=== PATIENT | female | born 1990 | race Caucasian/White ===

== ENCOUNTER 2017-08-17 14:03 | Emergency (ER) | payer OTHER ==
[2017-08-17] MEDS ORDERED: diphenhydrAMINE 50 MG/ML 1 ML VIAL IVP STA (15:40)
[2017-08-17] MEDS ORDERED: METOCLOPRAMIDE 5 MG/ML 2 ML VIAL IVP STA (15:40)
[2017-08-17] MEDS ORDERED: SODIUM CHLORIDE 0.9% 1,000 ML IV STA (15:40)
[2017-08-17] MEDS ORDERED: ACETAMINOPHEN TAB 500 MG TAB PO STA (15:40)
--- NOTE | 2017-08-17 15:44 | ED ---
General Adult HPI - General Chief complaint: Headache Stated complaint: Headache Time Seen by Provider: 08/17/17 15:31 Source: patient, RN notes reviewed Mode of arrival: ambulatory Limitations: no limitations - History of Present Illness Initial comments: 26-year-old female presents with chief complaint of headache. Symptoms have been present for approximately 3 days. She was seen at urgent care on Sunday , given Toradol and Benadryl. She states her headache was resolved on and then returned today. She took a Toradol this morning with minimal relief. At the time my evaluation patient still has her headache. This is typical of her headaches over the past several months. She was planning on following up with neurology. Denies any injury. Denies fever or chills. She does complain of some right-sided neck pain. Headache is described as bandlike sensation from the front to the back of her head. No family history of aneurysms. Patient's mother does have migraines. No fever or chills. Mild photophobia. No vomiting. - Related Data Home Medications Medication Instructions Recorded Confirmed Ibuprofen [Motrin] 200 - 400 mg PO Q6HR PRN 08/17/17 08/17/17 Ketorolac [Toradol] 10 mg PO Q6HR PRN 08/17/17 08/17/17 Ondansetron Odt [Zofran Odt] 4 mg PO Q8HR PRN 08/17/17 08/17/17 Previous Rx's Medication Instructions Recorded Sulfamethox-Tmp 800-160Mg [Bactrim 1 tab PO Q12HR #28 tab 08/17/17 DS 800-160 mg] Allergies Allergy/AdvReac Type Severity Reaction Status Date / Time silver Allergy Rash/Hives Verified 08/17/17 16:05 [From Tegaderm AG Mesh] Review of Systems ROS Statement: Those systems with pertinent positive or pertinent negative responses have been documented in the HPI. ROS Other: All systems not noted in ROS Statement are negative. Past Medical History Past Medical History: No Reported History History of Any Multi-Drug Resistant Organisms: None Reported Additional Past Surgical History / Comment(s): urethral surgery at 7months old. skull fracture at age 9 Past Psychological History: Anxiety, Depression Smoking Status: Never smoker Past Alcohol Use History: Rare Past Drug Use History: None Reported General Exam Limitations: no limitations General appearance: alert, in no apparent distress Head exam: Present: atraumatic, normocephalic Eye exam: Present: normal appearance, PERRL ENT exam: Present: normal exam Neck exam: Present: normal inspection. Absent: tenderness, meningismus Respiratory exam: Present: normal lung sounds bilaterally. Absent: respiratory distress Cardiovascular Exam: Present: regular rate, normal rhythm GI/Abdominal exam: Present: soft. Absent: distended, tenderness Extremities exam: Present: normal inspection, full ROM. Absent: normal capillary refill Neurological exam: Present: alert, oriented X3, CN II-XII intact. Absent: motor sensory deficit Psychiatric exam: Present: normal affect, normal mood Skin exam: Present: warm, dry, intact Course Vital Signs 08/17/17 14:08 Temperature 97.5 F L Pulse Rate 92 Respiratory 18 Rate Blood Pressure 149/84 O2 Sat by Pulse 99 Oximetry Medical Decision Making - Medical Decision Making 26-year-old female presenting with chief complaint of headache which is typical of her chronic headaches. Neurologic examination is nonfocal. Patient is overall well-appearing. Laboratory studies reveal mild elevated white blood cell count 12.9, creatinine 1.44 with no known baseline. Patient does admit to decreased by mouth intake over the last 24 hours. Urinalysis shows 2+ protein, positive nitrate, 10 RBCs , 4 WBCs and many bacteria. Urine culture will be obtained. On reevaluation, patient is feeling much better, headache resolved. Depakote studies are discussed with the patient including the creatinine, kidney function , and urinalysis. Patient will follow-up with her primary care physician for repeat laboratory studies. Return to emergency department with worsening symptoms. Diagnosis: Headache, UTI - Lab Data Result diagrams: 08/17/17 16:10 08/17/17 16:10 Lab Results 08/17/17 08/17/17 08/17/17 Range/Units 16:10 16:10 17:10 WBC 12.9 H (3.8-10.6) k/uL RBC 4.54 (3.80-5.40) m/uL Hgb 12.6 (11.4-16.0) gm/dL Hct 38.9 (34.0-46.0) % MCV 85.6 (80.0-100.0) fL MCH 27.7 (25.0-35.0) pg MCHC 32.4 (31.0-37.0) g/dL RDW 13.0 (11.5-15.5) % Plt Count 413 (150-450) k/uL Neutrophils % 73 % Lymphocytes % 18 % Monocytes % 5 % Eosinophils % 3 % Basophils % 0 % Neutrophils # 9.3 H (1.3-7.7) k/uL Lymphocytes # 2.3 (1.0-4.8) k/uL Monocytes # 0.6 (0-1.0) k/uL Eosinophils # 0.3 (0-0.7) k/uL Basophils # 0.1 (0-0.2) k/uL Sodium 141 (137-145) mmol/L Potassium 4.8 (3.5-5.1) mmol/L Chloride 111 H (98-107) mmol/L Carbon Dioxide 22 (22-30) mmol/L Anion Gap 8 mmol/L BUN 26 H (7-17) mg/dL Creatinine 1.44 H (0.52-1.04) mg/dL Est GFR (MDRD) Af Amer 54 (>60 ml/min/1.73 sqM) Est GFR (MDRD) Non-Af 45 (>60 ml/min/1.73 sqM) Glucose 80 (74-99) mg/dL Calcium 9.4 (8.4-10.2) mg/dL Total Bilirubin 0.5 (0.2-1.3) mg/dL AST 21 (14-36) U/L ALT 32 (9-52) U/L Alkaline Phosphatase 92 (38-126) U/L Total Protein 7.0 (6.3-8.2) g/dL Albumin 3.6 (3.5-5.0) g/dL Urine Color Yellow Urine Appearance Cloudy H (Clear) Urine pH 5.5 (5.0-8.0) Ur Specific Mobile 1.016 (1.001-1.035) Urine Protein 2+ H (Negative) Urine Glucose (UA) Negative (Negative) Urine Ketones Negative (Negative) Urine Blood Moderate H (Negative) Urine Nitrite Positive H (Negative) Urine Bilirubin Negative (Negative) Urine Urobilinogen <2.0 (<2.0) mg/dL Ur Leukocyte Esterase Negative (Negative) Urine RBC 10 H (0-5) /hpf Urine WBC 4 (0-5) /hpf Ur Squamous Epith Cells 6 H (0-4) /hpf Amorphous Sediment Rare H (None) /hpf Urine Bacteria Many H (None) /hpf Hyaline Casts 1 (0-2) /lpf Urine Yeast (Budding) Occasional H (None) /hpf Urine HCG, Qual (Not Detectd) 08/17/17 Range/Units 17:10 WBC (3.8-10.6) k/uL RBC (3.80-5.40) m/uL Hgb (11.4-16.0) gm/dL Hct (34.0-46.0) % MCV (80.0-100.0) fL MCH (25.0-35.0) pg MCHC (31.0-37.0) g/dL RDW (11.5-15.5) % Plt Count (150-450) k/uL Neutrophils % % Lymphocytes % % Monocytes % % Eosinophils % % Basophils % % Neutrophils # (1.3-7.7) k/uL Lymphocytes # (1.0-4.8) k/uL Monocytes # (0-1.0) k/uL Eosinophils # (0-0.7) k/uL Basophils # (0-0.2) k/uL Sodium (137-145) mmol/L Potassium (3.5-5.1) mmol/L Chloride (98-107) mmol/L Carbon Dioxide (22-30) mmol/L Anion Gap mmol/L BUN (7-17) mg/dL Creatinine (0.52-1.04) mg/dL Est GFR (MDRD) Af Amer (>60 ml/min/1.73 sqM) Est GFR (MDRD) Non-Af (>60 ml/min/1.73 sqM) Glucose (74-99) mg/dL Calcium (8.4-10.2) mg/dL Total Bilirubin (0.2-1.3) mg/dL AST (14-36) U/L ALT (9-52) U/L Alkaline Phosphatase (38-126) U/L Total Protein (6.3-8.2) g/dL Albumin (3.5-5.0) g/dL Urine Color Urine Appearance (Clear) Urine pH (5.0-8.0) Ur Specific Mobile (1.001-1.035) Urine Protein (Negative) Urine Glucose (UA) (Negative) Urine Ketones (Negative) Urine Blood (Negative) Urine Nitrite (Negative) Urine Bilirubin (Negative) Urine Urobilinogen (<2.0) mg/dL Ur Leukocyte Esterase (Negative) Urine RBC (0-5) /hpf Urine WBC (0-5) /hpf Ur Squamous Epith Cells (0-4) /hpf Amorphous Sediment (None) /hpf Urine Bacteria (None) /hpf Hyaline Casts (0-2) /lpf Urine Yeast (Budding) (None) /hpf Urine HCG, Qual Not Detected (Not Detectd) Disposition Clinical Impression: Headache, UTI (urinary tract infection) Disposition: HOME SELF-CARE Condition: Good Instructions: Acute Headache (ED), Dysuria (ED) Prescriptions: Sulfamethox-Tmp 800-160Mg [Bactrim DS 800-160 mg] 1 tab PO Q12HR #28 tab Referrals: Ramandeep Lopez MD [Primary Care Provider] - 1-2 days Time of Disposition: 17:50
[2017-08-17 16:27] LABS: Basophils # (A) 0.1 k/uL (0-0.2); Basophils % (A) 0 %; CH 27.7; CHCM 32.6; Eosinophils # (A) 0.3 k/uL (0-0.7); Eosinophils % (A) 3 %; HCT 38.9 % (34.0-46.0); HDW 2.24; HGB 12.6 gm/dL (11.4-16.0); Luc # (Auto) 0.23; Luc % (Auto) 2; Lymphocytes # (A) 2.3 k/uL (1.0-4.8); Lymphocytes % (A) 18 %; MCH 27.7 pg (25.0-35.0); MCHC 32.4 g/dL (31.0-37.0); MCV 85.6 fL (80.0-100.0); Monocytes # (A) 0.6 k/uL (0-1.0); Monocytes % (A) 5 %; Neutrophils # (A) 9.3 k/uL (1.3-7.7); Neutrophils % (A) 73 %; RBC 4.54 m/uL (3.80-5.40); WBC 12.9 k/uL (3.8-10.6); WBC (Perox) 12.54
[2017-08-17 16:34] LABS: Calcium 9.4 mg/dL (8.4-10.2); Potassium 4.8 mmol/L (3.5-5.1); Total Bilirubin 0.5 mg/dL (0.2-1.3)
[2017-08-17] MEDS ORDERED: SODIUM CHLORIDE 0.9% 1,000 ML IV ONE (16:59)
[2017-08-17 17:36] LABS: Amorphous Sediment,Urine Rare /hpf; Appearance,Urine Cloudy (Clear); Bacteria,Urine Many /hpf; Bilirubin,Urine Negative (Negative); Glucose,Urine (UA) Negative (Negative); Ketones,Urine Negative (Negative); Leukocyte Esterase,Urine Negative (Negative); Nitrite,Urine Positive (Negative); PH, Urine 5.5 (5.0-8.0); Particle Count 46120; Protein,Urine 2+ (Negative); RBC,Urine 10 /hpf (0-5); Specific Gravity,Urine 1.016 (1.001-1.035); Squamous Epithelial Cell,Urine 6 /hpf (0-4); UA Billing (MACRO vs. MICRO) MICRO; Urobilinogen,Urine <2.0 mg/dL (<2.0); WBC,Urine 4 /hpf (0-5)
[2017-08-17 18:10] VITALS: BP 163/93; PULSE 84; RESP 16; TEMP 97.4
== END 2017-08-17 18:10 | disposition home or self-care (01) ==
LOC: EC 14:03
DX: N39.0 Urinary tract infection, site not specified (principal); R51 Headache; M54.2 Cervicalgia; H53.149 Visual discomfort, unspecified; Z91.09 Other allergy status, other than to drugs and biological substances
CPT/HCPCS: 36415; 80053; 85025; 81001; 81025; 99284; 96374; 96375; 96361 ×2; J1200; J2765

== ENCOUNTER → 2017-10-04 | Outpatient (CLI) | payer OTHER ==
--- NOTE | 2017-10-04 15:22 | US ---
EXAMINATION TYPE: US kidneys/renal and bladder DATE OF EXAM: 10/04/2017 COMPARISON: NONE CLINICAL HISTORY: R03.0ELEVATED BLOOD PRESSURE/R82.90/R94.4. Abnormal labs EXAM MEASUREMENTS: Right Kidney: 9.5 x 4.9 x 4.2 cm Left Kidney: 9.1 x 4.0 x 4.5 cm Right Kidney: Medial anechoic lesion seen at hilum - 2.1 x 1.2 cm Left Kidney: Medial anechoic lesion seen at hilum - 1.8 x 1.2 cm Bladder: distended, wnl as visualized Bilateral Jets seen Technologist gibbs prominent renal pelvis on the right without significant calyceal dilatation seen. Bladder is satisfactorily distended without intraluminal mass or wall thickening. Similar prominent p paul on left is seen without significant calyceal dilatation. IMPRESSION: Suspect bilateral extrarenal pelvises. Renal sizes are symmetric and felt within normal limits.
== END | disposition home or self-care (01) ==
LOC: RADUSWWP 14:14
PROVIDERS: ATTEND Family Medicine
DX: R94.4 Abnormal results of kidney function studies (principal); R03.0 Elevated blood-pressure reading, without diagnosis of hypertension; R82.90 Unspecified abnormal findings in urine
CPT/HCPCS: 76770

== ENCOUNTER → 2017-10-12 | Outpatient (CLI) | payer OTHER ==
--- NOTE | 2017-10-12 20:02 | XR ---
EXAMINATION TYPE: XR cervical spine comp DATE OF EXAM: 10/12/2017 COMPARISON: NONE HISTORY: Neck pain TECHNIQUE: 5 views FINDINGS: The vertebra have normal alignment. Posterior elements are intact. Disc spaces are normal. Atlantoaxial facet joint is normal. There are no cervical ribs. IMPRESSION: Negative cervical spine exam.
--- NOTE | 2017-10-12 20:35 | MR ---
EXAMINATION TYPE: MR brain wo con DATE OF EXAM: 10/12/2017 COMPARISON: NONE HISTORY: Headache T1-weighted sagittal, T2, FLAIR, and diffusion axial, and T2 coronal coronal views of the brain are s ubmitted. There is no evidence of acute ischemia. The ventricles, basal cisterns, and sulci overlying the conv exities are consistent with the patient's age. There is no mass effect. Craniocervical junction maintained. Sella turcica has a normal appearance. Cerebellar tonsils are low-lying in position at the level the foramen magnum. Changes of chronic sinu sitis noted. White matter: No abnormal signal the visualized white matter. IMPRESSION: 1. No acute intracranial process. 2. Chronic sinusitis. 3. Low-lying cerebellar tonsils. Tonsils are seen at or approximately 1 to 2 mm below the foramen mag num.
== END | disposition home or self-care (01) ==
LOC: RADMRIMAIN 19:39
PROVIDERS: ATTEND Family Medicine
DX: R51 Headache (principal); S16.1XXA Strain of muscle, fascia and tendon at neck level, initial encounter; J32.9 Chronic sinusitis, unspecified
CPT/HCPCS: 70551; 72050

== ENCOUNTER → 2017-10-15 | Outpatient (CLI) | payer OTHER ==
--- NOTE | 2017-10-15 16:35 | CT ---
EXAMINATION TYPE: CT urogram wo/w con DATE OF EXAM: 10/15/2017 COMPARISON: NONE HISTORY: 26-year-old female abnormal kidney function results and lesions found on both kidneys, per p atient. TECHNIQUE: Contiguous axial scanning of the abdomen and pelvis performed without and with IV Contrast , patient injected with 100 mL of Omnipaque 300. Delayed images through the kidneys and bladder were obtained. Coronal/sagittal reconstructions performed. 3-D reconstructions generated on a dedicated in dependent workstation. CT DLP: 3249 mGycm Automated exposure control for dose reduction was used. FINDINGS: Heart normal size without pericardial effusion. Lung bases clear without pleural effusion. No focal liver lesion or biliary ductal dilatation. Portal vein is patent. Gallbladder, adrenal glands, spleen, and pancreas appear within normal limits. Evaluation of the kidneys shows a punctate 1 mm nonobstructive right mid pole renal calculus. No hydr onephrosis on either side. Symmetric uptake and excretion of contrast from both kidneys. No focal bambi al lesion. No suspicious filling defect within the collecting systems. There is nonopacification of short segments of the distal third right ureter. Otherwise, the ureters appear unremarkable. No dilated small bowel, free fluid, or free air. No mesenteric or retroperitoneal lymphadenopathy. Normal appendix. Mild scattered stool without pericolonic inflammatory change. Bladder is urine distended. Uterus and both ovaries are visualized with follicular change. No abnorma l fluid collection in the pelvis. A few prominent external iliac chain lymph nodes on either side maddie sure up to 8 mm and are probably reactive/post inflammatory. Bones: No osseous destructive process. Mild endplate spondylosis lower thoracic spine. IMPRESSION: 1. PUNCTATE 1 MM NONOBSTRUCTIVE RIGHT RENAL CALCULUS. 2. SHORT SEGMENTS OF THE DISTAL THIRD RIGHT URETER REMAIN NONOPACIFIED AND NOT WELL ASSESSED. 3. OTHERWISE, UNREMARKABLE CT UROGRAM.
== END | disposition home or self-care (01) ==
LOC: RADCTMAIN 14:57
PROVIDERS: ATTEND Family Medicine
DX: N20.0 Calculus of kidney (principal); N13.30 Unspecified hydronephrosis; N39.0 Urinary tract infection, site not specified; R94.4 Abnormal results of kidney function studies
CPT/HCPCS: 74178; 74400; Q9967

== ENCOUNTER 2024-01-30 07:40 | Day surgery (SDC) | payer MEDICARE, OTHER ==
[~2024-01-30 07:40] MED LIST: HYDROmorphone 0.5 MG/0.5 ML SYRINGE IVP PRN; LACTATED RINGERS 1,000 ML IV SCH
[2024-01-30] MEDS: SODIUM CHLORIDE 0.9% 1,000 ML IV ONE ×3 (07:49→11:13)
[2024-01-30] MEDS: DEXAMETHASONE SOD PHOSPHATE 4 MG/ML 1 ML VIAL IV ONE (08:29)
[2024-01-30] MEDS: ACETAMINOPHEN TAB 500 MG TAB PO PRN (08:29)
[2024-01-30] MEDS: ONDANSETRON 4 MG/2 ML VIAL IVP ONE (08:29)
[2024-01-30 08:41] LABS: Anisocytosis Slight; Basophils % (A) 0 %; Eosinophils # (A) 0.4 k/uL (0-0.7); Eosinophils % (A) 3 %; HCT 31.8 % (34.0-46.0); HGB 10.1 gm/dL (11.4-16.0); Lymphocytes # (A) 0.9 k/uL (1.0-4.8); Lymphocytes % (A) 7 %; MCH 28.8 pg (25.0-35.0); MCHC 31.8 g/dL (31.0-37.0); MCV 90.6 fL (80.0-100.0); Mean Platelet Volume 7.1; Monocytes # (A) 0.6 k/uL (0-1.0); Monocytes % (A) 4 %; Neutrophils # (A) 11.4 k/uL (1.3-7.7); Neutrophils % (A) 85 %; Platelet Count 238 k/uL (150-450); RBC 3.51 m/uL (3.80-5.40); RDW 16.1 % (11.5-15.5); WBC 13.4 k/uL (3.8-10.6)
[2024-01-30] MEDS: HEPARIN SODIUM,PORCINE 5,000 UNIT/ML 1 ML VIAL SQ PRN (08:51)
[2024-01-30 09:04] LABS: ALT 9 U/L (4-34); AST 21 U/L (14-36); Albumin 4.1 g/dL (3.5-5.0); Alkaline Phosphatase 137 U/L (38-126); Anion Gap 15 mmol/L; Blood Urea Nitrogen 70 mg/dL (7-17); Calcium 8.2 mg/dL (8.4-10.2); Carbon Dioxide 19 mmol/L (22-30); Chloride 101 mmol/L (98-107); Glucose 103 mg/dL (74-99); Potassium 5.7 mmol/L (3.5-5.1); Sodium 135 mmol/L (137-145); Total Bilirubin 0.8 mg/dL (0.2-1.3); Total Protein 7.1 g/dL (6.3-8.2)
[2024-01-30 09:10] LABS: African American GFR (CKD) 4 (>60 ml/min/1.73 sqM); Non-African American GFR(CKD) 3 (>60 ml/min/1.73 sqM)
[2024-01-30] MEDS ORDERED: ROCURONIUM 10 MG/ML (5 ML VIAL) IV ONE (09:45)
[2024-01-30] MEDS ORDERED: NEOSTIGMINE 1 MG/ML 10 ML VIAL ONE (09:45)
[2024-01-30] MEDS ORDERED: PROPOFOL 10 MG/ML 20 ML VIAL IV ONE (09:45)
[2024-01-30] MEDS ORDERED: GLYCOPYRROLATE 0.2 MG/ML 2 ML VIAL ONE (09:45)
[2024-01-30] MEDS ORDERED: fentaNYL (PF) 50 MCG/ML 2 ML AMP ONE (09:45)
[2024-01-30] MEDS ORDERED: MIDAZOLAM 2 MG/2 ML VIAL ONE (09:45)
[2024-01-30] MEDS ORDERED: LIDOCAINE 1% INJ 10MG/ML (20 ML MDV) ONE (09:45)
[2024-01-30] MEDS: LIDOCAINE 1%-EPI 1:100,000 20 ML VIAL SQ ONE ×2 (10:20)
[2024-01-30] MEDS: MINERAL OIL 1 APPLIC/ML OIL MISCELLANE ONE (10:21)
--- NOTE | 2024-01-30 11:04 | P.OP ---
Date of Procedure: 01/30/24 Preoperative Diagnosis: renal failure Postoperative Diagnosis: renal failure Procedure(s) Performed: laparoscopic placement of CAPD catheter Anesthesia: CHRISTINA Surgeon: Ascencion Garland Estimated Blood Loss (ml): 5 Pathology: none sent Condition: stable Disposition: PACU Description of Procedure: the patient's placed on tthe operating table in the supine position. She received general endotracheal tube anesthesia. Her abdomen was prepped and draped in usual sterile fashion. Using a 5 mm optical trocar in the left upper quadrant the peritoneal cavity is entered. And then the abdomen was insufflated. After adequate insufflation a 10 mm trochars placed in the infraumbilical position. There were no adhesions seen in the pelvis. A 5 mm incision was made in the left lateral periumbilical area. the CAPD catheter was placed into the peritoneum. It was directed towards the left lower quadrant. The 10 mm trochars withdrawn. The CAPD catheter Velcro cuff was placed at the fascial level. And then using a hemostat at the left lateral incision. A tract was made and then the CAPD catheter exited through the skin at the left lateral skin incision. There was a Velcro cuff at the fascial level and another Velcro cuff in the subcutaneous fat. The CAPD catheter was flushed under direct vision. 10 mL of saline was used to flush catheter. The 5 mm trochars withdrawn. The skin incision sites are closed with 3-0 Monocryl suture. The CAPD catheter was secured with 3-0 nylon suture. Patient was sent to recovery room in stable condition.
[2024-01-30 11:24] VITALS: TEMP 97.3
[2024-01-30 12:09] VITALS: BP 177/93; PULSE 90
[2024-01-30 12:10] VITALS: RESP 18
== END 2024-01-30 11:15 | disposition home or self-care (01) ==
LOC: OR 07:40
PROVIDERS: ATTEND Surgery
DX: N19 Unspecified kidney failure (principal); I10 Essential (primary) hypertension; F41.9 Anxiety disorder, unspecified; F32.A Depression, unspecified; M79.7 Fibromyalgia; G40.909 Epilepsy, unspecified, not intractable, without status epilepticus; Z79.899 Other long term (current) drug therapy
CPT/HCPCS: 81025; 80053; 85025; 49324; C1752; J2250; J1644; J1100; J2710; J0690; J2405; J2001; J3010; J2704

== ENCOUNTER 2024-04-17 20:42 | Inpatient (IN) | payer MEDICARE, OTHER ==
--- NOTE | 2024-04-17 22:04 | ED ---
Abdominal Pain HPI - General Chief Complaint: Abdominal Pain Stated Complaint: abd pain Time Seen by Provider: 04/17/24 21:28 Source: patient, RN notes reviewed, old records reviewed Mode of arrival: wheelchair Limitations: no limitations - History of Present Illness Initial Comments: This is a 33-year-old female to the ER for evaluation today. Patient [place] for evaluation of abdominal pain severe right lower quadrant abdominal pain, patient is on peritoneal dialysis but her catheter is in her left lower quadrant. Patient also with nausea vomiting severely elevated blood pressure and all otherwise not feeling well. Patient is on dialysis secondary to IgA nephropathy and is recently switched to peritoneal dialysis MD Complaint: abdominal pain, flank pain -: days(s) Location: RLQ Radiation: RLQ Migration to: RLQ Severity: severe Severity scale (1-10): 9 Quality: stabbing, sharp Consistency: constant Improves With: nothing Worsens With: nothing Associated Symptoms: nausea, vomiting Treatments Prior to Arrival: other (0) - Related Data Home Medications Medication Instructions Recorded Confirmed Ondansetron Odt [Zofran Odt] 4 mg PO Q8HR PRN 08/17/17 01/30/24 Ixekizumab [Taltz Syringe] 1 injection INJ BID 01/29/24 01/30/24 NIFEdipine [Adalat CC] 30 mg PO BID 01/29/24 01/30/24 PARoxetine [Paxil] 10 mg PO DAILY 01/29/24 01/30/24 Sevelamer Carbonate 4 tab PO TID-W/MEALS 01/29/24 01/30/24 carvediloL 25 mg PO BID 01/29/24 01/30/24 rOPINIRole HCL 2 tab PO DAILY 01/29/24 01/30/24 traZODone HCL [Desyrel] 50 mg PO HS 01/29/24 01/30/24 Previous Rx's Medication Instructions Recorded Acetaminophen Tab [Tylenol] 650 mg PO Q6H #30 tab 01/30/24 Docusate [Colace] 100 mg PO BID #20 capsule 01/30/24 oxyCODONE HCL [OxyIR] 5 mg PO Q6H PRN 3 Days #10 tab 01/30/24 Allergies Allergy/AdvReac Type Severity Reaction Status Date / Time amlodipine Allergy Rash/Hives Verified 04/17/24 20:58 silver Allergy Rash/Hives Verified 04/17/24 20:58 [From [employer] Mesh] Review of Systems ROS Statement: Those systems with pertinent positive or pertinent negative responses have been documented in the HPI. ROS Other: All systems not noted in ROS Statement are negative. Past Medical History Past Medical History: Hypertension, Renal Disease, Seizure Disorder Additional Past Medical History / Comment(s): dailysis TU<TH<SA, seizure 2 yrs ago,possibly has had dvt in past, History of Any Multi-Drug Resistant Organisms: None Reported Additional Past Surgical History / Comment(s): urethral surgery at 9months old. skull fracture at age 9, back injections Past Anesthesia/Blood Transfusion Reactions: No Reported Reaction Past Psychological History: Anxiety, Depression Past Alcohol Use History: Rare Past Drug Use History: Marijuana - Past Family History Mother Family Medical History: Cancer Additional Family Medical History / Comment(s): ovarian, cervical General Exam Limitations: no limitations General appearance: alert, in no apparent distress, anxious Head exam: Present: atraumatic, normocephalic, normal inspection Eye exam: Present: normal appearance, PERRL, EOMI. Absent: scleral icterus, conjunctival injection, periorbital swelling ENT exam: Present: normal exam, mucous membranes moist Neck exam: Present: normal inspection. Absent: tenderness, meningismus, lymphadenopathy Respiratory exam: Present: normal lung sounds bilaterally. Absent: respiratory distress, wheezes, rales, rhonchi, stridor Cardiovascular Exam: Present: normal rhythm, tachycardia, normal heart sounds. Absent: systolic murmur, diastolic murmur, rubs, gallop, clicks GI/Abdominal exam: Present: soft, normal bowel sounds. Absent: distended, tenderness, guarding, rebound, rigid Extremities exam: Present: normal inspection, full ROM, normal capillary refill. Absent: tenderness, pedal edema, joint swelling, calf tenderness Back exam: Present: normal inspection Neurological exam: Present: alert, oriented X3, CN II-XII intact Psychiatric exam: Present: normal affect, normal mood Skin exam: Present: warm, dry, intact, normal color. Absent: rash Course Vital Signs 04/17/24 04/17/24 04/17/24 20:53 21:44 23:11 Temperature 97.3 F L Pulse Rate 117 H 108 H 98 Respiratory 22 18 18 Rate Blood Pressure 164/93 187/124 211/125 O2 Sat by Pulse 100 100 100 Oximetry 07/25/24 07/26/24 07/26/24 23:52 00:23 02:01 Temperature Pulse Rate 99 103 H 103 H Respiratory 16 18 16 Rate Blood Pressure 200/121 193/126 202/129 O2 Sat by Pulse 99 99 99 Oximetry 04/18/24 02:58 Temperature Pulse Rate 99 Respiratory Rate Blood Pressure 181/112 O2 Sat by Pulse Oximetry - Reevaluation(s) Reevaluation #1: 04/17/24 22:09 Medical records reviewed Reevaluation #2: 04/17/24 22:09 Patient states her diastole has not been cloudy Reevaluation #3: 04/18/24 03:27 Informed of results questions answered Reevaluation #4: Was pt. sent in by a medical professional or institution ([facility], [facility], urgent care, hospital, or senior living...) When possible be specific @ -no Did you speak to anyone other than the patient for history (EMS, parent, family, police, friend...)? What history was obtained from this source @ -no Did you review nursing and triage notes (agree or disagree)? Why? @ -agree Are old charts reviewed (outside hosp., previous admission, EMS record, old EKG, old radiological studies, urgent care reports/EKG's, senior living records)? Report findings @ -yes Differential Diagnosis (chest pain, altered mental status, abdominal pain women, abdominal pain men, vaginal bleeding, weakness, fever, dyspnea, syncope, headache, dizziness, GI bleed, back pain, seizure, CVA, palpatations, mental health, musculoskeletal)? @ -prior EKG interpreted by me (3pts min.). @ -yes X-rays interpreted by me (1pt min.). @ -no CT interpreted by me (1pt min.). @ -yes negative for acute disease U/S interpreted by me (1pt. min.). @ -no What testing was considered but not performed or refused? (CT, X-rays, U/S, labs)? Why? @ -none What meds were considered but not given or refused? Why? @ -none Did you discuss the management of the patient with other professionals (professionals i.e. [facility], [facility], lab, RT, psych nurse, social organization professor, supervisor paint, teacher, human resources officer, rn case manager)? Give summary @ -no Was smoking cessation discussed for >3mins.? @ -no Was critical care preformed (if so, how long)? @ -no Were there social determinants of health that impacted care today? How? (Homelessness, low income, unemployed, alcoholism, drug addiction, transportation, low edu. Level, literacy, decrease access to med. care, alf, rehab)? @ -none Was there de-escalation of care discussed even if they declined (Discuss DNR or withdrawal of care, Hospice)? DNR status @ -no What co-morbidities impacted this encounter? (DM, HTN, Smoking, COPD, CAD, Cancer, CVA, ARF, Chemo, Hep., AIDS, mental health diagnosis, sleep apnea, morbid obesity)? @ -none Was patient admitted / discharged? Hospital course, mention meds given and route, prescriptions, significant lab abnormalities, going to OR and other pertinent info. @ - 33 female to the ER for evaluation of severe abdominal pain found to have significant hyperkalemia on dialysis, patient will admit for nephrology evaluation and severe pain control with hypertensive emergency Undiagnosed new problem with uncertain prognosis? @ -no Drug Therapy requiring intensive monitoring for toxicity (Heparin, Nitro, Insulin, Cardizem)? @ -no Were any procedures done? @ -no Diagnosis/symptom? @ -hyperkalemia renal failure hypertensive emergency Acute, or Chronic, or Acute on Chronic? @ -Acute Uncomplicated (without systemic symptoms) or Complicated (systemic symptoms)? @ -Complicated Side effects of treatment? @ -no Exacerbation, Progression, or Severe Exacerbation? @ -exacerbation Poses a threat to life or bodily function? How? (Chest pain, [place], [place], pneumonia, PE, COPD, DKA, ARF, appy, cholecystitis, CVA, Diverticulitis, Homicidal, Suicidal, threat to staff... and all critical care pts) @ -yes hyperkalemia Reevaluation #5: Differential Abdominal Pain Women: Appendicitis, Cholecystitis, diverticulosis, ischemic bowel, pancreatitis, hepatitis, UTI, gastroenteritis, AAA, incarcerated hernia, bowel obstruction, constipation, inflammatory bowel, hepatitis, peptic ulcer disease, splenic infarction, perforated viscus, vulvitis, ovarian torsion, PID, kidney stone, placenta abruption, this is not meant to be an all-inclusive list - Consultations Consultation #1: Spoke with sound who agrees to admit this patient Medical Decision Making - Medical Decision Making 33 female to the ER for evaluation of severe abdominal pain found to have significant hyperkalemia on dialysis, patient will admit for nephrology evaluation and severe pain control with hypertensive emergency - Lab Data Result diagrams: 04/17/24 22:16 04/17/24 22:16 Lab Results 04/17/24 04/17/24 04/17/24 Range/Units 22:16 22:16 22:16 WBC 10.7 H (3.8-10.6) k/uL RBC 3.68 L (3.80-5.40) m/uL Hgb 10.0 L (11.4-16.0) gm/dL Hct 31.1 L (34.0-46.0) % MCV 84.4 (80.0-100.0) fL MCH 27.1 (25.0-35.0) pg MCHC 32.1 (31.0-37.0) g/dL RDW 15.1 (11.5-15.5) % Plt Count 275 (150-450) k/uL MPV 6.9 Neutrophils % 71 % Lymphocytes % 14 % Monocytes % 8 % Eosinophils % 4 % Basophils % 1 % Neutrophils # 7.6 (1.3-7.7) k/uL Lymphocytes # 1.5 (1.0-4.8) k/uL Monocytes # 0.9 (0-1.0) k/uL Eosinophils # 0.4 (0-0.7) k/uL Basophils # 0.1 (0-0.2) k/uL PT 10.1 (10.0-12.5) sec INR 0.9 (<1.2) APTT 26.1 (22.0-30.0) sec Sodium 134 L (137-145) mmol/L Potassium 6.3 H* (3.5-5.1) mmol/L Chloride 91 L (98-107) mmol/L Carbon Dioxide 26 (22-30) mmol/L Anion Gap 17 mmol/L BUN 82 H (7-17) mg/dL Creatinine 14.74 H* (0.52-1.04) mg/dL Est GFR (CKD-EPI)AfAm 3 (>60 ml/min/1.73 sqM) Est GFR (CKD-EPI)NonAf 3 (>60 ml/min/1.73 sqM) Glucose 93 (74-99) mg/dL Plasma Lactic Acid Fred (0.7-2.0) mmol/L Calcium 9.2 (8.4-10.2) mg/dL Phosphorus 8.4 H (2.5-4.5) mg/dL Magnesium 2.8 H (1.6-2.3) mg/dL Total Bilirubin 0.6 (0.2-1.3) mg/dL AST 20 (14-36) U/L ALT 11 (4-34) U/L Alkaline Phosphatase 91 (38-126) U/L Troponin I (0.000-0.034) ng/mL C-Reactive Protein 2.8 H (<1.0) mg/dL NT-Pro-B Natriuret Pep 19457 pg/mL Total Protein 6.5 (6.3-8.2) g/dL Albumin 3.6 (3.5-5.0) g/dL Lipase 193 (23-300) U/L HCG, Qual Not Detected 04/17/24 04/17/24 Range/Units 22:16 22:16 WBC (3.8-10.6) k/uL RBC (3.80-5.40) m/uL Hgb (11.4-16.0) gm/dL Hct (34.0-46.0) % MCV (80.0-100.0) fL MCH (25.0-35.0) pg MCHC (31.0-37.0) g/dL RDW (11.5-15.5) % Plt Count (150-450) k/uL MPV Neutrophils % % Lymphocytes % % Monocytes % % Eosinophils % % Basophils % % Neutrophils # (1.3-7.7) k/uL Lymphocytes # (1.0-4.8) k/uL Monocytes # (0-1.0) k/uL Eosinophils # (0-0.7) k/uL Basophils # (0-0.2) k/uL PT (10.0-12.5) sec INR (<1.2) APTT (22.0-30.0) sec Sodium (137-145) mmol/L Potassium (3.5-5.1) mmol/L Chloride (98-107) mmol/L Carbon Dioxide (22-30) mmol/L Anion Gap mmol/L BUN (7-17) mg/dL Creatinine (0.52-1.04) mg/dL Est GFR (CKD-EPI)AfAm (>60 ml/min/1.73 sqM) Est GFR (CKD-EPI)NonAf (>60 ml/min/1.73 sqM) Glucose (74-99) mg/dL Plasma Lactic Acid Fred 1.0 (0.7-2.0) mmol/L Calcium (8.4-10.2) mg/dL Phosphorus (2.5-4.5) mg/dL Magnesium (1.6-2.3) mg/dL Total Bilirubin (0.2-1.3) mg/dL AST (14-36) U/L ALT (4-34) U/L Alkaline Phosphatase (38-126) U/L Troponin I 0.064 H* (0.000-0.034) ng/mL C-Reactive Protein (<1.0) mg/dL NT-Pro-B Natriuret Pep pg/mL Total Protein (6.3-8.2) g/dL Albumin (3.5-5.0) g/dL Lipase (23-300) U/L HCG, Qual - EKG Data -: EKG Interpreted by Me (EKG is sinus 98 PA 132 QRS 90 QTc 399) - Radiology Data Radiology results: report reviewed (CT abdomen pelvis is negative for acute disease), image reviewed Disposition Clinical Impression: Abdominal pain, Hyperkalemia, CKD (chronic kidney disease) requiring chronic dialysis, Hypertensive emergency Disposition: ADMITTED IP TO THIS HOSP Condition: Serious Is patient prescribed a controlled substance at d/c from ED?: No Time of Disposition: 01:00
[2024-04-17] MEDS: MORPHINE SULFATE 4 MG/ML SYRINGE IV STA (22:18)
[2024-04-17] MEDS: ONDANSETRON 4 MG/2 ML VIAL IVP STA (22:19)
[2024-04-17] MEDS: SODIUM CHLORIDE 0.9% 500 ML 500 ML IV STA (22:20)
[2024-04-17] MEDS: carvediloL 12.5 MG TAB PO STA (22:20)
[2024-04-17 22:28] LABS: Basophils # (A) 0.1 k/uL (0-0.2); Basophils % (A) 1 %; Eosinophils # (A) 0.4 k/uL (0-0.7); Eosinophils % (A) 4 %; HCT 31.1 % (34.0-46.0); Lymphocytes # (A) 1.5 k/uL (1.0-4.8); Lymphocytes % (A) 14 %; MCH 27.1 pg (25.0-35.0); MCHC 32.1 g/dL (31.0-37.0); MCV 84.4 fL (80.0-100.0); Mean Platelet Volume 6.9; Monocytes # (A) 0.9 k/uL (0-1.0); Monocytes % (A) 8 %; Neutrophils # (A) 7.6 k/uL (1.3-7.7); Neutrophils % (A) 71 %; Platelet Count 275 k/uL (150-450); RBC 3.68 m/uL (3.80-5.40); RDW 15.1 % (11.5-15.5); WBC 10.7 k/uL (3.8-10.6)
[2024-04-17] MEDS: NIFEdipine XL 30 MG TAB.ER.24 PO SCH (22:35)
[2024-04-17 22:41] LABS: ALT 11 U/L (4-34); AST 20 U/L (14-36); Albumin 3.6 g/dL (3.5-5.0); Alkaline Phosphatase 91 U/L (38-126); Anion Gap 17 mmol/L; Blood Urea Nitrogen 82 mg/dL (7-17); Calcium 9.2 mg/dL (8.4-10.2); Carbon Dioxide 26 mmol/L (22-30); Chloride 91 mmol/L (98-107); Glucose 93 mg/dL (74-99); Lipase 193 U/L (23-300); Magnesium 2.8 mg/dL (1.6-2.3); Phosphorus 8.4 mg/dL (2.5-4.5); Sodium 134 mmol/L (137-145); Total Bilirubin 0.6 mg/dL (0.2-1.3); Total Protein 6.5 g/dL (6.3-8.2)
[2024-04-17 22:46] LABS: African American GFR (CKD) 3 (>60 ml/min/1.73 sqM); Non-African American GFR(CKD) 3 (>60 ml/min/1.73 sqM)
[2024-04-17 22:58] LABS: INR 0.9 (<1.2); Partial Thromboplastin Time 26.1 sec (22.0-30.0); Prothrombin Time 10.1 sec (10.0-12.5)
[2024-04-17 23:06] LABS: NT-Pro-B-Type Natriuretic Pept 65600 pg/mL; Potassium 6.3 mmol/L (3.5-5.1)
[2024-04-17 23:19] LABS: HCG,Qualitative Serum Not Detected
[2024-04-17] MEDS: LABETALOL 5 MG/ML VIAL MDV IVP STA (23:19)
--- NOTE | 2024-04-17 23:20 | CT ---
EXAMINATION TYPE: CT abdomen pelvis wo con CT DLP: 396.8 mGycm, Automated exposure control for dose reduction was used. DATE OF EXAM: 04/17/2024 9:57 PM COMPARISON: CT urogram 10/15/2017 CLINICAL INDICATION:Female, 33 years old with history of pain; c/o abd/back pain +nausea. History of urethral surgery. TECHNIQUE: Axial CT abdomen pelvis wo con;Sagittal and coronal reformats were created on a separate workstation. Contrast used: mL of , (none if empty) Oral contrast used: without Oral Contrast (none if empty) FINDINGS: LOWER CHEST: Unremarkable ABDOMEN LIVER: Unremarkable GALLBLADDER AND BILE DUCTS: The gallbladder is nondistended with no gross abnormality. No biliary charan di dilatation. PANCREAS: Unremarkable. SPLEEN: Unremarkable. ADRENAL GLANDS: Poorly visualized. KIDNEYS AND URETERS: Severely atrophic kidneys bilaterally and poorly visualized. No gross other asso ciated abnormality appreciated. PELVIS BLADDER: Incompletely distended but grossly unremarkable. REPRODUCTIVE: Suggested uterine fibroids with some calcifications however there is poor visualization of the pelvic structures given the lack of contrast and pelvis pelvic fat. ABDOMEN & PELVIS STOMACH AND BOWEL: Stomach is grossly unremarkable. The small bowel is of normal caliber. No evidence of bowel obstruction. PERITONEUM/RETROPERITONEUM: No evidence of pneumoperitoneum. Trace ascites is seen within the abdomen and pelvis. Peritoneal drain is seen terminating within the mid pelvis. VASCULATURE: No evidence of aortic aneurysm. MUSCULOSKELETAL: No acute osseous abnormalities. Sclerotic changes of the visualized osseous structur es likely related to renal osteodystrophy. LYMPH NODES: Multiple mildly prominent lymph nodes are seen scattered throughout the abdomen. There i s limited evaluation for lymphadenopathy given the lack of contrast and positive intra-abdominal fat. . SOFT TISSUE/ABDOMINAL WALL: Mild soft tissue edema. IMPRESSION: 1. No gross evidence for acute intra-abdominal/pelvic process on this limited evaluation. 2. Peritoneal drain is seen terminating within the mid pelvis. 3. Severe atrophic bilateral kidneys. 4. Fibroid uterus is suggested. Correlate with any known history
[2024-04-17] MEDS: HYDROmorphone 1 MG/ML 1 ML SYRINGE IVP STA (23:23)
[2024-04-17 23:40] LABS: C Reactive Protein 2.8 mg/dL (<1.0)
[2024-04-17] MEDS ORDERED: NALOXONE 0.4 MG/ML 1 ML VIAL IV PRN (23:52)
[2024-04-18] MEDS: DEXTROSE 50% SYRINGE 50 ML IVP STA (01:57)
[2024-04-18] MEDS: SODIUM BICARB 8.4% 50 ML SYR (1 MEQ/ML) IV STA (01:58)
[2024-04-18] MEDS: SODIUM ZIRCONIUM CYCLOSILICATE 10 GM PACKET PO ONE (02:05)
[2024-04-18] MEDS: HYDROmorphone 1 MG/ML 1 ML SYRINGE IVP STA (02:13)
[2024-04-18] MEDS: ENALAPRILAT 1.25 MG/ML 1 ML VIAL IVP STA (02:16)
[2024-04-18] MEDS: LABETALOL 5 MG/ML VIAL MDV IVP STA (03:12)
[2024-04-18] MEDS: SODIUM CHLORIDE 0.9% 1,000 ML IV SCH (03:15)
[2024-04-18] MEDS: HYDROmorphone 1 MG/ML 1 ML SYRINGE IVP PRN (05:06)
[2024-04-18] MEDS: DIALYSIS (PERIT 2.5%) 2,500 ML 62.5 G/2,500 ML BAG INTRAPERIT SCH (05:19)
--- NOTE | 2024-04-18 05:21 | P.HPIM ---
History of Present Illness H&P Date: 04/18/24 Chief Complaint: Abdominal pain Patient is a 33-year-old patient with ESRD secondary to IgA nephropathy on peritoneal dialysis (nightly) presents to the ER with sudden onset mid lower abdominal pain. Patient was at home taking nap when she felt sharp, 8 out of 10, nonradiating lower abdominal pain which woke her up. It was associated with nausea and multiple nonbloody episodes of vomiting. Patient reports no alleviating or exacerbating factors. She was also feeling tingling sensation in her hands and feet. Patient stated that she has been experiencing intermittent mild left lower quadrant pain since 3 weeks associated with diarrhea, fever, chills, lethargy and generalized weakness. Patient denies bloody or black stools. Patient denies urgency, frequency, hematuria or burning pain upon urination. Patient stated that she switched to peritoneal dialysis with catheter in the left lower quadrant about 2 months ago and runs it every night. Previously, she was on hemodialysis for 3 years scheduled for 3 times a week. 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 Carvalho on a regular basis. She denies any pain in left lower quadrant of the abdomen. Denies any leakage, blood or pus. Patient also stated that she has history of seizure in December 2022 was related to electrolyte abnormality secondary to ESRD. She is not on any antiseizure medication and follows up with neurologist. Otherwise, patient denies shortness of breath, chest pain, swelling of the leg, numbness or weakness in upper or lower extremities. denies any cloudy fluid or bleeding from the peritoneal catheter EKG done in the ER shows normal sinus rhythm with a heart rate of 82 bpm. MA interval 132 ms, not prolonged. QTc 3 9 9 ms, not prolonged. No ST or T wave changes noted. CT abdomen/pelvis shows no gross evidence of acute intra-abdominal/pelvic process. Peritoneal drainage is in mid pelvis. Vitals: Blood pressure: 193/126 --> 202/129 --> 181/112--> 187/112 --> 177/101 Respiration rate 97, heart rate 97, O2 saturation 99% on room air Review of systems: Pertinent positives and negatives as discussed in HPI, a complete review of systems was performed and all other systems are negative. Social history: Tobacco: Marijuana Alcohol: None Recreational drugs: None Travel: None Occupation: Employed Family History: Nonsignificant Physical examination: Vital signs reviewed General: non toxic, no distress, appears at older than stated age, Obese Derm: no unusual rashes/lesions, warm, AV graft with thrill on right lateral wrist Head: atraumatic, normocephalic, symmetric Eyes: EOMI, no lid lag, anicteric sclera, pupils equal round reactive to light Mouth: no lip lesion, mucus membranes moist Cardiovascular: S1S2 reg, no murmur, positive dorsalis pedis pulse bilateral, no edema Lungs: CTA bilateral, no rhonchi, no rales, no accessory muscle use Abdominal: soft, mild lower abdominal tenderness upon palpation, PD catheter is in place in left lower quadrant with no surrounding erythema and no bleed, no guarding, Ext: muscle strength 5 out of 5 in all 4 extremities grossly, no gross muscle atrophy, no contractures, Neuro: CN II-XI grossly intact, no gross focal neuro deficits Psych: Alert, oriented, appropriate affect Assessment/Plan: 33-year-old patient with a history of ESRD secondary to IgA nephropathy on peritoneal dialysis (nightly) presents to the ER with sudden onset mid lower abdominal pain. #Abdominal pain WBC 10.7 with neutrophil count of 7.6 CT abdomen/pelvis shows no gross evidence of acute intra-abdominal/pelvic process Pain control with Dilaudid 1 mg IVP every 3 hours as needed Continue with Zofran 4 mg IVP every 8 hour as needed for nausea and vomiting SIRS: 1 points tachycardia Blood cultures ordered #Hypertension malignant Blood pressure: 193/126 --> 202/129 --> 181/112--> 187/112 --> 177/101 Goal of 10-20% reduction of MAP in first hour, and then 5-15% further in next 23 hours Continue with nifedipine 30 mg p.o. tid and carvedilol 25 mg p.o. twice daily Continue monitor blood pressure #ESRD secondary to IgA nephropathy BUN 82, creatinine 14.[address] Carvalho for dialysis orders #Hyperkalemia secondary to ESRD Sodium 134, potassium 6.3, chloride 91, bicarb 26 EKG done in the ER shows normal sinus rhythm with a heart rate of 82 bpm. MA interval 132 ms, not prolonged. QTc 399 ms, not prolonged. No ST or T wave changes noted Continue monitor potassium levels, if K> 6.5 with EKG changes or rapidly increasing K, then give regular insulin 10 units IV x 1 with 1 amp of D50 glucose Continue monitor sodium levels nephrology to start Peritoneal dialysis now #Hypermagnesemia secondary to ESRD Magnesium 2.8, phosphorus 8.4 Continue monitor mag and Phos levels #Elevated troponin level 0.064--> 0.072, at this point is flat . patient known ESRD which can cause chronic elevation of trops, we dont have baseline at this time , patient is chest pain free Continue monitor troponin levels Patient denies chest pain EKG unremarkable , no acute ST changes #Normocytic anemia secondary to ESRD RBC 3.62, hemoglobin 10.0, hematocrit 31.1 Continue monitor hemoglobin levels, if less than 7 consider transfusion No active bleeding Resume home medications: Lasix 80 mg p.o. twice daily, sevelamer carbonate 800 mg 4 tab p.o. 3 times daily, Paxil 10 mg p.o. daily, Cinacalcet 60 mg p.o. as directed, calcium acetate 667 mg p.o. AC3 times daily DVT prophylaxis:scds The patient is admitted with an anticipated greater than 2 midnight stay for evaluation of ESRD CODE STATUS: Full code Discussed with: Patient Anticipated discharge place: Home Past Medical History Past Medical History: Hypertension, Renal Disease, Seizure Disorder Additional Past Medical History / Comment(s): dailysis TU<TH<SA, seizure 2 yrs ago,possibly has had dvt in past, History of Any Multi-Drug Resistant Organisms: None Reported Additional Past Surgical History / Comment(s): urethral surgery at 9months old. skull fracture at age 9, back injections Past Anesthesia/Blood Transfusion Reactions: No Reported Reaction Past Psychological History: Anxiety, Depression Past Alcohol Use History: Rare Past Drug Use History: Marijuana - Past Family History Mother Family Medical History: Cancer Additional Family Medical History / Comment(s): ovarian, cervical Medications and Allergies Home Medications Medication Instructions Recorded Confirmed Type Ondansetron Odt [Zofran Odt] 4 mg PO Q8HR PRN 08/17/17 04/18/24 History Ixekizumab [Taltz Syringe] 1 injection INJ BID 01/29/24 04/18/24 History NIFEdipine [Adalat CC] 30 mg PO TID 01/29/24 04/18/24 History PARoxetine [Paxil] 10 mg PO DAILY 01/29/24 04/18/24 History Sevelamer Carbonate 4 tab PO TID-W/MEALS 01/29/24 04/18/24 History carvediloL 25 mg PO BID 01/29/24 04/18/24 History rOPINIRole HCL 2 tab PO BID 01/29/24 04/18/24 History traZODone HCL [Desyrel] 50 mg PO HS 01/29/24 04/18/24 History Acetaminophen Tab [Tylenol] 650 mg PO Q6H #30 tab 01/30/24 04/18/24 Rx Docusate [Colace] 100 mg PO BID #20 capsule 01/30/24 04/18/24 Rx Calcium Acetate 667 mg PO AC-TID 04/18/24 04/18/24 History Cinacalcet HCl [Sensipar] 60 mg PO DIRECTED 04/18/24 04/18/24 History Furosemide [Lasix] 80 mg PO BID 04/18/24 04/18/24 History Allergies Allergy/AdvReac Type Severity Reaction Status Date / Time amlodipine Allergy Rash/Hives Verified 04/17/24 20:58 silver Allergy Rash/Hives Verified 04/17/24 20:58 [From [employer]esh] Physical Exam Vitals: Vital Signs Temp Pulse Resp BP Pulse Ox 04/18/24 03:43 97 187/112 04/18/24 02:58 99 181/112 04/18/24 02:01 103 H 16 202/129 99 04/18/24 00:23 103 H 18 193/126 99 04/17/24 23:52 99 16 200/121 99 04/17/24 23:11 98 18 211/125 100 04/17/24 21:44 108 H 18 187/124 100 04/17/24 20:53 97.3 F L 117 H 22 164/93 100 Intake and Output 04/17/24 04/17/24 04/18/24 14:59 22:59 06:59 Other: Weight 68.039 kg Results CBC & Chem 7: 04/17/24 22:16 04/17/24 22:16 Labs: Abnormal Lab Results - Last 24 Hours (Table) 04/17/24 04/17/24 04/17/24 Range/Units 22:16 22:16 22:16 WBC 10.7 H (3.8-10.6) k/uL RBC 3.68 L (3.80-5.40) m/uL Hgb 10.0 L (11.4-16.0) gm/dL Hct 31.1 L (34.0-46.0) % Sodium 134 L (137-145) mmol/L Potassium 6.3 H* (3.5-5.1) mmol/L Chloride 91 L (98-107) mmol/L BUN 82 H (7-17) mg/dL Creatinine 14.74 H* (0.52-1.04) mg/dL Phosphorus 8.4 H (2.5-4.5) mg/dL Magnesium 2.8 H (1.6-2.3) mg/dL Troponin I 0.064 H* (0.000-0.034) ng/mL C-Reactive Protein 2.8 H (<1.0) mg/dL Assessment and Plan Assessment: I have seen and evaluated the patient today. I Discussed the case with the resident and agree with the resident's findings I edited the assessment and plan as necessary as documented in the resident's note.
[2024-04-18 06:21] LABS: Basophils # (A) 0.1 k/uL (0-0.2); Basophils % (A) 1 %; Eosinophils # (A) 0.5 k/uL (0-0.7); Eosinophils % (A) 4 %; HCT 34.3 % (34.0-46.0); HGB 10.7 gm/dL (11.4-16.0); Lymphocytes # (A) 1.3 k/uL (1.0-4.8); Lymphocytes % (A) 11 %; MCH 26.7 pg (25.0-35.0); MCHC 31.3 g/dL (31.0-37.0); MCV 85.5 fL (80.0-100.0); Mean Platelet Volume 6.6; Monocytes # (A) 0.6 k/uL (0-1.0); Monocytes % (A) 6 %; Neutrophils # (A) 8.7 k/uL (1.3-7.7); Neutrophils % (A) 77 %; Platelet Count 294 k/uL (150-450); RBC 4.01 m/uL (3.80-5.40); RDW 15.1 % (11.5-15.5); WBC 11.2 k/uL (3.8-10.6)
[2024-04-18 06:31] LABS: ALT 12 U/L (4-34); AST 19 U/L (14-36); Albumin 3.7 g/dL (3.5-5.0); Alkaline Phosphatase 84 U/L (38-126); Anion Gap 19 mmol/L; Blood Urea Nitrogen 77 mg/dL (7-17); Calcium 9.7 mg/dL (8.4-10.2); Carbon Dioxide 24 mmol/L (22-30); Chloride 92 mmol/L (98-107); Glucose 137 mg/dL (74-99); Magnesium 2.6 mg/dL (1.6-2.3); Phosphorus 8.9 mg/dL (2.5-4.5); Sodium 135 mmol/L (137-145); Total Bilirubin 0.6 mg/dL (0.2-1.3); Total Protein 6.5 g/dL (6.3-8.2)
[2024-04-18 06:37] LABS: African American GFR (CKD) 3 (>60 ml/min/1.73 sqM); Non-African American GFR(CKD) 3 (>60 ml/min/1.73 sqM)
[2024-04-18] MEDS: ACETAMINOPHEN TAB 325 MG TAB PO SCH (06:40)
[2024-04-18] MEDS: carvediloL 12.5 MG TAB PO SCH (06:40)
[2024-04-18] MEDS: NIFEdipine XL 30 MG TAB.ER.24 PO SCH ×2 (06:40→20:07)
[2024-04-18] MEDS: SEVELAMER 800 MG TAB PO SCH (09:03)
[2024-04-18] MEDS: CALCIUM ACETATE 667 MG TAB PO SCH (09:04)
[2024-04-18] MEDS: PARoxetine 10 MG TAB PO SCH (09:05)
[2024-04-18] MEDS: FUROSEMIDE 80 MG TAB PO SCH (09:05)
[2024-04-18] MEDS: LOSARTAN 50 MG TAB PO SCH (11:17)
--- NOTE | 2024-04-18 14:34 | P.NPCON ---
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 She presented to the ED overnight with sudden onset lower right abdominal pain. She endorses diarrhea. She states her PD fluid is clear. CT nonrevealing. On admission her sodium was 134, potassium was 6.3, creatinine 14.74, troponin 0.064. Today her potassium has improved to 5. She underwent dialysis this morning. Past Medical History Past Medical History: Hypertension, Renal Disease, Seizure Disorder Additional Past Medical History / Comment(s): dailysis TU<TH<SA, seizure 2 yrs ago,possibly has had dvt in past, History of Any Multi-Drug Resistant Organisms: None Reported Additional Past Surgical History / Comment(s): urethral surgery at 7months old. skull fracture at age 9, back injections Past Anesthesia/Blood Transfusion Reactions: No Reported Reaction Past Psychological History: Anxiety, Depression Past Alcohol Use History: Rare Past Drug Use History: Marijuana - Past Family History Mother Family Medical History: Cancer Additional Family Medical History / Comment(s): ovarian, cervical Medications and Allergies Home Medications Medication Instructions Recorded Confirmed Type Ondansetron Odt [Zofran Odt] 4 mg PO Q8HR PRN 08/17/17 04/18/24 History Ixekizumab [Taltz Syringe] 80 mg SQ Q28D 01/29/24 04/18/24 History NIFEdipine [Adalat CC] 60 mg PO DAILY 01/29/24 04/18/24 History PARoxetine [Paxil] 10 mg PO DAILY 01/29/24 04/18/24 History Sevelamer Carbonate 3,200 mg PO TID-W/MEALS 01/29/24 04/18/24 History carvediloL 25 mg PO BID 01/29/24 04/18/24 History rOPINIRole HCL 0.5 mg PO BID 01/29/24 04/18/24 History traZODone HCL [Desyrel] 50 mg PO HS 01/29/24 04/18/24 History Acetaminophen Tab [Tylenol] 650 mg PO Q6H #30 tab 01/30/24 04/18/24 Rx Calcium Acetate 667 mg PO TID-W/MEALS 04/18/24 04/18/24 History Cinacalcet HCl [Sensipar] 60 mg PO Q2D 04/18/24 04/18/24 History Furosemide [Lasix] 80 mg PO BID 04/18/24 04/18/24 History NIFEdipine [Adalat CC] 30 mg PO HS 04/18/24 04/18/24 History calcitrioL 0.25 mcg PO TID 04/18/24 04/18/24 History Allergies Allergy/AdvReac Type Severity Reaction Status Date / Time amlodipine Allergy Rash/Hives Verified 04/18/24 08:59 silver Allergy Rash/Hives Verified 04/18/24 08:59 [From Chlorogen AG Mesh] Physical Exam Vitals: Vital Signs Temp Pulse Pulse Resp BP BP Pulse Ox 04/18/24 05:40 98.4 F 104 H 16 179/100 100 04/18/24 05:02 97.9 F 102 H 17 177/101 99 04/18/24 04:30 105 H 16 04/18/24 04:24 97 16 99 04/18/24 03:43 97 187/112 04/18/24 02:58 99 181/112 04/18/24 02:01 103 H 16 202/129 99 04/18/24 00:23 103 H 18 193/126 99 04/17/24 23:52 99 16 200/121 99 04/17/24 23:11 98 18 211/125 100 04/17/24 21:44 108 H 18 187/124 100 04/17/24 20:53 97.3 F L 117 H 22 164/93 100 Intake and Output 04/17/24 04/18/24 04/18/24 22:59 06:59 14:59 Other: # Voids 0 Weight 68.039 kg 66.3 kg Vital signs are stable. General: No acute distress. HEENT: Head exam is unremarkable. Lungs: Bilateral breath sounds present; no rhonchi, wheezes, or rales. Heart: Rate and rhythm are regular. Abdomen: Soft, mildly tender. Extremities: Trace edema present. Results - Lab Results Most recent lab results Calcium 9.7 mg/dL (8.4-10.2) 04/18/24 05:53 Phosphorus 8.9 mg/dL (2.5-4.5) H 04/18/24 05:53 Magnesium 2.6 mg/dL (1.6-2.3) H 04/18/24 05:53 04/18/24 05:53 04/19/24 05:40 Assessment and Plan Assessment: 1. End-stage renal disease secondary to IgA nephropathy. Maintained on peritoneal dialysis. Patient has right forearm AV fistula and has recently switched from hemodialysis to PD. Concern for noncompliance with PD vs. membrane failure in view of significantly elevated creatinine. 2. Hyperkalemia. Peaked T waves on EKG 04/17/2024. Improved. Received Lokelma, D50, bicarb. No insulin? 3. Hypervolemic hyponatremia. 4. Hypertension. Uncontrolled. Partly volume sensitive. On coreg and Procardia. 5. CKD mineral bone disorder. Maintained on Phoslo, Renvela, Sensipar. Elevated phosphorous at 8.9. Noncompliance with binders? Plan: Dialysis today. Check PD fluid for cell count, gram stain, and culture. Start losartan 50mg daily. Continue to monitor renal function. If there is no improvement in labs patient will need to switch to hemodialysis. Repeat labs in the morning. Continue phosphate binders. Thank you for the consultation. We will continue to monitor her during her hospital stay. Agree with resident's findings, assessment and plan.
[2024-04-18] MEDS: CINACALCET 30 MG TAB PO SCH (17:28)
[2024-04-18] MEDS: DIALYSIS (PERIT 4.25%) 2500 ML 106.25 G/2,500 ML BAG INTRAPERIT SCH (17:29)
--- NOTE | 2024-04-18 17:32 | CA ---
Transthoracic Echo Report Name: Parisa Aguilar Age: 33 Gender: F : 1990 Exam Date: 04/18/2024 10:35 Exam Location: [facility] Ht (in): 55 Wt (lb): 146 Ordering Physician: Wil Seaman MD Attending/Referring Phys: Alarm Service Technician Jenn Avila RDCS Procedure CPT: Indications: trop Cardiac Hx: Technical Quality: Fair Contrast 1: Total Dose (mL): Contrast 2: Total Dose (mL): MEASUREMENTS (Male / Female) Normal Values 2D ECHO LV Diastolic Diameter PLAX 4.4 cm 4.2 - 5.9 / 3.9 - 5.3 cm LV Systolic Diameter PLAX 3.2 cm IVS Diastolic Thickness 1.4 cm 0.6 - 1.0 / 0.6 - 0.9 cm LVPW Diastolic Thickness 1.4 cm 0.6 - 1.0 / 0.6 - 0.9 cm LV Relative Wall Thickness 0.6 RV Internal Dim ED PLAX 4.5 cm LA Volume 80.0 cm??? 18 - 58 / 22 - 52 cm??? LA Volume Index 48.8 cm???/m??? 16 - 28 cm???/m??? M-MODE Aortic Root Diameter MM 2.6 cm LA Systolic Diameter MM 4.3 cm LA Ao Ratio MM 1.6 AV Cusp Separation MM 1.5 cm DOPPLER AV Peak Velocity 169.5 cm/s AV Peak Gradient 11.5 mmHg AV Mean Velocity 119.7 cm/s AV Mean Gradient 6.2 mmHg AV Velocity Time Integral 30.5 cm AI Peak Velocity 220.9 cm/s AI Peak Gradient 19.5 mmHg AI Pressure Half Time 517.6 ms LVOT Peak Velocity 114.9 cm/s LVOT Peak Gradient 5.3 mmHg LVOT Velocity Time Integral 21.1 cm MV Area PHT 3.0 cm??? Mitral E Point Velocity 111.9 cm/s Mitral A Point Velocity 97.6 cm/s Mitral E to A Ratio 1.1 MV Deceleration Time 254.7 ms MV E' Velocity 4.6 cm/s Mitral E to MV E' Ratio 24.4 TR Peak Velocity 275.8 cm/s TR Peak Gradient 30.4 mmHg Right Ventricular Systolic Press 35.4 mmHg FINDINGS Left Ventricle Moderately increased left ventricular wall thickness. Left ventricular cavity size normal. No obvious regional wall motion abnormalities. Left ventricular ejection fraction is estimated at 50-55 %. Grade 2 diastolic dysfunction. (Ground glass appearance of the myocardium, low systolic strain was noted) Right Ventricle Normal right ventricular size and function. Mild pulmonary hypertension. Right Atrium Normal right atrial size. Left Atrium Severely increased left atrial volume. Mildly increased left atrial area. Mitral Valve Structurally normal mitral valve. Mitral valve thickened. [id number] mitral regurgitation. Aortic Valve Trileaflet aortic valve. No aortic valve stenosis or regurgitation. Tricuspid Valve Structurally normal tricuspid valve. Mild tricuspid regurgitation. Pulmonic Valve Structurally normal pulmonic valve. Trace pulmonic regurgitation. Pericardium Minimal pericardial effusion (normal variant). Aorta Normal size aortic root and proximal ascending aorta. CONCLUSIONS Left ventricular hypertrophy with normal LV function Ground glass appearance of the myocardium Mild to moderate mitral regurgitation Consider cardiac MRI for further evaluation if necessary Diastolic dysfunction Previewed by: Dr. Colby Stanley MD (Electronically Signed) Final Date: 18 April 2024 17:31
[2024-04-18] MEDS: ONDANSETRON 4 MG/2 ML VIAL IVP PRN (17:45)
[2024-04-18] MEDS: METOCLOPRAMIDE 5 MG/ML 2 ML VIAL IVP STA (20:07)
[2024-04-18] MEDS: diphenhydrAMINE 50 MG/ML 1 ML VIAL IVP STA (20:07)
[2024-04-18] MEDS ORDERED: NIFEdipine XL 30 MG TAB.ER.24 PO SCH (21:00)
[2024-04-19] MEDS: DIALYSIS (PERIT 2.5%) 2,500 ML 62.5 G/2,500 ML BAG INTRAPERIT SCH ×2 (00:05→11:48)
[2024-04-19 06:28] LABS: African American GFR (CKD) 4 (>60 ml/min/1.73 sqM); Anion Gap 13 mmol/L; Blood Urea Nitrogen 70 mg/dL (7-17); Calcium 8.5 mg/dL (8.4-10.2); Carbon Dioxide 29 mmol/L (22-30); Chloride 90 mmol/L (98-107); Glucose 84 mg/dL (74-99); Non-African American GFR(CKD) 3 (>60 ml/min/1.73 sqM); Potassium 5.1 mmol/L (3.5-5.1); Sodium 132 mmol/L (137-145)
[2024-04-19 08:22] LABS: Magnesium 2.4 mg/dL (1.6-2.3)
[2024-04-19 08:24] LABS: Phosphorus 9.2 mg/dL (2.5-4.5)
[2024-04-19] MEDS: CALCIUM ACETATE 667 MG TAB PO SCH (11:07)
--- NOTE | 2024-04-19 11:23 | P.PN ---
Subjective Progress Note Date: 04/19/24 Subjective: Patient seen and examined at bedside. No acute events overnight. Says abdominal pain is resolving. Pain medication has been working. Pertinent positives and negatives as discussed above, a complete review of systems was performed and all other systems are negative. Vitals: Signs Reviewed Physical Exam: General: nontoxic, no distress, appears at stated age Derm: warm, dry, intact Head: atraumatic, normocephalic, symmetric Eyes: EOMI, no lid lag, anicteric sclera Mouth: no lip lesion, mucus membranes moist Cardiovascular: S1 S2 reg, no murmur, rubs, or gallops Lungs: CTA bilateral, no rhonchi, no rales, no accessory muscle use Abdominal: soft, non-tender to palpataion, no appreciable organomegaly Extremities: no gross muscle atrophy, no edema, no contractures Neuro: Alert, Oriented, CNII-XII grossly intact, gait normal Psych: well appearing, appropriate affect Data Received Today: Pertinent Labs: Blood cultures: No growth after 24 hours. Sodium 132, potassium 5.1, CO2 29, BUN 70, creatinine 12.69, phosphorus 9.2, magnesium 2.4, troponin 0.054 (trending down) Imaging: No new imaging. Assessment and Plan: 33-year-old patient with a history of ESRD secondary to IgA nephropathy on peritoneal dialysis (nightly) presents to the ER with sudden onset mid lower abd ominal pain. Abdominal pain, likely related to uterine fibroids WBC 10.7 with neutrophil count of 7.6 CT abdomen/pelvis showed uterine fibroids Discontinued IV Diluadid, placed on percocet 5-325 PO q4hr as needed Continue with Zofran 4 mg IVP every 8 hour as needed for nausea and vomiting Blood cultures showed no growth after 24 hours Hypertension, improving Continue with nifedipine 30 mg p.o. tid and carvedilol 25 mg p.o. twice daily Continue monitor blood pressure placed on losartan 50 mg. BP back to normal baseline ESRD secondary to IgA nephropathy BUN 82, creatinine 14.74 Nephrology note read. Continue to monitor renal function. If no improvement in labs patient will switch to hemodialysis. Continue phosphate binders. Continue losartan. Hyperkalemia secondary to ESRD Continue monitor potassium levels, if K> 6.5 with EKG changes or rapidly increasing K, then give regular insulin 10 units IV x 1 with 1 amp of D50 glucose Continue monitor sodium levels Nephrology to continue peritoneal dialysis Hypermagnesemia secondary to ESRD Hyperphosphatemia Mg 2.4, Phos 9.2 Patient forgot to consume phosphate binder last night Continue calcium acetate 667 mg p.o. 3 times daily. Continue sevelamer 3200 mg p.o. 3 times daily. Elevated troponin level, resolving Troponin trending down Patient denies chest pain EKG unremarkable , no acute ST changes Normocytic anemia secondary to ESRD RBC 3.62, hemoglobin 10.0, hematocrit 31.1 Continue monitor hemoglobin levels, if less than 7 consider transfusion No active bleeding Code status: Full Anticipated discharge place: Likely home Anticipated discharge time: Likely 20-24 hours I have seen and evaluated the patient today. Discussed with the resident and agree with the residents subjective and objective as documented in the resident's note. The assessment and plan was discussed and outlined as below. Patient reports continued abdominal pain improved with Dilaudid. CT AP shows uterine fibroids. She also reports a history of ovarian cysts. This is likely the source of her abdominal pain. Blood pressure improved to 142/83 this morning. Abdominal pain: Likely related to uterine fibroids. DC Dilaudid and start P ercocet PRN for pain control. Will need to see INCIDENT COORDINATOR in the outpatient setting. Hypertensive urgency: Improved. Losartan 50 mg PO QD. Lasix 80 mg PO BID. Nifedipine 30 mg PO QHS + 60 mg PO QD. ESRD secondary to IgA nephropathy: Nephrology on board for PD recommendations. Troponin elevation: Chronic elevation from ESRD. No chest pain. Repeat troponin with hopeful downtrend. Echo shows preserved EF with G2DD and ground glass appearance. Outpatient cardiology evaluation for possible cardiac MRI. Hyponatremia: Appears euvolemic. Continue Lasix 80 mg PO BID. Hypermagnesemia: Downtrending. Hopeful improvement with continued PD and Lasix. Hyperphosphatemia: Continue Ca acetate 667 mg PO TID. Sevelamer 3200 mg PO TID. Normocytic anemia likely AOCD and at baseline Resolved: Hyperkalemia Objective - Vital Signs Vital signs: Vital Signs Temp 98.0 F 04/19/24 08:39 Pulse 101 H 04/19/24 08:39 Resp 20 04/19/24 08:39 BP 142/83 04/19/24 08:39 Pulse Ox 98 04/19/24 08:39 FiO2 Intake & Output 07/26/24 07/27/24 07/27/24 18:59 06:59 18:59 Intake Total 1198 Balance 1198 Weight 67 kg Intake: Oral 1198 Other: Voiding Method Toilet # Voids 0 - Labs CBC & Chem 7: 04/18/24 05:53 04/19/24 05:40 Labs: Abnormal Lab Results - Last 24 Hours (Table) 04/19/24 04/19/24 Range/Units 05:40 05:40 Sodium 132 L (137-145) mmol/L Chloride 90 L (98-107) mmol/L BUN 70 H (7-17) mg/dL Creatinine 12.69 H* (0.52-1.04) mg/dL Phosphorus 9.2 H* (2.5-4.5) mg/dL Magnesium 2.4 H (1.6-2.3) mg/dL
[2024-04-19 12:08] VITALS: RESP 16
[2024-04-19] MEDS: oxyCODONE-APAP 5-325MG 1 EACH TAB PO PRN (12:27)
--- NOTE | 2024-04-19 12:35 | P.PN ---
Subjective patient is seen for follow-up for end-stage renal disease. She has been receiving CAPD every 6 hours. Labs have improved slightly with serum creatinine at 12.69. Volume status also improved. No significant complaints of pain today. Tolerating oral intake. Objective - Vital Signs Vital signs: Vital Signs Temp 98.0 F 04/19/24 08:39 Pulse 94 04/19/24 12:22 Resp 16 04/19/24 11:03 BP 153/96 04/19/24 11:03 Pulse Ox 99 04/19/24 11:03 FiO2 Intake & Output 04/18/24 04/19/24 04/19/24 18:59 06:59 18:59 Intake Total 1198 Balance 1198 Weight 67 kg Intake: Oral 1198 Other: Voiding Method Toilet # Voids 0 - Exam patient is awake, comfortable, alert oriented 3. Examination of the heart S1 and S2 Examination of the lungs bilateral breath sounds are heard Abdomen is soft nontender Examination of the lower extremities shows no significant edema ANESTHESIOLOGIST ATTENDING exam grossly intact - Labs CBC & Chem 7: 04/18/24 05:53 04/19/24 05:40 Labs: Abnormal Lab Results - Last 24 Hours (Table) 04/19/24 04/19/24 Range/Units 05:40 05:40 Sodium 132 L (137-145) mmol/L Chloride 90 L (98-107) mmol/L BUN 70 H (7-17) mg/dL Creatinine 12.69 H* (0.52-1.04) mg/dL Phosphorus 9.2 H* (2.5-4.5) mg/dL Magnesium 2.4 H (1.6-2.3) mg/dL Assessment and Plan Assessment: 1. End-stage renal disease secondary to IgA nephropathy. Maintained on perit [place] dialysis. Patient has right forearm AV fistula and has recently switched from hemodialysis to PD. Concern for noncompliance with PD vs. membrane failure in view of significantly elevated creatinine. labs have improved slightly. I will increase the exchanges to every 4 hours. 2. Hyperkalemia. Peaked T waves on EKG 04/17/2024. Improved. 3. Hypervolemic hyponatremia. 4. Hypertension. Uncontrolled. Partly volume sensitive. On coreg and Procardia. 5. CKD mineral bone disorder. Maintained on Phoslo, Renvela, Sensipar. Elevated phosphorous at 8.9. Noncompliance with binders? Plan: increase CAPD exchanges to every 4 hours with 2.5% solution Check PD fluid for cell count, gram stain, and culture. continue losartan 50mg daily. Continue to monitor renal function. If there is no improvement in labs patient will need to switch to hemodialysis. Repeat labs in the morning. Continue phosphate binders.
[2024-04-20] MEDS: SEVELAMER 800 MG TAB PO PRN (00:33)
[2024-04-20] MEDS: CALCIUM ACETATE 667 MG TAB PO PRN (00:33)
[2024-04-20 06:01] LABS: Appearance,BF Clear (Clear)
[2024-04-20 07:33] VITALS: TEMP 98.4
[2024-04-20 07:45] LABS: Basophils % (A) 0 %; Eosinophils # (A) 0.4 k/uL (0-0.7); Eosinophils % (A) 5 %; HCT 32.5 % (34.0-46.0); HGB 10.7 gm/dL (11.4-16.0); Lymphocytes # (A) 0.9 k/uL (1.0-4.8); Lymphocytes % (A) 10 %; MCH 28.1 pg (25.0-35.0); MCHC 32.8 g/dL (31.0-37.0); MCV 85.6 fL (80.0-100.0); Mean Platelet Volume 7.1; Monocytes # (A) 0.9 k/uL (0-1.0); Monocytes % (A) 11 %; Neutrophils # (A) 6.1 k/uL (1.3-7.7); Neutrophils % (A) 72 %; Platelet Count 308 k/uL (150-450); RBC 3.79 m/uL (3.80-5.40); RDW 15.1 % (11.5-15.5); WBC 8.4 k/uL (3.8-10.6)
[2024-04-20 08:09] LABS: ALT 11 U/L (4-34); AST 18 U/L (14-36); African American GFR (CKD) 4 (>60 ml/min/1.73 sqM); Albumin 3.2 g/dL (3.5-5.0); Alkaline Phosphatase 81 U/L (38-126); Anion Gap 13 mmol/L; Blood Urea Nitrogen 55 mg/dL (7-17); Calcium 9.4 mg/dL (8.4-10.2); Carbon Dioxide 30 mmol/L (22-30); Chloride 90 mmol/L (98-107); Glucose 102 mg/dL (74-99); Magnesium 2.3 mg/dL (1.6-2.3); Non-African American GFR(CKD) 4 (>60 ml/min/1.73 sqM); Potassium 4.8 mmol/L (3.5-5.1); Sodium 133 mmol/L (137-145); Total Bilirubin 0.4 mg/dL (0.2-1.3)
[2024-04-20] MEDS: CALCIUM ACETATE 667 MG TAB PO SCH (11:39)
[2024-04-20 12:10] VITALS: BP 141/95; PULSE 94
--- NOTE | 2024-04-20 12:10 | P.DS ---
Providers Date of admission: 04/17/24 23:53 Expected date of discharge: 04/20/24 Attending physician: Naz Camarena MD Consults: 04/17/24 23:52 Consult Physician Routine Consulting Provider: Alycia Carvalho Consult Reason/Comments: hyperK Do you want consulting provider notified?: Yes Primary care physician: Angela Torres MD Hospital Course: 33 year old F with PMH of ESRD on PD due to IgA nephropathy presented to the ED for abdominal pain, N/V associated with diarrhea, fever and chills for the past 3 weeks. Recently switched from HD to PD 2 months ago. In the ED she underwent extensive evaluation. BP 164/93, HR 117, Tmax 97.3F, RR 22, 100% on RA. CBC, Coag panel, CMP significant for WBC 10.7, RBC 3.68, Hg 10, Hct 31.1, Na 134, K 6.3, Cl 91, BUN 82, Cr 14.74. Phos 8.4. Mag 2.8. Troponin 0.064, 0.087, 0.054. CRP 2.8. BNP 18143. HCG negative. Amylase and Lipase negative. EKG showing NSR. CT AP showing peritoneal drainage in the mid pelvis and uterine fibroids. Ad mitted for further workup and management. With regard to abdominal pain, started on Dilaudid for pain control. BCx negative. Thought to be related to uterine fibroids, switched to Percocet and advised outpatient [facility] follow up. Nephrology consulted. Noncompliance with PD versus membrane failure in light of significantly elevated Cr, CAPD exchanges increased to Q4H with 2.5% solution. PD fluid was checked for cell count and culture. PD fluid is clear with 3 WBC and < 2000 RBCs, cultures are currently pending. Also noted to have malignant hypertension with SBP as high as 211 on 04/17. Continued on Coreg 25 mg PO QD, Lasix 80 mg PO BID, Nifedipine 60 mg PO QD + 30 mg PO QHS. Losartan 50 mg PO QD added. Echo showed preserved EF with G2DD and ground glass appearance. Concerns for amyloidosis, she will need to follow up with Cardiology outpatient for possible cardiac MRI. BP now improved. 04/20 Patient was seen and examined. Continued abdominal pain, 6/10 severity. CBC, CMP significant for RBC 3.79, Hg 10.7, Hct 32.5, Na 133, Cl 90, BUN 55, Cr 11.82, glu 103, alb 3.2. Phos 9. Per RN, Nephrology cleared for discharge. PD cell count not indicative of infection. Patient advised to follow up with PCP within 1-2 days, [facility], Cardiology and Nephrology within 1 week of discharge. Prescription for Losartan and increased dose of PhosLo sent to the pharmacy along with 3 day supply of Percocet PRN for pain. General: non toxic, no distress, appears at stated age Derm: warm, dry Head: atraumatic, normocephalic, symmetric Eyes: EOMI, no lid lag, anicteric sclera Mouth: no lip lesion, mucus membranes moist Cardiovascular: S1S2 irreg, no murmur Lungs: CTA bilateral, no rhonchi, no rales , no accessory muscle use Ext: no gross muscle atrophy, no edema, no contractures Neuro: no focal neuro deficits Psych: Alert, oriented, appropriate affect Discharge Diagnosis: Abdominal pain likely related to uterine fibroids. Hypertensive urgency ESRD secondary to IgA nephropathy Troponin elevation Hyponatremia Hypermagnesemia Hyperphosphatemia Normocytic anemia likely AOCD and at baseline Resolved: Hyperkalemia This complex discharge took 35 minutes to complete. Patient Condition at Discharge: Stable Plan - Discharge Summary Discharge Rx Participant: Yes New Discharge Prescriptions: New Calcium Acetate [PhosLo] 1,334 mg PO AC-TID #180 tab Losartan [Cozaar] 50 mg PO DAILY #30 tab oxyCODONE-APAP 5-325MG [Percocet 5-325 mg] 2 each PO Q4HR PRN #36 tab PRN Reason: Pain Continue Ondansetron Odt [Zofran ODT] 4 mg PO Q8HR PRN PRN Reason: Nausea carvediloL 25 mg PO BID Sevelamer Carbonate 3,200 mg PO TID-W/MEALS NIFEdipine [Adalat CC] 60 mg PO DAILY Ixekizumab [Taltz Syringe] 80 mg SQ Q28D Acetaminophen Tab [Tylenol] 650 mg PO Q6H #30 tab PARoxetine [Paxil] 10 mg PO DAILY traZODone HCL [Desyrel] 50 mg PO HS rOPINIRole HCL 0.5 mg PO BID Furosemide [Lasix] 80 mg PO BID Cinacalcet HCl [Sensipar] 60 mg PO Q2D NIFEdipine [Adalat CC] 30 mg PO HS calcitrioL 0.25 mcg PO TID Discontinued Calcium Acetate 667 mg PO TID-W/MEALS Discharge Medication List Ondansetron Odt [Zofran ODT] 4 mg PO Q8HR PRN 08/17/17 [History] Ixekizumab [Taltz Syringe] 80 mg SQ Q28D 01/29/24 [History] NIFEdipine [Adalat CC] 60 mg PO DAILY 01/29/24 [History] PARoxetine [Paxil] 10 mg PO DAILY 01/29/24 [History] Sevelamer Carbonate 3,200 mg PO TID-W/MEALS 01/29/24 [History] carvediloL 25 mg PO BID 01/29/24 [History] rOPINIRole HCL 0.5 mg PO BID 01/29/24 [History] traZODone HCL [Desyrel] 50 mg PO HS 01/29/24 [History] Acetaminophen Tab [Tylenol] 650 mg PO Q6H #30 tab 01/30/24 [Rx] Cinacalcet HCl [Sensipar] 60 mg PO Q2D 04/18/24 [History] Furosemide [Lasix] 80 mg PO BID 04/18/24 [History] NIFEdipine [Adalat CC] 30 mg PO HS 04/18/24 [History] calcitrioL 0.25 mcg PO TID 04/18/24 [History] Calcium Acetate [PhosLo] 1,334 mg PO AC-TID #180 tab 04/20/24 [Rx] Losartan [Cozaar] 50 mg PO DAILY #30 tab 04/20/24 [Rx] oxyCODONE-APAP 5-325MG [Percocet 5-325 mg] 2 each PO Q4HR PRN #36 tab 04/20/24 [Rx] Follow up Appointment(s)/Referral(s): Alycia Carvalho MD [STAFF PHYSICIAN] - 1 Week Kaelyn Up DO [Doctor of Osteopathic Medicine] - 1 Week Angela Torres MD [Primary Care Provider] - 1-2 days Activity/Diet/Wound Care/Special Instructions: Diet: Renal Discharge Disposition: HOME SELF-CARE
--- NOTE | 2024-04-20 12:29 | P.PN ---
Subjective patient is seen for follow-up for end-stage renal disease. She has been receiving CAPD every 4 hours. Labs have improved slightly with serum creatinine at 11.8 Volume status also improved. No significant complaints of pain today. Tolerating oral intake. Objective - Vital Signs Vital signs: Vital Signs Temp 98.4 F 04/20/24 07:24 Pulse 94 04/20/24 11:35 Resp 16 04/20/24 11:35 BP 141/95 04/20/24 11:35 Pulse Ox 99 04/20/24 11:35 FiO2 Intake & Output 04/19/24 04/20/24 04/20/24 18:59 06:59 18:59 Intake Total 236 780 Balance 236 780 Weight 67 kg 61.2 kg Intake: Oral 236 780 Other: Voiding Method Toilet Toilet Toilet # Voids 0 - Exam patient is awake, comfortable, alert oriented 3. Examination of the heart S1 and S2 Examination of the lungs bilateral breath sounds are heard Abdomen is soft nontender Examination of the lower extremities shows no significant edema LICENSED SALES PRODUCER exam grossly intact - Labs CBC & Chem 7: 04/20/24 07:14 04/20/24 07:14 Labs: Abnormal Lab Results - Last 24 Hours (Table) 04/19/24 04/20/24 04/20/24 Range/Units 11:19 07:14 07:14 RBC 3.79 L (3.80-5.40) m/uL Hgb 10.7 L (11.4-16.0) gm/dL Hct 32.5 L (34.0-46.0) % Lymphocytes # 0.9 L (1.0-4.8) k/uL Sodium 133 L (137-145) mmol/L Chloride 90 L (98-107) mmol/L BUN 55 H (7-17) mg/dL Creatinine 11.82 H* (0.52-1.04) mg/dL Glucose 102 H (74-99) mg/dL Phosphorus 9.0 H* (2.5-4.5) mg/dL Troponin I 0.054 H* (0.000-0.034) ng/mL Total Protein 6.0 L (6.3-8.2) g/dL Albumin 3.2 L (3.5-5.0) g/dL Microbiology - Last 24 Hours (Table) 04/19/24 11:30 Gram Stain - Preliminary Peritoneal Fluid 04/18/24 06:32 Blood Culture - Preliminary Blood Assessment and Plan Assessment: 1. End-stage renal disease secondary to IgA nephropathy. Maintained on peritoneal dialysis. Patient has right forearm AV fistula and has recently switched from hemodialysis to PD. Concern for noncompliance with PD vs. membrane failure in view of significantly elevated creatinine. labs have improved slightly. I will increase the exchanges to every 4 hours. 2. Hyperkalemia. Peaked T waves on EKG 04/17/2024. Improved. 3. Hypervolemic hyponatremia. 4. Hypertension. Uncontrolled. Partly volume sensitive. On coreg and Procardia. 5. CKD mineral bone disorder. Maintained on Phoslo, Renvela, Sensipar. Elevated phosphorous at 8.9. Noncompliance with binders? Plan: stable for discharge from nephrology standpoint. Follow-up as outpatient in PD clinic. Continue current dose of phosphate binders. PhosLo has been increased. patient will continue with her cycler for dialysis. Further changes will be made as outpatient.
[2024-04-20] MEDS: oxyCODONE-APAP 5-325MG 1 EACH TAB PO PRN (12:31)
[2024-04-20] MEDS ORDERED: HEPARIN SODIUM,PORCINE 5,000 UNIT/ML 1 ML VIAL SQ SCH (21:00)
== END 2024-04-20 13:30 | disposition home or self-care (01) | DRG 760 ==
LOC: EC 20:42 → 3SCARD 23:53
PROVIDERS: ADMIT Internal Medicine; ATTEND Internal Medicine
DX: D25.9 Leiomyoma of uterus, unspecified (principal); N18.6 End stage renal disease; E87.1 Hypo-osmolality and hyponatremia; I16.1 Hypertensive emergency; I12.0 Hypertensive chronic kidney disease with stage 5 chronic kidney disease or end stage renal disease; Z99.2 Dependence on renal dialysis; D63.1 Anemia in chronic kidney disease; R79.89 Other specified abnormal findings of blood chemistry; R19.7 Diarrhea, unspecified; R11.2 Nausea with vomiting, unspecified; N83.209 Unspecified ovarian cyst, unspecified side; E83.39 Other disorders of phosphorus metabolism; E83.41 Hypermagnesemia; E87.5 Hyperkalemia; E87.70 Fluid overload, unspecified; F32.A Depression, unspecified; F41.9 Anxiety disorder, unspecified; G40.909 Epilepsy, unspecified, not intractable, without status epilepticus; E83.9 Disorder of mineral metabolism, unspecified; Z79.899 Other long term (current) drug therapy; Z91.148 Patient's other noncompliance with medication regimen for other reason
CPT/HCPCS: 36415; 74176; 80048; 80053; 83605; 83690; 83735; 83880; 84100; 84484; 84703; 85025; 85610; 85730; 86140; 87040; 87070; 87205; 89050; 93005; 93306; 96361; 96374; 96375; 96376; 99285

== ENCOUNTER 2024-05-19 15:04 | Emergency (ER) | payer MEDICARE, OTHER ==
[2024-05-19 16:14] LABS: Anisocytosis Slight; Basophils # (A) 0.1 k/uL (0-0.2); Basophils % (A) 1 %; Eosinophils # (A) 0.6 k/uL (0-0.7); Eosinophils % (A) 4 %; HCT 28.3 % (34.0-46.0); HGB 9.3 gm/dL (11.4-16.0); Lymphocytes % (A) 8 %; MCH 28.5 pg (25.0-35.0); MCHC 32.8 g/dL (31.0-37.0); MCV 86.9 fL (80.0-100.0); Mean Platelet Volume 7.1; Monocytes % (A) 8 %; Neutrophils # (A) 9.6 k/uL (1.3-7.7); Neutrophils % (A) 77 %; Platelet Count 426 k/uL (150-450); RBC 3.25 m/uL (3.80-5.40); RDW 16.1 % (11.5-15.5); WBC 12.4 k/uL (3.8-10.6)
[2024-05-19] MEDS: HYDROmorphone 1 MG/ML 1 ML SYRINGE IVP STA ×2 (16:15→17:28)
--- NOTE | 2024-05-19 16:35 | ED ---
General Adult HPI - General Chief complaint: Back Pain/Injury Stated complaint: urogenital pain Time Seen by Provider: 05/19/24 15:33 Source: patient, RN notes reviewed Mode of arrival: ambulatory Limitations: no limitations - History of Present Illness Initial comments: This is a 33-year-old female who presents to the emergency department for right side pain. States that over the last few days she has had pain to her right side/hip area. 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 she had some mild nausea earlier that has since resolved. She makes very little urine on her own anymore. She has also measured some fevers. She was evaluated here last month for the same pain. She was admitted at that time for uremic toxicity. She has a problem with recurrent right-sided ovarian cysts. She moved here from [place] in June of last year and states that when she was in [place] she was in the emergency department multiple times due to the ovarian cyst and concern for ovarian torsion. They had planned on doing a hysterectomy, however due to the move this had to be cancelled. She was referred to [facility] following her last hospitalization here, but required an official referral for her primary care provider which was just sent through and she is waiting to hear back regarding an appointment. - Related Data Home Medications Medication Instructions Recorded Confirmed Ondansetron Odt [Zofran ODT] 4 mg PO Q8HR PRN 08/17/17 05/19/24 Ixekizumab [Taltz Syringe] 80 mg SQ Q28D 01/29/24 05/19/24 NIFEdipine [Adalat CC] 60 mg PO DAILY 01/29/24 05/19/24 PARoxetine [Paxil] 10 mg PO DAILY 01/29/24 05/19/24 Sevelamer Carbonate 3,200 mg PO TID-W/MEALS 01/29/24 05/19/24 carvediloL 25 mg PO BID 01/29/24 05/19/24 rOPINIRole HCL 0.5 mg PO BID 01/29/24 05/19/24 traZODone HCL [Desyrel] 50 mg PO HS 01/29/24 05/19/24 Cinacalcet HCl [Sensipar] 60 mg PO Q2D 04/18/24 05/19/24 Furosemide [Lasix] 80 mg PO BID 04/18/24 05/19/24 NIFEdipine [Adalat CC] 30 mg PO HS 04/18/24 05/19/24 calcitrioL 0.25 mcg PO TID 04/18/24 05/19/24 Acetaminophen Tab [Tylenol] 650 mg PO Q6H PRN 05/19/24 05/19/24 Previous Rx's Medication Instructions Recorded Calcium Acetate [PhosLo] 1,334 mg PO AC-TID #180 tab 04/20/24 Ondansetron Odt [Zofran Odt] 4 mg PO Q8HR PRN #15 tab 05/19/24 oxyCODONE-APAP 7.5-325MG [Percocet 1 tab PO Q4HR PRN 3 Days #18 tab 05/19/24 7.5-325 mg] Allergies Allergy/AdvReac Type Severity Reaction Status Date / Time amlodipine Allergy Rash/Hives Verified 05/19/24 18:11 silver Allergy Rash/Hives Verified 05/19/24 18:11 [From [employer]esh] Review of Systems ROS Statement: Those systems with pertinent positive or pertinent negative responses have been documented in the HPI. ROS Other: All systems not noted in ROS Statement are negative. Past Medical History Past Medical History: Hypertension, Renal Disease, Seizure Disorder, Skin Disorder Additional Past Medical History / Comment(s): dailysis TU<TH<SA, seizure 2 yrs ago,possibly has had dvt in past,ovarian cyst uterine fibroids History of Any Multi-Drug Resistant Organisms: None Reported Additional Past Surgical History / Comment(s): urethral surgery at 7months old. skull fracture at age 9, back injections Past Anesthesia/Blood Transfusion Reactions: No Reported Reaction Past Psychological History: Anxiety, Depression Past Alcohol Use History: Rare Past Drug Use History: Marijuana - Past Family History Mother Family Medical History: Cancer Additional Family Medical History / Comment(s): ovarian, cervical General Exam Limitations: no limitations General appearance: alert, in no apparent distress Head exam: Present: atraumatic, normocephalic, normal inspection Respiratory exam: Present: normal lung sounds bilaterally. Absent: respiratory distress, wheezes, rales, rhonchi, stridor Cardiovascular Exam: Present: regular rate, normal rhythm, normal heart sounds. Absent: systolic murmur, diastolic murmur, rubs, gallop, clicks GI/Abdominal exam: Present: soft, normal bowel sounds. Absent: distended, tenderness, guarding, rebound, rigid Back exam: Absent: CVA tenderness (R), CVA tenderness (L) Neurological exam: Present: alert, oriented X3, CN II-XII intact Psychiatric exam: Present: normal affect, normal mood Skin exam: Present: warm, dry, intact, normal color. Absent: rash Course Vital Signs 05/19/24 05/19/24 15:27 18:41 Temperature 98.4 F 97.8 F Pulse Rate 97 89 Respiratory 20 18 Rate Blood Pressure 118/73 142/84 O2 Sat by Pulse 98 96 Oximetry Medical Decision Making - Medical Decision Making This is a 33 year old female who presents to the emergency department for right side pain. Was pt. sent in by a medical professional or institution? @ -No Did you speak to anyone other than the patient for history? @ -No Did you review nursing and triage notes? @ -Yes, and I agree, it is accurate with regards to the patient's symptoms. Were old charts reviewed? @ -No Differential Diagnosis? @ -Differential Side Pain: Avascular necrosis, cellulitis, abscess, bowel obstruction, ovarian cyst, this is not meant to be an all-inclusive list. EKG interpreted by me (3pts min.)? @ -Not obtained X-rays interpreted by me (1pt min.)? @ -Not obtained CT interpreted by me (1pt min.)? @ -CT scan of the abdomen and pelvis obtained. My interpretation identifies no dilation of the large or small bowel loops. U/S interpreted by me (1pt. min.)? @ -Transvaginal ultrasound obtained. My interpretation identifies no evidence of ovarian torsion. What testing was considered but not performed? (CT, X-rays, U/S, labs)? Why? @ -None What meds were considered but not given? Why? @ -None Did you discuss the management of the patient with other professionals? @ -No Did you reconcile home meds? @ -No Was smoking cessation discussed for >3mins.? @ -No Was critical care preformed (if so, how long)? @ -No Were there social determinants of health that impacted care today? How? (Homelessness, low income, unemployed, alcoholism, drug addiction, transportation, low edu. Level, literacy, decrease access to med. care, residential, rehab)? @ -No Was there de-escalation of care discussed even if they declined? (Discuss DNR or withdrawal of care, Hospice)? @ -No What co-morbidities impacted this encounter? (DM, HTN, Smoking, COPD, CAD, Cancer, CVA, Hep., AIDS, mental health diagnosis, sleep apnea, morbid obesity)? @ -IgA nephropathy Was patient admitted / discharged? @ -Discharged. Lab work demonstrates mild leukocytosis with a white blood cell count of 12.4. She has hyperkalemia of 5.5 as well as a creatinine of 15.58, which is expected with her known history of renal disease. CT scan of the abdomen and pelvis obtained initially demonstrating an enlarged right pelvic soft tissue structure potentially representing the ovary. Transvaginal ultrasound subsequently obtained. This demonstrates a large right adnexal structure with proper flow suggesting an enlarged ovary secondary to a torsion detorsion phenomenon versus neoplastic lesion. Lactic acid negative. Findings reviewed with the patient. She advised that these are the same problems that she has been dealing with for years. There is always concern for torsion given the size of the cyst and it tends to fluctuate in terms of size. She is currently waiting for an appointment with [facility]. I did offer admission, however she refused and states that she would rather be discharged home with pain control. She was given a prescription for Percocet, which she states is often somewhat helpful. Zofran refilled as well. She was given very strict return parameters and advised to continue trying to follow-up with [facility]. Case discussed with ED attending, Dr. Wall. Return precautions reviewed in depth, the patient is instructed to return to the emergency department with any new, worsening, or concerning symptoms. Patient verbalized understanding. Undiagnosed new problem with uncertain prognosis? @ -None Drug Therapy requiring intensive monitoring for toxicity (Heparin, Nitro, Insulin, Cardizem)? @ -None Were any procedures done? @ -None Diagnosis/symptom? @ -Right ovarian cyst Acute, or Chronic, or Acute on Chronic? @ -Acute Uncomplicated (without systemic symptoms) or Complicated (systemic symptoms)? @ -Uncomplicated Side effects of treatment? @ -None Exacerbation, Progression, or Severe Exacerbation] @ -Not applicable Poses a threat to life or bodily function? @ -Unclear - Lab Data Result diagrams: 05/19/24 16:01 05/19/24 16:01 Lab Results 05/19/24 05/19/24 05/19/24 Range/Units 16:01 16:01 16:01 WBC 12.4 H (3.8-10.6) k/uL RBC 3.25 L (3.80-5.40) m/uL Hgb 9.3 L (11.4-16.0) gm/dL Hct 28.3 L (34.0-46.0) % MCV 86.9 (80.0-100.0) fL MCH 28.5 (25.0-35.0) pg MCHC 32.8 (31.0-37.0) g/dL RDW 16.1 H (11.5-15.5) % Plt Count 426 (150-450) k/uL MPV 7.1 Neutrophils % 77 % Lymphocytes % 8 % Monocytes % 8 % Eosinophils % 4 % Basophils % 1 % Neutrophils # 9.6 H (1.3-7.7) k/uL Lymphocytes # 1.0 (1.0-4.8) k/uL Monocytes # 1.0 (0-1.0) k/uL Eosinophils # 0.6 (0-0.7) k/uL Basophils # 0.1 (0-0.2) k/uL Anisocytosis Slight Sodium 132 L (137-145) mmol/L Potassium 5.5 H (3.5-5.1) mmol/L Chloride 92 L (98-107) mmol/L Carbon Dioxide 31 H (22-30) mmol/L Anion Gap 9 mmol/L BUN 77 H (7-17) mg/dL Creatinine 15.58 H* (0.52-1.04) mg/dL Est GFR (CKD-EPI)AfAm 3 (>60 ml/min/1.73 sqM) Est GFR (CKD-EPI)NonAf 3 (>60 ml/min/1.73 sqM) Glucose 115 H (74-99) mg/dL Plasma Lactic Acid Fred 1.0 (0.7-2.0) mmol/L Calcium 9.0 (8.4-10.2) mg/dL Phosphorus 5.8 H (2.5-4.5) mg/dL Magnesium 2.5 H (1.6-2.3) mg/dL Total Bilirubin 0.6 (0.2-1.3) mg/dL AST 17 (14-36) U/L ALT 11 (4-34) U/L Alkaline Phosphatase 119 (38-126) U/L Total Protein 6.2 L (6.3-8.2) g/dL Albumin 3.0 L (3.5-5.0) g/dL HCG, Qual Not Detected - Radiology Data Radiology results: report reviewed, image reviewed Disposition Clinical Impression: Right ovarian cyst Disposition: HOME SELF-CARE Instructions (If sedation given, give patient instructions): Ovarian Cyst (ED) Additional Instructions: Return to the emergency department with any new, worsening, or concerning symptoms. Take the Percocet sparingly when your pain is the most severe. Take the Zofran up to every 8 hours as needed for nausea and vomiting. Continue to contact the [facility] office for further evaluation. Prescriptions: oxyCODONE-APAP 7.5-325MG [Percocet 7.5-325 mg] 1 tab PO Q4HR PRN 3 Days #18 tab PRN Reason: Pain Ondansetron Odt [Zofran Odt] 4 mg PO Q8HR PRN #15 tab PRN Reason: Nausea And Vomiting Is patient prescribed a controlled substance at d/c from ED?: Yes When asked, does pt state using other controlled substances?: No If prescribed controlled substance>3 days was MAPS reviewed?: Prescribed <3 Days Referrals: Angela Torres MD [Primary Care Provider] - 1-2 days Time of Disposition: 19:10
[2024-05-19 16:44] LABS: HCG,Qualitative Serum Not Detected
--- NOTE | 2024-05-19 17:38 | CT ---
EXAMINATION TYPE: CT abdomen pelvis wo con CT DLP: 452.1 mGycm, Automated exposure control for dose reduction was used. DATE OF EXAM: 05/19/2024 5:16 PM COMPARISON: 04/17/2024 CLINICAL INDICATION: Female, 33 years old with history of Right sided pelvic pain; rt sided pelvic pa in TECHNIQUE: Axial CT abdomen pelvis wo con;Sagittal and coronal reformats were created on a separate workstation. Contrast used: mL of , (none if empty) Oral contrast used: without Oral Contrast (none if empty) FINDINGS: LOWER CHEST: Unremarkable ABDOMEN LIVER: Unremarkable GALLBLADDER AND BILE DUCTS: Unremarkable. PANCREAS: Unremarkable. SPLEEN: Unremarkable. ADRENAL GLANDS: Unremarkable. KIDNEYS AND URETERS: Atrophic kidneys bilaterally. No evidence for hydronephrosis. PELVIS BLADDER: Unremarkable REPRODUCTIVE: Right ovarian soft tissue mass measuring 50 x 53 mm. ABDOMEN & PELVIS STOMACH AND BOWEL: No evidence of bowel obstruction. PERITONEUM/RETROPERITONEUM: No evidence of pneumoperitoneum. Small amount of free fluid throughout th e abdomen. Peritoneal dialysis catheter terminates in the pelvis. VASCULATURE: No evidence of aortic aneurysm. MUSCULOSKELETAL: No acute osseous abnormalities LYMPH NODES: No gross evidence for lymphadenopathy. SOFT TISSUE/ABDOMINAL WALL: Unremarkable IMPRESSION: 1. There is an enlarged right pelvic soft tissue structure possibly representing the ovary if this i s the ovary is asymmetrically enlarged compared to the contralateral ovary. Further evaluation with p elvic ultrasound and Doppler images is recommended to exclude torsion. 2. Atrophic kidneys with peritoneal fluid with peritoneal catheter terminating in the low pelvis. 3. Small moderate fluid throughout the abdomen.
[2024-05-19 17:47] LABS: ALT 11 U/L (4-34); AST 17 U/L (14-36); Carbon Dioxide 31 mmol/L (22-30); Glucose 115 mg/dL (74-99); Sodium 132 mmol/L (137-145); Total Bilirubin 0.6 mg/dL (0.2-1.3); Total Protein 6.2 g/dL (6.3-8.2)
[2024-05-19 18:02] LABS: Alkaline Phosphatase 119 U/L (38-126); Anion Gap 9 mmol/L; Blood Urea Nitrogen 77 mg/dL (7-17); Chloride 92 mmol/L (98-107); Magnesium 2.5 mg/dL (1.6-2.3); Phosphorus 5.8 mg/dL (2.5-4.5); Potassium 5.5 mmol/L (3.5-5.1)
[2024-05-19 18:38] LABS: African American GFR (CKD) 3 (>60 ml/min/1.73 sqM); Non-African American GFR(CKD) 3 (>60 ml/min/1.73 sqM)
[2024-05-19 18:42] VITALS: TEMP 97.8
--- NOTE | 2024-05-19 18:54 | US ---
EXAMINATION TYPE: US transvaginal DATE OF EXAM: 05/19/2024 COMPARISON: CT today CLINICAL INDICATION: Female, 33 years old with history of Right sided pelvic pain, abnormal CT; soft tissue lesion seen on CT. Patient states right sided pelvic pain. Not on control. [id number]. Any lysis patient. Irregular periods TECHNIQUE: Transvaginal (TV). . Transvaginal sonographic images were medically necessary to better assess the following anatomy: Ovaries Date of LMP: patient states end december EXAM MEASUREMENTS: Uterus: 6.0 x 2.8 x 3.2 cm Endometrial Stripe: 0.2 cm Right Ovary: 6.4 x 4.9 x 5.0 cm Left Ovary: Unable to visualize due to free fluid seen within pelvis 1. Uterus: Anteverted wnl as best seen 2. Endometrium: 0.2 cm 3. Right Ovary: There is a heterogeneous area seen within the right adnexa measuring 6.4 x 4.9 x 5.0 cm. Right ovarian lesion vs adnexal 4. Left Ovary: Unable to visualize due to pelvic free fluid 5. Bilateral Adnexa: Free fluid seen within both adnexas 6. Posterior cul-de-sac: Free fluid seen IMPRESSION: 1. Large right adnexal structure with color doppler flow demonstrating arterial and venous spectral w aveforms. This structure may represent an enlarged ovary secondary to torsion detorsion phenomenon vs neoplastic lesion. Given patient's reported LMP, findings may also represent ectopic with rupture. Correlate with clinical history and B-hcg values, emergent gynecologic consultation recommen ded. 2. Moderate free fluid seen throughout the visualized pelvis. 3. Left ovary not visualized. "Critical findings" called to and read back by Cele VALDEZ by Dr. Keegan Olivas over the phone o n 05/19/2024 6:47 PM.
[2024-05-19 19:33] VITALS: RESP 17
[2024-05-19] MEDS: MORPHINE SULFATE 4 MG/ML SYRINGE IVP STA (19:34)
[2024-05-19 19:51] VITALS: BP 145/88; PULSE 87
== END 2024-05-19 19:50 | disposition home or self-care (01) ==
LOC: EC 15:04
DX: N83.201 Unspecified ovarian cyst, right side (principal); N02.B1 Recurrent and persistent immunoglobulin A nephropathy with glomerular lesion; Z88.8 Allergy status to other drugs, medicaments and biological substances; Z99.2 Dependence on renal dialysis; Z91.048 Other nonmedicinal substance allergy status
CPT/HCPCS: 36415; 80053; 83605; 83735; 84100; 85025; 84703; 93976; 76830; 74176; 96374; 96375; 96376; 99284; J2270; J1170; 25605

== ENCOUNTER 2024-05-23 14:46 | Emergency (ER) | payer MEDICARE, OTHER ==
[2024-05-23] MEDS: SODIUM CHLORIDE 0.9% 1,000 ML IV STA (16:02)
[2024-05-23] MEDS: metroNIDAZOLE-NS PMX 500 MG in SALINE 1 100ML.BAG IVPB STA (16:02)
[2024-05-23] MEDS: HYDROmorphone 1 MG/ML 1 ML SYRINGE IVP STA ×2 (16:03→19:08)
[2024-05-23 16:23] LABS: Anisocytosis Slight; Basophils # (A) 0.1 k/uL (0-0.2); Basophils % (A) 1 %; Eosinophils # (A) 0.6 k/uL (0-0.7); Eosinophils % (A) 4 %; HCT 27.9 % (34.0-46.0); HGB 9.1 gm/dL (11.4-16.0); Hypochromasia Slight; Lymphocytes # (A) 1.2 k/uL (1.0-4.8); Lymphocytes % (A) 8 %; MCH 28.7 pg (25.0-35.0); MCHC 32.7 g/dL (31.0-37.0); MCV 87.6 fL (80.0-100.0); Mean Platelet Volume 6.7; Monocytes # (A) 0.9 k/uL (0-1.0); Monocytes % (A) 6 %; Neutrophils # (A) 12.3 k/uL (1.3-7.7); Neutrophils % (A) 81 %; Platelet Count 423 k/uL (150-450); RBC 3.19 m/uL (3.80-5.40); RDW 16.2 % (11.5-15.5); WBC 15.2 k/uL (3.8-10.6)
[2024-05-23 16:34] LABS: ALT 8 U/L (4-34); AST 16 U/L (14-36); Albumin 2.9 g/dL (3.5-5.0); Alkaline Phosphatase 122 U/L (38-126); Amylase 39 U/L (30-110); Anion Gap 10 mmol/L; Blood Urea Nitrogen 60 mg/dL (7-17); Carbon Dioxide 27 mmol/L (22-30); Chloride 97 mmol/L (98-107); Glucose 92 mg/dL (74-99); Lipase 37 U/L (23-300); Non-African American GFR(CKD) 3 (>60 ml/min/1.73 sqM); Potassium 5.8 mmol/L (3.5-5.1); Sodium 134 mmol/L (137-145); Total Bilirubin 0.6 mg/dL (0.2-1.3); Total Protein 6.1 g/dL (6.3-8.2)
[2024-05-23 16:38] LABS: INR 0.9 (<1.2); Partial Thromboplastin Time 25.9 sec (22.0-30.0); Prothrombin Time 10.1 sec (10.0-12.5)
[2024-05-23 16:47] LABS: African American GFR (CKD) 3 (>60 ml/min/1.73 sqM)
[2024-05-23 16:49] LABS: HCG,Quantitative Serum <2.4 mIU/mL
--- NOTE | 2024-05-23 17:01 | ED ---
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 Patient previously presented for right lower quadrant pain approximately 4 days prior to arrival. During the ER visit she had a CT abdomen pelvis, ultrasound of her abdomen and labs ordered. Ultrasound at that time showed a complex mass near the right ovary. She had my leukocytosis white blood cell count approximately 12. Ultimately discharged home with Percocet. Seen by her PCP yesterday who redrew labs and noted increased white blood cell count to 15, called patient and sent her to the emergency department for further evaluation. Patient endorses fevers, Tmax 101. States fevers been on for the last week and a half typically happen in the morning. Pain remains in the same location. Percocet is not helping her pain. Endorses mild nausea but no vomiting. No vaginal discharge or history of STIs. Patient has very irregular periods with first day of her last menstrual period being last December. Denies chance of is not currently sexually active. - Related Data Home Medications Medication Instructions Recorded Confirmed Ixekizumab [Taltz Syringe] 80 mg SQ Q28D 01/29/24 05/23/24 NIFEdipine [Adalat CC] 60 mg PO DAILY 01/29/24 05/23/24 PARoxetine [Paxil] 10 mg PO DAILY 01/29/24 05/23/24 Sevelamer Carbonate 3,200 mg PO TID-W/MEALS 01/29/24 05/23/24 carvediloL 25 mg PO BID 01/29/24 05/23/24 rOPINIRole HCL 0.5 mg PO BID 01/29/24 05/23/24 traZODone HCL [Desyrel] 50 mg PO HS 01/29/24 05/23/24 Cinacalcet HCl [Sensipar] 60 mg PO Q2D 04/18/24 05/23/24 Furosemide [Lasix] 80 mg PO BID 04/18/24 05/23/24 NIFEdipine [Adalat CC] 30 mg PO HS 04/18/24 05/23/24 calcitrioL 0.25 mcg PO TID 04/18/24 05/23/24 Acetaminophen Tab [Tylenol] 650 mg PO Q6H PRN 05/19/24 05/23/24 Famotidine [Pepcid] 20 mg PO DAILY 05/23/24 05/23/24 Previous Rx's Medication Instructions Recorded Calcium Acetate [PhosLo] 1,334 mg PO AC-TID #180 tab 04/20/24 Ondansetron Odt [Zofran Odt] 4 mg PO Q8HR PRN #15 tab 05/19/24 oxyCODONE-APAP 7.5-325MG [Percocet 1 tab PO Q4HR PRN 3 Days #18 tab 05/19/24 7.5-325 mg] Allergies Allergy/AdvReac Type Severity Reaction Status Date / Time amlodipine Allergy Rash/Hives Verified 05/23/24 16:29 silver Allergy Rash/Hives Verified 05/23/24 16:29 [From [employer]] Review of Systems ROS Statement: Those systems with pertinent positive or pertinent negative responses have been documented in the HPI. Constitutional: Reports: fever, chills Respiratory: Denies: dyspnea Cardiovascular: Denies: chest pain Gastrointestinal: Reports: abdominal pain, nausea. Denies: vomiting, diarrhea, constipation, melena, hematochezia Genitourinary: Reports: abnormal menses. Denies: hematuria, discharge Past Medical History Past Medical History: Dialysis, Hypertension, Renal Disease, Seizure Disorder, Skin Disorder Additional Past Medical History / Comment(s): P.D. dailysis [facility]<TH<[place], seizure 2 yrs ago,possibly has had dvt in past,ovarian cyst uterine fibroids History of Any Multi-Drug Resistant Organisms: None Reported Past Surgical History: Back Surgery Additional Past Surgical History / Comment(s): urethral surgery at 7months old. skull fracture at age 9, back injections Past Anesthesia/Blood Transfusion Reactions: No Reported Reaction Past Psychological History: Anxiety, Depression Smoking Status: Never smoker Past Alcohol Use History: Rare Past Drug Use History: Marijuana - Past Family History Mother Family Medical History: Cancer Additional Family Medical History / Comment(s): ovarian, cervical General Exam - General Exam Comments Initial Comments: PE: CONSTITUTIONAL: No apparent distress, well appearing SKIN: Warm, dry, no jaundice, hives or petechiae EYES: Pupils are equally round, extraocular movements intact without nystagmus, clear conjunctiva, non-icteric sclera HENT: Normocephalic, atraumatic, moist mucus membranes, oropharynx clear without exudates NECK: , Full range of motion, normal appearance PULMONARY: Clear to auscultation without wheezes, rhonchi, or rales, normal excursion, no accessory muscle use and no stridor CARDIOVASCULAR: Regular rate, rhythm, normal S1 and S2. No appreciated murmurs, rubs or gallops. Strong radial pulses with intact distal perfusion. No lower ext remity edema GASTROINTESTINAL: Soft, right lower quadrant tenderness to palpation, palpable mass in the right lower quadrant, non-distended, no rebound or guarding. No hepatosplenomegaly MUSCULOSKELETAL: Extremities have no gross deformity, no edema, redness, or swelling. No calf swelling ot TTP. NEUROLOGIC:_a/o x 3, GCS 15, normal mentation and speech. Moves all extremities x 4 without motor or sensory deficit PSYCHIATRIC:_normal mood and affect, thought process is clear and linear Limitations: no limitations Course Vital Signs 05/23/24 05/23/24 14:48 19:07 Temperature 98.7 F 98.8 F Pulse Rate 97 98 Respiratory 18 16 Rate Blood Pressure 115/66 126/73 O2 Sat by Pulse 99 98 Oximetry - Reevaluation(s) Reevaluation #1: Came back to bedside to discuss with patient again transfer for further workup of neoplasm. Patient requests that I speak with her . Spoke with patient's on speaker phone we discussed my concerns for cancer versus infection, uncertain which, however patient is having morning fevers, fam hx of ovarian CA. Pt to discuss further with transfer vs discharge vs AMA. Patient requests dilaudid and now ok with EKG. 05/23/24 18:09 Medical Decision Making - Medical Decision Making Was pt. sent in by a medical professional or institution (, PA, SENIOR BENEFITS SPECIALIST, urgent care, hospital, or fpc...) When possible be specific @ -Patient sent in by her PCP Did you speak to anyone other than the patient for history (EMS, parent, family, police, friend...)? What history was obtained from this source @ -No Did you review nursing and triage notes (agree or disagree)? Why? @ -I reviewed and agree with nursing and triage notes Were old charts reviewed (outside hosp., previous admission, EMS record, old EKG, old radiological studies, urgent care reports/EKG's, fpc records)? Report findings @ -Reviewed patient's visit on 05/19/2024, sodium 132, potassium 5.5, chloride 92, BUN/creatinine 77/15, GFR 3, white blood cell count 12.4, hemoglobin 9.3, lactic of 1 negative beta-hCG Ultrasound of the pelvis performed during that visit showed "transvaginal signif icant for a large right adnexal structure with color Doppler flow demonstrating arterial and venous spectral waveforms, structure may represent an enlarged ovary secondary to torsion detorsion phenomenon versus a neoplastic lesion given patient's reported LMP findings may also represent ectopic with rupture correlate with clinical history and beta-hCG value emergent Guynn consultation recommended, moderate free fluid throughout the visualized pelvis, left ovary was not visualized"; CT performed during that visit showed an "enlarged right pelvic soft tissue structure possibly representing ovary if ovary is asymmetric enlarged compared to the contralateral ovary, further evaluation with pelvic ultrasound recommended to exclude torsion, atrophic kidneys with peritoneal fluid with peritoneal to catheter terminating low pelvis, small moderate fluid throughout the abdomen" Differential Diagnosis (chest pain, altered mental status, abdominal pain women, abdominal pain men, vaginal bleeding, weakness, fever, dyspnea, syncope, headache, dizziness, GI bleed, back pain, seizure, CVA, palpatations, mental health, musculoskeletal)? @ -Differential diagnosis remains broad however top considerations include Ovarian cyst, TOA, ovarian torsion, ectopic , ovarian neoplastic mass, this is not meant to be an all-inclusive list. Did also consider peritonitis however patient notes that she does not feel abdominal pain is consistent with this and the effluent from her dialysis catheter has been persistently clear. Additionally, no diffuse abdominal TTP or peritoneal signs. EKG interpreted by me (3pts min.). @ -Sinus tachycardia, rate 103 bpm, MD interval 131 ms, QRS duration 85 ms, QT/QTc 4 3-40 4/43 ms, normal axis, no arrhythmia, no EKG changes consistent with hyperkalemia X-rays interpreted by me (1pt min.). @ -None done CT interpreted by me (1pt min.). @ -None done What testing was considered but not performed or refused? (CT, X-rays, U/S, labs)? Why? @ -Considered repeat CT however patient's symptoms unchanged from visit 05/19, will limit radiation exposure and forgo repeat CT at this point, patient agreeable with this and would prefer to wait in obtaining CT unless necessary What meds were considered but not given or refused? Why? @ -None Did you discuss the management of the patient with other professionals (professionals i.e. , JOSÉ MIGUEL, SENIOR BENEFITS SPECIALIST, lab, RT, psych nurse, geriatric social work professor, steel tier, teacher, property portfolio officer, vocational case manager)? Give summary @ -Discussed with Dr. Gregorio, Ob-Fountain Worker please see conversation noted below Was smoking cessation discussed for >3mins.? @ -No Was critical care preformed (if so, how long)? @ -No Were there social determinants of health that impacted care today? How? (Homelessness, low income, unemployed, alcoholism, drug addiction, transportation, low edu. Level, literacy, decrease access to med. care, [facility], rehab)? @ -No Was there de-escalation of care discussed even if they declined (Discuss DNR or withdrawal of care, Hospice)? @ -No What co-morbidities impacted this encounter? (DM, HTN, Smoking, COPD, CAD, Cancer, CVA, ARF, Chemo, Hep., AIDS, mental health diagnosis, sleep apnea, morbid obesity)? @ -ESRD on peritoneal dialysis Was patient admitted / discharged? Hospital course, mention meds given and route, prescriptions, significant lab abnormalities, going to OR and other pertinent info. @ -Hospital course left AMA Patient is a 33-year-old female past medical history of seizures, CKD on peritoneal dialysis, presenting today for right lower quadrant pain at the direction of her primary care provider due to rising WBC count on outpatient labs. On assessment patient well appearing in NAD. Resting comfortably. Abdominal exam shows minimal RLQ TTP, palpable mass, soft and nondistended abdomen, active bowel sounds. Differential dx remains broad however top considerations noted above. Repeat labs, US pelvis, pain control ordered, abx to cover for TOA. Patient agreeable with POC. Discussed case with Dr. Gregorio, obstetrics and gynecology, who kindly recommends transfer to tertiary center with dye penetrant testing technician onc specialist available. Discussed with Dr. Verma, Fountain Worker Onc [facility], who accepts transfer. Discussed plan for transfer with patient and need for further evaluation of potential ovarian neoplasm, however patient is unsure if she would like to be transferred. I did discuss with her my concern for the ovarian mass and potential neoplasm. Pt to call and make decision on transfer vs discharge AMA. Of note, potassium 5.8, ordered EKG to ensure no EKG changes consistent with hyperkalemia however patient refused EKG. I did discuss with her my concern for arrhythmia due to high potassium however patient states that she is aware of this and aware of her high potassium and has medications at home to take care of this. Adamantly declines EKG. Ultrasound of the pelvis read as no evidence for acute process with appropriate arterial and venous waveforms to the ovary however does note enlarged and heterogenous right ovary. On reassessment patient agreeable with EKG. Decided to leave AMA. I did discuss with her again my concern for possible neoplasm and need for emergent or urgent workup and evaluation for neoplasm versus infectious process, if infectious process she could become septic. Patient states she does not have cancer and will have her drive her to [facility] should her symptoms worsen. She is AOx 4 able to repeat back to me in her own words her understanding of risks of leaving without further treatment. Requested dilaudid motor equipment captain. Will administer. Reviewed EKG, no hyperacute T waves, intervals within normal limits, patient will perform peritoneal dialysis tonight. Patient left AMA. Undiagnosed new problem with uncertain prognosis? @ -Yes Drug Therapy requiring intensive monitoring for toxicity (Heparin, Nitro, Insulin, Cardizem)? @ -No Were any procedures done? @ -No Diagnosis/symptom? @ -Right ovarian mass, right lower quadrant abdominal pain Acute, or Chronic, or Acute on Chronic? @ -Acute Uncomplicated (without systemic symptoms) or Complicated (systemic symptoms)? @ -Complicated Side effects of treatment? @ -No Exacerbation, Progression, or Severe Exacerbation? @ -No Poses a threat to life or bodily function? How? (Chest pain, [place], [place], pneumonia, PE, COPD, DKA, ARF, appy, cholecystitis, CVA, Diverticulitis, Homicidal, Suicidal, threat to staff... and all critical care pts) @ -Potentially, if infectious or neoplastic, could result in sepsis or uncontrolled progression of neoplasm and ultimately - Lab Data Result diagrams: 05/23/24 16:00 05/23/24 16:00 Lab Results 05/23/24 05/23/24 05/23/24 Range/Units 16:00 16:00 16:00 WBC 15.2 H (3.8-10.6) k/uL RBC 3.19 L (3.80-5.40) m/uL Hgb 9.1 L (11.4-16.0) gm/dL Hct 27.9 L (34.0-46.0) % MCV 87.6 (80.0-100.0) fL MCH 28.7 (25.0-35.0) pg MCHC 32.7 (31.0-37.0) g/dL RDW 16.2 H (11.5-15.5) % Plt Count 423 (150-450) k/uL MPV 6.7 Neutrophils % 81 % Lymphocytes % 8 % Monocytes % 6 % Eosinophils % 4 % Basophils % 1 % Neutrophils # 12.3 H (1.3-7.7) k/uL Lymphocytes # 1.2 (1.0-4.8) k/uL Monocytes # 0.9 (0-1.0) k/uL Eosinophils # 0.6 (0-0.7) k/uL Basophils # 0.1 (0-0.2) k/uL Hypochromasia Slight Anisocytosis Slight PT 10.1 (10.0-12.5) sec INR 0.9 (<1.2) APTT 25.9 (22.0-30.0) sec Sodium 134 L (137-145) mmol/L Potassium 5.8 H (3.5-5.1) mmol/L Chloride 97 L (98-107) mmol/L Carbon Dioxide 27 (22-30) mmol/L Anion Gap 10 mmol/L BUN 60 H (7-17) mg/dL Creatinine 14.81 H* (0.52-1.04) mg/dL Est GFR (CKD-EPI)AfAm 3 (>60 ml/min/1.73 sqM) Est GFR (CKD-EPI)NonAf 3 (>60 ml/min/1.73 sqM) Glucose 92 (74-99) mg/dL Plasma Lactic Acid Fred (0.7-2.0) mmol/L Calcium 9.0 (8.4-10.2) mg/dL Total Bilirubin 0.6 (0.2-1.3) mg/dL AST 16 (14-36) U/L ALT 8 (4-34) U/L Alkaline Phosphatase 122 (38-126) U/L Total Protein 6.1 L (6.3-8.2) g/dL Albumin 2.9 L (3.5-5.0) g/dL Amylase 39 (30-110) U/L Lipase 37 (23-300) U/L HCG, Quant <2.4 mIU/mL 05/23/24 Range/Units 16:00 WBC (3.8-10.6) k/uL RBC (3.80-5.40) m/uL Hgb (11.4-16.0) gm/dL Hct (34.0-46.0) % MCV (80.0-100.0) fL MCH (25.0-35.0) pg MCHC (31.0-37.0) g/dL RDW (11.5-15.5) % Plt Count (150-450) k/uL MPV Neutrophils % % Lymphocytes % % Monocytes % % Eosinophils % % Basophils % % Neutrophils # (1.3-7.7) k/uL Lymphocytes # (1.0-4.8) k/uL Monocytes # (0-1.0) k/uL Eosinophils # (0-0.7) k/uL Basophils # (0-0.2) k/uL Hypochromasia Anisocytosis PT (10.0-12.5) sec INR (<1.2) APTT (22.0-30.0) sec Sodium (137-145) mmol/L Potassium (3.5-5.1) mmol/L Chloride (98-107) mmol/L Carbon Dioxide (22-30) mmol/L Anion Gap mmol/L BUN (7-17) mg/dL Creatinine (0.52-1.04) mg/dL Est GFR (CKD-EPI)AfAm (>60 ml/min/1.73 sqM) Est GFR (CKD-EPI)NonAf (>60 ml/min/1.73 sqM) Glucose (74-99) mg/dL Plasma Lactic Acid Fred 0.8 (0.7-2.0) mmol/L Calcium (8.4-10.2) mg/dL Total Bilirubin (0.2-1.3) mg/dL AST (14-36) U/L ALT (4-34) U/L Alkaline Phosphatase (38-126) U/L Total Protein (6.3-8.2) g/dL Albumin (3.5-5.0) g/dL Amylase (30-110) U/L Lipase (23-300) U/L HCG, Quant mIU/mL Disposition Clinical Impression: Right ovarian enlargement Disposition: LEFT AGAINST MEDICAL ADVICE Condition: Good Is patient prescribed a controlled substance at d/c from ED?: No Referrals: Angela Torres MD [Primary Care Provider] - 1-2 days
--- NOTE | 2024-05-23 17:04 | US ---
EXAMINATION TYPE: US pelvic complete DATE OF EXAM: 05/23/2024 COMPARISON: 05/19/2024 CLINICAL INDICATION: Female, 33 years old with history of fever, ovarian mass right; Dialysis patient - white blood cells increased, pain medications not working TECHNIQUE: Transabdominal sonographic images of the pelvis were acquired. Transvaginal sonographic i mages were medically necessary to better assess the following anatomy: uterus Date of LMP: Unknown EXAM MEASUREMENTS: Uterus: 5.7 x 2.6 x 3.4 cm Endometrial Stripe: 0.2 cm Right Ovary: 5.9 x 4.4 x 4.9 cm Left Ovary: 3.3 x 1.7 x 1.6 cm 1. Uterus: Anteverted wnl 2. Endometrium: wnl 3. Right Ovary: Enlarged and heterogenous 4. Left Ovary: wnl Spectral, color and waveform doppler imaging shows good arterial and venous flow within the ovaries ; there is no evidence for ovarian torsion. 5. Bilateral Adnexa: wnl 6. Posterior cul-de-sac: wnl IMPRESSION: 1. No evidence for acute process. 2. Appropriate arterial and spectral venous waveforms to the ovaries. 3. Endometrium within normal limits.
[2024-05-23 19:08] VITALS: BP 126/73; PULSE 98; RESP 16; TEMP 98.8
[2024-05-23] MEDS: CEFEPIME 2 GM in SODIUM CHLORIDE 0.9% 100 ML IVPB STA (19:10)
== END 2024-05-23 20:08 | disposition left against medical advice (07) ==
LOC: EC 14:46
DX: R10.9 Unspecified abdominal pain
CPT/HCPCS: 36415; 76830; 76856; 80053; 82150; 83605; 83690; 84702; 85025; 85610; 85730; 93005; 93975; 96361; 96365; 96366; 96375; 96376; 99284

== ENCOUNTER 2024-06-07 00:17 | Inpatient (IN) | payer MEDICARE, OTHER ==
[~2024-06-07 00:17] MED LIST changes: +CALCIUM GLUCONATE IN NACL 100 ML IVPB ONE; +DEXTROSE 50% SYRINGE 50 ML IVP ONE; +FUROSEMIDE 10 MG/ML 4 ML VIAL ONE; -HYDROmorphone 0.5 MG/0.5 ML SYRINGE IVP PRN; +INSULIN REGULAR 100 UNIT/ML VIAL (IV) ONE; -LACTATED RINGERS 1,000 ML IV SCH; +SODIUM ZIRCONIUM CYCLOSILICATE 10 GM PACKET ONE; +hydrALAZINE HCL 20 MG/ML 1 ML VIAL ONE
--- NOTE | 2024-06-07 04:32 | ED ---
Abdominal Pain HPI <Melvin Alvarez - Last Filed: 06/07/24 12:12> - General Source: patient Mode of arrival: ambulatory Limitations: no limitations <Marifer Menjivar - Last Filed: 06/18/24 22:43> - General Chief Complaint: Abdominal Pain Stated Complaint: ABD Pain Time Seen by Provider: 06/07/24 00:20 - History of Present Illness Initial Comments: 33-year-old female with past medical history of IgA nephropathy on peritoneal dialysis who presents emergency department reporting right lower quadrant abdominal pain. Patient has had this pain for several weeks. She has been seen in the emergency department twice for the same complaint. CT and ultrasound had been performed which demonstrated a mass on the patient's right ovary. Patient was referred to WORD PROCESSING OPERATOR for the mass. She is scheduled to see an WORD PROCESSING OPERATOR specialist at [facility] next month for her symptoms. That she has had intermit tent abdominal pain mostly located in the right lower quadrant. This current pain got worse 4 days ago. She denies any changes in her bowel habits. Patient does not make much urine due to the dialysis. She denies any abnormal vaginal bleeding or discharge. No concern for sexually transmitted infections as she is not sexually active. Patient denies a history of peritonitis. She did see her taping supervisor she states that she was not concerned for peritonitis. Patient is not currently on any antibiotics even though her primary care physician had checked blood work and found her white blood cell count to be high. She denies any additional infectious symptoms to include ear pain, sore throat, cough, shortness of breath. No other alleviating, precipitating or modifying factors (Marifer Menjivar) - Related Data Home Medications Medication Instructions Recorded Confirmed NIFEdipine [Adalat CC] 60 mg PO DAILY 01/29/24 06/07/24 PARoxetine [Paxil] 10 mg PO DAILY 01/29/24 06/07/24 Sevelamer Carbonate 3,200 mg PO TID-W/MEALS 01/29/24 06/07/24 carvediloL 25 mg PO BID 01/29/24 06/07/24 rOPINIRole HCL 0.5 mg PO BID 01/29/24 06/07/24 traZODone HCL [Desyrel] 50 mg PO HS 01/29/24 06/07/24 Cinacalcet HCl [Sensipar] 60 mg PO Q2D 04/18/24 06/07/24 Furosemide [Lasix] 80 mg PO BID 04/18/24 06/07/24 NIFEdipine [Adalat CC] 30 mg PO HS 04/18/24 06/07/24 calcitrioL 0.25 mcg PO TID 04/18/24 06/07/24 Acetaminophen Tab [Tylenol] 650 mg PO Q6H PRN 05/19/24 06/07/24 Famotidine [Pepcid] 20 mg PO DAILY 05/23/24 06/07/24 Previous Rx's Medication Instructions Recorded Calcium Acetate [PhosLo] 1,334 mg PO AC-TID #180 tab 04/20/24 Amoxic-Pot Clav 875-125Mg 1 tab PO Q12HR 10 Days #20 tab 06/18/24 [Augmentin 875-125] Darbepoetin Elmo [Aranesp] 60 mcg SQ Q7D 30 Days #4 each 06/18/24 Fluconazole [Diflucan] 100 mg PO DAILY 10 Days #10 tab 06/18/24 Folic Acid 1 mg PO DAILY@1200 #30 tab 06/18/24 Multivitamins, Thera [Multivitamin 1 each PO DAILY@1200 #30 tab 06/18/24 (formulary)] Simethicone Chew [Mylicon Chew] 80 mg PO QID PRN #30 tab 06/18/24 Thiamine [Vitamin B-1] 100 mg PO BID-W/MEALS #30 tab 06/18/24 oxyCODONE HCL [OxyIR] 5 mg PO Q6HR PRN #12 tab 06/18/24 Allergies Allergy/AdvReac Type Severity Reaction Status Date / Time amlodipine Allergy Rash/Hives Verified 06/07/24 09:47 silver Allergy Rash/Hives Verified 06/07/24 09:47 [From Tegaderm AG Mesh] Review of Systems ROS Other: All systems not noted in ROS Statement are negative. <Melvin Alvarez - Last Filed: 06/07/24 12:12> ROS Other: All systems not noted in ROS Statement are negative. <Marifer Menjivar - Last Filed: 06/18/24 22:43> ROS Statement: Those systems with pertinent positive or pertinent negative responses have been documented in the HPI. Past Medical History Past Medical History: Dialysis, Hypertension, Renal Disease, Seizure Disorder, Skin Disorder Additional Past Medical History / Comment(s): P.D. dailysis TU<TH<SA, seizure 2 yrs ago,possibly has had dvt in past,ovarian cyst uterine fibroids History of Any Multi-Drug Resistant Organisms: None Reported Past Surgical History: Back Surgery Additional Past Surgical History / Comment(s): urethral surgery at 9months old. skull fracture at age 9, back injections Past Anesthesia/Blood Transfusion Reactions: No Reported Reaction Past Psychological History: Anxiety, Depression Smoking Status: Never smoker Past Alcohol Use History: Rare Past Drug Use History: Marijuana - Past Family History Mother Family Medical History: Cancer Additional Family Medical History / Comment(s): ovarian, cervical <Marifer Menjivar - Last Filed: 06/18/24 22:43> General Exam Limitations: no limitations General appearance: alert, in no apparent distress Head exam: Present: atraumatic, normocephalic, normal inspection Eye exam: Present: normal appearance, PERRL, EOMI. Absent: scleral icterus, conjunctival injection, periorbital swelling ENT exam: Present: normal exam, mucous membranes moist Neck exam: Present: normal inspection. Absent: tenderness, meningismus, lymphadenopathy Respiratory exam: Present: normal lung sounds bilaterally. Absent: respiratory distress, wheezes, rales, rhonchi, stridor Cardiovascular Exam: Present: regular rate, normal rhythm, normal heart sounds. Absent: systolic murmur, diastolic murmur, rubs, gallop, clicks GI/Abdominal exam: Present: soft, tenderness (rlq), normal bowel sounds. Absent: distended, guarding, rebound, rigid Extremities exam: Present: normal inspection, full ROM, normal capillary refill. Absent: tenderness, pedal edema, joint swelling, calf tenderness Back exam: Present: normal inspection Neurological exam: Present: alert, oriented X3, CN II-XII intact Psychiatric exam: Present: normal affect, normal mood Skin exam: Present: warm, dry, intact, normal color. Absent: rash <Marifer Menjivar - Last Filed: 06/18/24 22:43> Course Vital Signs 06/07/24 06/07/24 06/07/24 00:19 05:07 06:24 Temperature 98.1 F Pulse Rate 111 H Respiratory 20 18 Rate Blood Pressure 160/93 137/77 141/82 O2 Sat by Pulse 100 98 Oximetry 06/07/24 06/07/24 06/07/24 07:17 09:00 11:06 Temperature Pulse Rate 100 67 Respiratory 20 16 Rate Blood Pressure 149/91 139/90 130/87 O2 Sat by Pulse 99 98 Oximetry 06/07/24 16:04 Temperature Pulse Rate Respiratory 16 Rate Blood Pressure 172/108 O2 Sat by Pulse 98 Oximetry Medical Decision Making - Lab Data Result diagrams: 06/07/24 04:21 06/07/24 04:21 <Melvin Alvarez - Last Filed: 06/07/24 12:12> - Lab Data Result diagrams: 06/18/24 06:14 06/18/24 06:14 <Marifer Menjivar - Last Filed: 06/18/24 22:43> - Medical Decision Making Patient signed out to me pending potential transfer and discussion with patient's specialist at [facility] [place]. Briefly, patient presents with persistent right sided abdominal pain. Patient has an increasing leukocytosis of 21.1. This is the third visit for similar complaints in the last 3 or 4 weeks. Patient is a peritoneal dialysis patient. CT imaging revealed a enlarged right ovary a few weeks ago. Ultrasound redemonstrated that last night. Plan was for potential transfer if gynecology oncology recommended it. Patient's specialist who she has not yet seen is a Dr. Sandra Mancuso out of [facility]. We were awaiting phone call from them. I spoke extensively with Dr. Sandra Mancuso and reviewed the patient's chart with her from the last few visits in addition to the CT imaging, ultrasound imaging and labs. She does not believe that patient is a surgical candidate at this time. States patient does not need to be transferred to their facility and thinks that we can workup the patient further here and manage the patient here with her as follow-up. I discussed at length with the patient who was in agreement this plan for remaining here. She would prefer it. I spoke with Dr. Darden from [facility] who accepted the admission. Nephrology, infectious disease, OB /DIE CASTING SUPERVISOR will be consulted. Will continue with antibiotics for now. (Melvin Alvarez) Was pt. sent in by a medical professional or institution (, PA, RUBBER COMPOUNDER, urgent care, hospital, or intermediate...) When possible be specific @ -No Did you speak to anyone other than the patient for history (EMS, parent, family, police, friend...)? What history was obtained from this source @ -No Did you review nursing and triage notes (agree or disagree)? Why? @ -yes, I agree Were old charts reviewed (outside hosp., previous admission, EMS record, old EKG, old radiological studies, urgent care reports/EKG's, intermediate records)? Report findings @ -I reviewed previous ED visits which included an abdominal ultrasound and abdominal CT Differential Diagnosis (chest pain, altered mental status, abdominal pain women, abdominal pain men, vaginal bleeding, weakness, fever, dyspnea, syncope, headache, dizziness, GI bleed, back pain, seizure, CVA, palpatations, mental health, musculoskeletal)? @ -Differential Abdominal Pain Women: Appendicitis, Cholecystitis, diverticulosis, ischemic bowel, pancreatitis, hepatitis, UTI, gastroenteritis, AAA, incarcerated hernia, bowel obstruction, constipation, inflammatory bowel, hepatitis, peptic ulcer disease, splenic infarction, perforated viscus, vulvitis, ovarian torsion, PID, kidney stone, placenta abruption, this is not meant to be an all-inclusive list EKG interpreted by me (3pts min.). @ -Not done X-rays interpreted by me (1pt min.). @ -None done CT interpreted by me (1pt min.). @ -None done U/S interpreted by me (1pt. min.). @ -Yes and demonstrates complex right ovarian mass What testing was considered but not performed or refused? (CT, X-rays, U/S, labs)? Why? @ -Abdominal CT was considered however patient had 1 on May 20 What meds were considered but not given or refused? Why? @ -None Did you discuss the management of the patient with other professionals (professionals i.e. , PA, RUBBER COMPOUNDER, lab, RT, psych nurse, manager social services, real estate administrative assistant, teacher, geospatial program management officer, case assembler)? Give summary @ -Spoke with physician at [facility] Was smoking cessation discussed for >3mins.? @ -No Was critical care preformed (if so, how long)? @ -No Were there social determinants of health that impacted care today? How? (Homelessness, low income, unemployed, alcoholism, drug addiction, transportation, low edu. Level, literacy, decrease access to med. care, halfway, rehab)? @ -No Was there de-escalation of care discussed even if they declined (Discuss DNR or withdrawal of care, Hospice)? DNR status @ -No What co-morbidities impacted this encounter? (DM, HTN, Smoking, COPD, CAD, Cancer, CVA, ARF, Chemo, Hep., AIDS, mental health diagnosis, sleep apnea, morbid obesity)? @ -End-stage renal disease on peritoneal dialysis Was patient admitted / discharged? Hospital course, mention meds given and route, prescriptions, significant lab abnormalities, going to OR and other pertinent info. @ -Transferred. On arrival patient seen and evaluated in room 24. Thorough history and physical exam was performed. IV access was established. Laboratory studies are conducted. Ultrasound was performed. Laboratory studies demonstrate elevated white blood cell count. Hemoglobin 7.7. Ultrasound demonstrates a complex right ovarian mass. Patient was previously referred out to OB for the complexity of her care. At this time I do feel that the patient requires antibiotics due to elevating white blood cell count however patient needs further evaluation for this complex mass. She does have an appointment scheduled for [facility] at this time. Patient would benefit from transfer to facility at this time due to worsening abdominal pain with elevated white blood cell count. Patient is empirically initiated on antibiotics. She was agreeable to transfer at this time. Called and spoke with [facility]. Awaiting callback for direct admission. Case signed out to Dr. Alvarze. Undiagnosed new problem with uncertain prognosis? @ -No Drug Therapy requiring intensive monitoring for toxicity (Heparin, Nitro, Insulin, Cardizem)? @ -No Were any procedures done? @ -No Diagnosis/symptom? @ -Right lower quadrant abdominal pain, right ovarian mass, leukocytosis, end- stage renal disease on peritoneal dialysis Acute, or Chronic, or Acute on Chronic? @ -Acute Uncomplicated (without systemic symptoms) or Complicated (systemic symptoms)? @ -complicated Side effects of treatment? @ -No Exacerbation, Progression, or Severe Exacerbation? @ -No Poses a threat to life or bodily function? How? (Chest pain, USA, NC, pneumonia, PE, COPD, DKA, ARF, appy, cholecystitis, CVA, Diverticulitis, Homicidal, Suicidal, threat to staff... and all critical care pts) @ -No (Marifer Menjivar) - Lab Data Lab Results 06/07/24 06/07/2406/07/24 Range/Units 04:21 04:21 04:21 WBC 21.1 H (3.8-10.6) k/uL RBC 2.70 L (3.80-5.40) m/uL Hgb 7.7 L (11.4-16.0) gm/dL Hct 23.6 L (34.0-46.0) % MCV 87.4 (80.0-100.0) fL MCH 28.6 (25.0-35.0) pg MCHC 32.7 (31.0-37.0) g/dL RDW 15.8 H (11.5-15.5) % Plt Count 459 H (150-450) k/uL MPV 7.3 Neutrophils % 81 % Lymphocytes % 8 % Monocytes % 7 % Eosinophils % 4 % Basophils % 0 % Neutrophils # 17.2 H (1.3-7.7) k/uL Lymphocytes # 1.6 (1.0-4.8) k/uL Monocytes # 1.4 H (0-1.0) k/uL Eosinophils # 0.8 H (0-0.7) k/uL Basophils # 0.0 (0-0.2) k/uL Sodium 129 L (137-145) mmol/L Potassium 5.4 H (3.5-5.1) mmol/L Chloride 89 L (98-107) mmol/L Carbon Dioxide 26 (22-30) mmol/L Anion Gap 14 mmol/L BUN 71 H (7-17) mg/dL Creatinine 13.33 H* (0.52-1.04) mg/dL Est GFR (CKD-EPI)AfAm 4 (>60 ml/min/1.73 sqM) Est GFR (CKD-EPI)NonAf 3 (>60 ml/min/1.73 sqM) Glucose 90 (74-99) mg/dL Plasma Lactic Acid Fred 0.8 (0.7-2.0) mmol/L Calcium 9.3 (8.4-10.2) mg/dL Total Bilirubin 0.7 (0.2-1.3) mg/dL AST 19 (14-36) U/L ALT 8 (4-34) U/L Alkaline Phosphatase 125 (38-126) U/L Total Protein 6.3 (6.3-8.2) g/dL Albumin 2.9 L (3.5-5.0) g/dL Lipase 149 (23-300) U/L HCG, Qual Blood Type Confirm 06/07/24 06/07/24 Range/Units 04:21 04:21 WBC (3.8-10.6) k/uL RBC (3.80-5.40) m/uL Hgb (11.4-16.0) gm/dL Hct (34.0-46.0) % MCV (80.0-100.0) fL MCH (25.0-35.0) pg MCHC (31.0-37.0) g/dL RDW (11.5-15.5) % Plt Count (150-450) k/uL MPV Neutrophils % % Lymphocytes % % Monocytes % % Eosinophils % % Basophils % % Neutrophils # (1.3-7.7) k/uL Lymphocytes # (1.0-4.8) k/uL Monocytes # (0-1.0) k/uL Eosinophils # (0-0.7) k/uL Basophils # (0-0.2) k/uL Sodium (137-145) mmol/L Potassium (3.5-5.1) mmol/L Chloride (98-107) mmol/L Carbon Dioxide (22-30) mmol/L Anion Gap mmol/L BUN (7-17) mg/dL Creatinine (0.52-1.04) mg/dL Est GFR (CKD-EPI)AfAm (>60 ml/min/1.73 sqM) Est GFR (CKD-EPI)NonAf (>60 ml/min/1.73 sqM) Glucose (74-99) mg/dL Plasma Lactic Acid Fred (0.7-2.0) mmol/L Calcium (8.4-10.2) mg/dL Total Bilirubin (0.2-1.3) mg/dL AST (14-36) U/L ALT (4-34) U/L Alkaline Phosphatase (38-126) U/L Total Protein (6.3-8.2) g/dL Albumin (3.5-5.0) g/dL Lipase (23-300) U/L HCG, Qual Not Detected Blood Type Confirm A Negative Critical Care Time Critical Care Time: Yes Total Critical Care Time: 32 <Antonio,Melvin - Last Filed: 06/07/24 12:12> Disposition Time of Disposition: 11:00 <Melvin Alvarez - Last Filed: 06/07/24 12:12> <Marifer Menjivar - Last Filed: 06/18/24 22:43> Clinical Impression: Leukocytosis, Ovarian enlargement, right, Requires peritoneal dialysis, Intractable abdominal pain Disposition: ADMITTED IP TO THIS HOSP Condition: Stable
[2024-06-07] MEDS: HYDROmorphone 1 MG/ML 1 ML SYRINGE IVP STA ×3 (05:10→10:15)
[2024-06-07] MEDS: ONDANSETRON 4 MG/2 ML VIAL IVP STA (05:21)
[2024-06-07 05:41] LABS: Basophils % (A) 0 %; Eosinophils # (A) 0.8 k/uL (0-0.7); Eosinophils % (A) 4 %; HCT 23.6 % (34.0-46.0); HGB 7.7 gm/dL (11.4-16.0); Lymphocytes # (A) 1.6 k/uL (1.0-4.8); Lymphocytes % (A) 8 %; MCH 28.6 pg (25.0-35.0); MCHC 32.7 g/dL (31.0-37.0); MCV 87.4 fL (80.0-100.0); Mean Platelet Volume 7.3; Monocytes # (A) 1.4 k/uL (0-1.0); Monocytes % (A) 7 %; Neutrophils # (A) 17.2 k/uL (1.3-7.7); Neutrophils % (A) 81 %; Platelet Count 459 k/uL (150-450); RDW 15.8 % (11.5-15.5); WBC 21.1 k/uL (3.8-10.6)
[2024-06-07 06:09] LABS: ALT 8 U/L (4-34); African American GFR (CKD) 4 (>60 ml/min/1.73 sqM); Albumin 2.9 g/dL (3.5-5.0); Anion Gap 14 mmol/L; Blood Urea Nitrogen 71 mg/dL (7-17); Calcium 9.3 mg/dL (8.4-10.2); Carbon Dioxide 26 mmol/L (22-30); Chloride 89 mmol/L (98-107); Glucose 90 mg/dL (74-99); Lipase 149 U/L (23-300); Non-African American GFR(CKD) 3 (>60 ml/min/1.73 sqM); Sodium 129 mmol/L (137-145); Total Bilirubin 0.7 mg/dL (0.2-1.3); Total Protein 6.3 g/dL (6.3-8.2)
--- NOTE | 2024-06-07 07:01 | US ---
EXAMINATION TYPE: US transvaginal DATE OF EXAM: 06/07/2024 COMPARISON: 05/19/2024 CLINICAL INDICATION: Female, 33 years old with history of right ovarian mass, pain, r/o torsion; hx r ight ovarian lesion x years per patient. Right side pain. Irregular menses. Renal disease with trever lysis. TECHNIQUE: Transvaginal (TV) Date of LMP: 01/17/2024, [id number] EXAM MEASUREMENTS: Uterus: 5.3 x 3.1 x 2.6 cm Endometrial Stripe: 0.2 cm Right Ovary: 6.0 x 5.4 x 5.0 cm Left Ovary: 2.7 x 2.0 x 1.5 cm 1. Uterus: Anteverted wnl 2. Endometrium: wnl 3. Right Ovary: enlarged, lobulated, unable to identify follicles or normal appearing ovarian tissue 4. Left Ovary: follicles seen Spectral, color and waveform doppler imaging shows good arterial and venous flow within the ovaries ; there is no evidence for ovarian torsion. 5. Bilateral Adnexa: free fluid with right > left 6. Posterior cul-de-sac: moderate amount of free fluid IMPRESSION: Enlarged right ovary as seen on prior CT 05/19/2024 arterial and spectral venous waveforms within the mass that represent the right ovary. This finding does not exclude torsion detorsion phenomenon. [facility] 06/07/2024 5:44 AM
[2024-06-07 07:19] LABS: AST 19 U/L (14-36); Alkaline Phosphatase 125 U/L (38-126); Potassium 5.4 mmol/L (3.5-5.1)
[2024-06-07] MEDS: cefTRIAXone IN SWFI 1,000 MG/10 ML SYRINGE IVP STA (08:58)
[2024-06-07] MEDS: metroNIDAZOLE-NS PMX 500 MG in SALINE 1 100ML.BAG IVPB STA (08:59)
[2024-06-07] MEDS ORDERED: NALOXONE 0.4 MG/ML 1 ML VIAL IV PRN (11:00)
[2024-06-07] MEDS: HYDROmorphone 1 MG/ML 1 ML SYRINGE IVP PRN (11:26)
[2024-06-07] MEDS: DIALYSIS (PERIT 1.5%) 2,000 ML 30 G/2,000 ML BAG INTRAPERIT SCH ×2 (15:22→22:47)
[2024-06-07] MEDS: PIPERACILLIN-TAZOBACTAM 3.375 GM in SODIUM CHLORIDE 0.9% 100 ML IVPB SCH ×2 (15:53→21:39)
[2024-06-07] MEDS: FUROSEMIDE 80 MG TAB PO SCH (15:55)
--- NOTE | 2024-06-07 16:57 | P.HPIM ---
History of Present Illness H&P Date: 06/07/24 History of present illness: 33-year-old female with past medical history significant for IgA nephropathy, currently on peritoneal dialysis, history of ovarian cyst, recently moved from [place] where patient was going to have total hysterectomy now presented with right lower quadrant abdominal pain. Patient's stated that she has this pain for more than 2 months, has been seen in the ED ED recently for the same complaint multiple times, CT and ultrasound had been performed which showed a mass on the right ovary. During previous ER visit patient was advised to transfer to [facility] but patient declined and left AMA, patient stated that she has been referred to DRYWALL FINISHING FOREMAN for the mass and is scheduled to see DRYWALL FINISHING FOREMAN on of this month. Patient stated that she has intermittent right lower quadrant abdominal pain, got worse over the last few days, denied any bladder or bowel issues, patient denied any abdominal vaginal bleeding or discharge. Patient stated that she had her last menstrual cycle was in December, patient reported that she does have irregular menses. Patient was seen by her PCP and was advised to come to the ED for elevated WBC count in the past. Patient reported that she has low-grade fevers at home. In the ED patient's vitals were stable, afebrile. WBC 21.1, hemoglobin 7.7, platelets 459. Sodium 129, potassium 5.4, creatinine 13.33. LFTs unremarkable. REVIEW OF SYSTEMS: CONSTITUTIONAL: Negative, chills. HEENT: No recent visual problems or hearing problems. Denied any sore throat. CARDIOVASCULAR: No chest pain, orthopnea, PND, no palpitations, no syncope. PULMONARY: No shortness of breath, no cough, no hemoptysis. GASTROINTESTINAL: Right lower quadrant abdominal pain. NEUROLOGICAL: No headaches, no weakness, no numbness. HEMATOLOGICAL: Denies any bleeding or petechiae. GENITOURINARY: Denies any burning micturition, frequency, or urgency. MUSCULOSKELETAL/RHEUMATOLOGICAL: Denies any joint pain, swelling, or any muscle pain. ENDOCRINE: Denies any polyuria or polydipsia. The rest of the 14-point review of systems is negative. PHYSICAL EXAMINATION: GENERAL: The patient is A&O x3, NAD HEENT: EOMI, Sclerae anicteric, Moist Mucous membranes Neck: Supple, Non tender, No JVD PULMONARY: Equal breath souds B/L, No wheezing, No crackles. CARDIOVASCULAR: S1, S2 present. No murmurs, rubs, or gallops. ABDOMEN: Soft, RLQ tender, nondistended, normoactive bowel sounds. No guarding or rebound tenderness. MUSCULOSKELETAL: No edema, No cyanosis. No clubbing. Normal ROM. Intact peripheral pulses. EXTREMITIES: No cyanosis, clubbing, or pedal edema. NEUROLOGICAL: CN 2-12 grossly intact. No FND Assessment and plan: Right lower quadrant abdominal pain: Right ovarian mass: Leukocytosis: Reported fever and chills: Patient reported having ovarian cyst for a long time, has right lower quadrant abdominal pain for the last few months, now worse Reported fever and chills at home. Was referred to [facility] during last ER visit, left AMA Transvaginal ultrasound showed enlarged right ovary as seen on the prior CT 05/19/2024 CT abdomen pelvis 05/19/2024 showed enlarged right pelvic soft tissue structure possibly representing the ovary, asymmetrically enlarged compared to contralateral ovary, further evaluation with pelvic ultrasound and Doppler images recommended to exclude torsion, atrophic kidneys with peritoneal fluid with peritoneal catheter terminating in the lower pelvis, small moderate fluid throughout the abdomen. Patient not willing to transfer to tertiary center at this point Continue Zosyn DRYWALL FINISHING FOREMAN consult ID consult Peritoneal fluid cell count and culture. Blood cultures ESRD on peritoneal dialysis IgA nephropathy: Nephrology consulted Monitor potassium Monitor electrolyte Hypertension: Resume home meds Anemia of chronic disease: Monitor hemoglobin Monitor for signs and symptoms of bleeding Transfuse for hemoglobin less than 7.0 DVT prophylaxis SCD Monitor vital signs and labs Continue telemetry monitoring Labs and medication were reviewed. Continue same treatment. Resume home medication. Further recommendations as per clinical course of the patient Dictation was produced using [employer] dictation software. please excuse any grammatical, word or spelling errors. Past Medical History Past Medical History: Dialysis, Hypertension, Renal Disease, Seizure Disorder, Skin Disorder Additional Past Medical History / Comment(s): P.D. dailysis <TH<SA, seizure 2 yrs ago,possibly has had dvt in past,ovarian cyst uterine fibroids History of Any Multi-Drug Resistant Organisms: None Reported Past Surgical History: Back Surgery Additional Past Surgical History / Comment(s): urethral surgery at 9months old. skull fracture at age 9, back injections Past Anesthesia/Blood Transfusion Reactions: No Reported Reaction Past Psychological History: Anxiety, Depression Smoking Status: Never smoker Past Alcohol Use History: Rare Past Drug Use History: Marijuana - Past Family History Mother Family Medical History: Cancer Additional Family Medical History / Comment(s): ovarian, cervical Medications and Allergies Home Medications Medication Instructions Recorded Confirmed Type NIFEdipine [Adalat CC] 60 mg PO DAILY 01/29/24 06/07/24 History PARoxetine [Paxil] 10 mg PO DAILY 01/29/24 06/07/24 History Sevelamer Carbonate 3,200 mg PO TID-W/MEALS 01/29/24 06/07/24 History carvediloL 25 mg PO BID 01/29/24 06/07/24 History rOPINIRole HCL 0.5 mg PO BID 01/29/24 06/07/24 History traZODone HCL [Desyrel] 50 mg PO HS 01/29/24 06/07/24 History Cinacalcet HCl [Sensipar] 60 mg PO Q2D 04/18/24 06/07/24 History Furosemide [Lasix] 80 mg PO BID 04/18/24 06/07/24 History NIFEdipine [Adalat CC] 30 mg PO HS 04/18/24 06/07/24 History calcitrioL 0.25 mcg PO TID 04/18/24 06/07/24 History Calcium Acetate [PhosLo] 1,334 mg PO AC-TID #180 tab 04/20/24 06/07/24 Rx Acetaminophen Tab [Tylenol] 650 mg PO Q6H PRN 05/19/24 06/07/24 History Famotidine [Pepcid] 20 mg PO DAILY 05/23/24 06/07/24 History Allergies Allergy/AdvReac Type Severity Reaction Status Date / Time amlodipine Allergy Rash/Hives Verified 06/07/24 09:47 silver Allergy Rash/Hives Verified 06/07/24 09:47 [From TegFedTax AG Mesh] Physical Exam Vitals: Vital Signs Temp Pulse Resp BP Pulse Ox 06/07/24 16:04 16 172/108 98 06/07/24 11:06 130/87 06/07/24 09:00 67 16 139/90 98 06/07/24 07:17 100 20 149/91 99 06/07/24 06:24 18 141/82 06/07/24 05:07 137/77 98 06/07/24 00:19 98.1 F 111 H 20 160/93 100 Intake and Output 06/07/24 06/07/24 06/07/24 06:59 14:59 22:59 Other: Weight 56.699 kg Results CBC & Chem 7: 06/07/24 04:21 06/07/24 04:21 Labs: Abnormal Lab Results - Last 24 Hours (Table) 06/07/24 06/07/24 Range/Units 04:21 04:21 WBC 21.1 H (3.8-10.6) k/uL RBC 2.70 L (3.80-5.40) m/uL Hgb 7.7 L (11.4-16.0) gm/dL Hct 23.6 L (34.0-46.0) % RDW 15.8 H (11.5-15.5) % Plt Count 459 H (150-450) k/uL Neutrophils # 17.2 H (1.3-7.7) k/uL Monocytes # 1.4 H (0-1.0) k/uL Eosinophils # 0.8 H (0-0.7) k/uL Sodium 129 L (137-145) mmol/L Potassium 5.4 H (3.5-5.1) mmol/L Chloride 89 L (98-107) mmol/L BUN 71 H (7-17) mg/dL Creatinine 13.33 H* (0.52-1.04) mg/dL Albumin 2.9 L (3.5-5.0) g/dL
[2024-06-07] MEDS: metroNIDAZOLE-NS PMX 500 MG in SALINE 1 100ML.BAG IVPB SCH (17:32)
[2024-06-07] MEDS: CALCIUM ACETATE 667 MG TAB PO SCH (17:38)
[2024-06-07] MEDS: carvediloL 12.5 MG TAB PO SCH (17:39)
[2024-06-07] MEDS: SEVELAMER 800 MG TAB PO SCH (17:40)
[2024-06-07] MEDS: MORPHINE SULFATE 4 MG/ML SYRINGE IVP PRN (19:58)
[2024-06-07] MEDS: traZODone HCL 50 MG TAB PO SCH (21:52)
[2024-06-07] MEDS: NIFEdipine XL 30 MG TAB.ER.24 PO SCH (21:52)
--- NOTE | 2024-06-07 22:58 | P.CONS ---
History of Present Illness - Reason for Consult Consult date: 06/07/24 Leukocytosis of unknown etiology Requesting physician: Melvin Alvarez - Chief Complaint Abdominal pain x 4 days - History of Present Illness Patient is a 33-year-old female with a past medical history significant for hypertension seizure disorder, ovarian cyst, in this patient who did have end-stage renal disease previously on hemodialysis however has been on peritoneal dialysis for the last few months patient presenting to the hospital for evaluation of right lower quadrant abdominal pain that has been going on for the last several weeks, patient has been previously evaluated in the ER and did have a CT concerning for a mass on the patient right ovary and apparently was supposed to see an OB at [place] next month presenting back to the hospital wit h right lower quadrant pain significantly worse for last 4 days patient describes the pain to be dull aching at times today being moderate intensity without radiation did have some nausea no vomiting denies having any diarrhea patient hardly makes any urine and mention her peritoneal fluid has been clear hCG the cycle at night patient on presentation to the hospital was afebrile and no fever have been recorded subsequently patient was not tachycardic hypotensive or hypoxic patient did have white count 21.1 with a left shift creatinine 13.33 liver enzymes are normal potassium is 5.4 patient did have a transvaginal ultrasound enlarged right ovary does not exclude torsion patient has been admit camacho to the hospital started on Rocephin infectious disease was consulted for further management of antibiotic therapy Review of Systems Positive point and negatives has been mentioned in the HPI, complete review of systems was performed and all other systems are negative Past Medical History Past Medical History: Dialysis, Hypertension, Renal Disease, Seizure Disorder, Skin Disorder Additional Past Medical History / Comment(s): P.D. dailysis <TH<SA, seizure 2 yrs ago,possibly has had dvt in past,ovarian cyst uterine fibroids History of Any Multi-Drug Resistant Organisms: None Reported Past Surgical History: Back Surgery Additional Past Surgical History / Comment(s): urethral surgery at 7months old. skull fracture at age 9, back injections Past Anesthesia/Blood Transfusion Reactions: No Reported Reaction Past Psychological History: Anxiety, Depression Smoking Status: Never smoker Past Alcohol Use History: Rare Past Drug Use History: Marijuana - Past Family History Mother Family Medical History: Cancer Additional Family Medical History / Comment(s): ovarian, cervical Medications and Allergies Home Medications Medication Instructions Recorded Confirmed Type NIFEdipine [Adalat CC] 60 mg PO DAILY 01/29/24 06/07/24 History PARoxetine [Paxil] 10 mg PO DAILY 01/29/24 06/07/24 History Sevelamer Carbonate 3,200 mg PO TID-W/MEALS 01/29/24 06/07/24 History carvediloL 25 mg PO BID 01/29/24 06/07/24 History rOPINIRole HCL 0.5 mg PO BID 01/29/24 06/07/24 History traZODone HCL [Desyrel] 50 mg PO HS 01/29/24 06/07/24 History Cinacalcet HCl [Sensipar] 60 mg PO Q2D 04/18/24 06/07/24 History Furosemide [Lasix] 80 mg PO BID 04/18/24 06/07/24 History NIFEdipine [Adalat CC] 30 mg PO HS 04/18/24 06/07/24 History calcitrioL 0.25 mcg PO TID 04/18/24 06/07/24 History Calcium Acetate [PhosLo] 1,334 mg PO AC-TID #180 tab 04/20/24 06/07/24 Rx Acetaminophen Tab [Tylenol] 650 mg PO Q6H PRN 05/19/24 06/07/24 History Famotidine [Pepcid] 20 mg PO DAILY 05/23/24 06/07/24 History Allergies Allergy/AdvReac Type Severity Reaction Status Date / Time amlodipine Allergy Rash/Hives Verified 06/07/24 09:47 silver Allergy Rash/Hives Verified 06/07/24 09:47 [From Tegaderm AG Mesh] Physical Exam Vitals: Vital Signs Temp Pulse Resp BP Pulse Ox 06/07/24 11:06 130/87 06/07/24 09:00 67 16 139/90 98 06/07/24 07:17 100 20 149/91 99 06/07/24 06:24 18 141/82 06/07/24 05:07 137/77 98 06/07/24 00:19 98.1 F 111 H 20 160/93 100 Intake and Output 06/06/24 06/07/24 06/07/24 22:59 06:59 14:59 Other: Weight 56.699 kg GENERAL DESCRIPTION: Middle-aged female lying in bed, no distress. No tachypnea or accessory muscle of respiration use. HEENT: Shows Pallor , no scleral icterus. Oral mucous membrane is dry. No pharyngeal erythema or thrush NECK: Trachea central, no thyromegaly. LUNGS: Unlabored breathing. Clear to auscultation anteriorly. No wheeze or crackle. HEART: S1, S2, regular rate and rhythm. No loud murmur ABDOMEN: Soft, no tenderness , guarding or rigidity, no organomegaly EXTREMITIES: No edema of feet. SKIN: No rash, no masses palpable. NEUROLOGICAL: The patient is awake, alert, oriented x3, mood and affect normal. Results CBC & Chem 7: 06/08/24 03:40 06/08/24 03:40 Labs: Abnormal Lab Results - Last 24 Hours (Table) 06/07/24 06/07/24 Range/Units 04:21 04:21 WBC 21.1 H (3.8-10.6) k/uL RBC 2.70 L (3.80-5.40) m/uL Hgb 7.7 L (11.4-16.0) gm/dL Hct 23.6 L (34.0-46.0) % RDW 15.8 H (11.5-15.5) % Plt Count 459 H (150-450) k/uL Neutrophils # 17.2 H (1.3-7.7) k/uL Monocytes # 1.4 H (0-1.0) k/uL Eosinophils # 0.8 H (0-0.7) k/uL Sodium 129 L (137-145) mmol/L Potassium 5.4 H (3.5-5.1) mmol/L Chloride 89 L (98-107) mmol/L BUN 71 H (7-17) mg/dL Creatinine 13.33 H* (0.52-1.04) mg/dL Albumin 2.9 L (3.5-5.0) g/dL Assessment and Plan (1) Leukocytosis Current Visit: Yes Status: Acute Code(s): D72.829 - ELEVATED WHITE BLOOD CELL COUNT, UNSPECIFIED SNOMED Code(s): 713219384 Plan: 1patient with a leukocytosis in this patient presented to hospital with abdominal pain did have history of right ovarian cyst with recent CAT scan and all the ultrasound has been suggestive of large right ovarian cyst torsion not excluded source likely abdominal as currently no other obvious focus for this elevated white count. 2we will wait for the peritoneal fluid cell count and differential as well as culture already ordered. 3obtain blood culture. 4discontinue Rocephin and start the patient on Zosyn while waiting for the workup to be completed. We will follow on clinical condition and cultures to further adjust medication if needed Thank you for this consultation we will follow the patient along with you Dictation was produced using [employer] dictation software. please excuse any grammatical, word or spelling errors. Time with Patient: Greater than 30
[2024-06-08 08:27] LABS: Appearance,BF Slightly Hazy (Clear)
[2024-06-08] MEDS: FAMOTIDINE 20 MG TAB PO SCH (08:45)
[2024-06-08] MEDS: PARoxetine 10 MG TAB PO SCH (08:45)
[2024-06-08 09:35] LABS: HCT 19.8 % (37.2-46.3); HGB 6.3 g/dL (12.0-15.0); MCH 29.2 pg (27.0-32.0); MCHC 31.8 g/dL (32.0-37.0); MCV 91.7 FL (80.0-97.0); NRBC Per 100 WBC 0 X 10*3/uL (0.00-0.01); Platelet Count 372 X 10*3/uL (140-440); RBC 2.16 X 10*6/uL (4.10-5.20); RDW 15.1 % (11.5-14.5); WBC 22.98 X 10*3/uL (4.50-10.00)
[2024-06-08 09:37] LABS: ALT 6 U/L (8-44); AST 13 U/L (13-35); Albumin 2.4 g/dL (3.8-4.9); Alkaline Phosphatase 114 U/L (41-126); BUN/Creat Ratio 4.62 Ratio (12.00-20.00); Blood Urea Nitrogen 65.1 mg/dL (9.0-27.0); Calcium 8.7 mg/dL (8.7-10.3); Carbon Dioxide 23.1 mmol/L (21.6-31.8); Chloride 88 mmol/L (96-109); Glucose 90 mg/dL (70-110); Potassium 5.9 mmol/L (3.5-5.5); Sodium 130 mmol/L (135-145); Total Bilirubin 0.2 mg/dL (0.3-1.2); Total Protein 5.4 g/dL (6.2-8.2)
[2024-06-08 10:56] LABS: Basophils # (A) 0.09 X 10*3/uL (0.00-0.10); Basophils % (A) 0.4 %; Eosinophils # (A) 0.13 X 10*3/uL (0.04-0.35); Eosinophils % (A) 0.6 %; Lymphocytes # (A) 1.77 X 10*3/uL (0.90-5.00); Lymphocytes % (A) 7.7 %; Monocytes # (A) 1.99 X 10*3/uL (0.20-1.00); Monocytes % (A) 8.7 %; Neutrophils # (A) 18.85 X 10*3/uL (1.80-7.70); Neutrophils % (A) 81.9 %
--- NOTE | 2024-06-08 11:02 | P.NPCON ---
History of Present Illness - Reason for Consult end stage renal disease - History of Present Illness Reason for consultation: End-stage renal disease History of present illness: Patient is a 33-year-old female seen in renal consultation for end-stage renal disease. She is maintained on peritoneal dialysis. Etiology of her kidney disease is IgA nephropathy. Patient came to the hospital due to lower abdominal pain as well as hip pain. Patient states she has an ovarian cyst versus a mass in the right ovary and is supposed to be seeing ANALYSIS CONSULTANT at [place] in the near future. Patient underwent transvaginal ultrasound which showed enlarged and lobulated right ovary. Torsion not excluded. Patient denies cloudy dialysate. Denies any difficulty with PD exchanges. Patient's WBC count was 369 with 73% lymphocytes. Culture is pending. Hemoglobin is 6.3 this morning. White count also elevated at 22.98. ID is following and she is receiving IV Zosyn. Denies vomiting or diarrhea. Denies chest pain or shortness of breath. She does make urine. No active bleeding. Vital signs are stable. General: No acute distress. HEENT: Head exam is unremarkable. LUNGS: No audible rhonchi or wheezes. HEART: Rate and Rhythm are regular. ABDOMEN: Generalized tenderness noted in the lower quadrants. EXTREMITITES: No edema. Past Medical History Past Medical History: Dialysis, Hypertension, Renal Disease, Seizure Disorder, Skin Disorder Additional Past Medical History / Comment(s): P.D. dailysis <TH<, seizure 2 yrs ago,possibly has had dvt in past,ovarian cyst uterine fibroids History of Any Multi-Drug Resistant Organisms: None Reported Past Surgical History: Back Surgery Additional Past Surgical History / Comment(s): urethral surgery at 9months old. skull fracture at age 9, back injections Past Anesthesia/Blood Transfusion Reactions: No Reported Reaction Past Psychological History: Anxiety, Depression Smoking Status: Never smoker Past Alcohol Use History: Rare Past Drug Use History: Marijuana - Past Family History Mother Family Medical History: Cancer Additional Family Medical History / Comment(s): ovarian, cervical Medications and Allergies Home Medications Medication Instructions Recorded Confirmed Type NIFEdipine [Adalat CC] 60 mg PO DAILY 01/29/24 06/07/24 History PARoxetine [Paxil] 10 mg PO DAILY 01/29/24 06/07/24 History Sevelamer Carbonate 3,200 mg PO TID-W/MEALS 01/29/24 06/07/24 History carvediloL 25 mg PO BID 01/29/24 06/07/24 History rOPINIRole HCL 0.5 mg PO BID 01/29/24 06/07/24 History traZODone HCL [Desyrel] 50 mg PO HS 01/29/24 06/07/24 History Cinacalcet HCl [Sensipar] 60 mg PO Q2D 04/18/24 06/07/24 History Furosemide [Lasix] 80 mg PO BID 04/18/24 06/07/24 History NIFEdipine [Adalat CC] 30 mg PO HS 04/18/24 06/07/24 History calcitrioL 0.25 mcg PO TID 04/18/24 06/07/24 History Calcium Acetate [PhosLo] 1,334 mg PO AC-TID #180 tab 04/20/24 06/07/24 Rx Acetaminophen Tab [Tylenol] 650 mg PO Q6H PRN 05/19/24 06/07/24 History Famotidine [Pepcid] 20 mg PO DAILY 05/23/24 06/07/24 History Allergies Allergy/AdvReac Type Severity Reaction Status Date / Time amlodipine Allergy Rash/Hives Verified 06/07/24 09:47 silver Allergy Rash/Hives Verified 06/07/24 09:47 [From TegadeCV Ingenuity AG Mesh] Physical Exam Vitals: Vital Signs Temp Pulse Pulse Resp BP BP Pulse Ox 06/08/24 06:13 98.7 F 99 17 164/90 99 06/08/24 06:00 98.7 F 99 16 164/90 99 06/08/24 01:26 98.8 F 95 17 150/90 99 06/07/24 22:53 98.9 F 98 16 143/79 98 06/07/24 20:10 93 16 06/07/24 19:01 98.9 F 93 16 170/97 98 06/07/24 17:55 98.6 F 100 20 171/114 98 06/07/24 16:04 16 172/108 98 06/07/24 11:06 130/87 Intake and Output 06/07/24 06/08/24 06/08/24 22:59 06:59 14:59 Intake Total 238 440 Output Total 0 Balance 238 440 Intake: Intake, IV Titration 200 Amount Piperacillin-Tazobactam 3 100 .375 gm In Sodium Chloride 0.9% 100 ml @ 25 mls/hr IVPB Q12H [facility] Rx# :[id number] metroNIDAZOLE-NS PMX 500 100 mg In Saline 1 100ml.bag @ 100 mls/hr IVPB Q8HR [facility] Rx#:[id number] Oral 238 240 Output: Urine 0 Other: Voiding Method Toilet CAPD # Voids 1 Weight 56.699 kg Results - Lab Results Most recent lab results Calcium 8.7 mg/dL (8.7-10.3) 06/08/24 03:40 06/08/24 03:40 06/08/24 03:40 Assessment and Plan Plan: Assessment: 1. End-stage renal disease maintained on peritoneal dialysis. 2. Acute blood loss anemia with hemoglobin 6.3 today. 3. Right ovarian cyst. Questionable torsion. 4. Hyperkalemia secondary to chronic kidney disease and questionable GI bleed. 5. Hyponatremia secondary to chronic kidney disease. Appears euvolemic. 6. Chronic kidney disease mineral bone disease maintained on PhosLo, calcitriol and Sensipar. 7. Elevated dialysate white cell count at 369 with 73% lymphocytes suggestive of peritonitis. 8. Hypertension with chronic kidney disease. Plan: Maintain current PD exchanges with 2 L every 6 hours with 1.5% dextrose solution. Lokelma added by primary team. Will also give 10 units IV regular insulin with an amp of D50. Repeat potassium level this evening. Scheduled receive a unit of blood today. IV DDAVP x 1 dose today. Add Aranesp. 1 g intraperitoneal vancomycin today and also start 1 g intraperitoneal ceftazidime daily. Repeat dialysate fluid cell count and culture tomorrow. Maintain Lasix. Thank you for the consultation. I will continue to follow the patient with you during her hospital stay.
[2024-06-08] MEDS: methocarbamoL 500 MG TAB PO PRN (11:20)
[2024-06-08] MEDS: SODIUM ZIRCONIUM CYCLOSILICATE 10 GM PACKET PO SCH (11:20)
[2024-06-08] MEDS: DESMOPRESSIN ACETATE 18 MCG in SODIUM CHLORIDE 0.9% 50 ML IVPB ONE (11:45)
[2024-06-08] MEDS: DEXTROSE 50% SYRINGE 50 ML IVP STA (11:45)
[2024-06-08] MEDS: INSULIN REGULAR 100 UNIT/ML VIAL (IV) IV ONE (11:45)
[2024-06-08] MEDS: DIALYSIS DEX INTRAPERIT ONE (12:34)
[2024-06-08] MEDS: VANCOMYCIN INTRAPERIT ONE (12:34)
[2024-06-08] MEDS: CEFTAZIDIME INTRAPERIT ONE (12:34)
[2024-06-08] MEDS: DARBEPOETIN ALFA 40 MCG/0.4 ML SYRINGE SQ SCH (12:35)
--- NOTE | 2024-06-08 15:04 | P.PN ---
Subjective Progress Note Date: 06/08/24 Interval History: 33-year-old female with past medical history significant for IgA nephropathy, currently on peritoneal dialysis, history of ovarian cyst, recently moved from [place] where patient was going to have total hysterectomy now presented with right lower quadrant abdominal pain. Patient's stated that she has this pain for more than 2 months, has been seen in the ED ED recently for the same co mplaint multiple times, CT and ultrasound had been performed which showed a mass on the right ovary. During previous ER visit patient was advised to transfer to [facility] but patient declined and left AMA, patient stated that she has been referred to AUDIO VISUAL TECH for the mass and is scheduled to see AUDIO VISUAL TECH on of this month. Patient stated that she has intermittent right lower quadr ant abdominal pain, got worse over the last few days, denied any bladder or bowel issues, patient denied any abdominal vaginal bleeding or discharge. Patient stated that she had her last menstrual cycle was in December, patient reported that she does have irregular menses. Patient was seen by her PCP and was advised to come to the ED for elevated WBC count in the past. Patient reported that she has low-grade fevers at home. In the ED patient's vitals were stable, afebrile. WBC 21.1, hemoglobin 7.7, platelets 459. Sodium 129, potassium 5.4, creatinine 13.33. LFTs unremarkable. 06/08/2024/patient was seen and examined today. Patient feeling same. Patient afebrile, heart rate 90, blood respiratory rate 18, blood pressure 134/70, saturating 97% on room air. Patient's hemoglobin dropped to 6.3 today, 1 unit of packed RBCs ordered, will continue monitor H&H. No sign or symptom of active bleed. WBC count still elevated 22.98. Sodium 130, potassium 5.9, creatinine 14.1. Currently on Rocephin and Flagyl. Infectious disease following. Started on Lokelma for elevated potassium. Nephrology following, recommended maintaining peritoneal dialysis, D50 insulin for hyperkalemia, IV DDAVP one-time dose today. Intraperitoneal vancomycin and ceftazidime started, p.o. Lasix, nephrology recommended repeat fluid cultures and count tomorrow. Assessment and plan: Right lower quadrant abdominal pain: PD associated peritonitis: Right ovarian mass: Leukocytosis: Reported fever and chills: Patient reported having ovarian cyst for a long time, has right lower quadrant abdominal pain for the last few months, now worse Reported fever and chills at home. Was referred to [facility] during last ER visit, left AMA Transvaginal ultrasound showed enlarged right ovary as seen on the prior CT 05/19/2024 CT abdomen pelvis 05/19/2024 showed enlarged right pelvic soft tissue structure possibly representing the ovary, asymmetrically enlarged compared to con tralateral ovary, further evaluation with pelvic ultrasound and Doppler images recommended to exclude torsion, atrophic kidneys with peritoneal fluid with peritoneal catheter terminating in the lower pelvis, small moderate fluid throughout the abdomen. Patient not willing to transfer to tertiary center at this point. ED physician spoke to AEROBICS TEACHER oncology at tertiary care center, recommended to treat possible infection, urgent transfer not indicated. Continue Zosyn AUDIO VISUAL TECH consult ID consult Peritoneal fluid cell count and culture. Fluid cell count showed 369 WBCs, cultures pending. Blood cultures ESRD on peritoneal dialysis IgA nephropathy: Nephrology consulted--- recommended to maintain current PD exchanges with 2 L every 6 hour, IV DDAVP one-time dose, and Aranesp. Intraperitoneal vancomycin 06/08 and ceftazidime daily, repeat fluid cell count and culture tomorrow. P.o. Lasix. Monitor potassium Monitor electrolyte Lokelma D50/insulin as needed for hyperkalemia Hypertension: Resume home meds Anemia of chronic disease: Monitor hemoglobin Monitor for signs and symptoms of bleeding Transfuse for hemoglobin less than 7.0 1 unit of packed RBCs given 06/08 for hemoglobin 6.3. DVT prophylaxis SCD PHYSICAL EXAMINATION: GENERAL: The patient is A&O x3, NAD HEENT: EOMI, Sclerae anicteric, Moist Mucous membranes Neck: Supple, Non tender, No JVD PULMONARY: Equal breath souds B/L, No wheezing, No crackles. CARDIOVASCULAR: S1, S2 present. No murmurs, rubs, or gallops. ABDOMEN: Soft, RLQ tender, nondistended, normoactive bowel sounds. No guarding or rebound tenderness. MUSCULOSKELETAL: No edema, No cyanosis. No clubbing. Normal ROM. Intact peripheral pulses. EXTREMITIES: No cyanosis, clubbing, or pedal edema. NEUROLOGICAL: CN 2-12 grossly intact. No FND Skin: No Rash REVIEW OF SYSTEMS: CONSTITUTIONAL: No fever or chills. CARDIOVASCULAR: No chest pain, palpitations or syncope. PULMONARY: No shortness of breath, no cough, sore throat. GASTROINTESTINAL: Complains of right lower quadrant abdominal pain : No Dysuria, urgency, frequency. Extremities: No edema. NEUROLOGICAL: No headaches, no weakness, or numbness Dictation was produced using [employer] dictation software. please excuse any grammatical, word or spelling errors. Objective - Vital Signs Vital signs: Vital Signs Temp 98.2 F 06/08/24 14:24 Pulse 90 06/08/24 14:24 Resp 18 06/08/24 14:24 BP 134/70 06/08/24 14:24 Pulse Ox 97 06/08/24 14:24 FiO2 Intake & Output 06/07/24 06/08/24 06/08/24 18:59 06:59 18:59 Intake Total 120 558 0 Output Total 0 Balance 120 558 0 Weight 56.699 kg Intake: Intake, IV Titration 200 Amount Piperacillin-Tazobactam 3 100 .375 gm In Sodium Chloride 0.9% 100 ml @ 25 mls/hr IVPB Q12H [facility] Rx# :[id number] metroNIDAZOLE-NS PMX 500 100 mg In Saline 1 100ml.bag @ 100 mls/hr IVPB Q8HR [facility] Rx#:[id number] Oral 120 358 Blood Product 0 Rc As-1 Unit 0 [id number] Output: Urine 0 Other: Voiding Method Toilet Toilet CAPD CAPD # Voids 1 - Labs CBC & Chem 7: 06/08/24 03:40 06/08/24 03:40 Labs: Abnormal Lab Results - Last 24 Hours (Table) 06/07/24 06/08/24 06/08/24 Range/Units 16:44 03:40 03:40 WBC 22.98 H (4.50-10.00) X 10*3/uL RBC 2.16 L (4.10-5.20) X 10*6/uL Hgb 6.3 A* (12.0-15.0) g/dL Hct 19.8 A* (37.2-46.3) % MCHC 31.8 L (32.0-37.0) g/dL RDW 15.1 H (11.5-14.5) % MPV 9.0 L (9.5-12.2) FL Immature Gran # 0.15 H (0.00-0.04) X 10*3/uL Neutrophils # 18.85 H (1.80-7.70) X 10*3/uL Monocytes # 1.99 H (0.20-1.00) X 10*3/uL Sodium 130 L (135-145) mmol/L Potassium 5.9 H (3.5-5.5) mmol/L Chloride 88 L (96-109) mmol/L Anion Gap 18.90 H (4.00-12.00) mmol/L BUN 65.1 H (9.0-27.0) mg/dL Creatinine 14.1 A* (0.6-1.5) mg/dL Est GFR (CKD-EPI) 3 L (>=60) BUN/Creatinine Ratio 4.62 L (12.00-20.00) Ratio Total Bilirubin 0.2 L (0.3-1.2) mg/dL ALT 6 L (8-44) U/L Total Protein 5.4 L (6.2-8.2) g/dL Albumin 2.4 L (3.8-4.9) g/dL Albumin/Globulin Ratio 0.80 L (1.60-3.17) Ratio Fluid Appearance Slightly Hazy A (Clear) Crossmatch 06/08/24 Range/Units 10:59 WBC (4.50-10.00) X 10*3/uL RBC (4.10-5.20) X 10*6/uL Hgb (12.0-15.0) g/dL Hct (37.2-46.3) % MCHC (32.0-37.0) g/dL RDW (11.5-14.5) % MPV (9.5-12.2) FL Immature Gran # (0.00-0.04) X 10*3/uL Neutrophils # (1.80-7.70) X 10*3/uL Monocytes # (0.20-1.00) X 10*3/uL Sodium (135-145) mmol/L Potassium (3.5-5.5) mmol/L Chloride (96-109) mmol/L Anion Gap (4.00-12.00) mmol/L BUN (9.0-27.0) mg/dL Creatinine (0.6-1.5) mg/dL Est GFR (CKD-EPI) (>=60) BUN/Creatinine Ratio (12.00-20.00) Ratio Total Bilirubin (0.3-1.2) mg/dL ALT (8-44) U/L Total Protein (6.2-8.2) g/dL Albumin (3.8-4.9) g/dL Albumin/Globulin Ratio (1.60-3.17) Ratio Fluid Appearance (Clear) Crossmatch See Detail
--- NOTE | 2024-06-08 15:38 | P.PN ---
Subjective Progress Note Date: 06/08/24 Principal diagnosis: Reason for follow-up is leukocytosis/peritonitis Patient is a 33-year-old female with a past medical history significant for hypertension seizure disorder, ovarian cyst, in this patient who did have end-stage renal disease previously on hemodialysis however has been on peritoneal dialysis for the last few months presented to hospital with abdominal pain in this patient who did have CT and ultrasound suspicious for right ovarian cyst. Patient did have elevated white count prompting this consultation. On today's evaluation that is 06/08/2024, Patient is afebrile patient is currently on room air and denies having any shortness of breath, the patient denies any chest pain or cough, the patient denies any nausea vomiting complaining of some right lower abdominal pain no diarrhea. Patient white count is up to 22.98 creatinine 4.1 peritoneal fluid is hazy with a white count of 369 Objective - Vital Signs Vital signs: Vital Signs Temp 98.2 F 06/08/24 14:24 Pulse 90 06/08/24 14:24 Resp 18 06/08/24 14:24 BP 134/70 06/08/24 14:24 Pulse Ox 97 06/08/24 14:24 FiO2 Intake & Output 06/07/24 06/08/24 06/08/24 18:59 06:59 18:59 Intake Total 120 558 0 Output Total 0 Balance 120 558 0 Weight 56.699 kg Intake: Intake, IV Titration 200 Amount Piperacillin-Tazobactam 3 100 .375 gm In Sodium Chloride 0.9% 100 ml @ 25 mls/hr IVPB Q12H [facility] Rx# :[id number] metroNIDAZOLE-NS PMX 500 100 mg In Saline 1 100ml.bag @ 100 mls/hr IVPB Q8HR [facility] Rx#:[id number] Oral 120 358 Blood Product 0 Rc As-1 Unit 0 [id number] Output: Urine 0 Other: Voiding Method Toilet Toilet CAPD CAPD # Voids 1 - Exam GENERAL DESCRIPTION: Middle-age female lying in bed in no distress RESPIRATORY SYSTEM: Unlabored breathing , decreased breath sounds at bases HEART: S1 S2 regular rate and rhythm , ABDOMEN: Soft , no tenderness EXTREMITIES: No edema feet - Labs CBC & Chem 7: 06/08/24 03:40 06/08/24 03:40 Labs: Abnormal Lab Results - Last 24 Hours (Table) 06/07/24 06/08/24 06/08/24 Range/Units 16:44 03:40 03:40 WBC 22.98 H (4.50-10.00) X 10*3/uL RBC 2.16 L (4.10-5.20) X 10*6/uL Hgb 6.3 A* (12.0-15.0) g/dL Hct 19.8 A* (37.2-46.3) % MCHC 31.8 L (32.0-37.0) g/dL RDW 15.1 H (11.5-14.5) % MPV 9.0 L (9.5-12.2) FL Immature Gran # 0.15 H (0.00-0.04) X 10*3/uL Neutrophils # 18.85 H (1.80-7.70) X 10*3/uL Monocytes # 1.99 H (0.20-1.00) X 10*3/uL Sodium 130 L (135-145) mmol/L Potassium 5.9 H (3.5-5.5) mmol/L Chloride 88 L (96-109) mmol/L Anion Gap 18.90 H (4.00-12.00) mmol/L BUN 65.1 H (9.0-27.0) mg/dL Creatinine 14.1 A* (0.6-1.5) mg/dL Est GFR (CKD-EPI) 3 L (>=60) BUN/Creatinine Ratio 4.62 L (12.00-20.00) Ratio Total Bilirubin 0.2 L (0.3-1.2) mg/dL ALT 6 L (8-44) U/L Total Protein 5.4 L (6.2-8.2) g/dL Albumin 2.4 L (3.8-4.9) g/dL Albumin/Globulin Ratio 0.80 L (1.60-3.17) Ratio Fluid Appearance Slightly Hazy A (Clear) Crossmatch 06/08/24 Range/Units 10:59 WBC (4.50-10.00) X 10*3/uL RBC (4.10-5.20) X 10*6/uL Hgb (12.0-15.0) g/dL Hct (37.2-46.3) % MCHC (32.0-37.0) g/dL RDW (11.5-14.5) % MPV (9.5-12.2) FL Immature Gran # (0.00-0.04) X 10*3/uL Neutrophils # (1.80-7.70) X 10*3/uL Monocytes # (0.20-1.00) X 10*3/uL Sodium (135-145) mmol/L Potassium (3.5-5.5) mmol/L Chloride (96-109) mmol/L Anion Gap (4.00-12.00) mmol/L BUN (9.0-27.0) mg/dL Creatinine (0.6-1.5) mg/dL Est GFR (CKD-EPI) (>=60) BUN/Creatinine Ratio (12.00-20.00) Ratio Total Bilirubin (0.3-1.2) mg/dL ALT (8-44) U/L Total Protein (6.2-8.2) g/dL Albumin (3.8-4.9) g/dL Albumin/Globulin Ratio (1.60-3.17) Ratio Fluid Appearance (Clear) Crossmatch See Detail Assessment and Plan (1) Leukocytosis Current Visit: Yes Status: Acute Code(s): D72.829 - ELEVATED WHITE BLOOD CELL COUNT, UNSPECIFIED SNOMED Code(s): 296491288 (2) Peritonitis associated with peritoneal dialysis Current Visit: Yes Status: Acute Code(s): T85.71XA - INFECT/INFLM REACTION DUE TO PERITON DIALYSIS CATHETER, INIT SNOMED Code(s): 781174483 Plan: 1patient with a leukocytosis in this patient presented to hospital with abdominal pain did have history of right ovarian cyst with recent CAT scan and all the ultrasound has been suggestive of large right ovarian cyst torsion not excluded source likely abdominal as currently no other obvious focus for this elevated white count. 2patient did have elevated peritoneal fluid white count and was hazy suggestive of peritonitis intraperitoneal vancomycin has been started no need for intraperitoneal Fortaz especially the patient is on IV Zosyn while waiting for the culture to finalize Dictation was produced using [employer] software. please excuse any grammatical, word or spelling errors.
[2024-06-08 18:04] LABS: Basophils # (A) 0.1 k/uL (0-0.2); Basophils % (A) 0 %; Eosinophils # (A) 0.6 k/uL (0-0.7); Eosinophils % (A) 3 %; HCT 23.8 % (34.0-46.0); HGB 8.1 gm/dL (11.4-16.0); Lymphocytes % (A) 5 %; MCH 29.8 pg (25.0-35.0); MCHC 33.8 g/dL (31.0-37.0); MCV 88.2 fL (80.0-100.0); Mean Platelet Volume 7.5; Monocytes # (A) 1.3 k/uL (0-1.0); Monocytes % (A) 6 %; Neutrophils # (A) 18.1 k/uL (1.3-7.7); Neutrophils % (A) 85 %; Platelet Count 378 k/uL (150-450); RDW 15.1 % (11.5-15.5); WBC 21.3 k/uL (3.8-10.6)
[2024-06-08 18:11] LABS: African American GFR (CKD) 4 (>60 ml/min/1.73 sqM); Anion Gap 14 mmol/L; Blood Urea Nitrogen 63 mg/dL (7-17); Calcium 9.1 mg/dL (8.4-10.2); Carbon Dioxide 23 mmol/L (22-30); Chloride 87 mmol/L (98-107); Glucose 98 mg/dL (74-99); Non-African American GFR(CKD) 3 (>60 ml/min/1.73 sqM); Potassium 4.7 mmol/L (3.5-5.1); Sodium 124 mmol/L (137-145)
[2024-06-08] MEDS: CINACALCET 30 MG TAB PO SCH (18:15)
[2024-06-08] MEDS: DIALYSIS (PERIT 1.5%) 2,000 ML 30 G/2,000 ML BAG INTRAPERIT SCH (18:16)
[2024-06-08] MEDS: ONDANSETRON 4 MG/2 ML VIAL IVP PRN (23:01)
[2024-06-09] MEDS: ACETAMINOPHEN TAB 325 MG TAB PO PRN (00:56)
[2024-06-09 11:11] LABS: African American GFR (CKD) 4 (>60 ml/min/1.73 sqM); Anion Gap 11 mmol/L; Blood Urea Nitrogen 59 mg/dL (7-17); Calcium 8.5 mg/dL (8.4-10.2); Carbon Dioxide 28 mmol/L (22-30); Chloride 88 mmol/L (98-107); Glucose 103 mg/dL (74-99); Non-African American GFR(CKD) 4 (>60 ml/min/1.73 sqM); Potassium 3.8 mmol/L (3.5-5.1); Sodium 127 mmol/L (137-145)
[2024-06-09 12:32] LABS: Appearance,BF Clear (Clear)
[2024-06-09] MEDS: cefTAZidime 1.25 GM in DIALYSIS (PERITONL) DEX 1.5% 2,000 ML INTRAPERIT SCH (12:41)
[2024-06-09 16:49] LABS: Basophils # (A) 0.07 X 10*3/uL (0.00-0.10); Basophils % (A) 0.4 %; Eosinophils # (A) 0.09 X 10*3/uL (0.04-0.35); Eosinophils % (A) 0.5 %; HCT 22.1 % (37.2-46.3); HGB 7.3 g/dL (12.0-15.0); Lymphocytes # (A) 1.27 X 10*3/uL (0.90-5.00); Lymphocytes % (A) 6.5 %; MCH 29.3 pg (27.0-32.0); MCV 88.8 FL (80.0-97.0); Mean Platelet Volume 8.9 FL (9.5-12.2); Monocytes # (A) 2.29 X 10*3/uL (0.20-1.00); Monocytes % (A) 11.7 %; NRBC Per 100 WBC 0 X 10*3/uL (0.00-0.01); Neutrophils # (A) 15.82 X 10*3/uL (1.80-7.70); Neutrophils % (A) 80.5 %; Platelet Count 332 X 10*3/uL (140-440); RBC 2.49 X 10*6/uL (4.10-5.20); RDW 14.6 % (11.5-14.5); WBC 19.62 X 10*3/uL (4.50-10.00)
--- NOTE | 2024-06-09 19:17 | P.PN ---
Subjective Patient is seen for follow-up for end-stage renal disease. No complaints of abdominal pain during PD exchanges. Awaiting CAN CONVEYOR FEEDER consult Objective - Vital Signs Vital signs: Vital Signs Temp 98.8 F 06/09/24 18:00 Pulse 114 H 06/09/24 18:00 Resp 17 06/09/24 18:00 BP 143/76 06/09/24 18:00 Pulse Ox 98 06/09/24 18:00 FiO2 Intake & Output 06/09/24 06/09/24 06/10/24 06:59 18:59 06:59 Intake Total 240 240 Balance 240 240 Intake: Oral 240 240 Other: Voiding Method Toilet Toilet CAPD CAPD # Voids 3 - Exam Patient is awake, comfortable, no acute distress. Alert oriented x 3 Examination of the heart S1 and S2 Examination of the lungs bilateral breath sounds are heard No edema noted in the lower extremities RECREATION ATTENDANT exam grossly intact - Labs CBC & Chem 7: 06/09/24 10:33 06/09/24 10:33 Labs: Abnormal Lab Results - Last 24 Hours (Table) 06/09/24 06/09/24 Range/Units 10:33 10:33 WBC 19.62 H (4.50-10.00) X 10*3/uL RBC 2.49 L (4.10-5.20) X 10*6/uL Hgb 7.3 L (12.0-15.0) g/dL Hct 22.1 L (37.2-46.3) % RDW 14.6 H (11.5-14.5) % MPV 8.9 L (9.5-12.2) FL Immature Gran # 0.08 H (0.00-0.04) X 10*3/uL Neutrophils # 15.82 H (1.80-7.70) X 10*3/uL Monocytes # 2.29 H (0.20-1.00) X 10*3/uL Sodium 127 L (137-145) mmol/L Chloride 88 L (98-107) mmol/L BUN 59 H (7-17) mg/dL Creatinine 11.90 H* (0.52-1.04) mg/dL Glucose 103 H (74-99) mg/dL Microbiology - Last 24 Hours (Table) 06/07/24 16:44 Gram Stain - Preliminary Peritoneal Fluid Body Fluid Culture - Preliminary 06/07/24 14:23 Blood Culture - Preliminary Blood Assessment and Plan Assessment: 1. End-stage renal disease maintained on peritoneal dialysis. 2. Acute blood loss anemia with hemoglobin 6.3, status post packed RBCs transfusion. 3. Right ovarian cyst. Questionable torsion. CAN CONVEYOR FEEDER on consult 4. Hyperkalemia secondary to chronic kidney disease and questionable GI bleed. 5. Hyponatremia secondary to chronic kidney disease. Appears euvolemic. 6. Chronic kidney disease mineral bone disease maintained on PhosLo, calcitriol and Sensipar. 7. Elevated dialysate white cell count at 369 with 73% lymphocytes suggestive of peritonitis. Started on antibiotics 8. Hypertension with chronic kidney disease. Plan: Continue current PD exchanges Continue antibiotics intraperitoneal Follow-up on fluid cultures. Await CAN CONVEYOR FEEDER consult
--- NOTE | 2024-06-10 02:31 | PN ---
PROGRESS NOTE DATE OF SERVICE: 06/09/2024 SUBJECTIVE: This is a 33-year-old woman who was admitted with abdominal pain, leukocytosis, is also on peritoneal dialysis for end-stage renal disease. No fever. No cough. Possibility of PD associated peritonitis is being considered. The patient is also requesting EMPLOYMENT OFFICE CLERK evaluation. OBJECTIVE: VITAL SIGNS: Pulse is 107, blood pressure 147/82, respirations 16. CHEST: A few scattered rhonchi. ABDOMEN: Soft, peritoneal fluid. LEGS: No edema. NERVOUS SYSTEM: Nonfocal. LABORATORY DATA: WBC 21.3, sodium 127. ASSESSMENT: 1. Abdominal pain with possibly peritoneal dialysis associated acute peritonitis. 2. Elevated leukocytosis. 3. Right ovarian mass. 4. Hyponatremia. RECOMMENDATIONS AND DISCUSSION: This is a 33-year-old woman, who presented with multiple complex medical issues, we will monitor the patient closely. The patient is on ceftazidime and Vanco interpret only at this time. Otherwise, the patient is on IV Zosyn as well. We will repeat labs. EMPLOYMENT OFFICE CLERK evaluation. Infectious Disease evaluation. Nephrology evaluation is in progress. Repeat labs were ordered. Prognosis guarded. Further recommendations to follow. MMODL / IJN: [id number] /
[2024-06-10 08:42] LABS: Basophils % (A) 0.6 %; Eosinophils # (A) 0.07 X 10*3/uL (0.04-0.35); Eosinophils % (A) 0.4 %; HCT 20.8 % (37.2-46.3); HGB 6.9 g/dL (12.0-15.0); Lymphocytes # (A) 1.57 X 10*3/uL (0.90-5.00); Lymphocytes % (A) 8.7 %; MCH 29.4 pg (27.0-32.0); MCHC 33.2 g/dL (32.0-37.0); MCV 88.5 FL (80.0-97.0); Mean Platelet Volume 9.1 FL (9.5-12.2); Monocytes % (A) 13.3 %; NRBC Per 100 WBC 0 X 10*3/uL (0.00-0.01); Neutrophils # (A) 13.85 X 10*3/uL (1.80-7.70); Neutrophils % (A) 76.4 %; Platelet Count 339 X 10*3/uL (140-440); RBC 2.35 X 10*6/uL (4.10-5.20); RDW 14.6 % (11.5-14.5); WBC 18.09 X 10*3/uL (4.50-10.00)
--- NOTE | 2024-06-10 08:52 | P.PN ---
Subjective Progress Note Date: 06/09/24 Principal diagnosis: Reason for follow-up is leukocytosis/peritonitis Patient is a 33-year-old female with a past medical history significant for hypertension seizure disorder, ovarian cyst, in this patient who did have end-stage renal disease previously on hemodialysis however has been on peritoneal dialysis for the last few months presented to hospital with abdominal pain in this patient who did have CT and ultrasound suspicious for right ovarian cyst. Patient did have elevated white count prompting this consultation. On today's evaluation that is 06/09/2024, patient has been afebrile, patient is breathing comfortably and is currently on room air, patient denies having any significant cough no chest pain shortness of breath, patient denies nausea vomiting or diarrhea still complaining of the right lower quadrant abdominal pain. Patient white count is down to 19.62 creatinine is 11.90 blood and peritoneal fluid cultures pending Objective - Vital Signs Vital signs: Vital Signs Temp 98.3 F 06/09/24 07:45 Pulse 107 H 06/09/24 07:45 Resp 16 06/09/24 07:45 BP 147/81 06/09/24 07:45 Pulse Ox 96 06/09/24 07:45 FiO2 Intake & Output 06/08/24 06/09/24 06/09/24 18:59 06:59 18:59 Intake Total 850 240 Balance 850 240 Intake: Oral 540 240 Blood Product 310 Rc As-1 Unit 310 [id number] Other: Voiding Method Toilet Toilet Toilet CAPD CAPD CAPD # Voids 3 - Exam GENERAL DESCRIPTION: Middle-age female lying in bed in no distress RESPIRATORY SYSTEM: Unlabored breathing , decreased breath sounds at bases HEART: S1 S2 regular rate and rhythm , ABDOMEN: Soft , no tenderness EXTREMITIES: No edema feet - Labs CBC & Chem 7: 06/10/24 03:04 06/09/24 10:33 Labs: Abnormal Lab Results - Last 24 Hours (Table) 06/08/24 06/08/24 06/08/24 Range/Units 10:59 17:34 17:34 WBC 21.3 H (3.8-10.6) k/uL RBC 2.70 L (3.80-5.40) m/uL Hgb 8.1 L (11.4-16.0) gm/dL Hct 23.8 L (34.0-46.0) % Neutrophils # 18.1 H (1.3-7.7) k/uL Monocytes # 1.3 H (0-1.0) k/uL Sodium 124 L (137-145) mmol/L Chloride 87 L (98-107) mmol/L BUN 63 H (7-17) mg/dL Creatinine 12.94 H* (0.52-1.04) mg/dL Glucose (74-99) mg/dL Crossmatch See Detail 06/09/24 Range/Units 10:33 WBC (3.8-10.6) k/uL RBC (3.80-5.40) m/uL Hgb (11.4-16.0) gm/dL Hct (34.0-46.0) % Neutrophils # (1.3-7.7) k/uL Monocytes # (0-1.0) k/uL Sodium 127 L (137-145) mmol/L Chloride 88 L (98-107) mmol/L BUN 59 H (7-17) mg/dL Creatinine 11.90 H* (0.52-1.04) mg/dL Glucose 103 H (74-99) mg/dL Crossmatch Microbiology - Last 24 Hours (Table) 06/07/24 16:44 Gram Stain - Preliminary Peritoneal Fluid Body Fluid Culture - Preliminary 06/07/24 14:23 Blood Culture - Preliminary Blood Assessment and Plan (1) Leukocytosis Current Visit: Yes Status: Acute Code(s): D72.829 - ELEVATED WHITE BLOOD CELL COUNT, UNSPECIFIED SNOMED Code(s): 159261775 (2) Peritonitis associated with peritoneal dialysis Current Visit: Yes Status: Acute Code(s): T85.71XA - INFECT/INFLM REACTION DUE TO PERITON DIALYSIS CATHETER, INIT SNOMED Code(s): 411794776 Plan: 1patient with a leukocytosis in this patient presented to hospital with abdominal pain did have history of right ovarian cyst with recent CAT scan and all the ultrasound has been suggestive of large right ovarian cyst torsion not excluded source likely abdominal as currently no other obvious focus for this elevated white count. 2patient did have elevated peritoneal fluid white count and was hazy suggestive of peritonitis intraperitoneal vancomycin has been started continue with Zosyn while waiting for the culture to finalize white count slowly trending down Dictation was produced using [employer] software. please excuse any gr ammatical, word or spelling errors. Time with Patient: Less than 30
[2024-06-10 10:37] LABS: ALT 6 U/L (8-44); AST 9 U/L (13-35); Albumin 2.3 g/dL (3.8-4.9); Albumin/Globulin Ratio 0.77 Ratio (1.60-3.17); Alkaline Phosphatase 102 U/L (41-126); BUN/Creat Ratio 4.34 Ratio (12.00-20.00); Blood Urea Nitrogen 49.9 mg/dL (9.0-27.0); Calcium 8.6 mg/dL (8.7-10.3); Chloride 88 mmol/L (96-109); Glucose 100 mg/dL (70-110); Potassium 3.4 mmol/L (3.5-5.5); Sodium 130 mmol/L (135-145); Total Bilirubin 0.2 mg/dL (0.3-1.2); Total Protein 5.3 g/dL (6.2-8.2)
--- NOTE | 2024-06-10 13:27 | P.PN ---
Subjective Progress Note Date: 06/10/24 Principal diagnosis: Reason for follow-up is leukocytosis/peritonitis Patient is a 33-year-old female with a past medical history significant for hypertension seizure disorder, ovarian cyst, in this patient who did have end-stage renal disease previously on hemodialysis however has been on peritoneal dialysis for the last few months presented to hospital with abdominal pain in this patient who did have CT and ultrasound suspicious for right ovarian cyst. Patient did have elevated white count prompting this consultation. On today's evaluation that is 06/10/2024, Patient is afebrile this morning patient denies having any chest pain shortness of breath or cough, the patient is breathing comfortably on room air, patient still complaining of right-sided abdominal pain but no diarrhea no nausea no vomiting. Patient white count is 18.09, cultures are currently pending Objective - Vital Signs Vital signs: Vital Signs Temp 98.2 F 06/10/24 13:06 Pulse 105 H 06/10/24 13:06 Resp 16 06/10/24 13:06 BP 160/91 06/10/24 13:06 Pulse Ox 98 06/10/24 13:06 FiO2 Intake & Output 06/09/24 06/10/24 06/10/24 18:59 06:59 18:59 Intake Total 240 240 295 Balance 240 240 295 Intake: Oral 240 240 Blood Product 295 Rc Pheresis As-3 Unit 295 [id number] Other: Voiding Method Toilet Toilet Toilet CAPD CAPD CAPD # Voids 3 - Exam GENERAL DESCRIPTION: Middle-age female lying in bed in no distress RESPIRATORY SYSTEM: Unlabored breathing , decreased breath sounds at bases HEART: S1 S2 regular rate and rhythm , ABDOMEN: Soft , no tenderness EXTREMITIES: No edema feet - Labs CBC & Chem 7: 06/10/24 03:04 06/10/24 03:04 Labs: Abnormal Lab Results - Last 24 Hours (Table) 06/08/24 06/09/24 06/10/24 Range/Units 10:59 10:33 03:04 WBC 19.62 H 18.09 H (4.50-10.00) X 10*3/uL RBC 2.49 L 2.35 L (4.10-5.20) X 10*6/uL Hgb 7.3 L 6.9 A* (12.0-15.0) g/dL Hct 22.1 L 20.8 L (37.2-46.3) % RDW 14.6 H 14.6 H (11.5-14.5) % MPV 8.9 L 9.1 L (9.5-12.2) FL Immature Gran # 0.08 H 0.10 H (0.00-0.04) X 10*3/uL Neutrophils # 15.82 H 13.85 H (1.80-7.70) X 10*3/uL Monocytes # 2.29 H 2.40 H (0.20-1.00) X 10*3/uL Sodium (135-145) mmol/L Potassium (3.5-5.5) mmol/L Chloride (96-109) mmol/L Anion Gap (4.00-12.00) mmol/L BUN (9.0-27.0) mg/dL Creatinine (0.6-1.5) mg/dL Est GFR (CKD-EPI) (>=60) BUN/Creatinine Ratio (12.00-20.00) Ratio Calcium (8.7-10.3) mg/dL Total Bilirubin (0.3-1.2) mg/dL AST (13-35) U/L ALT (8-44) U/L Total Protein (6.2-8.2) g/dL Albumin (3.8-4.9) g/dL Albumin/Globulin Ratio (1.60-3.17) Ratio Crossmatch See Detail 06/10/24 Range/Units 03:04 WBC (4.50-10.00) X 10*3/uL RBC (4.10-5.20) X 10*6/uL Hgb (12.0-15.0) g/dL Hct (37.2-46.3) % RDW (11.5-14.5) % MPV (9.5-12.2) FL Immature Gran # (0.00-0.04) X 10*3/uL Neutrophils # (1.80-7.70) X 10*3/uL Monocytes # (0.20-1.00) X 10*3/uL Sodium 130 L (135-145) mmol/L Potassium 3.4 L (3.5-5.5) mmol/L Chloride 88 L (96-109) mmol/L Anion Gap 16.00 H (4.00-12.00) mmol/L BUN 49.9 H (9.0-27.0) mg/dL Creatinine 11.5 A* (0.6-1.5) mg/dL Est GFR (CKD-EPI) 4 L (>=60) BUN/Creatinine Ratio 4.34 L (12.00-20.00) Ratio Calcium 8.6 L (8.7-10.3) mg/dL Total Bilirubin 0.2 L (0.3-1.2) mg/dL AST 9 L (13-35) U/L ALT 6 L (8-44) U/L Total Protein 5.3 L (6.2-8.2) g/dL Albumin 2.3 L (3.8-4.9) g/dL Albumin/Globulin Ratio 0.77 L (1.60-3.17) Ratio Crossmatch Microbiology - Last 24 Hours (Table) 06/09/24 06:30 Gram Stain - Preliminary Dialysate Body Fluid Culture - Preliminary 06/07/24 14:23 Blood Culture - Preliminary Blood 06/07/24 16:44 Gram Stain - Preliminary Peritoneal Fluid Body Fluid Culture - Preliminary Assessment and Plan (1) Leukocytosis Current Visit: Yes Status: Acute Code(s): D72.829 - ELEVATED WHITE BLOOD CELL COUNT, UNSPECIFIED SNOMED Code(s): 317451019 (2) Peritonitis associated with peritoneal dialysis Current Visit: Yes Status: Acute Code(s): T85.71XA - INFECT/INFLM REACTION DUE TO PERITON DIALYSIS CATHETER, INIT SNOMED Code(s): 988904007 Plan: 1patient with a leukocytosis in this patient presented to hospital with abdominal pain did have history of right ovarian cyst with recent CAT scan and all the ultrasound has been suggestive of large right ovarian cyst torsion not excluded source likely abdominal as currently no other obvious focus for this elevated white count. 2patient did have elevated peritoneal fluid white count and was hazy suggestive of peritonitis intraperitoneal vancomycin has been started, we will suggest to continue with Zosyn while waiting for the culture to finalize, the patient white count is trending down question concern answered Dictation was produced using [employer] software. please excuse any grammatical, word or spelling errors. Time with Patient: Less than 30
[2024-06-10 13:47] LABS: Partial Thromboplastin Time 23.1 sec (22.0-30.0); Prothrombin Time 11.2 sec (10.0-12.5)
[2024-06-10] MEDS: HEPARIN SODIUM,PORCINE 5,000 UNIT/ML 1 ML VIAL SQ SCH (14:08)
--- NOTE | 2024-06-10 14:37 | PN ---
PROGRESS NOTE DATE OF SERVICE: 06/10/2024 SUBJECTIVE: This is a 33-year-old woman, who was admitted with severe abdominal pain with features of peritonitis. The patient on empiric antibiotics. The patient also had right ovarian mass, which is evaluated by HEADER SETUP OPERATOR and is being planned for possible surgery. The right ovary was found to be enlarged and lobulated. Hemoglobin 6.9, two units of transfusion has been ordered. PAST MEDICAL HISTORY: Reviewed. REVIEW OF SYSTEMS: A 14-point review is negative except as mentioned earlier. CURRENT MEDICATIONS: Reviewed include ceftazidime. PHYSICAL EXAMINATION: VITAL SIGNS: Pulse is 105, blood pressure 153/84, respirations 16. HEENT: Conjunctivae normal. NECK: No JVD. CARDIOVASCULAR: S1, S2. RESPIRATIONS: Breath sounds diminished at the bases. ABDOMEN: Soft. Abdominal fluid present. LEGS: No edema. No swelling. NERVOUS SYSTEM: Diffusely weak. ASSESSMENT: 1. Abdominal pain with possible peritoneal dialysis and associated acute peritonitis with severe abdominal pain. 2. Symptomatic anemia for transfusion. 3. Right ovarian mass post surgery. 4. Elevated leukocytosis. 5. Hyponatremia. 6. Multiple complex medical issues. RECOMMENDATIONS: Recommend to continue current management and continue symptomatic treatment. I would recommend transfusion as mentioned earlier. Recommend repeat labs. Pain management. The patient is on high-dose pain medications at this time. We will continue to monitor. DVT prophylaxis. Guarded prognosis because of multiple complex medical issues and further recommendations to follow. See orders for further details. MMODL / IJN: [id number] /
--- NOTE | 2024-06-10 15:06 | XR ---
EXAMINATION TYPE: XR chest 1V portable DATE OF EXAM: 06/10/2024 2:23 PM CLINICAL INDICATION: Female, 33 years old with history of low hemoglobin; PH[facility] COMPARISON: None TECHNIQUE: XR chest 1V portable Frontal view of the chest. FINDINGS: Lungs/Pleura: There is no evidence of pleural effusion, focal consolidation, or pneumothorax. Pulmonary vascularity: Unremarkable. Heart/mediastinum: Cardiomediastinal silhouette is unremarkable. Musculoskeletal: No acute osseous pathology. IMPRESSION: No acute cardiopulmonary disease/process. [facility], , 06/10/2024 3:03 PM
[2024-06-10] MEDS: PANTOPRAZOLE 40 MG TABLET PO SCH (15:44)
[2024-06-10] MEDS: hydrALAZINE HCL 20 MG/ML 1 ML VIAL IVP PRN (15:55)
--- NOTE | 2024-06-10 16:40 | P.OBCN ---
History of Present Illness Consult date: 06/10/24 Reason for consult: pelvic pain, ovarian cyst Chief complaint: right lower quadrant pain History of present illness: Ms. Sommers is a 33 year old [id number] who presents to the ER this week for acute right lower quadrant pain. She has had a known right ovarian mass with possible right hydrosalpinx over the past few years that has been expectantly managed. 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 She recently moved from [place] where she was going to have a hysterectomy with bilateral salpingoophorectomy. Upon presentation to the ER, she was noted to have a WBC of 21, was anemic with hemoglobin of 7.7. She has been on a regimen of IV dilaudid and PO Tylenol with very little improvement in pain. The patient rates the pain 7/10 at this time. OBGYN histry: LMP December 2023, irregular menses. 11 SABs, work-up negative per patient. Past Medical History: IgA Nephropathy of peritoneal dialysis, psoriasis, migraines, hypertension Surgical history: ureteral surgery at 7 months Past Medical History Past Medical History: Dialysis, Hypertension, Renal Disease, Seizure Disorder, Skin Disorder Additional Past Medical History / Comment(s): P.D. dailysis TU<TH<[place], seizure 2 yrs ago,possibly has had dvt in past,ovarian cyst uterine fibroids History of Any Multi-Drug Resistant Organisms: None Reported Past Surgical History: Back Surgery Additional Past Surgical History / Comment(s): urethral surgery at 9months old. skull fracture at age 9, back injections Past Anesthesia/Blood Transfusion Reactions: No Reported Reaction Past Psychological History: Anxiety, Depression Smoking Status: Never smoker Past Alcohol Use History: Rare Past Drug Use History: Marijuana - Past Family History Mother Family Medical History: Cancer Additional Family Medical History / Comment(s): ovarian, cervical Medications and Allergies Home Medications Medication Instructions Recorded Confirmed Type NIFEdipine [Adalat CC] 60 mg PO DAILY 01/29/24 06/07/24 History PARoxetine [Paxil] 10 mg PO DAILY 01/29/24 06/07/24 History Sevelamer Carbonate 3,200 mg PO TID-W/MEALS 01/29/24 06/07/24 History carvediloL 25 mg PO BID 01/29/24 06/07/24 History rOPINIRole HCL 0.5 mg PO BID 01/29/24 06/07/24 History traZODone HCL [Desyrel] 50 mg PO HS 01/29/24 06/07/24 History Cinacalcet HCl [Sensipar] 60 mg PO Q2D 04/18/24 06/07/24 History Furosemide [Lasix] 80 mg PO BID 04/18/24 06/07/24 History NIFEdipine [Adalat CC] 30 mg PO HS 04/18/24 06/07/24 History calcitrioL 0.25 mcg PO TID 04/18/24 06/07/24 History Calcium Acetate [PhosLo] 1,334 mg PO AC-TID #180 tab 04/20/24 06/07/24 Rx Acetaminophen Tab [Tylenol] 650 mg PO Q6H PRN 05/19/24 06/07/24 History Famotidine [Pepcid] 20 mg PO DAILY 05/23/24 06/07/24 History Allergies Allergy/AdvReac Type Severity Reaction Status Date / Time amlodipine Allergy Rash/Hives Verified 06/07/24 09:47 silver Allergy Rash/Hives Verified 06/07/24 09:47 [From Tegaderm AG Mesh] Exam Vital Signs Temp Pulse Pulse Resp BP BP Pulse Ox 06/10/24 13:06 98.2 F 105 H 16 160/91 98 06/10/24 12:47 98.2 F 105 H 16 160/91 98 06/10/24 11:57 98.2 F 105 H 16 153/84 99 06/10/24 10:57 98.7 F 109 H 14 150/91 98 06/10/24 10:37 98.7 F 109 H 16 159/83 06/10/24 10:33 98.3 F 107 H 16 152/85 98 06/10/24 07:09 98.6 F 113 H 18 150/84 98 06/10/24 06:12 98.4 F 110 H 16 154/92 94 L 06/10/24 02:00 97.9 F 111 H 16 131/78 97 06/10/24 00:00 98.3 F 105 H 18 127/72 06/09/24 19:43 98.6 F 110 H 16 134/75 96 06/09/24 18:00 98.8 F 114 H 17 143/76 98 Intake and Output 06/10/24 06/10/24 06/10/24 06:59 14:59 22:59 Intake Total 240 295 240 Balance 240 295 240 Intake: Oral 240 240 Blood Product 295 Rc Pheresis As-3 Unit 295 [id number] Other: Voiding Method Toilet CAPD # Voids 3 Focused physical exam is performed. The patient appears comfortable and in no apparent distress. Breathing is non-labored, she is conversing normally. Abdomen is soft, tender to palpation of RLQ, non-distended. Pelvic exam is deferred. Extremities are non-tender and non-distended. Results Result Diagrams: 06/10/24 03:04 06/10/24 03:04 Abnormal Lab Results - Last 24 Hours (Table) 06/08/24 06/09/24 06/10/24 Range/Units 10:59 10:33 03:04 WBC 19.62 H 18.09 H (4.50-10.00) X 10*3/uL RBC 2.49 L 2.35 L (4.10-5.20) X 10*6/uL Hgb 7.3 L 6.9 A* (12.0-15.0) g/dL Hct 22.1 L 20.8 L (37.2-46.3) % RDW 14.6 H 14.6 H (11.5-14.5) % MPV 8.9 L 9.1 L (9.5-12.2) FL Immature Gran # 0.08 H 0.10 H (0.00-0.04) X 10*3/uL Neutrophils # 15.82 H 13.85 H (1.80-7.70) X 10*3/uL Monocytes # 2.29 H 2.40 H (0.20-1.00) X 10*3/uL Sodium (135-145) mmol/L Potassium (3.5-5.5) mmol/L Chloride (96-109) mmol/L Anion Gap (4.00-12.00) mmol/L BUN (9.0-27.0) mg/dL Creatinine (0.6-1.5) mg/dL Est GFR (CKD-EPI) (>=60) BUN/Creatinine Ratio (12.00-20.00) Ratio Calcium (8.7-10.3) mg/dL Total Bilirubin (0.3-1.2) mg/dL AST (13-35) U/L ALT (8-44) U/L Total Protein (6.2-8.2) g/dL Albumin (3.8-4.9) g/dL Albumin/Globulin Ratio (1.60-3.17) Ratio Crossmatch See Detail 06/10/24 Range/Units 03:04 WBC (4.50-10.00) X 10*3/uL RBC (4.10-5.20) X 10*6/uL Hgb (12.0-15.0) g/dL Hct (37.2-46.3) % RDW (11.5-14.5) % MPV (9.5-12.2) FL Immature Gran # (0.00-0.04) X 10*3/uL Neutrophils # (1.80-7.70) X 10*3/uL Monocytes # (0.20-1.00) X 10*3/uL Sodium 130 L (135-145) mmol/L Potassium 3.4 L (3.5-5.5) mmol/L Chloride 88 L (96-109) mmol/L Anion Gap 16.00 H (4.00-12.00) mmol/L BUN 49.9 H (9.0-27.0) mg/dL Creatinine 11.5 A* (0.6-1.5) mg/dL Est GFR (CKD-EPI) 4 L (>=60) BUN/Creatinine Ratio 4.34 L (12.00-20.00) Ratio Calcium 8.6 L (8.7-10.3) mg/dL Total Bilirubin 0.2 L (0.3-1.2) mg/dL AST 9 L (13-35) U/L ALT 6 L (8-44) U/L Total Protein 5.3 L (6.2-8.2) g/dL Albumin 2.3 L (3.8-4.9) g/dL Albumin/Globulin Ratio 0.77 L (1.60-3.17) Ratio Crossmatch Microbiology - Last 24 Hours (Table) 06/09/24 06:30 Gram Stain - Preliminary Dialysate Body Fluid Culture - Preliminary 06/07/24 14:23 Blood Culture - Preliminary Blood 06/07/24 16:44 Gram Stain - Preliminary Peritoneal Fluid Body Fluid Culture - Preliminary Assessment and Plan Assessment: 33 year old with right ovarian mass and acute pelvic pain Plan: With surgical clearance from medical team, will plan for diagnostic laparoscopic, possible right salpingoophorectomy, possible laparotomy . Patient needs to be NPO at midnight on 06/12. Counseled on risks of bleeding, infection, damage to surrounding structures, post-operative VTE. Discussed post-operative restrictions, pain, and expectations. All questions answered. Consent completed.
--- NOTE | 2024-06-10 17:16 | P.PN ---
Subjective Patient is seen for follow-up for end-stage renal disease. No complaints of abdominal pain during PD exchanges. Patient was seen by MAJOR LEAGUE BASEBALL PLAYER and there are plans for laparoscopy and possible salpingo-oophorectomy. Patient will need to switch to temporary hemodialysis if she undergoes surgery. This is discussed with the patient. Objective - Vital Signs Vital signs: Vital Signs Temp 98.2 F 06/10/24 13:06 Pulse 105 H 06/10/24 13:06 Resp 16 06/10/24 13:06 BP 160/91 06/10/24 13:06 Pulse Ox 98 06/10/24 13:06 FiO2 Intake & Output 06/09/24 06/10/24 06/10/24 18:59 06:59 18:59 Intake Total 240 240 535 Balance 240 240 535 Intake: Oral 240 240 240 Blood Product 295 Rc Pheresis As-3 Unit 295 [id number] Other: Voiding Method Toilet Toilet Toilet CAPD CAPD CAPD # Voids 3 - Exam Patient is awake, comfortable, no acute distress. Alert oriented x 3 Examination of the heart S1 and S2 Examination of the lungs bilateral breath sounds are heard No edema noted in the lower extremities REMOTE CONTROL MIRROR INSTALLER exam grossly intact - Labs CBC & Chem 7: 06/10/24 03:04 06/10/24 03:04 Labs: Abnormal Lab Results - Last 24 Hours (Table) 06/08/24 06/10/24 06/10/24 Range/Units 10:59 03:04 03:04 WBC 18.09 H (4.50-10.00) X 10*3/uL RBC 2.35 L (4.10-5.20) X 10*6/uL Hgb 6.9 A* (12.0-15.0) g/dL Hct 20.8 L (37.2-46.3) % RDW 14.6 H (11.5-14.5) % MPV 9.1 L (9.5-12.2) FL Immature Gran # 0.10 H (0.00-0.04) X 10*3/uL Neutrophils # 13.85 H (1.80-7.70) X 10*3/uL Monocytes # 2.40 H (0.20-1.00) X 10*3/uL Sodium 130 L (135-145) mmol/L Potassium 3.4 L (3.5-5.5) mmol/L Chloride 88 L (96-109) mmol/L Anion Gap 16.00 H (4.00-12.00) mmol/L BUN 49.9 H (9.0-27.0) mg/dL Creatinine 11.5 A* (0.6-1.5) mg/dL Est GFR (CKD-EPI) 4 L (>=60) BUN/Creatinine Ratio 4.34 L (12.00-20.00) Ratio Calcium 8.6 L (8.7-10.3) mg/dL Total Bilirubin 0.2 L (0.3-1.2) mg/dL AST 9 L (13-35) U/L ALT 6 L (8-44) U/L Total Protein 5.3 L (6.2-8.2) g/dL Albumin 2.3 L (3.8-4.9) g/dL Albumin/Globulin Ratio 0.77 L (1.60-3.17) Ratio Crossmatch See Detail Microbiology - Last 24 Hours (Table) 06/09/24 06:30 Gram Stain - Preliminary Dialysate Body Fluid Culture - Preliminary 06/07/24 14:23 Blood Culture - Preliminary Blood 06/07/24 16:44 Gram Stain - Preliminary Peritoneal Fluid Body Fluid Culture - Preliminary Assessment and Plan Assessment: 1. End-stage renal disease maintained on peritoneal dialysis. Patient will need to switch to temporary hemodialysis if she undergoes abdominal surgery. 2. Acute blood loss anemia with hemoglobin 6.3, status post packed RBCs transfusion. 3. Right ovarian cyst. Questionable torsion. MAJOR LEAGUE BASEBALL PLAYER on consult. Plans for possible laparoscopy and salpingo-oophorectomy. 4. Hyperkalemia secondary to chronic kidney disease and questionable GI bleed. 5. Hyponatremia secondary to chronic kidney disease. Appears euvolemic. 6. Chronic kidney disease mineral bone disease maintained on PhosLo, calcitriol and Sensipar. 7. Elevated dialysate white cell count at 369 with 73% lymphocytes suggestive of peritonitis. Started on antibiotics 8. Hypertension with chronic kidney disease. Plan: Continue current PD exchanges. Will need to switch to temporary hemodialysis patient undergoes abdominal surgery. Continue antibiotics intraperitoneal Follow-up on fluid cultures.
[2024-06-10] MEDS: DARBEPOETIN ALFA 60 MCG/0.3 ML SYRINGE SQ SCH (18:13)
[2024-06-11] MEDS: DIALYSIS (PERIT 1.5%) 2,000 ML 30 G/2,000 ML BAG INTRAPERIT SCH (00:17)
[2024-06-11] MEDS ORDERED: METOCLOPRAMIDE 5 MG/ML 2 ML VIAL IVP PRN (04:10)
[2024-06-11] MEDS: METOCLOPRAMIDE 5 MG/ML 2 ML VIAL IVP STA (04:22)
[2024-06-11 05:05] LABS: ALT 7 U/L (4-34); African American GFR (CKD) 5 (>60 ml/min/1.73 sqM); Albumin 2.6 g/dL (3.5-5.0); Albumin/Globulin Ratio 0.8; Anion Gap 15 mmol/L; Blood Urea Nitrogen 57 mg/dL (7-17); Calcium 9.1 mg/dL (8.4-10.2); Carbon Dioxide 24 mmol/L (22-30); Chloride 90 mmol/L (98-107); Globulin 3.3 g/dL; Glucose 92 mg/dL (74-99); Non-African American GFR(CKD) 4 (>60 ml/min/1.73 sqM); Sodium 129 mmol/L (137-145); Total Bilirubin 0.8 mg/dL (0.2-1.3); Total Protein 5.9 g/dL (6.3-8.2)
[2024-06-11 05:15] LABS: AST 20 U/L (14-36); Alkaline Phosphatase 99 U/L (38-126); Potassium 3.8 mmol/L (3.5-5.1)
[2024-06-11] MEDS: PANTOPRAZOLE 40 MG/10 ML VIAL IVP SCH (08:16)
[2024-06-11] MEDS: ONDANSETRON 4 MG/2 ML VIAL IVP PRN (08:30)
[2024-06-11 09:02] LABS: Basophils # (A) 0.07 X 10*3/uL (0.00-0.10); Basophils % (A) 0.4 %; Eosinophils # (A) 0.33 X 10*3/uL (0.04-0.35); Eosinophils % (A) 1.9 %; HCT 27.5 % (37.2-46.3); HGB 9.5 g/dL (12.0-15.0); Lymphocytes # (A) 0.91 X 10*3/uL (0.90-5.00); Lymphocytes % (A) 5.2 %; MCH 29.9 pg (27.0-32.0); MCHC 34.5 g/dL (32.0-37.0); MCV 86.5 FL (80.0-97.0); Monocytes # (A) 1.82 X 10*3/uL (0.20-1.00); Monocytes % (A) 10.3 %; NRBC Per 100 WBC 0 X 10*3/uL (0.00-0.01); Neutrophils # (A) 14.41 X 10*3/uL (1.80-7.70); Neutrophils % (A) 81.6 %; Platelet Count 408 X 10*3/uL (140-440); RBC 3.18 X 10*6/uL (4.10-5.20); RDW 14.5 % (11.5-14.5); WBC 17.64 X 10*3/uL (4.50-10.00)
--- NOTE | 2024-06-11 11:03 | P.PN ---
Subjective Patient is seen for follow-up for end-stage renal disease. No complaints of abdominal pain during PD exchanges. Patient was seen by MATERIAL REQUIREMENTS WORKER and there are plans for laparoscopy and possible salpingo-oophorectomy. Patient will need to switch to temporary hemodialysis if she undergoes surgery. This is discussed with the patient. Complaining of increased leg swelling. No shortness of breath. Objective - Vital Signs Vital signs: Vital Signs Temp 98.6 F 06/11/24 07:16 Pulse 106 H 06/11/24 08:30 Resp 16 06/11/24 07:16 BP 150/81 06/11/24 07:16 Pulse Ox 98 06/11/24 07:16 FiO2 Intake & Output 06/10/24 06/11/24 06/11/24 18:59 06:59 18:59 Intake Total 535 240 Balance 535 240 Intake: Oral 240 240 Blood Product 295 Rc Pheresis As-3 Unit 295 [id number] Other: Voiding Method Toilet Toilet Toilet CAPD CAPD CAPD # Voids 2 3 - Exam Patient is awake, comfortable, no acute distress. Alert oriented x 3 Examination of the heart S1 and S2 Examination of the lungs bilateral breath sounds are heard 1+ bilateral edema noted in the lower extremities KISS MACHINE OPERATOR exam grossly intact - Labs CBC & Chem 7: 06/11/24 06:00 06/11/24 04:10 Labs: Abnormal Lab Results - Last 24 Hours (Table) 06/08/24 06/11/24 06/11/24 Range/Units 10:59 04:10 06:00 WBC 17.64 H (4.50-10.00) X 10*3/uL RBC 3.18 L (4.10-5.20) X 10*6/uL Hgb 9.5 L (12.0-15.0) g/dL Hct 27.5 L (37.2-46.3) % MPV 9.0 L (9.5-12.2) FL Immature Gran # 0.10 H (0.00-0.04) X 10*3/uL Neutrophils # 14.41 H (1.80-7.70) X 10*3/uL Monocytes # 1.82 H (0.20-1.00) X 10*3/uL Sodium 129 L (137-145) mmol/L Chloride 90 L (98-107) mmol/L BUN 57 H (7-17) mg/dL Creatinine 10.76 H* (0.52-1.04) mg/dL Total Protein 5.9 L (6.3-8.2) g/dL Albumin 2.6 L (3.5-5.0) g/dL Crossmatch See Detail Microbiology - Last 24 Hours (Table) 06/09/24 06:30 Gram Stain - Preliminary Dialysate Body Fluid Culture - Preliminary 06/07/24 14:23 Blood Culture - Preliminary Blood 06/07/24 16:44 Gram Stain - Preliminary Peritoneal Fluid Body Fluid Culture - Preliminary Assessment and Plan Assessment: 1. End-stage renal disease maintained on peritoneal dialysis. Patient will need to switch to temporary hemodialysis if she undergoes abdominal surgery. 2. Acute blood loss anemia with hemoglobin 6.3 on admission, status post packed RBCs transfusion. 3. Right ovarian cyst. Questionable torsion. MATERIAL REQUIREMENTS WORKER on consult. Plans for possible laparoscopy and salpingo-oophorectomy. 4. Hyperkalemia secondary to chronic kidney disease and questionable GI bleed. 5. Hyponatremia secondary to chronic kidney disease. Appears euvolemic. 6. Chronic kidney disease mineral bone disease maintained on PhosLo, calcitriol and Sensipar. 7. Elevated dialysate white cell count at 369 with 73% lymphocytes suggestive of peritonitis. Started on antibiotics 8. Hypertension with chronic kidney disease. 9. Volume overload Plan: Switch to 4.25% solution alternating with 2.5% solution due to volume overload Patient will need to switch to hemodialysis. Continue antibiotics for peritonitis Follow-up on fluid cultures.
--- NOTE | 2024-06-11 13:04 | PN ---
PROGRESS NOTE DATE OF SERVICE: 06/11/2024 SUBJECTIVE: This is a 33-year-old woman, who was admitted with abdominal pain, possible peritonitis, also had ovarian cyst, also AUTOMATION ENGINEER is evaluating the patient for possible surgery. No chest pain. No palpitation. Medically, the patient is stable. OBJECTIVE: VITAL SIGNS: Pulse is 106, blood pressure 150/81, respirations 16. CHEST: Clear to auscultation. CARDIOVASCULAR: S1, S2. ABDOMEN: Soft. Minimal tenderness in the right upper quadrant. No guarding. No rigidity. LABORATORY DATA: Sodium 129, otherwise WBC 17.0 for the same, hemoglobin 9.5. ASSESSMENT: 1. Abdominal pain with possible acute peritonitis, on peritoneal dialysis. 2. Right ovarian mass for surgery. 3. Symptomatic anemia, status post transfusion. 4. Elevated leukocytosis. 5. Hyponatremia. 6. Multiple complex medical issues. RECOMMENDATIONS: Recommend to continue current medications, continue symptomatic treatment. Otherwise, continue with pain medication. Continue with antibiotics and Surgical and Infectious Disease, Nephrology evaluations. Continue the peritoneal dialysis. Repeat labs in the morning. Guarded prognosis. Further recommendations to follow. Chest x-ray is normal. MMODL / IJN: [id number] /
[2024-06-11 16:27] LABS: Appearance,BF Clear (Clear)
[2024-06-11] MEDS: HYDROcodone/APAP 5-325MG 1 EACH TAB PO PRN (18:52)
[2024-06-12 08:30] LABS: Basophils # (A) 0.09 X 10*3/uL (0.00-0.10); Basophils % (A) 0.4 %; Eosinophils % (A) 0.5 %; HGB 9.9 g/dL (12.0-15.0); Lymphocytes # (A) 1.36 X 10*3/uL (0.90-5.00); Lymphocytes % (A) 6.8 %; MCH 29.6 pg (27.0-32.0); MCV 89.6 FL (80.0-97.0); Mean Platelet Volume 9.2 FL (9.5-12.2); Monocytes # (A) 2.54 X 10*3/uL (0.20-1.00); Monocytes % (A) 12.6 %; NRBC Per 100 WBC 0 X 10*3/uL (0.00-0.01); Neutrophils # (A) 15.87 X 10*3/uL (1.80-7.70); Platelet Count 454 X 10*3/uL (140-440); RBC 3.35 X 10*6/uL (4.10-5.20); RDW 14.4 % (11.5-14.5); WBC 20.11 X 10*3/uL (4.50-10.00)
[2024-06-12 09:59] LABS: BUN/Creat Ratio 4.07 Ratio (12.00-20.00); Blood Urea Nitrogen 44.4 mg/dL (9.0-27.0); Calcium 8.4 mg/dL (8.7-10.3); Carbon Dioxide 25.8 mmol/L (21.6-31.8); Chloride 87 mmol/L (96-109); Glucose 86 mg/dL (70-110); Potassium 3.2 mmol/L (3.5-5.5); Sodium 130 mmol/L (135-145)
[2024-06-12] MEDS: IV FLUID CONTINUATION 1,000 ML IV ONE (11:21)
[2024-06-12] MEDS: SODIUM CHLORIDE 0.9% 1,000 ML IV ONE (11:34)
[2024-06-12] MEDS: DEXAMETHASONE SOD PHOSPHATE 4 MG/ML 1 ML VIAL IVP STA (11:55)
[2024-06-12] MEDS ORDERED: DIALYSIS (PERIT 4.25%) 2000 ML 85 G/2,000 ML BAG INTRAPERIT SCH (12:00)
--- NOTE | 2024-06-12 12:21 | P.PN ---
Subjective Patient is seen for follow-up for end-stage renal disease. scheduled for surgery today. Patient has right forearm arm AV fistula which can be used for hemodialysis tomorrowpatient is Objective - Vital Signs Vital signs: Vital Signs Temp 00 F L 06/12/24 11:23 Pulse 107 H 06/12/24 11:23 Resp 16 06/12/24 11:23 BP 158/89 06/12/24 11:23 Pulse Ox 98 06/12/24 11:23 FiO2 Intake & Output 06/11/24 06/12/24 06/12/24 18:59 06:59 18:59 Intake Total 340 100 Balance 340 100 Intake: IV 100 Intake, IV Titration 100 Amount Piperacillin-Tazobactam 3 100 .375 gm In Sodium Chloride 0.9% 100 ml @ 25 mls/hr IVPB Q12H [facility] Rx# :[id number] Oral 240 Other: Voiding Method Toilet Toilet Toilet CAPD CAPD CAPD # Voids 1 # Bowel Movements 0 - Exam Patient is awake, comfortable, no acute distress. Alert oriented x 3 1+ bilateral edema noted in the lower extremities FAN RUNNER exam grossly intact - Labs CBC & Chem 7: 06/12/24 02:33 06/12/24 02:33 Labs: Abnormal Lab Results - Last 24 Hours (Table) 06/12/24 06/12/24 Range/Units 02:33 02:33 WBC 20.11 H (4.50-10.00) X 10*3/uL RBC 3.35 L (4.10-5.20) X 10*6/uL Hgb 9.9 L (12.0-15.0) g/dL Hct 30.0 L (37.2-46.3) % Plt Count 454 H (140-440) X 10*3/uL MPV 9.2 L (9.5-12.2) FL Immature Gran # 0.15 H (0.00-0.04) X 10*3/uL Neutrophils # 15.87 H (1.80-7.70) X 10*3/uL Monocytes # 2.54 H (0.20-1.00) X 10*3/uL Sodium 130 L (135-145) mmol/L Potassium 3.2 L (3.5-5.5) mmol/L Chloride 87 L (96-109) mmol/L Anion Gap 17.20 H (4.00-12.00) mmol/L BUN 44.4 H (9.0-27.0) mg/dL Creatinine 10.9 A* (0.6-1.5) mg/dL Est GFR (CKD-EPI) 4 L (>=60) BUN/Creatinine Ratio 4.07 L (12.00-20.00) Ratio Calcium 8.4 L (8.7-10.3) mg/dL Microbiology - Last 24 Hours (Table) 06/09/24 06:30 Gram Stain - Preliminary Dialysate Body Fluid Culture - Preliminary 06/07/24 16:44 Gram Stain - Final Peritoneal Fluid Body Fluid Culture - Final Assessment and Plan Assessment: 1. End-stage renal disease maintained on peritoneal dialysis. Patient will need to switch to temporary hemodialysis if she undergoes abdominal surgery. 2. Acute blood loss anemia with hemoglobin 6.3 on admission, status post packed RBCs transfusion. 3. Right ovarian cyst. Questionable torsion. TRAY LINE WORKER on consult. Plans for laparoscopy and possible salpingo-oophorectomy. 4. Hyperkalemia secondary to chronic kidney disease and questionable GI bleed. 5. Hyponatremia secondary to chronic kidney disease. Appears euvolemic. 6. Chronic kidney disease mineral bone disease maintained on PhosLo, calcitriol and Sensipar. 7. Elevated dialysate white cell count at 369 with 73% lymphocytes suggestive of peritonitis. Started on antibiotics 8. Hypertension with chronic kidney disease. 9. Volume overload Plan: Switch to 4.25% solution alternating with 2.5% solution due to volume overload Patient will need to switch to hemodialysis postoperative. She has a right arm AV fistula which can be used. Continue antibiotics for peritonitis Follow-up on fluid cultures.
[2024-06-12] MEDS ORDERED: LABETALOL 5 MG/ML VIAL MDV ONE (12:23)
[2024-06-12] MEDS ORDERED: LIDOCAINE 1% INJ 10MG/ML (20 ML MDV) ONE (12:23)
[2024-06-12] MEDS ORDERED: MIDAZOLAM 2 MG/2 ML VIAL ONE (12:23)
[2024-06-12] MEDS ORDERED: HYDROmorphone (PF) 1 MG/ML ONE (12:23)
[2024-06-12] MEDS ORDERED: SUCCINYLCHOLINE CHLORIDE 200 MG/10 ML VIAL IV ONE (12:23)
[2024-06-12] MEDS ORDERED: fentaNYL (PF) 50 MCG/ML 2 ML AMP ONE (12:23)
[2024-06-12] MEDS ORDERED: NEOSTIGMINE 1 MG/ML 10 ML VIAL ONE (12:23)
[2024-06-12] MEDS ORDERED: GLYCOPYRROLATE 0.2 MG/ML 2 ML VIAL ONE (12:23)
[2024-06-12] MEDS ORDERED: ROCURONIUM 10 MG/ML (5 ML VIAL) IV ONE (12:23)
[2024-06-12] MEDS ORDERED: PROPOFOL 10 MG/ML 20 ML VIAL IV ONE (12:23)
[2024-06-12] MEDS: BUPIVACAINE (PF) 0.25% 30 ML VIAL SQ ONE ×2 (12:55→14:35)
[2024-06-12] MEDS: HYDROmorphone 0.5 MG/0.5 ML SYRINGE IVP PRN (15:05)
[2024-06-12] MEDS: fentaNYL (PF) 50 MCG/ML 2 ML AMP IVP PRN (15:16)
--- NOTE | 2024-06-12 15:31 | P.OP ---
Date of Procedure: 06/12/24 Preoperative Diagnosis: 1. Right tubo-ovarian mass 2. Acute pelvic pain Postoperative Diagnosis: 1. Right tubo-ovarian abcess 2. Acute pelvic pain Procedure(s) Performed: Diagnostic Laparoscopy, Exploratory Laparotomy, Right Salpingo-Ophorectomy Implants: None Anesthesia: CHRISTINA Surgeon: Val Yusuf Estimated Blood Loss (ml): 200 IV fluids (ml): 200 Urine output (ml): 15 Pathology: other (right tube and ovary with abcess) Condition: stable Disposition: floor Indications for Procedure: This is a 33 year old [id number] who presented with acute on chronic right lower quadrant pain who was found to have a tubo-ovarian mass. Discussed risks, benefit,s and alternatives to diagnostic laparoscopy, right salpingo- oophorectomy were discussed with the patient including risk of bleeding, infecti on, damage to surrounding structures, and laparotomy. The patient understands these risks and desires to proceed with surgery as discussed. All questions were answered. Operative Findings: Normal appearing uterus, normal left fallopian tube and ovary. Intraperitoneal dialysis catheter noted. A 6+ centimeter tubo-ovarian abscess appreciated on the right tube and ovary. There are adhesions to bowel and the posterior uterus. Normal appearing liver. Description of Procedure: Patient was taken to the OR with IV fluid running and pneumatic compression stockings on both legs. General anesthesia was obtained without difficulty. The patient was placed in the dorsal lithotomy position with Unruly-type stirrups with knees bent at 30 degree angles. Examination under anesthesia revealed a normal-sized, anteverted uterus. The patient as prepared and draped. The bladder was emptied. A speculum was placed into the vagina. A sponge stick was used for uterine manipulation. After confirming placement of an OG tube, a horizontal skin incision was made at [place]. The Veress needle was introduced into the peritoneal cavity at a straight angle without difficulty. A saline drop test was performed to validate intraperitoneal placement. The pneumoperitoneum was established with CO2 gas to a pressure of 15mmHg. A 5mm trocar was inserted into the abdomen under direct laparoscopic visualization. Intraabdominal survey revealed lack of any visceral or vascular injury. The pelvic and abdominal anatomy was noted as above. Two additional laparoscopic assit ports were placed in the right and left lower quadrants. At this point, the degree of adhesions to the right tubo-ovarian abscess were appreciated and it was felt that conversion to laparotomy was the safest option. Preparations were made for laparotomy. A Pfannenstiel skin incision was made with the scalpel. The incision was carried down to the fascia with a bovie. The fascia was incised and extended laterally with Pagan scissors. The superior aspect of the fascia was grasped with the Gely clamps. The underlying rectus muscle was dissected off sharply with Pagan scissors. In a similar fashion, the inferior aspect of the fascia was elevated with Gely clamps and the rectus muscle and pyramidalis were dissected off. Excellent hemostasis was achieved with the bovie. The rectus muscle was in the midline down to the level of the pubic symphysis. Pre- peritoneal fatty tissue was bluntly dissected to expose the peritoneum. The peritoneum was found to be free of adherent bowel and entered sharply with Pagan scissors. The peritoneal incision was extended superiorly and inferiorly to the bladder reflection with good visualization of the bladder. At this time, the LigaSure device was used to ligate and cut the right IP ligament and adhesions were taken down from the abscess to omentum with sharp and blunt dissection. The specimen was handed off for pathology. The bed of the abscess on the side wall and posterior uterus was noted to have slow venous bleeding. Pressure was held on the area, electrocautery was used, and SurgiCel powder was used to facilitate hemostasis. Good hemostasis was noted. The fascial layer was closed with a 0- Vicryl suture. The skin was closed with 4-0 Monocryl in a subcuticular fashion. The laparoscopic trocar sites were also closed with 4-0 Monocryl. The patient tolerated the procedure well. All the counts were correct times two. The patient was taken to the recovery room in a stable condition.
--- NOTE | 2024-06-12 16:08 | P.PN ---
Subjective Progress Note Date: 06/11/24 Principal diagnosis: Reason for follow-up is leukocytosis/peritonitis Patient is a 33-year-old female with a past medical history significant for hypertension seizure disorder, ovarian cyst, in this patient who did have end-stage renal disease previously on hemodialysis however has been on peritoneal dialysis for the last few months presented to hospital with abdominal pain in this patient who did have CT and ultrasound suspicious for right ovarian cyst. Patient did have elevated white count prompting this consultation. On today's evaluation that is 06/11/2024,the patient denies any fever or any chills, patient is breathing comfortably on room air, the patient denies chest pain shortness of breath and no significant cough, patient still complaining of right-sided abdominal pain, no nausea vomiting or diarrhea. Patient white count slightly down to 17.6 4 repeat peritoneal fluid clear white count is down to 19 Objective - Vital Signs Vital signs: Vital Signs Temp 98.5 F 06/11/24 12:08 Pulse 101 H 06/11/24 12:08 Resp 16 06/11/24 12:08 BP 136/77 06/11/24 12:08 Pulse Ox 97 06/11/24 12:08 FiO2 Intake & Output 06/10/24 06/11/24 06/11/24 18:59 06:59 18:59 Intake Total 535 240 240 Balance 535 240 240 Intake: Oral 240 240 240 Blood Product 295 Rc Pheresis As-3 Unit 295 [id number] Other: Voiding Method Toilet Toilet Toilet CAPD CAPD CAPD # Voids 2 3 - Exam GENERAL DESCRIPTION: Middle-age female lying in bed in no distress RESPIRATORY SYSTEM: Unlabored breathing , decreased breath sounds at bases HEART: S1 S2 regular rate and rhythm , ABDOMEN: Soft , no tenderness EXTREMITIES: No edema feet - Labs CBC & Chem 7: 06/12/24 02:33 06/12/24 02:33 Labs: Abnormal Lab Results - Last 24 Hours (Table) 06/08/24 06/11/24 06/11/24 Range/Units 10:59 04:10 06:00 WBC 17.64 H (4.50-10.00) X 10*3/uL RBC 3.18 L (4.10-5.20) X 10*6/uL Hgb 9.5 L (12.0-15.0) g/dL Hct 27.5 L (37.2-46.3) % MPV 9.0 L (9.5-12.2) FL Immature Gran # 0.10 H (0.00-0.04) X 10*3/uL Neutrophils # 14.41 H (1.80-7.70) X 10*3/uL Monocytes # 1.82 H (0.20-1.00) X 10*3/uL Sodium 129 L (137-145) mmol/L Chloride 90 L (98-107) mmol/L BUN 57 H (7-17) mg/dL Creatinine 10.76 H* (0.52-1.04) mg/dL Total Protein 5.9 L (6.3-8.2) g/dL Albumin 2.6 L (3.5-5.0) g/dL Crossmatch See Detail Microbiology - Last 24 Hours (Table) 06/09/24 06:30 Gram Stain - Preliminary Dialysate Body Fluid Culture - Preliminary 06/07/24 14:23 Blood Culture - Preliminary Blood 06/07/24 16:44 Gram Stain - Preliminary Peritoneal Fluid Body Fluid Culture - Preliminary Assessment and Plan (1) Leukocytosis Current Visit: Yes Status: Acute Code(s): D72.829 - ELEVATED WHITE BLOOD CELL COUNT, UNSPECIFIED SNOMED Code(s): 958053646 (2) Peritonitis associated with peritoneal dialysis Current Visit: Yes Status: Acute Code(s): T85.71XA - INFECT/INFLM REACTION DUE TO PERITON DIALYSIS CATHETER, INIT SNOMED Code(s): 058369049 Plan: 1patient with a leukocytosis in this patient presented to hospital with abdominal pain did have history of right ovarian cyst with recent CAT scan and all the ultrasound has been suggestive of large right ovarian cyst torsion not excluded source likely abdominal, with concern for possible tubo-ovarian abscess patient scheduled for surgery tomorrow by AUTO JOB ESTIMATOR 2patient did have elevated peritoneal fluid white count and was hazy suggestive of peritonitis intraperitoneal vancomycin has been started continue with Zosyn Dictation was produced using [employer] software. please excuse any grammatical, word or spelling errors. Time with Patient: Less than 30
[2024-06-12] MEDS: DIALYSIS DEX IVPB SCH (16:19)
[2024-06-12] MEDS: CEFTAZIDIME IVPB SCH (16:19)
--- NOTE | 2024-06-12 22:13 | PN ---
PROGRESS NOTE DATE OF SERVICE: 06/12/2024 SUBJECTIVE: This is a 33-year-old woman, who was admitted with abdominal pain and acute peritonitis, also had right ovarian mass. Surgery is planning laparoscopic procedure today. No chest pain. No palpitation. OBJECTIVE: VITAL SIGNS: Pulse is 107, blood pressure 158/89, respirations 16. CHEST: A few scattered rhonchi. ABDOMEN: Soft, ascitic fluid present. LABORATORY DATA: WBC 20.1, sodium 130, potassium 3.2. ASSESSMENT: 1. Abdominal pain with possible acute peritonitis, on peritoneal dialysis. 2. Elevated WBC. 3. Right ovarian mass post surgery. 4. Symptomatic anemia, status post transfusion. 5. End-stage renal disease, on peritoneal dialysis. 6. Hyponatremia. 7. Multiple complex medical issues. RECOMMENDATIONS: Recommend to continue current medications, continue symptomatic treatment. Repeat labs. Otherwise, we will closely follow with YARN HAULER and Nephrology. Prognosis guarded. Further recommendations to follow. MMODL / IJN: [id number] /
[2024-06-13] MEDS ORDERED: DIALYSIS (PERIT 4.25%) 2500 ML 106.25 G/2,500 ML BAG INTRAPERIT SCH
[2024-06-13 08:20] VITALS: BMI 21.4
[2024-06-13 08:52] LABS: Basophils # (A) 0.06 X 10*3/uL (0.00-0.10); Basophils % (A) 0.3 %; Eosinophils # (A) 0 X 10*3/uL (0.04-0.35); Eosinophils % (A) 0 %; HCT 24.5 % (37.2-46.3); HGB 8.2 g/dL (12.0-15.0); Lymphocytes # (A) 1.12 X 10*3/uL (0.90-5.00); MCH 29.6 pg (27.0-32.0); MCHC 33.5 g/dL (32.0-37.0); MCV 88.4 FL (80.0-97.0); Mean Platelet Volume 9.2 FL (9.5-12.2); Monocytes # (A) 1.85 X 10*3/uL (0.20-1.00); Monocytes % (A) 9.9 %; NRBC Per 100 WBC 0 X 10*3/uL (0.00-0.01); Neutrophils # (A) 15.45 X 10*3/uL (1.80-7.70); Platelet Count 419 X 10*3/uL (140-440); RBC 2.77 X 10*6/uL (4.10-5.20); RDW 14.5 % (11.5-14.5); WBC 18.63 X 10*3/uL (4.50-10.00)
[2024-06-13] MEDS: HYDROcodone/APAP 10-325MG 1 EACH TAB PO ONE (08:58)
[2024-06-13] MEDS ORDERED: HYDROcodone/APAP 7.5-325MG 1 EACH TAB PO PRN (09:27)
[2024-06-13 09:34] LABS: Calcium 7.9 mg/dL (8.7-10.3); Chloride 90 mmol/L (96-109); Glucose 102 mg/dL (70-110); Potassium 3.9 mmol/L (3.5-5.5); Sodium 131 mmol/L (135-145)
[2024-06-13] MEDS ORDERED: ACETAMINOPHEN TAB 500 MG TAB PO PRN (11:09)
[2024-06-13] MEDS: GABAPENTIN 300 MG CAP PO SCH (11:35)
--- NOTE | 2024-06-13 13:30 | P.PN ---
Subjective Progress Note Date: 06/12/24 Principal diagnosis: Reason for follow-up is leukocytosis/peritonitis Patient is a 33-year-old female with a past medical history significant for hypertension seizure disorder, ovarian cyst, in this patient who did have end-stage renal disease previously on hemodialysis however has been on peritoneal dialysis for the last few months presented to hospital with abdominal pain in this patient who did have CT and ultrasound suspicious for right ovarian cyst. Patient did have elevated white count prompting this consultation. Patient is status post diagnostic laparoscopy exploratory laparotomy right salpingo-oophorectomy with evidence of right tubo-ovarian abscess completed on 06/12/2024 On today's evaluation that is 06/12/2024,the patient remains to be afebrile, p atient is on room air not requiring supplemental oxygen and denies any shortness of breath no chest pain or cough.Patient denies having any nausea or vomiting still Abdominal pain but no worsening. Patient white count is 20.11, creatinine is 10.9 peritoneal fluid cultures pending Objective - Vital Signs Vital signs: Vital Signs Temp 98.1 F 06/12/24 14:49 Pulse 90 06/12/24 15:55 Resp 16 06/12/24 15:55 BP 161/92 06/12/24 15:55 Pulse Ox 98 06/12/24 15:55 FiO2 Intake & Output 06/11/24 06/12/24 06/12/24 18:59 06:59 18:59 Intake Total 340 700 Output Total 210 Balance 340 490 Intake: IV 700 Intake, IV Titration 100 Amount Piperacillin-Tazobactam 3 100 .375 gm In Sodium Chloride 0.9% 100 ml @ 25 mls/hr IVPB Q12H [facility] Rx# :[id number] Oral 240 Output: Urine 10 Estimated Blood Loss 200 Other: Voiding Method Toilet Toilet Toilet CAPD CAPD CAPD # Voids 1 # Bowel Movements 0 - Exam GENERAL DESCRIPTION: Middle-age female lying in bed in no distress RESPIRATORY SYSTEM: Unlabored breathing , decreased breath sounds at bases HEART: S1 S2 regular rate and rhythm , ABDOMEN: Soft , no tenderness EXTREMITIES: No edema feet - Labs CBC & Chem 7: 06/12/24 02:33 06/12/24 02:33 Labs: Abnormal Lab Results - Last 24 Hours (Table) 06/12/24 06/12/24 Range/Units 02:33 02:33 WBC 20.11 H (4.50-10.00) X 10*3/uL RBC 3.35 L (4.10-5.20) X 10*6/uL Hgb 9.9 L (12.0-15.0) g/dL Hct 30.0 L (37.2-46.3) % Plt Count 454 H (140-440) X 10*3/uL MPV 9.2 L (9.5-12.2) FL Immature Gran # 0.15 H (0.00-0.04) X 10*3/uL Neutrophils # 15.87 H (1.80-7.70) X 10*3/uL Monocytes # 2.54 H (0.20-1.00) X 10*3/uL Sodium 130 L (135-145) mmol/L Potassium 3.2 L (3.5-5.5) mmol/L Chloride 87 L (96-109) mmol/L Anion Gap 17.20 H (4.00-12.00) mmol/L BUN 44.4 H (9.0-27.0) mg/dL Creatinine 10.9 A* (0.6-1.5) mg/dL Est GFR (CKD-EPI) 4 L (>=60) BUN/Creatinine Ratio 4.07 L (12.00-20.00) Ratio Calcium 8.4 L (8.7-10.3) mg/dL Microbiology - Last 24 Hours (Table) 06/09/24 06:30 Gram Stain - Preliminary Dialysate Body Fluid Culture - Preliminary 06/07/24 16:44 Gram Stain - Final Peritoneal Fluid Body Fluid Culture - Final Assessment and Plan (1) Leukocytosis Current Visit: Yes Status: Acute Code(s): D72.829 - ELEVATED WHITE BLOOD CELL COUNT, UNSPECIFIED SNOMED Code(s): 579042644 (2) Peritonitis associated with peritoneal dialysis Current Visit: Yes Status: Acute Code(s): T85.71XA - INFECT/INFLM REACTION DUE TO PERITON DIALYSIS CATHETER, INIT SNOMED Code(s): 249264196 Plan: 1patient with a leukocytosis in this patient presented to hospital with abdominal pain did have history of right ovarian cyst with recent CAT scan and all the ultrasound has been suggestive of large right ovarian cyst patient is status post laparoscopy with evidence of tubo-ovarian abscess status post right salpingo-oophorectomy hopefully culture done which will be followed continue with the Zosyn adjust antibiotic further on the basis of culture and monitor clinical course closely Dictation was produced using [employer] dictation software. please excuse any grammatical, word or spelling errors. Time with Patient: Less than 30
--- NOTE | 2024-06-13 13:35 | P.PN ---
Subjective Progress Note Date: 06/13/24 Principal diagnosis: POD#1 s/p diagnostic laparoscopy, exploratory laparotomy, RSO The patient has poorly controlled pain today on her current regimen. She states she cannot get out of bed. She is passing flatus. She does not make much urine so has not gotten up for this reason. She denies fevers, chills, chest pain, shortness of breath, pain/swelling in the legs. Objective - Vital Signs Vital signs: Vital Signs Temp 98.0 F 06/13/24 08:00 Pulse 100 06/13/24 08:00 Resp 16 06/13/24 08:00 BP 155/97 06/13/24 08:00 Pulse Ox 97 06/13/24 08:00 FiO2 Intake & Output 06/12/24 06/13/24 06/13/24 18:59 06:59 18:59 Intake Total 1040 590 Output Total 210 Balance 830 590 Weight 56.699 kg Intake: IV 700 Intake, IV Titration 100 Amount Piperacillin-Tazobactam 3 100 .375 gm In Sodium Chloride 0.9% 100 ml @ 25 mls/hr IVPB Q12H [facility] Rx# :[id number] Oral 240 590 Output: Urine 10 Estimated Blood Loss 200 Other: Voiding Method Toilet Toilet Toilet CAPD CAPD CAPD - Exam Focused physical exam is performed. Abdomen soft, non-tender, and non-distended. Bandage left in place today per patient request. Extremities non-tender and non- edematous. - Labs CBC & Chem 7: 06/13/24 03:07 06/13/24 03:03 Labs: Abnormal Lab Results - Last 24 Hours (Table) 06/13/24 06/13/24 Range/Units 03:03 03:07 WBC 18.63 H (4.50-10.00) X 10*3/uL RBC 2.77 L (4.10-5.20) X 10*6/uL Hgb 8.2 L (12.0-15.0) g/dL Hct 24.5 L (37.2-46.3) % MPV 9.2 L (9.5-12.2) FL Immature Gran # 0.15 H (0.00-0.04) X 10*3/uL Neutrophils # 15.45 H (1.80-7.70) X 10*3/uL Monocytes # 1.85 H (0.20-1.00) X 10*3/uL Eosinophils # 0 L (0.04-0.35) X 10*3/uL Sodium 131 L (135-145) mmol/L Chloride 90 L (96-109) mmol/L Anion Gap 16.00 H (4.00-12.00) mmol/L BUN 48.0 H (9.0-27.0) mg/dL Creatinine 12.0 A* (0.6-1.5) mg/dL Est GFR (CKD-EPI) 4 L (>=60) BUN/Creatinine Ratio 4.00 L (12.00-20.00) Ratio Calcium 7.9 L (8.7-10.3) mg/dL Microbiology - Last 24 Hours (Table) 06/09/24 06:30 Gram Stain - Final Dialysate Body Fluid Culture - Final 06/07/24 14:23 Blood Culture - Final Blood Assessment and Plan Assessment: 33 year old with right ovarian mass and acute pelvic pain, POD#1 s/p Diagnostic Laparoscopy, Exploratory Laparotomy with RSO Plan: Postoperative. Continue to encourage ambulation, incentive spirometer use, SCDs and heparin for VTE ppx. Per patient Dr. Francois is adding additional analgesics. Consider Simethicone for gas pain. Continue inpatient management. Time with Patient: Less than 30
[2024-06-13] MEDS ORDERED: LORazepam 2 MG/ML INJ IV PRN (13:52)
[2024-06-13] MEDS: ACETAMINOPHEN TAB 500 MG TAB PO SCH (14:14)
[2024-06-13] MEDS: SIMETHICONE 80 MG CHEWABLE PO SCH (14:19)
--- NOTE | 2024-06-13 15:04 | P.PN ---
Subjective Progress Note Date: 06/13/24 Principal diagnosis: Reason for follow-up is leukocytosis/peritonitis Patient is a 33-year-old female with a past medical history significant for hypertension seizure disorder, ovarian cyst, in this patient who did have end-stage renal disease previously on hemodialysis however has been on peritoneal dialysis for the last few months presented to hospital with abdominal pain in this patient who did have CT and ultrasound suspicious for right ovarian cyst. Patient did have elevated white count prompting this consultation. Patient is status post diagnostic laparoscopy exploratory laparotomy right salpingo-oophorectomy with evidence of right tubo-ovarian abscess completed on 06/12/2024 On today's evaluation that is 06/13/2024, the patient continues to be afebrile, the patient is on room air and breathing comfortably, the Pt denies having any chest pain or cough, the patient complaining of significant abdominal pain for surgery has some nausea but no vomiting asking for more pain medication. Patient white count is slightly down to 18.63, creatinine is 12 peritoneal fluid culture has been negative unfortunately no OR cultures were done Objective - Vital Signs Vital signs: Vital Signs Temp 98.0 F 06/13/24 08:00 Pulse 100 06/13/24 08:00 Resp 16 06/13/24 08:00 BP 155/97 06/13/24 08:00 Pulse Ox 97 06/13/24 08:00 FiO2 Intake & Output 06/12/24 06/13/24 06/13/24 18:59 06:59 18:59 Intake Total 1040 590 Output Total 210 Balance 830 590 Weight 56.699 kg Intake: IV 700 Intake, IV Titration 100 Amount Piperacillin-Tazobactam 3 100 .375 gm In Sodium Chloride 0.9% 100 ml @ 25 mls/hr IVPB Q12H [facility] Rx# :[id number] Oral 240 590 Output: Urine 10 Estimated Blood Loss 200 Other: Voiding Method Toilet Toilet Toilet CAPD CAPD CAPD - Exam GENERAL DESCRIPTION: Middle-age female lying in bed in no distress RESPIRATORY SYSTEM: Unlabored breathing , decreased breath sounds at bases HEART: S1 S2 regular rate and rhythm , ABDOMEN: Soft , no tenderness EXTREMITIES: No edema feet - Labs CBC & Chem 7: 06/13/24 03:07 06/13/24 03:03 Labs: Abnormal Lab Results - Last 24 Hours (Table) 06/13/24 06/13/24 Range/Units 03:03 03:07 WBC 18.63 H (4.50-10.00) X 10*3/uL RBC 2.77 L (4.10-5.20) X 10*6/uL Hgb 8.2 L (12.0-15.0) g/dL Hct 24.5 L (37.2-46.3) % MPV 9.2 L (9.5-12.2) FL Immature Gran # 0.15 H (0.00-0.04) X 10*3/uL Neutrophils # 15.45 H (1.80-7.70) X 10*3/uL Monocytes # 1.85 H (0.20-1.00) X 10*3/uL Eosinophils # 0 L (0.04-0.35) X 10*3/uL Sodium 131 L (135-145) mmol/L Chloride 90 L (96-109) mmol/L Anion Gap 16.00 H (4.00-12.00) mmol/L BUN 48.0 H (9.0-27.0) mg/dL Creatinine 12.0 A* (0.6-1.5) mg/dL Est GFR (CKD-EPI) 4 L (>=60) BUN/Creatinine Ratio 4.00 L (12.00-20.00) Ratio Calcium 7.9 L (8.7-10.3) mg/dL Microbiology - Last 24 Hours (Table) 06/09/24 06:30 Gram Stain - Final Dialysate Body Fluid Culture - Final 06/07/24 14:23 Blood Culture - Final Blood Assessment and Plan (1) Leukocytosis Current Visit: Yes Status: Acute Code(s): D72.829 - ELEVATED WHITE BLOOD CELL COUNT, UNSPECIFIED SNOMED Code(s): 876721348 (2) Peritonitis associated with peritoneal dialysis Current Visit: Yes Status: Acute Code(s): T85.71XA - INFECT/INFLM REACTION DUE TO PERITON DIALYSIS CATHETER, INIT SNOMED Code(s): 646700312 Plan: 1patient with a leukocytosis in this patient presented to hospital with abdominal pain did have history of right ovarian cyst with recent CAT scan and all the ultrasound has been suggestive of large right ovarian cyst patient is status post laparoscopy with evidence of tubo-ovarian abscess status post right salpingo-oophorectomy unfortunately no culture has been done we will continue the patient on Zosyn watch her white count closely pain management for admitting team Dictation was produced using [employer] dictation software. please excuse any grammatical, word or spelling errors. Time with Patient: Less than 30
--- NOTE | 2024-06-13 15:40 | PN ---
PROGRESS NOTE DATE OF SERVICE: 06/13/2024 SUBJECTIVE: This is a 33-year-old woman admitted with abdominal pain, had diagnostic laparoscopy, exploratory laparotomy and right salpingo-oophorectomy for right tubo-ovarian abscess. The patient is complaining of severe pain. PAST MEDICAL HISTORY: Reviewed. REVIEW OF SYSTEMS: Fourteen-point review is negative except as mentioned earlier. CURRENT MEDICATIONS: Reviewed include Pepcid, doses and the rest of medications reviewed. PHYSICAL EXAMINATION: VITAL SIGNS: Pulse is 100, blood pressure 150/97, respirations 16. HEENT: Conjunctivae normal. NECK: No JVD. CARDIOVASCULAR: S1, S2. RESPIRATIONS: Breath sounds diminished at the bases. A few scattered rhonchi. ABDOMEN: Soft, status post surgery. LEGS: No edema. NERVOUS SYSTEM: Nonfocal. LABORATORY DATA: WBC 18.6, hemoglobin 8.2. Rest of the labs are noted. ASSESSMENT: 1. Abdominal pain with possible acute peritonitis, on peritoneal dialysis. 2. Right tubo-ovarian abscess, status post exploratory laparotomy and right salpingo- oophorectomy. 3. Elevated WBC. 4. Severe pain, acute on chronic. 5. Symptomatic anemia, status post transfusion. 6. End-stage renal disease, on peritoneal dialysis, on hemodialysis temporarily. 7. Hyperlipidemia. 8. Multiple complex medical issues. RECOMMENDATIONS AND DISCUSSION: I recommend to continue current management and continue symptomatic treatment. Recommend pain medications. Increase the pain medication, IV pain medications. See orders for further details. Otherwise, I would also recommend follow the cultures and continue antibiotic treatment. We will closely follow with Infectious Disease. Hemodialysis has been substituted for now in the interim. Overall prognosis is extremely guarded because of multiple complex medical issues. Further recommendations to follow. MMODL / IJN: [id number] /
--- NOTE | 2024-06-13 20:14 | P.PN ---
Subjective Patient is seen for follow-up for end-stage renal disease. Status post laparoscopy and right salpingo-oophorectomy on 06/12/2024 Complaining of abdominal pain. Patient has right forearm arm AV fistula which will be used for hemodialysis today. Objective - Vital Signs Vital signs: Vital Signs Temp 98 F 06/13/24 19:49 Pulse 94 06/13/24 19:49 Resp 18 06/13/24 19:49 BP 120/66 06/13/24 19:49 Pulse Ox 95 06/13/24 14:39 FiO2 Intake & Output 06/13/24 06/13/24 06/14/24 06:59 18:59 06:59 Intake Total 590 390 500 Output Total 4500 Balance 590 390 -4000 Weight 56.699 kg Intake: Oral 590 390 Hemodialysis 500 Output: Hemodialysis 2500 Hemodialysis Net Amount 2000 Other: Voiding Method Toilet Toilet CAPD CAPD - Exam Patient is awake, comfortable, no acute distress. 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 - Labs CBC & Chem 7: 06/13/24 03:07 06/13/24 03:03 Labs: Abnormal Lab Results - Last 24 Hours (Table) 06/13/24 06/13/24 Range/Units 03:03 03:07 WBC 18.63 H (4.50-10.00) X 10*3/uL RBC 2.77 L (4.10-5.20) X 10*6/uL Hgb 8.2 L (12.0-15.0) g/dL Hct 24.5 L (37.2-46.3) % MPV 9.2 L (9.5-12.2) FL Immature Gran # 0.15 H (0.00-0.04) X 10*3/uL Neutrophils # 15.45 H (1.80-7.70) X 10*3/uL Monocytes # 1.85 H (0.20-1.00) X 10*3/uL Eosinophils # 0 L (0.04-0.35) X 10*3/uL Sodium 131 L (135-145) mmol/L Chloride 90 L (96-109) mmol/L Anion Gap 16.00 H (4.00-12.00) mmol/L BUN 48.0 H (9.0-27.0) mg/dL Creatinine 12.0 A* (0.6-1.5) mg/dL Est GFR (CKD-EPI) 4 L (>=60) BUN/Creatinine Ratio 4.00 L (12.00-20.00) Ratio Calcium 7.9 L (8.7-10.3) mg/dL Microbiology - Last 24 Hours (Table) 06/09/24 06:30 Gram Stain - Final Dialysate Body Fluid Culture - Final 06/07/24 14:23 Blood Culture - Final Blood Assessment and Plan Assessment: 1. End-stage renal disease maintained on peritoneal dialysis. Patient will need to switch to temporary hemodialysis if she undergoes abdominal surgery. 2. Acute blood loss anemia with hemoglobin 6.3 on admission, status post packed RBCs transfusion. Hemoglobin 8.2 today 3. Right ovarian cyst. Questionable torsion. FIRE SUPPRESSION CAPTAIN on consult. Status post laparoscopy and right salpingo-oophorectomy on 06/12/2024 4. Hyperkalemia secondary to chronic kidney disease and questionable GI bleed. 5. Hyponatremia secondary to chronic kidney disease. Appears euvolemic. 6. Chronic kidney disease mineral bone disease maintained on PhosLo, calcitriol and Sensipar. 7. Elevated dialysate white cell count at 369 with 73% lymphocytes suggestive of peritonitis. All cultures are negative. Started on antibiotics 8. Hypertension with chronic kidney disease. 9. Volume overload Plan: Hemodialysis today and in a.m. via right arm AV fistula. Pain control
[2024-06-14 09:19] LABS: Basophils # (A) 0.06 X 10*3/uL (0.00-0.10); Basophils % (A) 0.5 %; Eosinophils # (A) 0.03 X 10*3/uL (0.04-0.35); Eosinophils % (A) 0.2 %; Lymphocytes # (A) 1.53 X 10*3/uL (0.90-5.00); Lymphocytes % (A) 11.9 %; MCH 29.9 pg (27.0-32.0); MCHC 33.3 g/dL (32.0-37.0); MCV 89.7 FL (80.0-97.0); Monocytes # (A) 1.66 X 10*3/uL (0.20-1.00); Monocytes % (A) 12.9 %; NRBC Per 100 WBC 0 X 10*3/uL (0.00-0.01); Neutrophils # (A) 9.43 X 10*3/uL (1.80-7.70); Neutrophils % (A) 73.2 %; Platelet Count 372 X 10*3/uL (140-440); RBC 2.34 X 10*6/uL (4.10-5.20); RDW 14.7 % (11.5-14.5); WBC 12.88 X 10*3/uL (4.50-10.00)
[2024-06-14 12:35] LABS: Blood Urea Nitrogen 23.8 mg/dL (9.0-27.0); Glucose 84 mg/dL (70-110)
[2024-06-14 12:36] LABS: ALT 7 U/L (8-44); AST 13 U/L (13-35); Albumin 1.9 g/dL (3.8-4.9); Albumin/Globulin Ratio 0.79 Ratio (1.60-3.17); Alkaline Phosphatase 81 U/L (41-126); Calcium 7.9 mg/dL (8.7-10.3); Carbon Dioxide 27.6 mmol/L (21.6-31.8); Chloride 93 mmol/L (96-109); Globulin 2.4 g/dL (1.6-3.3); Potassium 3.5 mmol/L (3.5-5.5); Sodium 130 mmol/L (135-145); Total Bilirubin <0.2 mg/dL (0.3-1.2); Total Protein 4.3 g/dL (6.2-8.2)
--- NOTE | 2024-06-14 12:55 | P.PN ---
Subjective Progress Note Date: 06/14/24 Principal diagnosis: Status post laparotomy with salpingo-oophorectomy for TOA Patient reports feeling better today but still having fairly significant pain as she describes it, primarily at the lateral portions of the incision. She reports that she has been up at bedside though perhaps not ambulating in hallways. Objective - Vital Signs Vital signs: Vital Signs Temp 98.1 F 06/14/24 07:20 Pulse 93 06/14/24 07:20 Resp 16 06/14/24 07:20 BP 128/71 06/14/24 07:20 Pulse Ox 95 06/14/24 07:20 FiO2 Intake & Output 06/13/24 06/14/24 06/14/24 18:59 06:59 18:59 Intake Total 390 740 Output Total 4500 Balance 390 -3760 Weight 56.699 kg Intake: Oral 390 240 Hemodialysis 500 Output: Hemodialysis 2500 Hemodialysis Net Amount 2000 Other: Voiding Method Toilet Toilet Toilet CAPD # Voids 1 - Exam Focal examination demonstrates her abdomen to be nondistended, soft, appropriately tender with no apparent masses. The peritoneal dialysis catheter is apparent. The dressing was removed from the wound and the wound appears to be clean dry and intact though there is evidence of some bleeding through the incision in the past as the dressing has dried brownish liquid. I have left the wound open to air. Her extremities are without any cyanosis or clubbing though she does have mild bilateral lower extremity edema to around the ankles. They are nontender to palpation bilaterally. - Labs CBC & Chem 7: 06/14/24 03:12 06/14/24 03:12 Labs: Abnormal Lab Results - Last 24 Hours (Table) 06/14/24 06/14/24 Range/Units 03:12 03:12 WBC 12.88 H (4.50-10.00) X 10*3/uL RBC 2.34 L (4.10-5.20) X 10*6/uL Hgb 7.0 L (12.0-15.0) g/dL Hct 21.0 L (37.2-46.3) % RDW 14.7 H (11.5-14.5) % MPV 9.0 L (9.5-12.2) FL Immature Gran # 0.17 H (0.00-0.04) X 10*3/uL Neutrophils # 9.43 H (1.80-7.70) X 10*3/uL Monocytes # 1.66 H (0.20-1.00) X 10*3/uL Eosinophils # 0.03 L (0.04-0.35) X 10*3/uL Sodium 130 L (135-145) mmol/L Chloride 93 L (96-109) mmol/L Creatinine 6.8 H (0.6-1.5) mg/dL Est GFR (CKD-EPI) 8 L (>=60) BUN/Creatinine Ratio 3.50 L (12.00-20.00) Ratio Calcium 7.9 L (8.7-10.3) mg/dL Total Bilirubin <0.2 L (0.3-1.2) mg/dL ALT 7 L (8-44) U/L Total Protein 4.3 L (6.2-8.2) g/dL Albumin 1.9 L (3.8-4.9) g/dL Albumin/Globulin Ratio 0.79 L (1.60-3.17) Ratio Assessment and Plan (1) Right tubo-ovarian abscess Current Visit: Yes Status: Acute Code(s): N70.93 - SALPINGITIS AND OOPHO RITIS, UNSPECIFIED SNOMED Code(s): 02619843 (2) S/P laparotomy with lysis of adhesions Current Visit: Yes Status: Acute Code(s): Z98.890 - OTHER SPECIFIED POSTPROCEDURAL STATES SNOMED Code(s): 358247751 Plan: Medical management and timing of discharge will be left in the hands the medical team. From a surgical perspective, the patient appears to be quite stable and improving steadily though she does apparently request/require significant amount of narcotic pain control which could be problematic during further treatment. She additionally did drop her hemoglobin to some extent today but this may be related to ongoing medical conditions as opposed to surgical concerns as her abdomen is otherwise benign. I will continue to follow at a distance and be available for any specific questions regarding postsurgical issues or gynecologic concerns.
--- NOTE | 2024-06-14 13:49 | PN ---
PROGRESS NOTE DATE OF SERVICE: 06/14/2024 SUBJECTIVE: This is a 33-year-old woman, who was admitted with severe abdominal pain, had initial features of peritonitis. The patient had exploratory laparotomy and right salpingo- oophorectomy for right tubo-ovarian abscess. The patient is complaining of severe pain currently even with slightest movement. White count is still elevated to 12.88. Cultures are pending. PAST MEDICAL HISTORY: Reviewed. REVIEW OF SYSTEMS: A 14-point review is negative except as mentioned earlier. HOME MEDICATIONS: Reviewed include IV Zosyn. PHYSICAL EXAMINATION: VITAL SIGNS: Pulse is 88, blood pressure 110/60, respirations 16. CHEST: Clear to auscultation. CARDIOVASCULAR: S1, S2 are normal. ABDOMEN: Soft, diffuse tenderness. No guarding, rigidity. LABORATORY DATA: Hemoglobin 7, rest of the labs are noted. Sodium 130. ASSESSMENT: 1. Abdominal pain with possible acute peritonitis, on peritoneal dialysis present on admission. 2. Right tubo-ovarian abscess, status post exploratory laparotomy and right salpingo- oophorectomy. 3. Severe intractable abdominal pain. 4. Elevated WBC. 5. Anemia, multifactorial, symptomatic, status post transfusion. 6. End-stage renal disease, on peritoneal dialysis, currently on hemodialysis. 7. Hyperlipidemia. 8. Multiple complex medical issues. RECOMMENDATIONS: Recommend to continue current management and continue symptomatic treatment. Otherwise, recommend empiric antibiotics. Await cultures. Continue the hemodialysis for now as per Nephrology. We will monitor hemoglobin closely. Otherwise, pain management. FAITH DOCTOR, Infectious Disease, Nephrology input appreciated. Guarded prognosis. Further recommendations to follow. MMODL / IJN: [id number] /
--- NOTE | 2024-06-14 14:34 | P.PN ---
Subjective Progress Note Date: 06/14/24 Patient is seen for follow-up for end-stage renal disease. Status post laparoscopy and right salpingo-oophorectomy on 06/12/2024. Seen while on HD today, feeling well and no new complaints. Patient is awake, comfortable, no acute distress. 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 Objective - Vital Signs Vital signs: Vital Signs Temp 98.1 F 06/14/24 07:20 Pulse 93 06/14/24 07:20 Resp 16 06/14/24 07:20 BP 128/71 06/14/24 07:20 Pulse Ox 95 06/14/24 07:20 FiO2 Intake & Output 06/13/24 06/14/24 06/14/24 18:59 06:59 18:59 Intake Total 390 740 Output Total 4500 Balance 390 -3760 Weight 56.699 kg Intake: Oral 390 240 Hemodialysis 500 Output: Hemodialysis 2500 Hemodialysis Net Amount 2000 Other: Voiding Method Toilet Toilet Toilet CAPD # Voids 1 - Labs CBC & Chem 7: 06/14/24 03:12 06/14/24 03:12 Labs: Abnormal Lab Results - Last 24 Hours (Table) 06/14/24 Range/Units 03:12 WBC 12.88 H (4.50-10.00) X 10*3/uL RBC 2.34 L (4.10-5.20) X 10*6/uL Hgb 7.0 L (12.0-15.0) g/dL Hct 21.0 L (37.2-46.3) % RDW 14.7 H (11.5-14.5) % MPV 9.0 L (9.5-12.2) FL Immature Gran # 0.17 H (0.00-0.04) X 10*3/uL Neutrophils # 9.43 H (1.80-7.70) X 10*3/uL Monocytes # 1.66 H (0.20-1.00) X 10*3/uL Eosinophils # 0.03 L (0.04-0.35) X 10*3/uL Microbiology - Last 24 Hours (Table) 06/09/24 06:30 Gram Stain - Final Dialysate Body Fluid Culture - Final Assessment and Plan Assessment: 1. End-stage renal disease maintained on peritoneal dialysis. Patient will need to switch to temporary hemodialysis if she undergoes abdominal surgery. 2. Acute blood loss anemia with hemoglobin 6.3 on admission, status post packed RBCs transfusion. Hemoglobin 8.2 today 3. Right ovarian cyst. Questionable torsion. PENCIL INSPECTOR on consult. Status post laparoscopy and right salpingo-oophorectomy on 06/12/2024 4. Hyperkalemia secondary to chronic kidney disease and questionable GI bleed. 5. Hyponatremia secondary to chronic kidney disease. Appears euvolemic. 6. Chronic kidney disease mineral bone disease maintained on PhosLo, calcitriol and Sensipar. 7. Elevated dialysate white cell count at 369 with 73% lymphocytes suggestive of peritonitis. All cultures are negative. Started on antibiotics 8. Hypertension with chronic kidney disease. 9. Volume overload Plan: Hemodialysis yesterday and again today via right arm AV fistula. Will continue on TTS schedule Pain control Will need outpatient HD chair time
--- NOTE | 2024-06-14 16:02 | P.PN ---
Subjective Progress Note Date: 06/14/24 Principal diagnosis: Reason for follow-up is leukocytosis/peritonitis Patient is a 33-year-old female with a past medical history significant for hypertension seizure disorder, ovarian cyst, in this patient who did have end-stage renal disease previously on hemodialysis however has been on peritoneal dialysis for the last few months presented to hospital with abdominal pain in this patient who did have CT and ultrasound suspicious for right ovarian cyst. Patient did have elevated white count prompting this consultation. Patient is status post diagnostic laparoscopy exploratory laparotomy right salpingo-oophorectomy with evidence of right tubo-ovarian abscess completed on 06/12/2024 On today's evaluation that is 06/14/2024, Patient is afebrile patient is curre ntly on room air and denies having any shortness of breath, the patient denies any chest pain or cough, the patient denies any nausea vomiting abdominal pain has slightly decreased in intensity. Patient white count is down to 12.88, creatinine 6.8 diet/fluid culture has been negative Objective - Vital Signs Vital signs: Vital Signs Temp 98.1 F 06/14/24 07:20 Pulse 93 06/14/24 07:20 Resp 16 06/14/24 07:20 BP 128/71 06/14/24 07:20 Pulse Ox 95 06/14/24 07:20 FiO2 Intake & Output 06/13/24 06/14/24 06/14/24 18:59 06:59 18:59 Intake Total 390 740 Output Total 4500 Balance 390 -3760 Weight 56.699 kg Intake: Oral 390 240 Hemodialysis 500 Output: Hemodialysis 2500 Hemodialysis Net Amount 2000 Other: Voiding Method Toilet Toilet Toilet CAPD # Voids 1 - Exam GENERAL DESCRIPTION: Middle-age female lying in bed in no distress RESPIRATORY SYSTEM: Unlabored breathing , decreased breath sounds at bases HEART: S1 S2 regular rate and rhythm , ABDOMEN: Soft , no tenderness EXTREMITIES: No edema feet - Labs CBC & Chem 7: 06/14/24 03:12 06/14/24 03:12 Labs: Abnormal Lab Results - Last 24 Hours (Table) 06/14/24 06/14/24 Range/Units 03:12 03:12 WBC 12.88 H (4.50-10.00) X 10*3/uL RBC 2.34 L (4.10-5.20) X 10*6/uL Hgb 7.0 L (12.0-15.0) g/dL Hct 21.0 L (37.2-46.3) % RDW 14.7 H (11.5-14.5) % MPV 9.0 L (9.5-12.2) FL Immature Gran # 0.17 H (0.00-0.04) X 10*3/uL Neutrophils # 9.43 H (1.80-7.70) X 10*3/uL Monocytes # 1.66 H (0.20-1.00) X 10*3/uL Eosinophils # 0.03 L (0.04-0.35) X 10*3/uL Sodium 130 L (135-145) mmol/L Chloride 93 L (96-109) mmol/L Creatinine 6.8 H (0.6-1.5) mg/dL Est GFR (CKD-EPI) 8 L (>=60) BUN/Creatinine Ratio 3.50 L (12.00-20.00) Ratio Calcium 7.9 L (8.7-10.3) mg/dL Total Bilirubin <0.2 L (0.3-1.2) mg/dL ALT 7 L (8-44) U/L Total Protein 4.3 L (6.2-8.2) g/dL Albumin 1.9 L (3.8-4.9) g/dL Albumin/Globulin Ratio 0.79 L (1.60-3.17) Ratio Assessment and Plan (1) Leukocytosis Current Visit: Yes Status: Acute Code(s): D72.829 - ELEVATED WHITE BLOOD CELL COUNT, UNSPECIFIED SNOMED Code(s): 582625276 (2) Peritonitis associated with peritoneal dialysis Current Visit: Yes Status: Acute Code(s): T85.71XA - INFECT/INFLM REACTION DUE TO PERITON DIALYSIS CATHETER, INIT SNOMED Code(s): 740994063 Plan: 1patient with a leukocytosis in this patient presented to hospital with abdomin al pain did have history of right ovarian cyst with recent CAT scan and all the ultrasound has been suggestive of large right ovarian cyst patient is status post laparoscopy with evidence of tubo-ovarian abscess status post right salpingo-oophorectomy unfortunately no culture has been done 2the patient is afebrile patient white count is trending down, we will continue the patient on Zosyn and monitor clinical course closely Dictation was produced using [employer] dictation software. please excuse any grammatical, word or spelling errors. Time with Patient: Less than 30
[2024-06-14] MEDS: THIAMINE 100 MG TAB PO SCH (18:00)
[2024-06-14 19:54] LABS: % Iron Saturation 34.51 (12.00-45.00)
--- NOTE | 2024-06-15 12:08 | P.PN ---
Subjective Principal diagnosis: Status post laparotomy with salpingo-oophorectomy for TOA Patient reports having normal bowel function today and that pain is improving day by day though she is still sore. She otherwise is tolerating a normal diet. She is also ambulating in the hallways. Objective - Vital Signs Vital signs: Vital Signs Temp 98.6 F 06/15/24 07:30 Pulse 108 H 06/15/24 07:30 Resp 16 06/15/24 07:30 BP 143/79 06/15/24 07:30 Pulse Ox 96 06/15/24 07:30 FiO2 Intake & Output 06/14/24 06/15/24 06/15/24 18:59 06:59 18:59 Intake Total 960 640 Output Total 3400 Balance 960 -2760 Intake: Oral 960 240 Hemodialysis 400 Output: Hemodialysis 1900 Hemodialysis Net Amount 1500 Other: Voiding Method Toilet Toilet - Exam Focal examination demonstrates her abdomen to be nondistended, soft, appropriately tender with no apparent masses. The peritoneal dialysis catheter is apparent. The wound appears to be clean dry and intact. I have left the wound open to air. Her extremities are without any cyanosis or clubbing though she does have mild bilateral lower extremity edema to around the ankles. They are nontender to palpation bilaterally. - Labs CBC & Chem 7: 06/14/24 03:12 06/14/24 03:12 Labs: Abnormal Lab Results - Last 24 Hours (Table) 06/14/24 06/14/24 Range/Units 03:12 03:12 Sodium 130 L (135-145) mmol/L Chloride 93 L (96-109) mmol/L Creatinine 6.8 H (0.6-1.5) mg/dL Est GFR (CKD-EPI) 8 L (>=60) BUN/Creatinine Ratio 3.50 L (12.00-20.00) Ratio Calcium 7.9 L (8.7-10.3) mg/dL Iron 39 L (50-170) UG/DL TIBC 113 L (228-460) UG/DL Transferrin 80.8 L (204.0-354.0) mg/dL Ferritin 2508.0 H (10.0-291.0) ng/mL Total Bilirubin <0.2 L (0.3-1.2) mg/dL ALT 7 L (8-44) U/L Total Protein 4.3 L (6.2-8.2) g/dL Albumin 1.9 L (3.8-4.9) g/dL Albumin/Globulin Ratio 0.79 L (1.60-3.17) Ratio Microbiology - Last 24 Hours (Table) 06/13/24 12:30 Blood Culture - Preliminary Blood Assessment and Plan (1) Right tubo-ovarian abscess Current Visit: Yes Status: Acute Code(s): N70.93 - SALPINGITIS AND OOPHORITIS, UNSPECIFIED SNOMED Code(s): 80632020 (2) S/P laparotomy with lysis of adhesions Current Visit: Yes Status: Acute Code(s): Z98.890 - OTHER SPECIFIED POSTPROCEDURAL STATES SNOMED Code(s): 025735244 Plan: Continue routine postoperative care and medical management per the medical team. Length of stay is left to their determination. I will order an abdominal binder for patient comfort when up and moving about. Stable for discharge from a postoperative perspective.
--- NOTE | 2024-06-15 12:30 | P.PN ---
Subjective Progress Note Date: 06/15/24 Patient is seen for follow-up for end-stage renal disease. Status post laparoscopy and right salpingo-oophorectomy on 06/12/2024. Feeling well and no new complaints. Patient is awake, comfortable, no acute distress. 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 Objective - Vital Signs Vital signs: Vital Signs Temp 98.6 F 06/15/24 07:30 Pulse 108 H 06/15/24 07:30 Resp 16 06/15/24 07:30 BP 143/79 06/15/24 07:30 Pulse Ox 96 06/15/24 07:30 FiO2 Intake & Output 06/14/24 06/15/24 06/15/24 18:59 06:59 18:59 Intake Total 960 640 Output Total 3400 Balance 960 -2760 Intake: Oral 960 240 Hemodialysis 400 Output: Hemodialysis 1900 Hemodialysis Net Amount 1500 Other: Voiding Method Toilet Toilet - Labs CBC & Chem 7: 06/14/24 03:12 06/14/24 03:12 Labs: Abnormal Lab Results - Last 24 Hours (Table) 06/14/24 06/14/24 Range/Units 03:12 03:12 Sodium 130 L (135-145) mmol/L Chloride 93 L (96-109) mmol/L Creatinine 6.8 H (0.6-1.5) mg/dL Est GFR (CKD-EPI) 8 L (>=60) BUN/Creatinine Ratio 3.50 L (12.00-20.00) Ratio Calcium 7.9 L (8.7-10.3) mg/dL Iron 39 L (50-170) UG/DL TIBC 113 L (228-460) UG/DL Transferrin 80.8 L (204.0-354.0) mg/dL Ferritin 2508.0 H (10.0-291.0) ng/mL Total Bilirubin <0.2 L (0.3-1.2) mg/dL ALT 7 L (8-44) U/L Total Protein 4.3 L (6.2-8.2) g/dL Albumin 1.9 L (3.8-4.9) g/dL Albumin/Globulin Ratio 0.79 L (1.60-3.17) Ratio Microbiology - Last 24 Hours (Table) 06/13/24 12:30 Blood Culture - Preliminary Blood Assessment and Plan Assessment: 1. End-stage renal disease maintained on peritoneal dialysis. Patient will n eed to switch to temporary hemodialysis if she undergoes abdominal surgery. 2. Acute blood loss anemia with hemoglobin 6.3 on admission, status post packed RBCs transfusion. Hemoglobin 8.2 today 3. Right ovarian cyst. Questionable torsion. 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 Status post laparoscopy and right salpingo-oophorectomy on 06/12/2024 4. Hyperkalemia secondary to chronic kidney disease and questionable GI bleed. 5. Hyponatremia secondary to chronic kidney disease. Appears euvolemic. 6. Chronic kidney disease mineral bone disease maintained on PhosLo, calcitriol and Sensipar. 7. Elevated dialysate white cell count at 369 with 73% lymphocytes suggestive of peritonitis. All cultures are negative. Started on antibiotics 8. Hypertension with chronic kidney disease. 9. Volume overload Plan: Will continue HD on TTS schedule Pain control Will need outpatient HD chair time
[2024-06-15] MEDS: FOLIC ACID 1 MG TAB PO SCH (12:42)
[2024-06-15] MEDS: MULTIVITAMINS, THERA 1 EACH TAB PO SCH (12:42)
[2024-06-15 14:54] LABS: Basophils % (A) 0 %; Eosinophils # (A) 0.3 k/uL (0-0.7); Eosinophils % (A) 2 %; HCT 23.9 % (34.0-46.0); HGB 7.6 gm/dL (11.4-16.0); Hypochromasia Slight; Lymphocytes # (A) 0.8 k/uL (1.0-4.8); Lymphocytes % (A) 7 %; MCH 29.5 pg (25.0-35.0); MCHC 31.8 g/dL (31.0-37.0); MCV 92.6 fL (80.0-100.0); Mean Platelet Volume 6.7; Monocytes # (A) 0.8 k/uL (0-1.0); Monocytes % (A) 7 %; Neutrophils # (A) 9.7 k/uL (1.3-7.7); Neutrophils % (A) 83 %; Platelet Count 446 k/uL (150-450); RBC 2.58 m/uL (3.80-5.40); RDW 15.6 % (11.5-15.5); WBC 11.8 k/uL (3.8-10.6)
--- NOTE | 2024-06-15 21:58 | PN ---
PROGRESS NOTE DATE OF SERVICE: 06/15/2024 SUBJECTIVE: This 33-year-old woman was admitted with abdominal pain with possible acute peritonitis, also had a tubo-ovarian abscess, which was surgically removed. No chest pain. No palpitation. Complaining of severe pain. OBJECTIVE: VITAL SIGNS: Pulse 100, blood pressure 128/80, respirations 17. CHEST: Conjunctivae normal. CARDIOVASCULAR: S1, S2. ABDOMEN: Soft. Minimal diffuse tenderness. LABORATORY DATA: Reviewed. WBC 12.8, hemoglobin is 7. ASSESSMENT: 1. Abdominal pain with possible acute peritonitis with peritoneal dialysis present on admission, on hemodialysis currently. 2. Right tubo-ovarian abscess, status post exploratory laparotomy and right salpingo- oophorectomy. 3. Severe intractable abdominal pain. 4. Symptomatic anemia, multifactorial. 5. Elevated WBC. 6. End-stage renal disease, on peritoneal dialysis at home. 7. Hyperlipidemia. 8. Multiple complex medical issues. RECOMMENDATIONS: Recommend to continue current management and continue symptomatic treatment. I would also recommend 1 unit transfusion. The patient already had 2 units transfusion. We will continue to monitor. Guarded prognosis because of multiple complex medical issues. Further recommendations to follow. MMODL / IJN: [id number] /
[2024-06-16 08:42] LABS: Basophils # (A) 0.07 X 10*3/uL (0.00-0.10); Basophils % (A) 0.5 %; Eosinophils # (A) 0.53 X 10*3/uL (0.04-0.35); Eosinophils % (A) 3.5 %; HCT 22.2 % (37.2-46.3); HGB 7.1 g/dL (12.0-15.0); MCH 29.6 pg (27.0-32.0); MCV 92.5 FL (80.0-97.0); Mean Platelet Volume 8.7 FL (9.5-12.2); Monocytes # (A) 1.65 X 10*3/uL (0.20-1.00); NRBC Per 100 WBC 0 X 10*3/uL (0.00-0.01); Neutrophils # (A) 11.01 X 10*3/uL (1.80-7.70); Neutrophils % (A) 73.7 %; Platelet Count 401 X 10*3/uL (140-440); RDW 15.2 % (11.5-14.5); WBC 14.96 X 10*3/uL (4.50-10.00)
--- NOTE | 2024-06-16 08:47 | P.PN ---
Subjective Progress Note Date: 06/16/24 Principal diagnosis: POD#4 s/p diagnostic laparoscopy, exploratory laparotomy, RSO The patient is doing well today, pain control much better. Ambulating to and from bathroom. She is passing flatus. Tolerating PO, no nausea or vomiting. She denies fevers, chills, chest pain, shortness of breath, pain/swelling in the legs. Objective - Vital Signs Vital signs: Vital Signs Temp 98.1 F 06/16/24 02:00 Pulse 92 06/16/24 02:00 Resp 12 06/16/24 02:00 BP 131/80 06/16/24 02:00 Pulse Ox 98 06/16/24 02:00 FiO2 Intake & Output 06/15/24 06/16/24 06/16/24 18:59 06:59 18:59 Intake Total 821 240 Output Total 1 Balance 820 240 Intake: Oral 821 240 Output: Stool 1 Other: Voiding Method Toilet Toilet # Voids 0 # Bowel Movements 1 - Exam Focused physical exam is performed. Abdomen soft, non-tender, and non-distended. Incision clean, dry, intact. Extremities non-tender and non-edematous. - Labs CBC & Chem 7: 06/16/24 04:35 06/14/24 03:12 Labs: Abnormal Lab Results - Last 24 Hours (Table) 06/15/24 06/15/24 06/16/24 Range/Units 14:13 14:13 04:35 WBC 11.8 H 14.96 H (3.8-10.6) k/uL RBC 2.58 L 2.40 L (3.80-5.40) m/uL Hgb 7.6 L 7.1 L (11.4-16.0) gm/dL Hct 23.9 L 22.2 L (34.0-46.0) % RDW 15.6 H 15.2 H (11.5-15.5) % MPV 8.7 L (9.5-12.2) FL Immature Gran # 0.20 H (0.00-0.04) X 10*3/uL Neutrophils # 9.7 H 11.01 H (1.3-7.7) k/uL Lymphocytes # 0.8 L (1.0-4.8) k/uL Monocytes # 1.65 H (0.20-1.00) X 10*3/uL Eosinophils # 0.53 H (0.04-0.35) X 10*3/uL Crossmatch See Detail Microbiology - Last 24 Hours (Table) 06/13/24 12:30 Blood Culture - Preliminary Blood Assessment and Plan Assessment: 33 year old with right ovarian mass and acute pelvic pain, POD#4 s/p Diagnostic Laparoscopy, Exploratory Laparotomy with RSO Plan: Patient stable for discharge from a gynecologic standpoint. Follow up in 2 weeks.
--- NOTE | 2024-06-16 09:01 | P.PN ---
Subjective Patient is seen in follow-up for end-stage renal disease. Now maintained on hemodialysis on Sunday schedule. Hemodynamically stable. Having loose bowel movements. Otherwise no complaints. Vital signs are stable. General: No acute distress. HEENT: Head exam is unremarkable. LUNGS: No audible rhonchi or wheezes. HEART: Rate and Rhythm are regular. ABDOMEN: Generalized tenderness present. EXTREMITITES: No edema. Objective - Vital Signs Vital signs: Vital Signs Temp 98.1 F 06/16/24 02:00 Pulse 92 06/16/24 02:00 Resp 12 06/16/24 02:00 BP 131/80 06/16/24 02:00 Pulse Ox 98 06/16/24 02:00 FiO2 Intake & Output 06/15/24 06/16/24 06/16/24 18:59 06:59 18:59 Intake Total 821 240 Output Total 1 Balance 820 240 Intake: Oral 821 240 Output: Stool 1 Other: Voiding Method Toilet Toilet # Voids 0 # Bowel Movements 1 - Labs CBC & Chem 7: 06/16/24 04:35 06/14/24 03:12 Labs: Abnormal Lab Results - Last 24 Hours (Table) 06/15/24 06/15/24 06/16/24 Range/Units 14:13 14:13 04:35 WBC 11.8 H 14.96 H (3.8-10.6) k/uL RBC 2.58 L 2.40 L (3.80-5.40) m/uL Hgb 7.6 L 7.1 L (11.4-16.0) gm/dL Hct 23.9 L 22.2 L (34.0-46.0) % RDW 15.6 H 15.2 H (11.5-15.5) % MPV 8.7 L (9.5-12.2) FL Immature Gran # 0.20 H (0.00-0.04) X 10*3/uL Neutrophils # 9.7 H 11.01 H (1.3-7.7) k/uL Lymphocytes # 0.8 L (1.0-4.8) k/uL Monocytes # 1.65 H (0.20-1.00) X 10*3/uL Eosinophils # 0.53 H (0.04-0.35) X 10*3/uL Crossmatch See Detail Microbiology - Last 24 Hours (Table) 06/13/24 12:30 Blood Culture - Preliminary Blood Assessment and Plan Plan: Assessment: 1. End-stage renal disease maintained on peritoneal dialysis. Now on temporary hemodialysis maintained on Sunday schedule due to recent abdominal surgery. 2. Acute blood loss anemia status post blood transfusion, DDAVP this admission. On Aranes. 3. Right ovarian cyst. Questionable torsion. Status post laparoscopy and right salpingo-oophorectomy on June 12, 2024. 4. Hyperkalemia secondary to chronic kidney disease and questionable GI bleed. Resolved. 5. Hyponatremia secondary to chronic kidney disease. Appears euvolemic. Stable. 6. Chronic kidney disease mineral bone disease maintained on phosphate binders, calcitriol and Sensipar. 7. Elevated dialysate white cell count at 369 with 73% lymphocytes suggestive of peritonitis. 8. Hypertension with chronic kidney disease. Controlled. Plan: Hemodialysis tomorrow. Check phosphorus level. Maintain Lasix. software project manager to set up outpatient hemodialysis.
[2024-06-16 09:05] LABS: BUN/Creat Ratio 3.41 Ratio (12.00-20.00); Blood Urea Nitrogen 20.8 mg/dL (9.0-27.0); Carbon Dioxide 24.3 mmol/L (21.6-31.8); Chloride 97 mmol/L (96-109); Glucose 76 mg/dL (70-110); Potassium 3.6 mmol/L (3.5-5.5); Sodium 136 mmol/L (135-145)
[2024-06-16 10:37] LABS: Albumin 2.2 g/dL (3.5-5.0); Albumin/Globulin Ratio 0.8; Bilirubin,Unconjugated 0.2 mg/dL (0.0-1.1); Globulin 2.7 g/dL; Total Bilirubin 0.5 mg/dL (0.2-1.3); Total Protein 4.9 g/dL (6.3-8.2)
[2024-06-16 13:20] LABS: HIV-1 RNA Not detected (Not detected)
--- NOTE | 2024-06-16 20:21 | PN ---
PROGRESS NOTE DATE OF SERVICE: 06/16/2024 SUBJECTIVE: This is a 33-year-old woman who was admitted with peritonitis and tubo-ovarian abscess, is complaining of severe abdominal pain. No chest pain. No palpitations. No fever. The patient is on IV antibiotics. OBJECTIVE: VITAL SIGNS: Pulse is 85, blood pressure 130/70, respirations 16. CHEST: Clear to auscultation. CARDIOVASCULAR: S1, S2. ABDOMEN: Soft. Mild tenderness. LABORATORY DATA: WBC 14.9, hemoglobin 7.1. ASSESSMENT: 1. Abdominal pain with possible acute peritonitis with peritoneal dialysis present on admission, on hemodialysis currently. 2. Right tubo-ovarian abscess, status post exploratory laparotomy and right salpingo- oophorectomy. 3. Severe intractable abdominal pain. 4. Symptomatic anemia, multifactorial. 5. Elevated WBC. 6. Multiple complex medical issues. RECOMMENDATIONS AND DISCUSSION: This is a 33-year-old woman, who presented with multiple medical issues, we will monitor the patient. Continue with antibiotics. Nephrology has recommended hemodialysis. We will obtain antibiotic recommendations to try to titrate off pain medications. Repeat labs tomorrow. Further recommendations to follow. MMODL / IJN: [id number] /
[2024-06-17 09:04] LABS: Phosphorus 5.1 mg/dL (2.4-5.1)
[2024-06-17 09:05] LABS: Basophils # (A) 0.08 X 10*3/uL (0.00-0.10); Basophils % (A) 0.5 %; Eosinophils # (A) 0.55 X 10*3/uL (0.04-0.35); Eosinophils % (A) 3.5 %; HCT 21.5 % (37.2-46.3); HGB 7.1 g/dL (12.0-15.0); Lymphocytes # (A) 1.19 X 10*3/uL (0.90-5.00); Lymphocytes % (A) 7.6 %; MCH 30.5 pg (27.0-32.0); MCV 92.3 FL (80.0-97.0); Mean Platelet Volume 8.9 FL (9.5-12.2); Monocytes # (A) 1.62 X 10*3/uL (0.20-1.00); Monocytes % (A) 10.3 %; NRBC Per 100 WBC 0 X 10*3/uL (0.00-0.01); Neutrophils # (A) 12.03 X 10*3/uL (1.80-7.70); Neutrophils % (A) 76.7 %; Platelet Count 396 X 10*3/uL (140-440); RBC 2.33 X 10*6/uL (4.10-5.20); RDW 15.4 % (11.5-14.5); WBC 15.69 X 10*3/uL (4.50-10.00)
[2024-06-17 10:09] LABS: BUN/Creat Ratio 3.94 Ratio (12.00-20.00); Blood Urea Nitrogen 30.7 mg/dL (9.0-27.0); Calcium 8.1 mg/dL (8.7-10.3); Carbon Dioxide 23.2 mmol/L (21.6-31.8); Chloride 96 mmol/L (96-109); Glucose 76 mg/dL (70-110); Potassium 3.7 mmol/L (3.5-5.5); Sodium 135 mmol/L (135-145)
--- NOTE | 2024-06-17 11:26 | P.PN ---
Subjective Patient is seen in follow-up for end-stage renal disease. Now maintained on hemodialysis on Sunday schedule. Hemodynamically stable. Tolerating dialysis well. No active complaints. Vital signs are stable. General: No acute distress. HEENT: Head exam is unremarkable. LUNGS: No audible rhonchi or wheezes. HEART: Rate and Rhythm are regular. ABDOMEN: Generalized tenderness present. EXTREMITITES: No edema. Objective - Vital Signs Vital signs: Vital Signs Temp 97.9 F 06/17/24 10:20 Pulse 91 06/17/24 10:20 Resp 16 06/17/24 10:20 BP 141/81 06/17/24 10:20 Pulse Ox 99 06/17/24 10:20 FiO2 Intake & Output 06/16/24 06/17/24 06/17/24 18:59 06:59 18:59 Intake Total 780 340 0 Balance 780 340 0 Intake: Oral 780 340 Blood Product 0 Rc As-1 Unit 0 [id number] Other: Voiding Method Toilet Toilet Toilet - Labs CBC & Chem 7: 06/17/24 05:39 06/17/24 05:39 Labs: Abnormal Lab Results - Last 24 Hours (Table) 06/15/24 06/17/24 06/17/24 Range/Units 14:13 05:39 05:39 WBC 15.69 H (4.50-10.00) X 10*3/uL RBC 2.33 L (4.10-5.20) X 10*6/uL Hgb 7.1 L (12.0-15.0) g/dL Hct 21.5 L (37.2-46.3) % RDW 15.4 H (11.5-14.5) % MPV 8.9 L (9.5-12.2) FL Immature Gran # 0.22 H (0.00-0.04) X 10*3/uL Neutrophils # 12.03 H (1.80-7.70) X 10*3/uL Monocytes # 1.62 H (0.20-1.00) X 10*3/uL Eosinophils # 0.55 H (0.04-0.35) X 10*3/uL Anion Gap 15.80 H (4.00-12.00) mmol/L BUN 30.7 H (9.0-27.0) mg/dL Creatinine 7.8 A* (0.6-1.5) mg/dL Est GFR (CKD-EPI) 7 L (>=60) BUN/Creatinine Ratio 3.94 L (12.00-20.00) Ratio Calcium 8.1 L (8.7-10.3) mg/dL Crossmatch See Detail Microbiology - Last 24 Hours (Table) 06/13/24 12:30 Blood Culture - Preliminary Blood Assessment and Plan Plan: Assessment: 1. End-stage renal disease maintained on peritoneal dialysis. Now on temporary hemodialysis maintained on Sunday schedule due to recent abdominal surgery. 2. Acute blood loss anemia status post blood transfusion, DDAVP this admission. On . 3. Right ovarian cyst. Questionable torsion. Status post laparoscopy and right salpingo-oophorectomy on June 12, 2024. 4. Hyperkalemia secondary to chronic kidney disease and questionable GI bleed. Resolved. 5. Hyponatremia secondary to chronic kidney disease. Appears euvolemic. Stable. 6. Chronic kidney disease mineral bone disease maintained on phosphate binders, calcitriol and Sensipar. Phosphorus level 5.1. 7. Hypertension with chronic kidney disease. Controlled. Plan: Currently seen while undergoing hemodialysis. Next treatment . Maintain Lasix. manager creative services to set up outpatient hemodialysis.
[2024-06-17] MEDS: HYDROmorphone 1 MG/ML 1 ML SYRINGE IVP PRN (12:25)
[2024-06-17] MEDS: FAMOTIDINE 20 MG TAB PO SCH (12:27)
--- NOTE | 2024-06-17 13:43 | P.PN ---
Subjective Progress Note Date: 06/15/24 Principal diagnosis: Reason for follow-up is leukocytosis/peritonitis Patient is a 33-year-old female with a past medical history significant for hypertension seizure disorder, ovarian cyst, in this patient who did have end-stage renal disease previously on hemodialysis however has been on peritoneal dialysis for the last few months presented to hospital with abdominal pain in this patient who did have CT and ultrasound suspicious for right ovarian cyst. Patient did have elevated white count prompting this consultation. Patient is status post diagnostic laparoscopy exploratory laparotomy right salpingo-oophorectomy with evidence of right tubo-ovarian abscess completed on 06/12/2024 On today's evaluation that is 06/15/2024, patient has been afebrile, patient is breathing comfortably and is currently on room air, patient denies having any significant cough no chest pain shortness of breath, patient did have some nausea but no vomiting abdominal pain has slightly decreased intensity. Patient white white count is 11.8 Objective - Vital Signs Vital signs: Vital Signs Temp 98.7 F 06/15/24 12:46 Pulse 100 06/15/24 12:46 Resp 17 06/15/24 12:46 BP 128/80 06/15/24 12:46 Pulse Ox 98 06/15/24 12:46 FiO2 Intake & Output 06/14/24 06/15/24 06/15/24 18:59 06:59 18:59 Intake Total 960 640 Output Total 3400 Balance 960 -2760 Intake: Oral 960 240 Hemodialysis 400 Output: Hemodialysis 1900 Hemodialysis Net Amount 1500 Other: Voiding Method Toilet Toilet - Exam GENERAL DESCRIPTION: Middle-age female lying in bed in no distress RESPIRATORY SYSTEM: Unlabored breathing , decreased breath sounds at bases HEART: S1 S2 regular rate and rhythm , ABDOMEN: Soft , no tenderness EXTREMITIES: No edema feet - Labs CBC & Chem 7: 06/17/24 05:39 06/17/24 05:39 Labs: Abnormal Lab Results - Last 24 Hours (Table) 06/14/24 Range/Units 03:12 Iron 39 L (50-170) UG/DL TIBC 113 L (228-460) UG/DL Transferrin 80.8 L (204.0-354.0) mg/dL Ferritin 2508.0 H (10.0-291.0) ng/mL Microbiology - Last 24 Hours (Table) 06/13/24 12:30 Blood Culture - Preliminary Blood Assessment and Plan (1) Leukocytosis Current Visit: Yes Status: Acute Code(s): D72.829 - ELEVATED WHITE BLOOD CELL COUNT, UNSPECIFIED SNOMED Code(s): 477452933 (2) Peritonitis associated with peritoneal dialysis Current Visit: Yes Status: Acute Code(s): T85.71XA - INFECT/INFLM REACTION DUE TO PERITON DIALYSIS CATHETER, INIT SNOMED Code(s): 879002718 Plan: 1patient with a leukocytosis in this patient presented to hospital with abdominal pain did have history of right ovarian cyst with recent CAT scan and all the ultrasound has been suggestive of large right ovarian cyst patient is status post laparoscopy with evidence of tubo-ovarian abscess status post right salpingo-oophorectomy unfortunately no culture has been done 2the patient is afebrile patient white count is down to 11.8, we will continue the patient on Zosyn and hopefully transition to oral antibiotic on discharge Dictation was produced using [email or web address] dictation software. please excuse any grammatical, word or spelling errors. Time with Patient: Less than 30
--- NOTE | 2024-06-17 13:44 | P.PN ---
Subjective Progress Note Date: 06/16/24 Principal diagnosis: Reason for follow-up is leukocytosis/peritonitis Patient is a 33-year-old female with a past medical history significant for hypertension seizure disorder, ovarian cyst, in this patient who did have end-stage renal disease previously on hemodialysis however has been on peritoneal dialysis for the last few months presented to hospital with abdominal pain in this patient who did have CT and ultrasound suspicious for right ovarian cyst. Patient did have elevated white count prompting this consultation. Patient is status post diagnostic laparoscopy exploratory laparotomy right salpingo-oophorectomy with evidence of right tubo-ovarian abscess completed on 06/12/2024 On today's evaluation that is 06/16/2024, Patient is afebrile this morning pat ient denies having any chest pain shortness of breath or cough, the patient is breathing comfortably on room air, patient abdominal pain has decreased in intensity currently being managed with the pain medication no nausea no vomiting complaining of some diarrhea. The patient white count is slightly up to 14.96, creatinine 6.1 Objective - Vital Signs Vital signs: Vital Signs Temp 98.2 F 06/16/24 07:19 Pulse 85 06/16/24 07:19 Resp 16 06/16/24 07:19 BP 134/74 06/16/24 07:19 Pulse Ox 96 06/16/24 07:19 FiO2 Intake & Output 06/15/24 06/16/24 06/16/24 18:59 06:59 18:59 Intake Total 821 240 Output Total 1 Balance 820 240 Intake: Oral 821 240 Output: Stool 1 Other: Voiding Method Toilet Toilet # Voids 0 # Bowel Movements 1 - Exam GENERAL DESCRIPTION: Middle-age female lying in bed in no distress RESPIRATORY SYSTEM: Unlabored breathing , decreased breath sounds at bases HEART: S1 S2 regular rate and rhythm , ABDOMEN: Soft , no tenderness EXTREMITIES: No edema feet - Labs CBC & Chem 7: 06/17/24 05:39 06/17/24 05:39 Labs: Abnormal Lab Results - Last 24 Hours (Table) 06/15/24 06/15/24 06/16/24 Range/Units 14:13 14:13 04:35 WBC 11.8 H 14.96 H (3.8-10.6) k/uL RBC 2.58 L 2.40 L (3.80-5.40) m/uL Hgb 7.6 L 7.1 L (11.4-16.0) gm/dL Hct 23.9 L 22.2 L (34.0-46.0) % RDW 15.6 H 15.2 H (11.5-15.5) % MPV 8.7 L (9.5-12.2) FL Immature Gran # 0.20 H (0.00-0.04) X 10*3/uL Neutrophils # 9.7 H 11.01 H (1.3-7.7) k/uL Lymphocytes # 0.8 L (1.0-4.8) k/uL Monocytes # 1.65 H (0.20-1.00) X 10*3/uL Eosinophils # 0.53 H (0.04-0.35) X 10*3/uL Anion Gap (4.00-12.00) mmol/L Creatinine (0.6-1.5) mg/dL Est GFR (CKD-EPI) (>=60) BUN/Creatinine Ratio (12.00-20.00) Ratio Calcium (8.7-10.3) mg/dL Total Protein (6.3-8.2) g/dL Albumin (3.5-5.0) g/dL Crossmatch See Detail 06/16/24 06/16/24 Range/Units 04:35 04:35 WBC (3.8-10.6) k/uL RBC (3.80-5.40) m/uL Hgb (11.4-16.0) gm/dL Hct (34.0-46.0) % RDW (11.5-15.5) % MPV (9.5-12.2) FL Immature Gran # (0.00-0.04) X 10*3/uL Neutrophils # (1.3-7.7) k/uL Lymphocytes # (1.0-4.8) k/uL Monocytes # (0.20-1.00) X 10*3/uL Eosinophils # (0.04-0.35) X 10*3/uL Anion Gap 14.70 H (4.00-12.00) mmol/L Creatinine 6.1 H (0.6-1.5) mg/dL Est GFR (CKD-EPI) 9 L (>=60) BUN/Creatinine Ratio 3.41 L (12.00-20.00) Ratio Calcium 8.0 L (8.7-10.3) mg/dL Total Protein 4.9 L (6.3-8.2) g/dL Albumin 2.2 L (3.5-5.0) g/dL Crossmatch Microbiology - Last 24 Hours (Table) 06/13/24 12:30 Blood Culture - Preliminary Blood Assessment and Plan (1) Leukocytosis Current Visit: Yes Status: Acute Code(s): D72.829 - ELEVATED WHITE BLOOD CELL COUNT, UNSPECIFIED SNOMED Code(s): 718290161 (2) Peritonitis associated with peritoneal dialysis Current Visit: Yes Status: Acute Code(s): T85.71XA - INFECT/INFLM REACTION DUE TO PERITON DIALYSIS CATHETER, INIT SNOMED Code(s): 898863228 Plan: 1patient with a leukocytosis in this patient presented to hospital with abdominal pain did have history of right ovarian cyst with recent CAT scan and all the ultrasound has been suggestive of large right ovarian cyst patient is status post laparoscopy with evidence of tubo-ovarian abscess status post right salpingo-oophorectomy unfortunately no culture has been done 2the patient is afebrile patient white count is slightly up today need to be monitored closely we will repeat a CBC with a.m. lab patient instructed to increase her probiotic yogurt intake to help with the diarrhea continue Zosyn Dictation was produced using [employer] dictation software. please excuse any grammatical, word or spelling errors. Time with Patient: Less than 30
--- NOTE | 2024-06-17 13:45 | P.PN ---
Subjective Progress Note Date: 06/17/24 Principal diagnosis: Reason for follow-up is leukocytosis/peritonitis Patient is a 33-year-old female with a past medical history significant for hypertension seizure disorder, ovarian cyst, in this patient who did have end-stage renal disease previously on hemodialysis however has been on peritoneal dialysis for the last few months presented to hospital with abdominal pain in this patient who did have CT and ultrasound suspicious for right ovarian cyst. Patient did have elevated white count prompting this consultation. Patient is status post diagnostic laparoscopy exploratory laparotomy right salpingo-oophorectomy with evidence of right tubo-ovarian abscess completed on 06/12/2024 On today's evaluation that is 06/17/2024,the patient denies any fever or any c hills, patient is breathing comfortably on room air, the patient denies chest pain shortness of breath and no significant cough, patient abdominal pain is currently controlled with pain medication no nausea vomiting still complaining of diarrhea. Patient white count is 15.69 creatinine is 7.8 Objective - Vital Signs Vital signs: Vital Signs Temp 98.2 F 06/17/24 12:20 Pulse 110 H 06/17/24 12:20 Resp 16 06/17/24 12:20 BP 152/84 06/17/24 12:20 Pulse Ox 99 06/17/24 12:20 FiO2 Intake & Output 06/16/24 06/17/24 06/17/24 18:59 06:59 18:59 Intake Total 780 340 780 Balance 780 340 780 Weight 56.699 kg Intake: Oral 780 340 780 Blood Product 0 Rc As-1 Unit 0 [id number] Other: Voiding Method Toilet Toilet Toilet - Exam GENERAL DESCRIPTION: Middle-age female lying in bed in no distress RESPIRATORY SYSTEM: Unlabored breathing , decreased breath sounds at bases HEART: S1 S2 regular rate and rhythm , ABDOMEN: Soft , no tenderness EXTREMITIES: No edema feet - Labs CBC & Chem 7: 06/17/24 05:39 06/17/24 05:39 Labs: Abnormal Lab Results - Last 24 Hours (Table) 06/15/24 06/17/24 06/17/24 Range/Units 14:13 05:39 05:39 WBC 15.69 H (4.50-10.00) X 10*3/uL RBC 2.33 L (4.10-5.20) X 10*6/uL Hgb 7.1 L (12.0-15.0) g/dL Hct 21.5 L (37.2-46.3) % RDW 15.4 H (11.5-14.5) % MPV 8.9 L (9.5-12.2) FL Immature Gran # 0.22 H (0.00-0.04) X 10*3/uL Neutrophils # 12.03 H (1.80-7.70) X 10*3/uL Monocytes # 1.62 H (0.20-1.00) X 10*3/uL Eosinophils # 0.55 H (0.04-0.35) X 10*3/uL Anion Gap 15.80 H (4.00-12.00) mmol/L BUN 30.7 H (9.0-27.0) mg/dL Creatinine 7.8 A* (0.6-1.5) mg/dL Est GFR (CKD-EPI) 7 L (>=60) BUN/Creatinine Ratio 3.94 L (12.00-20.00) Ratio Calcium 8.1 L (8.7-10.3) mg/dL Crossmatch See Detail Microbiology - Last 24 Hours (Table) 06/13/24 12:30 Blood Culture - Preliminary Blood Assessment and Plan (1) Leukocytosis Current Visit: Yes Status: Acute Code(s): D72.829 - ELEVATED WHITE BLOOD CELL COUNT, UNSPECIFIED SNOMED Code(s): 197406431 (2) Peritonitis associated with peritoneal dialysis Current Visit: Yes Status: Acute Code(s): T85.71XA - INFECT/INFLM REACTION DUE TO PERITON DIALYSIS CATHETER, INIT SNOMED Code(s): 374768936 Plan: 1patient with a leukocytosis in this patient presented to hospital with abdominal pain did have history of right ovarian cyst with recent CAT scan and all the ultrasound has been suggestive of large right ovarian cyst patient is status post laparoscopy with evidence of tubo-ovarian abscess status post right salpingo-oophorectomy unfortunately no culture has been done 2the patient is afebrile however the patient did have worsening of the white count, we will go ahead and check a stool for C. difficile add oral Diflucan continue Zosyn, repeat CBC with a.m. labs discussed with AUTO GLASS INSTALLER for admitting team Dictation was produced using [employer] dictation software. please excuse any grammatical, word or spelling errors. Time with Patient: Less than 30
[2024-06-17] MEDS: LACTOBACILLUS ACIDOPHILUS/PECT 1 EACH CAPSULE PO SCH (16:16)
[2024-06-17] MEDS: FLUCONAZOLE 100 MG TAB PO ONE (17:36)
[2024-06-18 01:31] VITALS: RESP 20; TEMP 98.2
[2024-06-18 07:57] VITALS: BP 126/69; PULSE 85
[2024-06-18 09:05] LABS: Basophils # (A) 0.05 X 10*3/uL (0.00-0.10); Basophils % (A) 0.4 %; Eosinophils % (A) 3.2 %; HGB 8.6 g/dL (12.0-15.0); Lymphocytes # (A) 1.38 X 10*3/uL (0.90-5.00); MCH 30.4 pg (27.0-32.0); MCHC 33.1 g/dL (32.0-37.0); MCV 91.9 FL (80.0-97.0); Monocytes # (A) 1.78 X 10*3/uL (0.20-1.00); Monocytes % (A) 14.2 %; NRBC Per 100 WBC 0 X 10*3/uL (0.00-0.01); Neutrophils # (A) 8.82 X 10*3/uL (1.80-7.70); Neutrophils % (A) 70.1 %; Platelet Count 388 X 10*3/uL (140-440); RBC 2.83 X 10*6/uL (4.10-5.20); RDW 15.4 % (11.5-14.5); WBC 12.57 X 10*3/uL (4.50-10.00)
[2024-06-18 09:50] LABS: ALT 7 U/L (8-44); AST 15 U/L (13-35); Albumin 2.1 g/dL (3.8-4.9); Albumin/Globulin Ratio 0.66 Ratio (1.60-3.17); Alkaline Phosphatase 110 U/L (41-126); BUN/Creat Ratio 2.98 Ratio (12.00-20.00); Blood Urea Nitrogen 13.7 mg/dL (9.0-27.0); Calcium 8.6 mg/dL (8.7-10.3); Carbon Dioxide 25.7 mmol/L (21.6-31.8); Chloride 98 mmol/L (96-109); Globulin 3.2 g/dL (1.6-3.3); Glucose 84 mg/dL (70-110); Magnesium 2.1 mg/dL (1.5-2.4); Potassium 3.5 mmol/L (3.5-5.5); Sodium 136 mmol/L (135-145); Total Bilirubin 0.3 mg/dL (0.3-1.2); Total Protein 5.3 g/dL (6.2-8.2)
--- NOTE | 2024-06-18 12:23 | P.PN ---
Subjective Patient is seen in follow-up for end-stage renal disease. Now maintained on hemodialysis on Sunday schedule. Hemodynamically stable. No active complaints. Vital signs are stable. General: No acute distress. HEENT: Head exam is unremarkable. LUNGS: No audible rhonchi or wheezes. HEART: Rate and Rhythm are regular. ABDOMEN: Generalized tenderness present. EXTREMITITES: No edema. Objective - Vital Signs Vital signs: Vital Signs Temp 98.2 F 06/18/24 07:23 Pulse 85 06/18/24 07:23 Resp 20 06/18/24 07:23 BP 126/69 06/18/24 07:23 Pulse Ox 98 06/18/24 07:23 FiO2 Intake & Output 06/17/24 06/18/24 06/18/24 18:59 06:59 18:59 Intake Total 1798 240 Output Total 4800 Balance -3002 240 Weight 56.699 kg Intake: Intake, IV Titration 100 Amount Piperacillin-Tazobactam 3 100 .375 gm In Sodium Chloride 0.9% 100 ml @ 25 mls/hr IVPB Q12H [facility] Rx# :[id number] Oral 898 240 Blood Product 0 Rc As-1 Unit 0 [id number] Hemodialysis 800 Output: Hemodialysis 2800 Hemodialysis Net Amount 2000 Other: Voiding Method Toilet Toilet Toilet # Voids 0 - Labs CBC & Chem 7: 06/18/24 06:14 06/18/24 06:14 Labs: Abnormal Lab Results - Last 24 Hours (Table) 06/18/24 06/18/24 Range/Units 06:14 06:14 WBC 12.57 H (4.50-10.00) X 10*3/uL RBC 2.83 L (4.10-5.20) X 10*6/uL Hgb 8.6 L (12.0-15.0) g/dL Hct 26.0 L (37.2-46.3) % RDW 15.4 H (11.5-14.5) % MPV 9.0 L (9.5-12.2) FL Immature Gran # 0.14 H (0.00-0.04) X 10*3/uL Neutrophils # 8.82 H (1.80-7.70) X 10*3/uL Monocytes # 1.78 H (0.20-1.00) X 10*3/uL Eosinophils # 0.40 H (0.04-0.35) X 10*3/uL Anion Gap 12.30 H (4.00-12.00) mmol/L Creatinine 4.6 H (0.6-1.5) mg/dL Est GFR (CKD-EPI) 12 L (>=60) BUN/Creatinine Ratio 2.98 L (12.00-20.00) Ratio Calcium 8.6 L (8.7-10.3) mg/dL ALT 7 L (8-44) U/L Total Protein 5.3 L (6.2-8.2) g/dL Albumin 2.1 L (3.8-4.9) g/dL Albumin/Globulin Ratio 0.66 L (1.60-3.17) Ratio Assessment and Plan Plan: Assessment: 1. End-stage renal disease maintained on peritoneal dialysis. Now on temporary hemodialysis maintained on Sunday schedule due to recent abdominal surgery. 2. Acute blood loss anemia status post blood transfusion, DDAVP this admission. On . 3. Right ovarian cyst. Questionable torsion. Status post laparoscopy and right salpingo-oophorectomy on June 12, 2024. 4. Hyperkalemia secondary to chronic kidney disease and questionable GI bleed. Resolved. 5. Hyponatremia secondary to chronic kidney disease. Appears euvolemic. Improved. 6. Chronic kidney disease mineral bone disease maintained on phosphate binders, calcitriol and Sensipar. Phosphorus level 5.1. 7. Hypertension with chronic kidney disease. Controlled. Plan: Hemodialysis tomorrow. Maintain Lasix. healthcare consulting manager to set up outpatient hemodialysis.
--- NOTE | 2024-06-19 14:48 | PN ---
PROGRESS NOTE DATE OF SERVICE: 06/16/2024 SUBJECTIVE: This is a 33-year-old woman who was admitted with abdominal pain, had peritonitis and possibly tubo-ovarian abscess also. The patient had surgery, complains of severe pain. OBJECTIVE: VITAL SIGNS: Pulse 100, blood pressure 150/82, respirations 20. HEENT: Conjunctivae normal. CARDIOVASCULAR: S1, S2. RESPIRATIONS: Breath sounds diminished at the bases. ABDOMEN: Soft, minimal tenderness. LABORATORY DATA: Noted. WBC 15.69. ASSESSMENT: 1. Abdominal pain with possible acute peritonitis with peritoneal dialysis present on admission, on hemodialysis currently. 2. Right tubo-ovarian abscess, status post exploratory laparotomy and right salpingo- oophorectomy. 3. Severe intractable abdominal pain. 4. Symptomatic anemia, multifactorial. 5. Elevated WBC. 6. Multiple complex medical issues. RECOMMENDATIONS: Recommend to continue current management and continue symptomatic treatment. Continue with antibiotics per Dr. Murphy. Rest of the recommendations were per Nephrology. Guarded prognosis. Further recommendations to follow. See orders for further details. MMODL / IJN: [id number] /
--- NOTE | 2024-06-19 15:10 | P.PN ---
Subjective Progress Note Date: 06/18/24 Principal diagnosis: Reason for follow-up is leukocytosis/peritonitis Patient is a 33-year-old female with a past medical history significant for hypertension seizure disorder, ovarian cyst, in this patient who did have end-stage renal disease previously on hemodialysis however has been on peritoneal dialysis for the last few months presented to hospital with abdominal pain in this patient who did have CT and ultrasound suspicious for right ovarian cyst. Patient did have elevated white count prompting this consultation. Patient is status post diagnostic laparoscopy exploratory laparotomy right salpingo-oophorectomy with evidence of right tubo-ovarian abscess completed on 06/12/2024 On today's evaluation that is 06/18/2024,the patient remains to be afebrile, p atient is on room air not requiring supplemental oxygen and denies any shortness of breath no chest pain or cough.Patient denies having any nausea or vomiting, abdominal pain has decreased intensity feeling better wants to go home. Patient white count is down to 12.57, creatinine is 4.6 blood culture have been negative Objective - Vital Signs Vital signs: Vital Signs Temp 98.2 F 06/18/24 07:23 Pulse 85 06/18/24 07:23 Resp 20 06/18/24 07:23 BP 126/69 06/18/24 07:23 Pulse Ox 98 06/18/24 07:23 FiO2 Intake & Output 06/17/24 06/18/24 06/18/24 18:59 06:59 18:59 Intake Total 1798 240 Output Total 4800 Balance -3002 240 Weight 56.699 kg Intake: Intake, IV Titration 100 Amount Piperacillin-Tazobactam 3 100 .375 gm In Sodium Chloride 0.9% 100 ml @ 25 mls/hr IVPB Q12H [facility] Rx# :[id number] Oral 898 240 Blood Product 0 Rc As-1 Unit 0 [id number] Hemodialysis 800 Output: Hemodialysis 2800 Hemodialysis Net Amount 2000 Other: Voiding Method Toilet Toilet Toilet # Voids 0 - Exam GENERAL DESCRIPTION: Middle-age female lying in bed in no distress RESPIRATORY SYSTEM: Unlabored breathing , decreased breath sounds at bases HEART: S1 S2 regular rate and rhythm , ABDOMEN: Soft , no tenderness EXTREMITIES: No edema feet - Labs CBC & Chem 7: 06/18/24 06:14 06/18/24 06:14 Labs: Abnormal Lab Results - Last 24 Hours (Table) 06/18/24 06/18/24 Range/Units 06:14 06:14 WBC 12.57 H (4.50-10.00) X 10*3/uL RBC 2.83 L (4.10-5.20) X 10*6/uL Hgb 8.6 L (12.0-15.0) g/dL Hct 26.0 L (37.2-46.3) % RDW 15.4 H (11.5-14.5) % MPV 9.0 L (9.5-12.2) FL Immature Gran # 0.14 H (0.00-0.04) X 10*3/uL Neutrophils # 8.82 H (1.80-7.70) X 10*3/uL Monocytes # 1.78 H (0.20-1.00) X 10*3/uL Eosinophils # 0.40 H (0.04-0.35) X 10*3/uL Anion Gap 12.30 H (4.00-12.00) mmol/L Creatinine 4.6 H (0.6-1.5) mg/dL Est GFR (CKD-EPI) 12 L (>=60) BUN/Creatinine Ratio 2.98 L (12.00-20.00) Ratio Calcium 8.6 L (8.7-10.3) mg/dL ALT 7 L (8-44) U/L Total Protein 5.3 L (6.2-8.2) g/dL Albumin 2.1 L (3.8-4.9) g/dL Albumin/Globulin Ratio 0.66 L (1.60-3.17) Ratio Assessment and Plan (1) Leukocytosis Status: Acute Code(s): D72.829 - ELEVATED WHITE BLOOD CELL COUNT, UNSPECIFIED SNOMED Code(s): 375609583 (2) Peritonitis associated with peritoneal dialysis Status: Acute Code(s): T85.71XA - INFECT/INFLM REACTION DUE TO PERITON DIALYSIS CATHETER, INIT SNOMED Code(s): 589147507 Plan: 1patient with a leukocytosis in this patient presented to hospital with abdominal pain did have history of right ovarian cyst with recent CAT scan and all the ultrasound has been suggestive of large right ovarian cyst patient is status post laparoscopy with evidence of tubo-ovarian abscess status post right salpingo-oophorectomy unfortunately no culture has been done 2the patient is afebrile and did have improvement in the white count down to 12,000, patient is feeling better she will finish therapy with oral Augmentin and Diflucan x 10 days at discharge discussed with the DIRT SHOVELER for admitting team Dictation was produced using [employer] dictation software. please excuse any grammatical, word or spelling errors. Time with Patient: Less than 30
--- NOTE | 2024-06-20 13:40 | P.DS ---
Providers Date of admission: 06/07/24 11:03 Expected date of discharge: 06/18/24 Attending physician: Celio Darden MD Consults: 06/07/24 11:00 Consult Physician Routine Consulting Provider: Suzy Murphy Consult Reason/Comments: leukocytosis of unknown etiology Do you want consulting provider notified?: Yes Consult Physician Routine Consulting Provider: Kirsten Gregorio Consult Reason/Comments: right ovarian enlargement Do you want consulting provider notified?: Yes Consult Physician Urgent Consulting Provider: Armando Gonzalez Consult Reason/Comments: peritoneal dialysis Do you want consulting provider notified?: Yes Primary care physician: Angela Torres MD Hospital Course: Final diagnosis Abdominal pain with concerns of acute peritonitis with peritoneal dialysis, present on admission Right tubo-ovarian abscess status post exploratory laparotomy and right salpingo-oophorectomy Severe intractable abdominal pain likely secondary to assessment #2 Symptomatic anemia with chronic anemia Elevated WBC, improving History of renal failure on peritoneal dialysis, being transition to hemodialysis status post surgical intervention GI prophylaxis DVT prophylaxis Full code Discharge disposition Patient is being discharged in a stable condition with guarded prognosis to home. Patient will follow-up with Dr. Torres in the outpatient setting upon discharge. Patient is to continue with Augmentin and Diflucan for 1 week and outpatient follow-up with PRODUCTION METAL SPRAYER as scheduled. Total time taken is greater than 35 minutes. Hospital course This is a 33-year-old female who was recently admitted with abdominal pain with concerns initially of peritonitis although cultures have been negative. Patient was evaluated by PRODUCTION METAL SPRAYER as patient was also having right lower quadrant pain underwent imaging with concerns of right ovarian abscess. Patient was evaluated by Dr. Rosado and was taken to surgery and underwent right salpingo- oophorectomy. Unfortunately no cultures were obtained on this possible abscess area and patient was continued on IV antibiotics. White count is trending down and per ID patient to continue on oral Augmentin along with Diflucan with close outpatient follow-up. Nephrology following as well as patient is normally on peritoneal dialysis although due to recent surgery of the abdomen recommend hemodialysis and has been set up with social work for Sunday//Sunday. Patient does have a right fistula that is patent and has a positive thrill. Patient was ongoing hemodialysis status post surgery and tolerating well. Patient has been cleared by consultations. Please refer to consultation notes for further HPI. Currently no reports of chest pain, shortness of breath, or palpitations. Patient is afebrile. No reports of nausea or vomiting and patient is tolerating diet. Patient will be discharged home today. Physical exam: Gen: This is a 33-year-old female who is awake, alert and oriented x 3, well-dev eloped, well-nourished HEENT: Head is atraumatic, normocephalic. Pupils equal, round. Sclerae is anicteric. NECK: Supple. No JVD. No lymphadenopathy. No thyromegaly. LUNGS: Clear to auscultation. No wheezes or rhonchi. No intercostal retractions. HEART: Regular rate and rhythm. No murmur. ABDOMEN: Soft. Mildly tender on palpation of the right lower quadrant bowel sounds are present. No masses. EXTREMITIES: No pedal edema. No calf tenderness. NEUROLOGICAL: Patient is awake, alert and oriented x3. Cranial nerves 2 through 12 are grossly intact. Please refer to medication reconciliation sheet for a list of medications. The impression and plan of care has been dictated by Taniya Rhodes, Nurse Practitioner as directed. Dr. Alessandro MD I have performed a history and examination and MDM of this patient, discussed the same with the dictator, and agree with the dictator's assessment and plan as written ,documented as a scribe. Based on total visit time, I have performed more than 50% of the visit. Patient Condition at Discharge: Stable Plan - Discharge Summary Discharge Rx Participant: No New Discharge Prescriptions: New Darbepoetin Elmo [Aranesp] 60 mcg SQ Q7D 30 Days #4 each Folic Acid 1 mg PO DAILY@1200 #30 tab Amoxic-Pot Clav 875-125Mg [Augmentin 875-125] 1 tab PO Q12HR 10 Days #20 tab Fluconazole [Diflucan] 100 mg PO DAILY 10 Days #10 tab Multivitamins, Thera [Multivitamin (formulary)] 1 each PO DAILY@1200 #30 tab Simethicone Chew [Mylicon Chew] 80 mg PO QID PRN #30 tab PRN Reason: Bloating oxyCODONE HCL [OxyIR] 5 mg PO Q6HR PRN #12 tab PRN Reason: Pain Thiamine [Vitamin B-1] 100 mg PO BID-W/MEALS #30 tab Continue carvediloL 25 mg PO BID Sevelamer Carbonate 3,200 mg PO TID-W/MEALS NIFEdipine [Adalat CC] 60 mg PO DAILY Calcium Acetate [PhosLo] 1,334 mg PO AC-TID #180 tab Famotidine [Pepcid] 20 mg PO DAILY PARoxetine [Paxil] 10 mg PO DAILY traZODone HCL [Desyrel] 50 mg PO HS rOPINIRole HCL 0.5 mg PO BID Furosemide [Lasix] 80 mg PO BID Cinacalcet HCl [Sensipar] 60 mg PO Q2D NIFEdipine [Adalat CC] 30 mg PO HS calcitrioL 0.25 mcg PO TID Acetaminophen Tab [Tylenol] 650 mg PO Q6H PRN PRN Reason: Pain Discharge Medication List NIFEdipine [Adalat CC] 60 mg PO DAILY 01/29/24 [History] PARoxetine [Paxil] 10 mg PO DAILY 01/29/24 [History] Sevelamer Carbonate 3,200 mg PO TID-W/MEALS 01/29/24 [History] carvediloL 25 mg PO BID 01/29/24 [History] rOPINIRole HCL 0.5 mg PO BID 01/29/24 [History] traZODone HCL [Desyrel] 50 mg PO HS 01/29/24 [History] Cinacalcet HCl [Sensipar] 60 mg PO Q2D 04/18/24 [History] Furosemide [Lasix] 80 mg PO BID 04/18/24 [History] NIFEdipine [Adalat CC] 30 mg PO HS 04/18/24 [History] calcitrioL 0.25 mcg PO TID 04/18/24 [History] Calcium Acetate [PhosLo] 1,334 mg PO AC-TID #180 tab 04/20/24 [Rx] Acetaminophen Tab [Tylenol] 650 mg PO Q6H PRN 05/19/24 [History] Famotidine [Pepcid] 20 mg PO DAILY 05/23/24 [History] Amoxic-Pot Clav 875-125Mg [Augmentin 875-125] 1 tab PO Q12HR 10 Days #20 tab 06/18/24 [Rx] Darbepoetin Elmo [Aranesp] 60 mcg SQ Q7D 30 Days #4 each 06/18/24 [Rx] Fluconazole [Diflucan] 100 mg PO DAILY 10 Days #10 tab 06/18/24 [Rx] Folic Acid 1 mg PO DAILY@1200 #30 tab 06/18/24 [Rx] Multivitamins, Thera [Multivitamin (formulary)] 1 each PO DAILY@1200 #30 tab 06/18/24 [Rx] Simethicone Chew [Mylicon Chew] 80 mg PO QID PRN #30 tab 06/18/24 [Rx] Thiamine [Vitamin B-1] 100 mg PO BID-W/MEALS #30 tab 06/18/24 [Rx] oxyCODONE HCL [OxyIR] 5 mg PO Q6HR PRN #12 tab 06/18/24 [Rx] Follow up Appointment(s)/Referral(s): Val Yusuf MD [STAFF PHYSICIAN] - 06/26/24 2:00 pm () [facility] [NON-STAFF] - 06/19/24 5:45 am ([id number] at 5:45 am) Angela Torres MD [Primary Care Provider] - 1-2 days (Please call and make follow up appointment please have insurance card ready.) Ambulatory/Diagnostic Orders: Complete Blood Count w/diff [LAB.AMB] Time Frame: 1 Week, Location: None Selected Patient Instructions/Handouts: Simethicone (By mouth), Thiamine (By mouth), Amoxicillin/Clavulanate Potassium (By mouth), Fluconazole (By mouth), Folic Acid (By mouth), Multivitamins, Adult Formula (By mouth), Darbepoetin Elmo (By injection), Oxycodone, Slow Release (By mouth), Salpingo-Oophorectomy (DC) Activity/Diet/Wound Care/Special Instructions: Activity limited until follow-up Follow-up with primary care provider on discharge Follow-up with PRODUCTION METAL SPRAYER in 1 to 2 weeks Follow-up with nephrology in the outpatient setting continue with hemodialysis on , sat at 545 am Continue with antibiotics and Diflucan until finished Discharge Disposition: HOME SELF-CARE
== END 2024-06-18 15:46 | disposition home or self-care (01) | DRG 856 ==
LOC: EC 00:17 → 5NMEDONC 11:03
PROVIDERS: ADMIT Internal Medicine; ATTEND Internal Medicine
PROC: 30233N1 Transfusion of Nonautologous Red Blood Cells into Peripheral Vein, Percutaneous Approach (ICD-10-PCS; 2024-06-08)
PROC: 0UB00ZZ Excision of Right Ovary, Open Approach (ICD-10-PCS; 2024-06-12)
PROC: 0DJW4ZZ Inspection of Peritoneum, Percutaneous Endoscopic Approach (ICD-10-PCS; 2024-06-12)
PROC: 0UT50ZZ Resection of Right Fallopian Tube, Open Approach (ICD-10-PCS; principal; 2024-06-12 12:15)
DX: T80.29XA Infection following other infusion, transfusion and therapeutic injection, initial encounter (principal); K65.0 Generalized (acute) peritonitis; N18.6 End stage renal disease; D62 Acute posthemorrhagic anemia; E87.1 Hypo-osmolality and hyponatremia; I12.0 Hypertensive chronic kidney disease with stage 5 chronic kidney disease or end stage renal disease; D63.1 Anemia in chronic kidney disease; E87.5 Hyperkalemia; F32.A Depression, unspecified; F41.9 Anxiety disorder, unspecified; G40.909 Epilepsy, unspecified, not intractable, without status epilepticus; M89.8X9 Other specified disorders of bone, unspecified site; N83.201 Unspecified ovarian cyst, right side; N92.6 Irregular menstruation, unspecified; E87.70 Fluid overload, unspecified; K66.0 Peritoneal adhesions (postprocedural) (postinfection); N70.93 Salpingitis and oophoritis, unspecified; Z53.29 Procedure and treatment not carried out because of patient's decision for other reasons; G89.29 Other chronic pain; E78.5 Hyperlipidemia, unspecified; Y84.1 Kidney dialysis as the cause of abnormal reaction of the patient, or of later complication, without mention of misadventure at the time of the procedure; Z79.899 Other long term (current) drug therapy; Z99.2 Dependence on renal dialysis; Z53.31 Laparoscopic surgical procedure converted to open procedure
CPT/HCPCS: 36415; 71045; 76830; 80048; 80053; 80076; 82728; 83540; 83550; 83605; 83690; 83735; 84100; 84703; 85025; 85610; 85730; 86850; 86900; 86901; 86920; 87040; 87070; 87205; 87535; 88305; 88312; 89050; 90935; 93005; 93975; 96365; 96375; 96376; 99291

== ENCOUNTER → 2024-06-27 | Outpatient (CLI) | payer MEDICARE, OTHER ==
--- NOTE | 2024-06-27 22:07 | US ---
EXAMINATION TYPE: US venous doppler duplex LE LT DATE OF EXAM: 06/27/2024 10:49 AM COMPARISON: NONE CLINICAL INDICATION: Female, 33 years old with history of R22.42 SWELLING MASS LUMP LEFT LEG; Swellin g in her leg since her oophorectomy a month ago. No hx of DVT SIDE PERFORMED: Left TECHNIQUE: The lower extremity deep venous system is examined utilizing real time linear array sonog martin with graded compression, color doppler sonography, and spectral doppler. VESSELS IMAGED: Common Femoral Vein Deep Femoral Vein Greater Saphenous Vein * Femoral Vein Popliteal Vein Small Saphenous Vein * Proximal Calf Veins (* superficial vessels) Left Leg: No evidence for DVT IMPRESSION: 1. Left lower extremity ultrasound negative for deep venous thrombosis. [facility], , 06/27/2024 10:05 PM
== END | disposition home or self-care (01) ==
LOC: RADUSWWP 10:46
PROVIDERS: ATTEND Obstetrics & Gynecology
DX: R22.42 Localized swelling, mass and lump, left lower limb (principal)

== ENCOUNTER 2024-07-14 05:15 | Emergency (ER) | payer MEDICARE, OTHER ==
[2024-07-14 05:24] VITALS: RESP 18
[2024-07-14] MEDS: ORPHENADRINE 30 MG/ML 2 ML VIAL IM STA (06:19)
[2024-07-14] MEDS: DEXAMETHASONE SOD PHOSPHATE 10 MG/ML 1 ML VIAL IM STA (06:20)
[2024-07-14] MEDS: HYDROmorphone 1 MG/ML 1 ML SYRINGE IM STA (06:20)
--- NOTE | 2024-07-14 06:48 | ED ---
Back Pain HPI - General Chief Complaint: Back Pain/Injury Stated Complaint: Back/Hip Pain Time Seen by Provider: 07/14/24 06:01 Source: patient, RN notes reviewed Mode of arrival: ambulatory Limitations: no limitations - History of Present Illness Initial Comments: This is a 33-year-old female who presents to the emergency department for pain in the right lower back and buttocks. States that over the last week she has had pain in the right buttocks region going into the right hip. Denies any injuries. She had been dealing with this pain on and off several months ago and it was related to problems with her ovary. She underwent an oophorectomy last month and had been fine since. However, states that this is the same kind of pain she had been experiencing. Currently taking Tylenol without any relief. She is a dialysis patient. MD Complaint: back pain - Related Data Home Medications Medication Instructions Recorded Confirmed NIFEdipine [Adalat CC] 60 mg PO DAILY 01/29/24 06/07/24 PARoxetine [Paxil] 10 mg PO DAILY 01/29/24 06/07/24 Sevelamer Carbonate 3,200 mg PO TID-W/MEALS 01/29/24 06/07/24 carvediloL 25 mg PO BID 01/29/24 06/07/24 rOPINIRole HCL 0.5 mg PO BID 01/29/24 06/07/24 traZODone HCL [Desyrel] 50 mg PO HS 01/29/24 06/07/24 Cinacalcet HCl [Sensipar] 60 mg PO Q2D 04/18/24 06/07/24 Furosemide [Lasix] 80 mg PO BID 04/18/24 06/07/24 NIFEdipine [Adalat CC] 30 mg PO HS 04/18/24 06/07/24 calcitrioL 0.25 mcg PO TID 04/18/24 06/07/24 Acetaminophen Tab [Tylenol] 650 mg PO Q6H PRN 05/19/24 06/07/24 Famotidine [Pepcid] 20 mg PO DAILY 05/23/24 06/07/24 Previous Rx's Medication Instructions Recorded Calcium Acetate [PhosLo] 1,334 mg PO AC-TID #180 tab 04/20/24 Amoxic-Pot Clav 875-125Mg 1 tab PO Q12HR 10 Days #20 tab 06/18/24 [Augmentin 875-125] Darbepoetin Elmo [Aranesp] 60 mcg SQ Q7D 30 Days #4 each 06/18/24 Fluconazole [Diflucan] 100 mg PO DAILY 10 Days #10 tab 06/18/24 Folic Acid 1 mg PO DAILY@1200 #30 tab 06/18/24 Multivitamins, Thera [Multivitamin 1 each PO DAILY@1200 #30 tab 06/18/24 (formulary)] Simethicone Chew [Mylicon Chew] 80 mg PO QID PRN #30 tab 06/18/24 Thiamine [Vitamin B-1] 100 mg PO BID-W/MEALS #30 tab 06/18/24 oxyCODONE HCL [OxyIR] 5 mg PO Q6HR PRN #12 tab 06/18/24 oxyCODONE HCL [oxyCODONE HCL (IR)] 10 mg PO Q4H PRN 3 Days #18 tab 06/20/24 oxyCODONE HCL [Roxicodone] 5 mg PO Q6HR PRN 3 Days #12 tab 06/30/24 Cyclobenzaprine [Flexeril] 5 - 10 mg PO TID PRN #30 tablet 07/14/24 oxyCODONE-APAP 7.5-325MG [Percocet 1 tab PO Q6HR PRN 3 Days #12 tab 07/14/24 7.5-325 mg] Allergies Allergy/AdvReac Type Severity Reaction Status Date / Time amlodipine Allergy Rash/Hives Verified 07/14/24 05:24 silver Allergy Rash/Hives Verified 07/14/24 05:24 [From [employer] Mesh] Review of Systems ROS Statement: Those systems with pertinent positive or pertinent negative responses have been documented in the HPI. ROS Other: All systems not noted in ROS Statement are negative. Past Medical History Past Medical History: Dialysis, Hypertension, Renal Disease, Seizure Disorder, Skin Disorder Additional Past Medical History / Comment(s): P.D. dailysis <TH<SA, seizure 2 yrs ago,possibly has had dvt in past,ovarian cyst uterine fibroids History of Any Multi-Drug Resistant Organisms: None Reported Past Surgical History: Back Surgery Additional Past Surgical History / Comment(s): urethral surgery at 7months old. skull fracture at age 9, back injections Past Anesthesia/Blood Transfusion Reactions: No Reported Reaction Past Psychological History: Anxiety, Depression Smoking Status: Never smoker Past Alcohol Use History: Rare Past Drug Use History: Marijuana - Past Family History Mother Family Medical History: Cancer Additional Family Medical History / Comment(s): ovarian, cervical General Exam Limitations: no limitations General appearance: alert, in no apparent distress Head exam: Present: atraumatic, normocephalic, normal inspection Respiratory exam: Present: normal lung sounds bilaterally. Absent: respiratory distress, wheezes, rales, rhonchi, stridor Cardiovascular Exam: Present: regular rate, normal rhythm, normal heart sounds. Absent: systolic murmur, diastolic murmur, rubs, gallop, clicks Back exam: Present: other (Tenderness in the right lower back and buttocks). Absent: CVA tenderness (R), CVA tenderness (L) Neurological exam: Present: alert, oriented X3, CN II-XII intact Psychiatric exam: Present: normal affect, normal mood Skin exam: Present: warm, dry, intact, normal color. Absent: rash Course Vital Signs 07/14/24 07/14/24 05:21 09:04 Temperature 97.9 F 98.1 F Pulse Rate 104 H 101 H Respiratory 18 18 Rate Blood Pressure 157/95 183/99 O2 Sat by Pulse 100 97 Oximetry Medical Decision Making - Medical Decision Making This is a 33-year-old female who presents to the emergency department for back pain. Was pt. sent in by a medical professional or institution? @ -No Did you speak to anyone other than the patient for history? @ -No Did you review nursing and triage notes? @ -Yes, and I agree, it is accurate with regards to the patient's symptoms. Were old charts reviewed? @ -No Differential Diagnosis? @ -Differential Back Pain: Strain, zoster, cauda equina syndrome, epidural abscess, vertebral osteomyelitis, discitis, fracture, subluxation, disc herniation, DJD, spinal stenosis, dissection, AAA, pancreatitis, peptic ulcer disease, pyelonephritis, kidney stone, this is not meant to be an all-inclusive list. EKG interpreted by me (3pts min.)? @ -Not obtained X-rays interpreted by me (1pt min.)? @ -Not obtained CT interpreted by me (1pt min.)? @ -CT scan of the pelvis obtained. My interpretation identifies no acute fractures. U/S interpreted by me (1pt. min.)? @ -Not obtained What testing was considered but not performed? (CT, X-rays, U/S, labs)? Why? @ -None What meds were considered but not given? Why? @ -None Did you discuss the management of the patient with other professionals? @ -No Did you reconcile home meds? @ -No Was smoking cessation discussed for >3mins.? @ -No Was critical care preformed (if so, how long)? @ -No Were there social determinants of health that impacted care today? How? (Homelessness, low income, unemployed, alcoholism, drug addiction, transport ation, low edu. Level, literacy, decrease access to med. care, half-way, rehab)? @ -No Was there de-escalation of care discussed even if they declined? (Discuss DNR or withdrawal of care, Hospice)? @ -No What co-morbidities impacted this encounter? (DM, HTN, Smoking, COPD, CAD, Cancer, CVA, Hep., AIDS, mental health diagnosis, sleep apnea, morbid obesity)? @ -Renal disease Was patient admitted / discharged? @ -Discharged. Patient's pain was largely localized to the buttocks with some radiation into the hips. CT scan of the pelvis obtained for further evaluation. This demonstrated narrowing of the space between the lesser trochanter and ischial tuberosity on the right. They advised correlation for any potential symptoms of ischiofemoral impingement. Findings reviewed with the patient in that this could certainly be the cause of her symptoms. Pain was treated in the emergency department. Patient is unable to take NSAIDs due to renal failure. Prescription for Flexeril and Percocet provided. She is advised to take the Percocet sparingly when her pain is the most severe. Information for orthopedic follow-up provided for further evaluation of ongoing symptoms and possibility of ischiofemoral impingement. Patient discharged home in stable condition. Case discussed with ED attending Dr. Robison. Return precautions reviewed in depth, the patient is instructed to return to the emergency department with any new, worsening, or concerning symptoms. Patient verbalized understanding. Undiagnosed new problem with uncertain prognosis? @ -None Drug Therapy requiring intensive monitoring for toxicity (Heparin, Nitro, Insulin, Cardizem)? @ -None Were any procedures done? @ -None Diagnosis/symptom? @ -Right buttocks pain, ischiofemoral impingement syndrome Acute, or Chronic, or Acute on Chronic? @ -Acute Uncomplicated (without systemic symptoms) or Complicated (systemic symptoms)? @ -Uncomplicated Side effects of treatment? @ -None Exacerbation, Progression, or Severe Exacerbation] @ -Not applicable Poses a threat to life or bodily function? @ -No - Radiology Data Radiology results: report reviewed, image reviewed Disposition Clinical Impression: Right hip impingement syndrome Disposition: HOME SELF-CARE Instructions (If sedation given, give patient instructions): Hip Impingement (ED) Additional Instructions: Return to the emergency department with any new, worsening, or concerning symptoms. Take the Flexeril as 1 to 2 tablets up to 3 times daily for pain. Take the oxycodone sparingly when your pain is the most severe. The CAT scan revealed signs of ischiofemoral impingement syndrome. Contact the orthopedic offices listed below for a follow-up appointment and further evaluation regarding this condition. Prescriptions: Cyclobenzaprine [Flexeril] 5 - 10 mg PO TID PRN #30 tablet PRN Reason: Pain oxyCODONE-APAP 7.5-325MG [Percocet 7.5-325 mg] 1 tab PO Q6HR PRN 3 Days #12 tab PRN Reason: Pain Is patient prescribed a controlled substance at d/c from ED?: Yes When asked, does pt state using other controlled substances?: No If prescribed controlled substance>3 days was MAPS reviewed?: Prescribed <3 Days Referrals: Angela Torres MD [Primary Care Provider] - 1-2 days Ney Awan MD [STAFF PHYSICIAN] - 1-2 days Marcello Chowdhury MD [Medical Doctor] - 1-2 days Time of Disposition: 08:52
--- NOTE | 2024-07-14 08:20 | CT ---
EXAMINATION TYPE: CT pelvis wo con DATE OF EXAM: 07/14/2024 COMPARISON: 05/19/2024 HISTORY: 33-year-old female Lower back/right buttocks pain TECHNIQUE: Contiguous axial scanning of the pelvis without IV contrast. Coronal and sagittal reconstr uctions performed. CT DLP: 263.6 mGycm Automated exposure control for dose reduction was used. FINDINGS: Generalized anasarca change is worsening compared to 05/19/2024. Peritoneal dialysis catheter is loope d within the pelvis. Bladder is collapsed but with moderate circumferential wall thickening. Uterus i s anteverted. Limited detailed assessment on this study. Unable to delineate ovaries from nonopacifie d bowel loops. Mild abdominopelvic ascites. Subarticular erosions at the bilateral SI joints may relate to renal osteodystrophy. There is some narrowing of the space between the lesser trochanter and ischial tuberosity on the righ t , narrowed down to 7 mm. IMPRESSION: 1. PERITONEAL DIALYSIS CATHETER IN PLACE. MILD ASCITES FLUID. WORSENING GENERALIZED ANASARCA COMPARED TO 05/19/2024. 2. MODERATE CIRCUMFERENTIAL BLADDER WALL THICKENING MAY BE CHRONIC FOR THE PATIENT. CORRELATE TO EXCL UDE CYSTITIS. 3. NARROWING OF THE SPACE BETWEEN THE LESSER TROCHANTER AND ISCHIAL TUBEROSITY ON THE RIGHT. CORRELAT E FOR ANY POTENTIAL SYMPTOMS OF ISCHIOFEMORAL IMPINGEMENT. [facility], , 07/14/2024 8:18 AM
[2024-07-14] MEDS: oxyCODONE-APAP 10-325MG 1 EACH TAB PO STA (08:57)
[2024-07-14 09:07] VITALS: BP 183/99; PULSE 101; TEMP 98.1
== END 2024-07-14 09:07 | disposition home or self-care (01) ==
LOC: EC 05:15
CPT/HCPCS: 72192; 96372; 99284

== ENCOUNTER 2024-07-17 14:01 | Observation (INO) | payer MEDICARE, OTHER ==
--- NOTE | 2024-07-17 14:37 | ED ---
General Adult HPI - General Source: patient, RN notes reviewed <Dorothy Shaver - Last Filed: 07/17/24 14:35> <Marifer Menjivar - Last Filed: 07/18/24 11:03> - General Stated complaint: Weakness/SOB Time Seen by Provider: 07/17/24 14:18 - History of Present Illness Initial comments: Quick [id number] female with a history of ESRD on hemodialysis, Sunday, presented to the emergency department chief complaint of bodyaches, chills, sore throat and weakness over the past day. States that she got her flu shot yesterday. She has missed her dialysis that was scheduled for today. Denies abdominal pain, nausea or vomiting. (Dorothy Shaver) 33-year-old female with past medical history of end-stage renal disease who presents emergency department with bodyaches, chills and sore throat. She states she has been weak. Patient typically does peritoneal dialysis but recently had abdominal surgery and had to switch over to hemodialysis. She goes Sunday. Yesterday she received a flu shot. States that since then she has had weakness and bodyaches. Thought that it was due to the injection itself however she was so weak today that she missed dialysis. She denies any nausea or vomiting. No abdominal pain. No chest pain or difficulty breathing. No other alleviating, precipitating or modifying factors (Marifer Huang) - Related Data Home Medications Medication Instructions Recorded Confirmed PARoxetine [Paxil] 10 mg PO DAILY 01/29/24 07/17/24 Sevelamer Carbonate 3,200 mg PO TID-W/MEALS 01/29/24 07/17/24 carvediloL 25 mg PO BID 01/29/24 07/17/24 rOPINIRole HCL 0.5 mg PO BID 01/29/24 07/17/24 traZODone HCL [Desyrel] 50 mg PO HS 01/29/24 07/17/24 Cinacalcet HCl [Sensipar] 60 mg PO Q2D 04/18/24 07/17/24 Furosemide [Lasix] 80 mg PO BID 04/18/24 07/17/24 NIFEdipine [Adalat CC] 30 mg PO BID 04/18/24 07/17/24 calcitrioL 0.25 mcg PO TID 04/18/24 07/17/24 Famotidine [Pepcid] 20 mg PO DAILY 05/23/24 07/17/24 Multivitamins, Thera [Multivitamin 1 tab PO DAILY@1200 07/17/24 07/17/24 (formulary)] Previous Rx's Medication Instructions Recorded Calcium Acetate [PhosLo] 1,334 mg PO AC-TID #180 tab 04/20/24 Cyclobenzaprine [Flexeril] 5 - 10 mg PO TID PRN #30 tablet 07/14/24 oxyCODONE-APAP 7.5-325MG [Percocet 1 tab PO Q6HR PRN 3 Days #12 tab 07/14/24 7.5-325 mg] Allergies Allergy/AdvReac Type Severity Reaction Status Date / Time amlodipine Allergy Rash/Hives Verified 07/17/24 19:31 silver Allergy Rash/Hives Verified 07/17/24 19:31 [From [employer] Mesh] Review of Systems ROS Other: All systems not noted in ROS Statement are negative. <Dorothy Shaver - Last Filed: 07/17/24 14:35> ROS Other: All systems not noted in ROS Statement are negative. <Marifer Menjivar - Last Filed: 07/18/24 11:03> ROS Statement: Those systems with pertinent positive or pertinent negative responses have been documented in the HPI. Past Medical History Past Medical History: Dialysis, Hypertension, Renal Disease, Seizure Disorder, Skin Disorder Additional Past Medical History / Comment(s): P.D. dailysis [facility]U<TH<SA, seizure 2 yrs ago,possibly has had dvt in past,ovarian cyst uterine fibroids History of Any Multi-Drug Resistant Organisms: None Reported Past Surgical History: Back Surgery Additional Past Surgical History / Comment(s): urethral surgery at 7months old. skull fracture at age 9, back injections Past Anesthesia/Blood Transfusion Reactions: No Reported Reaction Past Psychological History: Anxiety, Depression Smoking Status: Never smoker Past Alcohol Use History: Rare Past Drug Use History: Marijuana - Past Family History Mother Family Medical History: Cancer Additional Family Medical History / Comment(s): ovarian, cervical <Dorothy Shaver - Last Filed: 07/17/24 14:35> General Exam <Dorothy Shaver - Last Filed: 07/17/24 14:35> General appearance: alert, in no apparent distress Head exam: Present: atraumatic, normocephalic, normal inspection Eye exam: Present: normal appearance, PERRL, EOMI. Absent: scleral icterus, conjunctival injection, periorbital swelling ENT exam: Present: normal exam, mucous membranes moist Neck exam: Present: normal inspection. Absent: tenderness, meningismus, lymphad enopathy Respiratory exam: Present: normal lung sounds bilaterally. Absent: respiratory distress, wheezes, rales, rhonchi, stridor Cardiovascular Exam: Present: regular rate, normal rhythm, normal heart sounds. Absent: systolic murmur, diastolic murmur, rubs, gallop, clicks GI/Abdominal exam: Present: soft, normal bowel sounds. Absent: distended, tenderness, guarding, rebound, rigid Extremities exam: Present: normal inspection, full ROM, normal capillary refill. Absent: tenderness, pedal edema, joint swelling, calf tenderness Back exam: Present: normal inspection Neurological exam: Present: alert, oriented X3, CN II-XII intact Psychiatric exam: Present: normal affect, normal mood Skin exam: Present: warm, dry, intact, pallor. Absent: rash <Marifer Menjivar - Last Filed: 07/18/24 11:03> - General Exam Comments Initial Comments: Visual Physical Exam Vital signs reviewed General: Well-appearing, nontoxic, no acute distress. Head: Normocephalic, atraumatic Eyes: PERRLA, EOMI ENT: Airway patent Chest: Nonlabored breathing Skin: No visual rash, normal skin tone Neuro: Alert and oriented 3 Musculoskeletal: No gross abnormalities (Stieler,Dorothy) Course Vital Signs 07/17/24 07/17/24 07/17/24 14:43 18:08 22:01 Temperature 98.9 F 98.4 F Pulse Rate 103 H 108 H 112 H Respiratory 18 17 16 Rate Blood Pressure 154/98 147/96 158/104 O2 Sat by Pulse 92 L 97 Oximetry 07/17/24 07/17/24 07/18/24 22:09 22:29 00:08 Temperature 98.4 F 98.5 F 98.3 F Pulse Rate 112 H 105 H 110 H Respiratory 16 18 18 Rate Blood Pressure 162/104 162/106 166/109 O2 Sat by Pulse 96 97 96 Oximetry 07/18/24 07/18/24 07/18/24 03:11 06:37 09:00 Temperature Pulse Rate 106 H 123 H 125 H Respiratory 16 16 18 Rate Blood Pressure 186/122 169/107 161/104 O2 Sat by Pulse 94 L 93 L 98 Oximetry Medical Decision Making <Dorothy Shaver - Last Filed: 07/17/24 14:35> - Lab Data Result diagrams: 07/18/24 05:02 07/18/24 05:02 <Marifer Menjivar Reshma - Last Filed: 07/18/24 11:03> - Medical Decision Making I completed the quick note portion of this chart signed Dorothy Shaver PA-C (Dorothy Shaver) Was pt. sent in by a medical professional or institution (JOSÉ MIGUEL Garsia, BUSINESS PLANNING DIRECTOR, urgent care, hospital, or skilled nursing...) When possible be specific @ -No Did you speak to anyone other than the patient for history (EMS, parent, family, police, friend...)? What history was obtained from this source @ -No Did you review nursing and triage notes (agree or disagree)? Why? @ -I reviewed and agree with nursing and triage notes Were old charts reviewed (outside hosp., previous admission, EMS record, old EKG, old radiological studies, urgent care reports/EKG's, skilled nursing records)? Report findings @ -I reviewed last discharge summary for the patient where she was admitted for a tubo-ovarian abscess Differential Diagnosis (chest pain, altered mental status, abdominal pain women, abdominal pain men, vaginal bleeding, weakness, fever, dyspnea, syncope, headache, dizziness, GI bleed, back pain, seizure, CVA, palpatations, mental health, musculoskeletal)? @ -Differential Weakness: Hypoglycemia, shock, sepsis, hyponatremia, anemia, infection, OR, ETOH, adverse medicine reaction, overdose, stroke, this is not meant to be an all-inclusive list. EKG interpreted by me (3pts min.). @ -Yes and demonstrates sinus tachycardia with a rate of 101. PA interval 146. QRS 95. QTc of 410. Biphasic T wave lead V2. No acute ST segment elevation X-rays interpreted by me (1pt min.). @ -None done CT interpreted by me (1pt min.). @ -None done U/S interpreted by me (1pt. min.). @ -None done What testing was considered but not performed or refused? (CT, X-rays, U/S, labs)? Why? @ -None What meds were considered but not given or refused? Why? @ -None Did you discuss the management of the patient with other professionals (professionals i.e. DrBalbir, PA, BUSINESS PLANNING DIRECTOR, lab, RT, psych nurse, social service liaison, frame table operator helper, teacher, postal sorting officer, case assembler)? Give summary @ -Spoke with Dr. Spicer who will admit the patient Was smoking cessation discussed for >3mins.? @ -No Was critical care preformed (if so, how long)? @ -Yes, 35 minutes for transfusion of blood products Were there social determinants of health that impacted care today? How? (Homelessness, low income, unemployed, alcoholism, drug addiction, transportation, low edu. Level, literacy, decrease access to med. care, fpc, rehab)? @ -No Was there de-escalation of care discussed even if they declined (Discuss DNR or withdrawal of care, Hospice)? DNR status @ -No What co-morbidities impacted this encounter? (DM, HTN, Smoking, COPD, CAD, Cancer, CVA, ARF, Chemo, Hep., AIDS, mental health diagnosis, sleep apnea, morbid obesity)? @ -End-stage renal disease on dialysis Was patient admitted / discharged? Hospital course, mention meds given and route, prescriptions, significant lab abnormalities, going to OR and other pertinent info. @ -Upon arrival patient seen and evaluated in room 6. Thorough history and physical exam was performed. IV access was established and laboratory studies are conducted. Patient does have a hemoglobin of 6.7. She does require transfusion at this time. Anemia may be due to chronic kidney disease versus hemodilution. Patient does require dialysis. I recommended admission for transfusion and dialysis. Patient was agreeable to this. Patient admitted to Dr. Spicer. I will place Dr. Gonzalez on consult Undiagnosed new problem with uncertain prognosis? @ -No Drug Therapy requiring intensive monitoring for toxicity (Heparin, Nitro, Insulin, Cardizem)? @ -Blood products Were any procedures done? @ -No Diagnosis/symptom? @ -Acute weakness, acute anemia, end-stage renal disease on dialysis Acute, or Chronic, or Acute on Chronic? @ -Acute Uncomplicated (without systemic symptoms) or Complicated (systemic symptoms)? @ -Complicated Side effects of treatment? @ -No Exacerbation, Progression, or Severe Exacerbation? @ -No Poses a threat to life or bodily function? How? (Chest pain, USA, OR, pneumonia, PE, COPD, DKA, ARF, appy, cholecystitis, CVA, Diverticulitis, Homicidal, Suicidal, threat to staff... and all critical care pts) @ -Yes as patient is markedly anemic (Marifer Menjivar) - Lab Data Lab Results 07/17/24 07/17/24 07/17/24 Range/Units 15:32 15:32 15:32 WBC 13.9 H (3.8-10.6) k/uL RBC 2.17 L (3.80-5.40) m/uL Hgb 6.7 L* (11.4-16.0) gm/dL Hct 19.8 L* (34.0-46.0) % MCV 91.4 (80.0-100.0) fL MCH 30.9 (25.0-35.0) pg MCHC 33.8 (31.0-37.0) g/dL RDW 15.7 H (11.5-15.5) % Plt Count 272 (150-450) k/uL MPV 7.2 Neutrophils % 82 % Lymphocytes % 10 % Monocytes % 5 % Eosinophils % 2 % Basophils % 0 % Neutrophils # 11.4 H (1.3-7.7) k/uL Lymphocytes # 1.3 (1.0-4.8) k/uL Monocytes # 0.7 (0-1.0) k/uL Eosinophils # 0.3 (0-0.7) k/uL Basophils # 0.0 (0-0.2) k/uL Sodium 135 L (137-145) mmol/L Potassium 5.4 H (3.5-5.1) mmol/L Chloride 100 (98-107) mmol/L Carbon Dioxide 30 (22-30) mmol/L Anion Gap 5 mmol/L BUN 45 H (7-17) mg/dL Creatinine 5.71 H (0.52-1.04) mg/dL Est GFR (CKD-EPI)AfAm 11 (>60 ml/min/1.73 sqM) Est GFR (CKD-EPI)NonAf 9 (>60 ml/min/1.73 sqM) Glucose 87 (74-99) mg/dL Plasma Lactic Acid Fred (0.7-2.0) mmol/L Calcium 9.8 (8.4-10.2) mg/dL Phosphorus 3.1 (2.5-4.5) mg/dL Magnesium 2.5 H (1.6-2.3) mg/dL Total Bilirubin 1.1 (0.2-1.3) mg/dL AST 28 (14-36) U/L ALT 17 (4-34) U/L Alkaline Phosphatase 115 (38-126) U/L Total Protein 6.6 (6.3-8.2) g/dL Albumin 3.4 L (3.5-5.0) g/dL Influenza Type A (PCR) Not Detected (Not Detectd) Influenza Type B (PCR) Not Detected (Not Detectd) RSV (PCR) Not Detected (Not Detectd) SARS-CoV-2 (PCR) Not Detected (Not Detectd) Group A Strep (PCR) (Not Detectd) Blood Type Blood Type Recheck Bld Type Recheck Status Antibody Screen Crossmatch Spec Expiration Date 07/17/24 07/17/24 07/17/24 Range/Units 15:32 18:05 19:36 WBC (3.8-10.6) k/uL RBC (3.80-5.40) m/uL Hgb (11.4-16.0) gm/dL Hct (34.0-46.0) % MCV (80.0-100.0) fL MCH (25.0-35.0) pg MCHC (31.0-37.0) g/dL RDW (11.5-15.5) % Plt Count (150-450) k/uL MPV Neutrophils % % Lymphocytes % % Monocytes % % Eosinophils % % Basophils % % Neutrophils # (1.3-7.7) k/uL Lymphocytes # (1.0-4.8) k/uL Monocytes # (0-1.0) k/uL Eosinophils # (0-0.7) k/uL Basophils # (0-0.2) k/uL Sodium (137-145) mmol/L Potassium (3.5-5.1) mmol/L Chloride (98-107) mmol/L Carbon Dioxide (22-30) mmol/L Anion Gap mmol/L BUN (7-17) mg/dL Creatinine (0.52-1.04) mg/dL Est GFR (CKD-EPI)AfAm (>60 ml/min/1.73 sqM) Est GFR (CKD-EPI)NonAf (>60 ml/min/1.73 sqM) Glucose (74-99) mg/dL Plasma Lactic Acid Fred 0.7 (0.7-2.0) mmol/L Calcium (8.4-10.2) mg/dL Phosphorus (2.5-4.5) mg/dL Magnesium (1.6-2.3) mg/dL Total Bilirubin (0.2-1.3) mg/dL AST (14-36) U/L ALT (4-34) U/L Alkaline Phosphatase (38-126) U/L Total Protein (6.3-8.2) g/dL Albumin (3.5-5.0) g/dL Influenza Type A (PCR) (Not Detectd) Influenza Type B (PCR) (Not Detectd) RSV (PCR) (Not Detectd) SARS-CoV-2 (PCR) (Not Detectd) Group A Strep (PCR) NOT DETECTED (Not Detectd) Blood Type A Negative Blood Type Recheck A Neg Bld Type Recheck Status No Antibody Screen NEGATIVE Crossmatch See Detail Spec Expiration Date 07/20/2024 - 233 Disposition <Dorothy Shaver - Last Filed: 07/17/24 14:35> Is patient prescribed a controlled substance at d/c from ED?: No Time of Disposition: 20:16 Decision to Admit Reason: Admit from EC Decision Date: 07/17/24 Decision Time: 20:16 <Marifer Menjivar - Last Filed: 07/18/24 11:03> Clinical Impression: ESRD (end stage renal disease) on dialysis, Anemia Disposition: ADMITTED IP TO THIS HOSP Condition: Stable
[2024-07-17 16:17] LABS: ALT 17 U/L (4-34); AST 28 U/L (14-36); African American GFR (CKD) 11 (>60 ml/min/1.73 sqM); Albumin 3.4 g/dL (3.5-5.0); Alkaline Phosphatase 115 U/L (38-126); Anion Gap 5 mmol/L; Blood Urea Nitrogen 45 mg/dL (7-17); Calcium 9.8 mg/dL (8.4-10.2); Carbon Dioxide 30 mmol/L (22-30); Chloride 100 mmol/L (98-107); Glucose 87 mg/dL (74-99); Magnesium 2.5 mg/dL (1.6-2.3); Non-African American GFR(CKD) 9 (>60 ml/min/1.73 sqM); Phosphorus 3.1 mg/dL (2.5-4.5); Potassium 5.4 mmol/L (3.5-5.1); Sodium 135 mmol/L (137-145); Total Bilirubin 1.1 mg/dL (0.2-1.3); Total Protein 6.6 g/dL (6.3-8.2)
[2024-07-17 16:23] LABS: Basophils % (A) 0 %; Eosinophils # (A) 0.3 k/uL (0-0.7); Eosinophils % (A) 2 %; Lymphocytes # (A) 1.3 k/uL (1.0-4.8); Lymphocytes % (A) 10 %; MCH 30.9 pg (25.0-35.0); MCHC 33.8 g/dL (31.0-37.0); MCV 91.4 fL (80.0-100.0); Mean Platelet Volume 7.2; Monocytes # (A) 0.7 k/uL (0-1.0); Monocytes % (A) 5 %; Neutrophils # (A) 11.4 k/uL (1.3-7.7); Neutrophils % (A) 82 %; Platelet Count 272 k/uL (150-450); RBC 2.17 m/uL (3.80-5.40); RDW 15.7 % (11.5-15.5); WBC 13.9 k/uL (3.8-10.6)
[2024-07-17 17:07] LABS: HCT 19.8 % (34.0-46.0); HGB 6.7 gm/dL (11.4-16.0)
[2024-07-17] MEDS: MORPHINE SULFATE 4 MG/ML SYRINGE IVP STA (19:48)
[2024-07-17] MEDS ORDERED: NALOXONE 0.4 MG/ML 1 ML VIAL IV PRN (20:16)
[2024-07-17] MEDS ORDERED: ACETAMINOPHEN TAB 325 MG TAB PO PRN (22:03)
[2024-07-17] MEDS: oxyCODONE-APAP 7.5-325MG 1 EACH TAB PO PRN (22:18)
--- NOTE | 2024-07-17 22:57 | P.HPIM ---
History of Present Illness H&P Date: 07/17/24 History of present illness; Parisa Sommers is a 33-year-old female with ESRD on hemodialysis, and hypertension who presents with new onset weakness and shortness of breath. Patient states that her symptoms began yesterday evening and worsened today after she received her influenza vaccination. She also had some fever and chills at that time. She has no sick contacts and had no symptoms before vaccination. She states she currently has weakness, whole body myalgia including chest discomfort, with improved shortness of breath. She states she is now getting hemodialysis 3 times weekly Sunday, , Sunday and missed her dialysis appointment today. At this time patient reports absence of fever, chills, weight loss, palpitations, diaphoresis, dyspnea, cough, nausea, vomiting, constipation, diarrhea, abdominal pain, dizziness, headache, and dysuria. Denied hematochezia, melena, or bleeding elsewhere. Initial lab work done in the ER showed WBC 13.9, hemoglobin 6.7, hematocrit 19.8, platelets 272, sodium 135, potassium 5.4, chloride 100, bicarb 30, BUN 45, creatinine 5.71, phosphorus 3.1, magnesium 2.5, viral respiratory panel negative. EKG done in the ER independently interpreted showed heart rate of 101, no ST segment elevation or depression seen, no T-wave inversions seen. Patient admitted to internal medicine service. REVIEW OF SYSTEMS: All Systems reviewed, pertinent positives and negatives noted in HPI. All other symptoms are negative. PHYSICAL EXAMINATION: Vitals reviewed GENERAL: No acute distress. Well developed, well nourished. HEENT: Pupils are round and equally reacting to light. EOMI. No scleral icterus. Normocephalic, atraumatic. No pharyngeal erythema. No thyromegaly. CARDIOVASCULAR: S1 and S2 present. No murmurs, rubs, or gallops. PULMONARY: Chest is clear to auscultation, no wheezing or crackles. ABDOMEN: Soft, nontender, nondistended, normoactive bowel sounds. No palpable organomegaly. MUSCULOSKELETAL: No apparent joint swelling and deformities. EXTREMITIES: No apparent cyanosis, clubbing. 1+ pedal edema. NEUROLOGICAL: The patient is alert and oriented x3, Gross neurological examination did not reveal any focal deficits. SKIN: No apparent rashes. Labs reviewed Imaging reviewed Assessment and plan Parisa Sommers is a 33-year-old female with ESRD on hemodialysis, and hypertension who presents with new onset weakness and shortness of breath. #Severe chronic disease anemia #Myalgia Continue home-dose Percocet as needed for pain Continue regular dietary intake - S/p 1 U pRBCs. Monitor CBC #ESRD on hemodialysis #Hyperkalemia #Hypertension Resume hemodialysis Resume home calcitriol and PhosLo and sevelamer Resume home Lasix, carvedilol, nifedipine Nephrology consulted Chronic conditions #Chronic pain Resume home Percocet as above Resume home Flexeril #GERD Resume home famotidine F: P.o. E: Replete as needed N: Renal diet E: None DVT ppx: IPCDs Code status: Full code Anticipated discharge place: Pending clinical course Anticipated discharge time: Pending clinical course Dictation was produced using [employer] dictation software. Please excuse any grammatical, word or spelling errors. Past Medical History Past Medical History: Dialysis, Hypertension, Renal Disease, Seizure Disorder, Skin Disorder Additional Past Medical History / Comment(s): P.D. dailysis <TH<SA, seizure 2 yrs ago,possibly has had dvt in past,ovarian cyst uterine fibroids History of Any Multi-Drug Resistant Organisms: None Reported Past Surgical History: Back Surgery Additional Past Surgical History / Comment(s): urethral surgery at 9months old. skull fracture at age 9, back injections Past Anesthesia/Blood Transfusion Reactions: No Reported Reaction Past Psychological History: Anxiety, Depression Smoking Status: Never smoker Past Alcohol Use History: Rare Past Drug Use History: Marijuana - Past Family History Mother Family Medical History: Cancer Additional Family Medical History / Comment(s): ovarian, cervical Medications and Allergies Home Medications Medication Instructions Recorded Confirmed Type PARoxetine [Paxil] 10 mg PO DAILY 01/29/24 07/17/24 History Sevelamer Carbonate 3,200 mg PO TID-W/MEALS 01/29/24 07/17/24 History carvediloL 25 mg PO BID 01/29/24 07/17/24 History rOPINIRole HCL 0.5 mg PO BID 01/29/24 07/17/24 History traZODone HCL [Desyrel] 50 mg PO HS 01/29/24 07/17/24 History Cinacalcet HCl [Sensipar] 60 mg PO Q2D 04/18/24 07/17/24 History Furosemide [Lasix] 80 mg PO BID 04/18/24 07/17/24 History NIFEdipine [Adalat CC] 30 mg PO BID 04/18/24 07/17/24 History calcitrioL 0.25 mcg PO TID 04/18/24 07/17/24 History Calcium Acetate [PhosLo] 1,334 mg PO AC-TID #180 tab 04/20/24 07/17/24 Rx Famotidine [Pepcid] 20 mg PO DAILY 05/23/24 07/17/24 History Cyclobenzaprine [Flexeril] 5 - 10 mg PO TID PRN #30 tablet 07/14/24 07/17/24 Rx oxyCODONE-APAP 7.5-325MG [Percocet 1 tab PO Q6HR PRN 3 Days #12 tab 07/14/24 07/17/24 Rx 7.5-325 mg] Multivitamins, Thera [Multivitamin 1 tab PO DAILY@1200 07/17/24 07/17/24 History (formulary)] Allergies Allergy/AdvReac Type Severity Reaction Status Date / Time amlodipine Allergy Rash/Hives Verified 07/17/24 19:31 silver Allergy Rash/Hives Verified 07/17/24 19:31 [From [employer] Mesh] Physical Exam Vitals: Vital Signs Temp Pulse Resp BP Pulse Ox 07/17/24 22:09 98.4 F 112 H 16 162/104 96 07/17/24 22:01 98.4 F 112 H 16 158/104 07/17/24 18:08 108 H 17 147/96 97 07/17/24 14:43 98.9 F 103 H 18 154/98 92 L Intake and Output 07/17/24 07/17/24 07/17/24 06:59 14:59 22:59 Intake Total 0 Balance 0 Intake: Blood Product 0 Unit 0 Other: Weight 56.699 kg Results CBC & Chem 7: 07/17/24 15:32 07/17/24 15:32 Labs: Abnormal Lab Results - Last 24 Hours (Table) 07/17/24 07/17/24 07/17/24 Range/Units 15:32 15:32 19:36 WBC 13.9 H (3.8-10.6) k/uL RBC 2.17 L (3.80-5.40) m/uL Hgb 6.7 L* (11.4-16.0) gm/dL Hct 19.8 L* (34.0-46.0) % RDW 15.7 H (11.5-15.5) % Neutrophils # 11.4 H (1.3-7.7) k/uL Sodium 135 L (137-145) mmol/L Potassium 5.4 H (3.5-5.1) mmol/L BUN 45 H (7-17) mg/dL Creatinine 5.71 H (0.52-1.04) mg/dL Magnesium 2.5 H (1.6-2.3) mg/dL Albumin 3.4 L (3.5-5.0) g/dL Crossmatch See Detail
[2024-07-17] MEDS ORDERED: CYCLOBENZAPRINE 5 MG TAB PO PRN (23:00)
[2024-07-17] MEDS: NIFEdipine XL 30 MG TAB.ER.24 PO SCH (23:41)
[2024-07-17] MEDS: traZODone HCL 50 MG TAB PO SCH (23:41)
[2024-07-17] MEDS: CINACALCET 30 MG TAB PO SCH (23:42)
[2024-07-18 09:00] LABS: Basophils # (A) 0.06 X 10*3/uL (0.00-0.10); Basophils % (A) 0.4 %; Eosinophils # (A) 0.51 X 10*3/uL (0.04-0.35); Eosinophils % (A) 3.4 %; HCT 22.3 % (37.2-46.3); HGB 7.2 g/dL (12.0-15.0); Lymphocytes % (A) 8.1 %; MCH 29.4 pg (27.0-32.0); MCHC 32.3 g/dL (32.0-37.0); Mean Platelet Volume 8.8 FL (9.5-12.2); Monocytes # (A) 0.75 X 10*3/uL (0.20-1.00); Monocytes % (A) 5.1 %; NRBC Per 100 WBC 0 X 10*3/uL (0.00-0.01); Neutrophils # (A) 12.19 X 10*3/uL (1.80-7.70); Neutrophils % (A) 82.4 %; Platelet Count 232 X 10*3/uL (140-440); RBC 2.45 X 10*6/uL (4.10-5.20); RDW 16.2 % (11.5-14.5)
[2024-07-18] MEDS ORDERED: ENOXAPARIN 40 MG/0.4 ML SYRINGE SQ SCH (09:00)
[2024-07-18] MEDS: FAMOTIDINE 20 MG TAB PO SCH (09:14)
[2024-07-18] MEDS: MULTIVITAMINS, THERA 1 EACH TAB PO SCH (09:14)
[2024-07-18] MEDS: CALCIUM ACETATE 667 MG TAB PO SCH (09:14)
[2024-07-18] MEDS: FUROSEMIDE 80 MG TAB PO SCH (09:15)
[2024-07-18] MEDS: PARoxetine 10 MG TAB PO SCH (09:15)
[2024-07-18] MEDS: carvediloL 12.5 MG TAB PO SCH (09:15)
[2024-07-18 09:25] LABS: BUN/Creat Ratio 7.22 Ratio (12.00-20.00); Blood Urea Nitrogen 48.4 mg/dL (9.0-27.0); Calcium 9.5 mg/dL (8.7-10.3); Carbon Dioxide 23.7 mmol/L (21.6-31.8); Chloride 97 mmol/L (96-109); Glucose 90 mg/dL (70-110); Potassium 5.6 mmol/L (3.5-5.5); Sodium 135 mmol/L (135-145)
[2024-07-18] MEDS: oxyCODONE-APAP 7.5-325MG 1 EACH TAB PO PRN (11:19)
--- NOTE | 2024-07-18 11:23 | P.NPCON ---
History of Present Illness - Reason for Consult end stage renal disease - History of Present Illness Reason for consultation: End-stage renal disease History of present illness: Patient is a 33-year-old female seen in renal consultation for end-stage renal disease. Patient was seen and examined in the emergency room. She is maintained on hemodialysis on Sunday schedule. Patient came to the hospital due to back pain and hip pain which started suddenly. Patient denies any trauma. No falls. No history of diabetes. No history of coronary disease. She does make urine. No fever or chills. No vomiting or diarrhea. Last hemodialysis was Sunday. Patient was noted to have a right ovarian mass for which she underwent right salpingo-oophorectomy on June 12, 2024. At that time she was switched over from peritoneal dialysis to hemodialysis but still has her PD catheter. Denies chest pain or shortness of breath. Hemoglobin noted to be low at 6.7 and she received a unit of blood yesterday. Vital signs are stable. General: No acute distress. HEENT: Head exam is unremarkable. LUNGS: No audible rhonchi or wheezes. HEART: Rate and Rhythm are regular. ABDOMEN: Nontender. EXTREMITITES: Trace edema. Past Medical History Past Medical History: Dialysis, Hypertension, Renal Disease, Seizure Disorder, Skin Disorder Additional Past Medical History / Comment(s): P.D. dailysis <<, seizure 2 yrs ago,possibly has had dvt in past,ovarian cyst uterine fibroids History of Any Multi-Drug Resistant Organisms: None Reported Past Surgical History: Back Surgery Additional Past Surgical History / Comment(s): urethral surgery at 9months old. skull fracture at age 9, back injections Past Anesthesia/Blood Transfusion Reactions: No Reported Reaction Past Psychological History: Anxiety, Depression Smoking Status: Never smoker Past Alcohol Use History: Rare Past Drug Use History: Marijuana - Past Family History Mother Family Medical History: Cancer Additional Family Medical History / Comment(s): ovarian, cervical Medications and Allergies Home Medications Medication Instructions Recorded Confirmed Type PARoxetine [Paxil] 10 mg PO DAILY 01/29/24 07/17/24 History Sevelamer Carbonate 3,200 mg PO TID-W/MEALS 01/29/24 07/17/24 History carvediloL 25 mg PO BID 01/29/24 07/17/24 History rOPINIRole HCL 0.5 mg PO BID 01/29/24 07/17/24 History traZODone HCL [Desyrel] 50 mg PO HS 01/29/24 07/17/24 History Cinacalcet HCl [Sensipar] 60 mg PO Q2D 04/18/24 07/17/24 History Furosemide [Lasix] 80 mg PO BID 04/18/24 07/17/24 History NIFEdipine [Adalat CC] 30 mg PO BID 04/18/24 07/17/24 History calcitrioL 0.25 mcg PO TID 04/18/24 07/17/24 History Calcium Acetate [PhosLo] 1,334 mg PO AC-TID #180 tab 04/20/24 07/17/24 Rx Famotidine [Pepcid] 20 mg PO DAILY 05/23/24 07/17/24 History Cyclobenzaprine [Flexeril] 5 - 10 mg PO TID PRN #30 tablet 07/14/24 07/17/24 Rx oxyCODONE-APAP 7.5-325MG [Percocet 1 tab PO Q6HR PRN 3 Days #12 tab 07/14/24 07/17/24 Rx 7.5-325 mg] Multivitamins, Thera [Multivitamin 1 tab PO DAILY@1200 07/17/24 07/17/24 History (formulary)] Allergies Allergy/AdvReac Type Severity Reaction Status Date / Time amlodipine Allergy Rash/Hives Verified 07/17/24 19:31 silver Allergy Rash/Hives Verified 07/17/24 19:31 [From Tegaderm AG Mesh] Physical Exam Vitals: Vital Signs Temp Pulse Resp BP Pulse Ox 07/18/24 09:00 125 H 18 161/104 98 07/18/24 06:37 123 H 16 169/107 93 L 07/18/24 03:11 106 H 16 186/122 94 L 07/18/24 00:08 98.3 F 110 H 18 166/109 96 07/17/24 22:29 98.5 F 105 H 18 162/106 97 07/17/24 22:09 98.4 F 112 H 16 162/104 96 07/17/24 22:01 98.4 F 112 H 16 158/104 07/17/24 18:08 108 H 17 147/96 97 07/17/24 14:43 98.9 F 103 H 18 154/98 92 L Intake and Output 07/17/24 07/18/24 07/18/24 22:59 06:59 14:59 Intake Total 0 310 Balance 0 310 Intake: Blood Product 0 310 Rc As-1 Unit 0 310 [id number] Results - Lab Results Most recent lab results Calcium 9.5 mg/dL (8.7-10.3) 07/18/24 05:02 Phosphorus 3.1 mg/dL (2.5-4.5) 07/17/24 15:32 Magnesium 2.5 mg/dL (1.6-2.3) H 07/17/24 15:32 07/18/24 05:02 07/18/24 05:02 Assessment and Plan Plan: Assessment: 1. End-stage renal disease maintained on hemodialysis on Sunday schedule. 2. Acute blood loss anemia status post blood transfusion this admission. Denies any active bleeding. 3. Right ovarian mass status post right salpingo-oophorectomy May 2024. 4. Hypertension with chronic kidney disease. Exacerbated by pain. 5. Chronic kidney disease mineral bone disease maintained on phosphate binders and Sensipar. 6. Mild hyperkalemia secondary to chronic kidney disease. Plan: Hemodialysis today. Check phosphoru and PTH level. Home antihypertensives resumed. Check iron studies. Add Joni. Thank you for the consultation. I will continue to follow the patient with you during her hospital stay.
[2024-07-18] MEDS: SEVELAMER 800 MG TAB PO SCH (11:35)
[2024-07-18] MEDS: DARBEPOETIN ALFA 40 MCG/0.4 ML SYRINGE SQ SCH (12:56)
--- NOTE | 2024-07-18 14:41 | P.DS ---
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 Initial lab work done in the ER showed WBC 13.9, hemoglobin 6.7, hematocrit 19.8, platelets 272, sodium 135, potassium 5.4, chloride 100, bicarb 30, BUN 45, creatinine 5.71, phosphorus 3.1, magnesium 2.5, viral respiratory panel negative. EKG done in the ER showed heart rate of 101, no ST segment elevation or depression seen, no T-wave inversions seen. Patient was given 1 unit of packed RBC. Her hemoglobin improved to 7.2. Patient no longer complaining of shortness of breath and generalized malaise. Nephrology was consulted. Patient was given a session of dialysis. Patient continues show improvement in her symptoms. Patient is medically optimized to be discharged. Patient also having significant right buttock pain, recent pelvic CT did show ischiofemoral impingement which patient is aware of. Instructed to have outpatient follow-up with orthopedic surgery. Discharge instructions: Patient is advised to follow-up with her PCP and nephrology within 1 week. Patient is advised to continue with her home medications as directed. Patient is provided with instruction on anemia upon discharge. Vital signs reviewed. Gen: in no apparent distress, resting comfortably in bed Eyes: PERRL, no scleral injection or icterus HENT: normocephalic, atraumatic, good hearing acuity, moist mucous membranes Neck: full range of motion Resp: CTAB, no rales, rhonchi, or wheezes CVS: normal S1 and S2, no murmurs, rubs or gallops, no edema GI: soft, NTTP, ND, no hepatosplenomegaly : no suprapubic tenderness, no CVAT, johnson catheter [is/not] present MSK: no clubbing, no cyanosis, no noted contractures of extremities Skin: no noted rashes, petechiae; temperature of skin is appropriate Neuro: moving all extremities without signs of weakness, CN II-XII intact Psych: cooperative, euthymic mood, insight and judgment intact A total of 35 minutes of time were spent preparing this complex discharge summary. Patient was discharged on 07/18/2024 at 1356. I have seen and evaluated the patient today. Discussed with the resident and agree with the residents finding and plan as documented in the resident's note. Changes highlighted in blue font. Patient Condition at Discharge: Stable Plan - Discharge Summary New Discharge Prescriptions: Continue carvediloL 25 mg PO BID Sevelamer Carbonate 3,200 mg PO TID-W/MEALS Calcium Acetate [PhosLo] 1,334 mg PO AC-TID #180 tab Famotidine [Pepcid] 20 mg PO DAILY Cyclobenzaprine [Flexeril] 5 - 10 mg PO TID PRN #30 tablet PRN Reason: Pain PARoxetine [Paxil] 10 mg PO DAILY traZODone HCL [Desyrel] 50 mg PO HS rOPINIRole HCL 0.5 mg PO BID Furosemide [Lasix] 80 mg PO BID Cinacalcet HCl [Sensipar] 60 mg PO Q2D NIFEdipine [Adalat CC] 30 mg PO BID calcitrioL 0.25 mcg PO TID oxyCODONE-APAP 7.5-325MG [Percocet 7.5-325 mg] 1 tab PO Q6HR PRN 3 Days #12 tab PRN Reason: Pain Multivitamins, Thera [Multivitamin (formulary)] 1 tab PO DAILY@1200 Discharge Medication List PARoxetine [Paxil] 10 mg PO DAILY 01/29/24 [History] Sevelamer Carbonate 3,200 mg PO TID-W/MEALS 01/29/24 [History] carvediloL 25 mg PO BID 01/29/24 [History] rOPINIRole HCL 0.5 mg PO BID 01/29/24 [History] traZODone HCL [Desyrel] 50 mg PO HS 01/29/24 [History] Cinacalcet HCl [Sensipar] 60 mg PO Q2D 04/18/24 [History] Furosemide [Lasix] 80 mg PO BID 04/18/24 [History] NIFEdipine [Adalat CC] 30 mg PO BID 04/18/24 [History] calcitrioL 0.25 mcg PO TID 04/18/24 [History] Calcium Acetate [PhosLo] 1,334 mg PO AC-TID #180 tab 04/20/24 [Rx] Famotidine [Pepcid] 20 mg PO DAILY 05/23/24 [History] Cyclobenzaprine [Flexeril] 5 - 10 mg PO TID PRN #30 tablet 07/14/24 [Rx] oxyCODONE-APAP 7.5-325MG [Percocet 7.5-325 mg] 1 tab PO Q6HR PRN 3 Days #12 tab 07/14/24 [Rx] Multivitamins, Thera [Multivitamin (formulary)] 1 tab PO DAILY@1200 07/17/24 [History] Follow up Appointment(s)/Referral(s): Angela Torres MD [Primary Care Provider] - 1-2 days Armando Gonzalez DO [STAFF PHYSICIAN] - 1 Week Patient Instructions/Handouts: Anemia (DC) Activity/Diet/Wound Care/Special Instructions: Please see your nephrology and PCP. Discharge Disposition: HOME SELF-CARE
[2024-07-18 15:38] LABS: % Iron Saturation 6.05 (12.00-45.00); Phosphorus 3.1 mg/dL (2.4-5.1)
[2024-07-18 17:08] VITALS: TEMP 97.9
[2024-07-18 17:14] VITALS: BP 147/88; PULSE 100; RESP 20
== END 2024-07-18 17:28 | disposition home or self-care (01) ==
LOC: EC 14:01 → 5NMEDONC 20:19
PROVIDERS: ADMIT Internal Medicine; ATTEND Internal Medicine
DX: I12.0 Hypertensive chronic kidney disease with stage 5 chronic kidney disease or end stage renal disease (principal); N18.6 End stage renal disease; D62 Acute posthemorrhagic anemia; G89.29 Other chronic pain; D63.1 Anemia in chronic kidney disease; E87.5 Hyperkalemia; F32.A Depression, unspecified; F41.9 Anxiety disorder, unspecified; R50.9 Fever, unspecified; G40.909 Epilepsy, unspecified, not intractable, without status epilepticus; K21.9 Gastro-esophageal reflux disease without esophagitis; M89.8X9 Other specified disorders of bone, unspecified site; Z79.899 Other long term (current) drug therapy; Z99.2 Dependence on renal dialysis; Z88.8 Allergy status to other drugs, medicaments and biological substances
CPT/HCPCS: 36430; 96374; 99291; 36415; 93005; 86900; 86901; 87651; 80053; 80048; 82728; 83540; 83550; 83605; 83735; 84100 ×2; 85025 ×2; 86850; 86920; 83970; 87636; G0378 ×2; G0257; P9016; J2270; J0881; 90935

== ENCOUNTER 2024-07-24 13:31 | Emergency (ER) | payer MEDICARE, OTHER ==
[2024-07-24 13:39] VITALS: RESP 18
[2024-07-24] MEDS: LIDOCAINE 4% PATCH TOPICAL ONE (14:13)
[2024-07-24] MEDS: ONDANSETRON 4 MG/2 ML VIAL IVP STA (14:14)
[2024-07-24] MEDS: HYDROmorphone 1 MG/ML 1 ML SYRINGE IVP STA (14:16)
[2024-07-24 14:20] LABS: Anisocytosis Slight; Basophils % (A) 0 %; Eosinophils # (A) 0.7 k/uL (0-0.7); Eosinophils % (A) 5 %; HCT 25.1 % (34.0-46.0); Lymphocytes # (A) 1.1 k/uL (1.0-4.8); Lymphocytes % (A) 9 %; MCH 29.4 pg (25.0-35.0); MCHC 32.5 g/dL (31.0-37.0); MCV 90.4 fL (80.0-100.0); Mean Platelet Volume 7.2; Monocytes % (A) 8 %; Neutrophils # (A) 9.6 k/uL (1.3-7.7); Neutrophils % (A) 77 %; Platelet Count 453 k/uL (150-450); RBC 2.78 m/uL (3.80-5.40); RDW 16.6 % (11.5-15.5); WBC 12.6 k/uL (3.8-10.6)
[2024-07-24 14:22] LABS: HGB 8.2 gm/dL (11.4-16.0)
--- NOTE | 2024-07-24 14:27 | ED ---
Nausea/Vomiting/Diarrhea HPI - General Chief complaint: Abdominal Pain Stated complaint: Abd pain Time Seen by Provider: 07/24/24 13:45 Source: patient, RN notes reviewed Mode of arrival: wheelchair Limitations: no limitations - History of Present Illness Initial comments: This is a 33-year-old female who presents to the emergency department for weakness, nausea, and diarrhea. States that for the last 2 to 3 days she has been very weak, fatigued, and has no energy. She is a dialysis patient, but states that she missed her session today because of sleeping through her alarm. She has pain in the right lower back and right hip, which is an ongoing issue for her related to hip impingement. Feels like she has a "bubbly gut". When she has a bowel movement, states that it is almost all liquid with very small pieces of stool. She has nausea but no vomiting. MD complaint: nausea, diarrhea - Related Data Home Medications Medication Instructions Recorded Confirmed PARoxetine [Paxil] 10 mg PO DAILY 01/29/24 07/17/24 Sevelamer Carbonate 3,200 mg PO TID-W/MEALS 01/29/24 07/17/24 carvediloL 25 mg PO BID 01/29/24 07/17/24 rOPINIRole HCL 0.5 mg PO BID 01/29/24 07/17/24 traZODone HCL [Desyrel] 50 mg PO HS 01/29/24 07/17/24 Cinacalcet HCl [Sensipar] 60 mg PO Q2D 04/18/24 07/17/24 Furosemide [Lasix] 80 mg PO BID 04/18/24 07/17/24 NIFEdipine [Adalat CC] 30 mg PO BID 04/18/24 07/17/24 calcitrioL 0.25 mcg PO TID 04/18/24 07/17/24 Famotidine [Pepcid] 20 mg PO DAILY 05/23/24 07/17/24 Multivitamins, Thera [Multivitamin 1 tab PO DAILY@1200 07/17/24 07/17/24 (formulary)] Previous Rx's Medication Instructions Recorded Calcium Acetate [PhosLo] 1,334 mg PO AC-TID #180 tab 04/20/24 Cyclobenzaprine [Flexeril] 5 - 10 mg PO TID PRN #30 tablet 07/14/24 oxyCODONE-APAP 7.5-325MG [Percocet 1 tab PO Q6HR PRN 3 Days #12 tab 07/24/24 7.5-325 mg] Allergies Allergy/AdvReac Type Severity Reaction Status Date / Time amlodipine Allergy Rash/Hives Verified 07/24/24 13:34 silver Allergy Rash/Hives Verified 07/24/24 13:34 [From TegadeXZERES AG Mesh] Review of Systems ROS Statement: Those systems with pertinent positive or pertinent negative responses have been documented in the HPI. ROS Other: All systems not noted in ROS Statement are negative. Past Medical History Past Medical History: Dialysis, Hypertension, Renal Disease, Seizure Disorder, Skin Disorder Additional Past Medical History / Comment(s): P.D. dailysis TU<TH<[place], seizure 2 yrs ago,possibly has had dvt in past,ovarian cyst uterine fibroids History of Any Multi-Drug Resistant Organisms: None Reported Past Surgical History: Back Surgery Additional Past Surgical History / Comment(s): urethral surgery at 9months old. skull fracture at age 9, back injections Past Anesthesia/Blood Transfusion Reactions: No Reported Reaction Past Psychological History: Anxiety, Depression Smoking Status: Never smoker Past Alcohol Use History: Rare Past Drug Use History: Marijuana - Past Family History Mother Family Medical History: Cancer Additional Family Medical History / Comment(s): ovarian, cervical General Exam Limitations: no limitations General appearance: alert, in no apparent distress Head exam: Present: atraumatic, normocephalic, normal inspection Respiratory exam: Present: normal lung sounds bilaterally. Absent: respiratory distress, wheezes, rales, rhonchi, stridor Cardiovascular Exam: Present: regular rate, normal rhythm, normal heart sounds. Absent: systolic murmur, diastolic murmur, rubs, gallop, clicks GI/Abdominal exam: Present: soft, normal bowel sounds. Absent: distended, tenderness, guarding, rebound, rigid Neurological exam: Present: alert, oriented X3, CN II-XII intact Psychiatric exam: Present: normal affect, normal mood Skin exam: Present: warm, dry, intact, normal color. Absent: rash Course Vital Signs 07/24/24 07/24/24 07/24/24 13:35 14:21 15:15 Temperature 98.3 F Pulse Rate 87 94 Respiratory 18 18 Rate Blood Pressure 152/89 135/74 117/67 O2 Sat by Pulse 100 100 Oximetry 07/24/24 16:22 Temperature 98.4 F Pulse Rate 95 Respiratory 18 Rate Blood Pressure 132/81 O2 Sat by Pulse 100 Oximetry Medical Decision Making - Medical Decision Making This is a 33 year old female who presents to the emergency department for nausea, diarrhea, and weakness. Was pt. sent in by a medical professional or institution? @ -No Did you speak to anyone other than the patient for history? @ -No Did you review nursing and triage notes? @ -Yes, and I agree, it is accurate with regards to the patient's symptoms. Were old charts reviewed? @ -No Differential Diagnosis? @ -Differential Nausea and Vomiting: Gastroenteritis, cholecystitis, appendicitis, pancreatitis, migraine, benign positional vertigo, food borne illness, pyelonephritis, irritable bowel syndrome, influenza, Covid, GERD, incarcerated hernia, intestinal obstruction, this is not meant to be an all-inclusive list. EKG interpreted by me (3pts min.)? @ -EKG interpreted by me demonstrating the following: Sinus rhythm. Ventricular rate 84 bpm, TX interval 146 ms, QRS duration 87 ms, QTc 408 ms. X-rays interpreted by me (1pt min.)? @ -Not obtained CT interpreted by me (1pt min.)? @ -CT scan of the abdomen and pelvis obtained. My interpretation identifies no evidence of bowel wall thickening or free air. U/S interpreted by me (1pt. min.)? @ -Not obtained What testing was considered but not performed? (CT, X-rays, U/S, labs)? Why? @ -None What meds were considered but not given? Why? @ -None Did you discuss the management of the patient with other professionals? @ -No Did you reconcile home meds? @ -No Was smoking cessation discussed for >3mins.? @ -No Was critical care preformed (if so, how long)? @ -No Were there social determinants of health that impacted care today? How? (Homelessness, low income, unemployed, alcoholism, drug addiction, transportation, low edu. Level, literacy, decrease access to med. care, detention, rehab)? @ -No Was there de-escalation of care discussed even if they declined? (Discuss DNR or withdrawal of care, Hospice)? @ -No What co-morbidities impacted this encounter? (DM, HTN, Smoking, COPD, CAD, Cancer, CVA, Hep., AIDS, mental health diagnosis, sleep apnea, morbid obesity)? @ -Renal disease Was patient admitted / discharged? @ -Discharged. Lab work demonstrates leukocytosis, which is almost always present for the patient and improved when compared with 6 days ago. Hemoglobin is also improved when compared with 6 days ago. Renal function stable and potassium within normal limits despite patient missing dialysis today. COVID, influenza, and RSV testing negative. Heterophile did return positive, which we discussed can account for the fatigue she has been experiencing. CT scan of the abdomen and pelvis obtained demonstrating some fluid in the abdomen related to ascites or intraperitoneal dialysis. Patient was previously on peritoneal dialysis but was temporarily switched to hemodialysis due to an abdominal surgery. No acute findings to account for symptoms were identified on the CT scan. Patient's symptoms were managed in the emergency department. States that she has enough Zofran at home and I advised taking this as needed. She was given a refill on her pain medication. Advised orthopedic follow-up regarding the hip impingement as well. Patient discharged home in stable condition. Case discussed with ED attending Dr. Cooper. Return precautions reviewed in depth, the patient is instructed to return to the emergency department with any new, worsening, or concerning symptoms. Patient verbalized understanding. Undiagnosed new problem with uncertain prognosis? @ -None Drug Therapy requiring intensive monitoring for toxicity (Heparin, Nitro, Insulin, Cardizem)? @ -None Were any procedures done? @ -None Diagnosis/symptom? @ -Mononucleosis, nausea, diarrhea Acute, or Chronic, or Acute on Chronic? @ -Acute Uncomplicated (without systemic symptoms) or Complicated (systemic symptoms)? @ -Complicated Side effects of treatment? @ -None Exacerbation, Progression, or Severe Exacerbation] @ -Not applicable Poses a threat to life or bodily function? @ -No - Lab Data Result diagrams: 07/24/24 14:04 07/24/24 14:04 Lab Results 07/24/24 07/24/24 07/24/24 Range/Units 14:04 14:04 14:04 WBC 12.6 H (3.8-10.6) k/uL RBC 2.78 L (3.80-5.40) m/uL Hgb 8.2 L D (11.4-16.0) gm/dL Hct 25.1 L (34.0-46.0) % MCV 90.4 (80.0-100.0) fL MCH 29.4 (25.0-35.0) pg MCHC 32.5 (31.0-37.0) g/dL RDW 16.6 H (11.5-15.5) % Plt Count 453 H (150-450) k/uL MPV 7.2 Neutrophils % 77 % Lymphocytes % 9 % Monocytes % 8 % Eosinophils % 5 % Basophils % 0 % Neutrophils # 9.6 H (1.3-7.7) k/uL Lymphocytes # 1.1 (1.0-4.8) k/uL Monocytes # 1.0 (0-1.0) k/uL Eosinophils # 0.7 (0-0.7) k/uL Basophils # 0.0 (0-0.2) k/uL Anisocytosis Slight Sodium 135 L (137-145) mmol/L Potassium 4.9 (3.5-5.1) mmol/L Chloride 103 (98-107) mmol/L Carbon Dioxide 21 L (22-30) mmol/L Anion Gap 11 mmol/L BUN 26 H (7-17) mg/dL Creatinine 6.53 H (0.52-1.04) mg/dL Est GFR (CKD-EPI)AfAm 9 (>60 ml/min/1.73 sqM) Est GFR (CKD-EPI)NonAf 8 (>60 ml/min/1.73 sqM) Glucose 82 (74-99) mg/dL Plasma Lactic Acid Fred 0.5 L (0.7-2.0) mmol/L Calcium 9.7 (8.4-10.2) mg/dL Phosphorus 2.8 (2.5-4.5) mg/dL Magnesium 2.3 (1.6-2.3) mg/dL Total Bilirubin 0.5 (0.2-1.3) mg/dL AST 22 (14-36) U/L ALT 13 (4-34) U/L Alkaline Phosphatase 124 (38-126) U/L Total Protein 6.1 L (6.3-8.2) g/dL Albumin 3.1 L (3.5-5.0) g/dL Amylase 36 (30-110) U/L Lipase 91 (23-300) U/L Heterophile Antibody (Negative) Influenza Type A (PCR) (Not Detectd) Influenza Type B (PCR) (Not Detectd) RSV (PCR) (Not Detectd) SARS-CoV-2 (PCR) (Not Detectd) 07/24/24 07/24/24 Range/Units 14:04 14:04 WBC (3.8-10.6) k/uL RBC (3.80-5.40) m/uL Hgb (11.4-16.0) gm/dL Hct (34.0-46.0) % MCV (80.0-100.0) fL MCH (25.0-35.0) pg MCHC (31.0-37.0) g/dL RDW (11.5-15.5) % Plt Count (150-450) k/uL MPV Neutrophils % % Lymphocytes % % Monocytes % % Eosinophils % % Basophils % % Neutrophils # (1.3-7.7) k/uL Lymphocytes # (1.0-4.8) k/uL Monocytes # (0-1.0) k/uL Eosinophils # (0-0.7) k/uL Basophils # (0-0.2) k/uL Anisocytosis Sodium (137-145) mmol/L Potassium (3.5-5.1) mmol/L Chloride (98-107) mmol/L Carbon Dioxide (22-30) mmol/L Anion Gap mmol/L BUN (7-17) mg/dL Creatinine (0.52-1.04) mg/dL Est GFR (CKD-EPI)AfAm (>60 ml/min/1.73 sqM) Est GFR (CKD-EPI)NonAf (>60 ml/min/1.73 sqM) Glucose (74-99) mg/dL Plasma Lactic Acid Fred (0.7-2.0) mmol/L Calcium (8.4-10.2) mg/dL Phosphorus (2.5-4.5) mg/dL Magnesium (1.6-2.3) mg/dL Total Bilirubin (0.2-1.3) mg/dL AST (14-36) U/L ALT (4-34) U/L Alkaline Phosphatase (38-126) U/L Total Protein (6.3-8.2) g/dL Albumin (3.5-5.0) g/dL Amylase (30-110) U/L Lipase (23-300) U/L Heterophile Antibody Positive (Negative) Influenza Type A (PCR) Not Detected (Not Detectd) Influenza Type B (PCR) Not Detected (Not Detectd) RSV (PCR) Not Detected (Not Detectd) SARS-CoV-2 (PCR) Not Detected (Not Detectd) - Radiology Data Radiology results: report reviewed, image reviewed Disposition Clinical Impression: Mononucleosis, Nausea, Diarrhea Disposition: HOME SELF-CARE Instructions (If sedation given, give patient instructions): Mononucleosis (ED), Acute Nausea and Vomiting (ED) Additional Instructions: Return to the emergency department with any new, worsening, or concerning symptoms. Take the Percocet sparingly when your pain is the most severe. Continue to take the Zofran you have at home as needed for nausea and vomiting. You can use the Lomotil provided for diarrhea. You can also use [id number] Imodium. Follow up with your primary care provider in 1-2 days. Make sure you also follow-up with orthopedics regarding your hip and back. Prescriptions: oxyCODONE-APAP 7.5-325MG [Percocet 7.5-325 mg] 1 tab PO Q6HR PRN 3 Days #12 tab PRN Reason: Pain Is patient prescribed a controlled substance at d/c from ED?: Yes When asked, does pt state using other controlled substances?: No If prescribed controlled substance>3 days was MAPS reviewed?: Prescribed <3 Days Referrals: Angela Torres MD [Primary Care Provider] - 1-2 days Time of Disposition: 16:16
[2024-07-24 14:30] LABS: ALT 13 U/L (4-34); AST 22 U/L (14-36); African American GFR (CKD) 9 (>60 ml/min/1.73 sqM); Albumin 3.1 g/dL (3.5-5.0); Alkaline Phosphatase 124 U/L (38-126); Amylase 36 U/L (30-110); Anion Gap 11 mmol/L; Blood Urea Nitrogen 26 mg/dL (7-17); Calcium 9.7 mg/dL (8.4-10.2); Carbon Dioxide 21 mmol/L (22-30); Chloride 103 mmol/L (98-107); Glucose 82 mg/dL (74-99); Lipase 91 U/L (23-300); Magnesium 2.3 mg/dL (1.6-2.3); Non-African American GFR(CKD) 8 (>60 ml/min/1.73 sqM); Phosphorus 2.8 mg/dL (2.5-4.5); Potassium 4.9 mmol/L (3.5-5.1); Sodium 135 mmol/L (137-145); Total Bilirubin 0.5 mg/dL (0.2-1.3); Total Protein 6.1 g/dL (6.3-8.2)
--- NOTE | 2024-07-24 15:53 | CT ---
EXAMINATION TYPE: CT abdomen pelvis wo con DATE OF EXAM: 07/24/2024 COMPARISON: 07/14/2024 INDICATION: nausea, abdominal pain DLP: 378.5 mGycm, Automated exposure control for dose reduction was used. CONTRAST: 0 mL of Isovue 300. Study performed without Oral Contrast TECHNIQUE: Axial images were obtained from above the diaphragm to the pubic rami in the axial plane a t 5 mm thick sections. Reconstructed images are reviewed on the computer in the coronal plane. FINDINGS: Limited CT sections are obtained the lung bases. The lung bases are clear. CT ABDOMEN: Small amount of ascites is present adjacent to the liver and spleen. This can be related to intraperitoneal dialysis. Dialysis catheter is evident within the pelvis. Liver: Normal Spleen: Normal Pancreas: Normal Adrenal glands: The adrenal glands are normal. Gallbladder: Normal Kidneys: [place] kidneys are atrophic and very small. Aorta: Normal Inferior vena cava: Normal. CT PELVIS: Loops of bowel within the abdomen and pelvis are normal. No suspicious dilated loops of bowel are andrea dent. Minimal fecal debris is:. There are loops of bowel which are incompletely distended or lack oral contrast limiting their evaluation. Appendix: There appears to be the appendix is normal as visualized. Urinary bladder: Decompressed with limited evaluation. Apparent Wall thickening can be related to inc omplete distention. Genitourinary structures: Uterus and adnexa appear normal. Osseous structures: No suspicious lytic or sclerotic lesions. IMPRESSION: 1. Fluid within the abdomen related to ascites or intraperitoneal dialysis. The peritoneal dialysis catheter is within the pelvis. [facility], Workstation: [email or web address], 07/24/2024 3:51 PM
[2024-07-24] MEDS: DIPHENOX-ATROP STARTER PACK 8 TAB BTL PO STA (16:21)
[2024-07-24 16:24] VITALS: BP 132/81; PULSE 95; TEMP 98.4
== END 2024-07-24 16:27 | disposition home or self-care (01) ==
LOC: EC 13:31
CPT/HCPCS: 36415; 74176; 80053; 82150; 83605; 83690; 83735; 84100; 85025; 86308; 87636; 93005; 99284

== ENCOUNTER 2024-07-31 23:39 | Emergency (ER) | payer MEDICARE, OTHER ==
--- NOTE | 2024-08-01 00:32 | ED ---
General Adult HPI - General Chief complaint: Recheck/Abnormal Lab/Rx Stated complaint: Fever Time Seen by Provider: 08/01/24 00:30 Source: patient, RN notes reviewed Mode of arrival: ambulatory Limitations: no limitations - History of Present Illness Initial comments: 43-year-old female presenting to the ER with chief complaint of bodyaches x 1 day. States last night she began to have subjective fevers, cough, and bodyaches and is requesting pain control. States she took an oxycodone earlier today with little relief of symptoms. She states she was diagnosed with mono last week however the symptoms are new from yesterday. She does have a history of end-stage renal disease on dialysis however reports she did not get dialysis today because she had a doctor's appointment. She states she is on Coreg and it nifedipine for hypertension however did not take her meds today. Denies chest pain, shortness of breath, vision changes, headache. - Related Data Home Medications Medication Instructions Recorded Confirmed PARoxetine [Paxil] 10 mg PO DAILY 01/29/24 07/17/24 Sevelamer Carbonate 3,200 mg PO TID-W/MEALS 01/29/24 07/17/24 carvediloL 25 mg PO BID 01/29/24 07/17/24 rOPINIRole HCL 0.5 mg PO BID 01/29/24 07/17/24 traZODone HCL [Desyrel] 50 mg PO HS 01/29/24 07/17/24 Cinacalcet HCl [Sensipar] 60 mg PO Q2D 04/18/24 07/17/24 Furosemide [Lasix] 80 mg PO BID 04/18/24 07/17/24 NIFEdipine [Adalat CC] 30 mg PO BID 04/18/24 07/17/24 calcitrioL 0.25 mcg PO TID 04/18/24 07/17/24 Famotidine [Pepcid] 20 mg PO DAILY 05/23/24 07/17/24 Multivitamins, Thera [Multivitamin 1 tab PO DAILY@1200 07/17/24 07/17/24 (formulary)] Previous Rx's Medication Instructions Recorded Calcium Acetate [PhosLo] 1,334 mg PO AC-TID #180 tab 04/20/24 Cyclobenzaprine [Flexeril] 5 - 10 mg PO TID PRN #30 tablet 07/14/24 oxyCODONE-APAP 7.5-325MG [Percocet 1 tab PO Q6HR PRN 3 Days #12 tab 07/24/24 7.5-325 mg] Allergies Allergy/AdvReac Type Severity Reaction Status Date / Time amlodipine Allergy Rash/Hives Verified 07/31/24 23:42 silver Allergy Rash/Hives Verified 07/31/24 23:42 [From [employer] Mesh] Review of Systems ROS Statement: Those systems with pertinent positive or pertinent negative responses have been documented in the HPI. ROS Other: All systems not noted in ROS Statement are negative. Past Medical History Past Medical History: Dialysis, Hypertension, Renal Disease, Seizure Disorder, Skin Disorder Additional Past Medical History / Comment(s): P.D. dailysis TU<TH<[place], seizure 2 yrs ago,possibly has had dvt in past,ovarian cyst uterine fibroids History of Any Multi-Drug Resistant Organisms: None Reported Past Surgical History: Back Surgery Additional Past Surgical History / Comment(s): urethral surgery at 7months old. skull fracture at age 9, back injections Past Anesthesia/Blood Transfusion Reactions: No Reported Reaction Past Psychological History: Anxiety, Depression Smoking Status: Never smoker Past Alcohol Use History: Rare Past Drug Use History: Marijuana - Past Family History Mother Family Medical History: Cancer Additional Family Medical History / Comment(s): ovarian, cervical General Exam Limitations: no limitations General appearance: alert, in no apparent distress Head exam: Present: atraumatic, normocephalic, normal inspection Eye exam: Present: normal appearance, PERRL, EOMI. Absent: scleral icterus, conjunctival injection, periorbital swelling ENT exam: Present: normal exam, normal oropharynx, mucous membranes moist Neck exam: Present: normal inspection. Absent: tenderness, meningismus, lymphadenopathy Respiratory exam: Present: normal lung sounds bilaterally. Absent: respiratory distress, wheezes, rales, rhonchi, stridor Cardiovascular Exam: Present: regular rate, normal rhythm, normal heart sounds. Absent: systolic murmur, diastolic murmur, rubs, gallop, clicks Neurological exam: Present: alert, oriented X3 Psychiatric exam: Present: normal affect, normal mood Skin exam: Present: warm, dry, intact, normal color. Absent: rash Course Vital Signs 07/31/24 08/01/24 08/01/24 23:40 01:42 02:05 Temperature 98.5 F 99.3 F Pulse Rate 105 H 93 93 Respiratory 18 20 16 Rate Blood Pressure 186/105 189/121 189/121 O2 Sat by Pulse 97 98 96 Oximetry Medical Decision Making - Medical Decision Making Was pt. sent in by a medical professional or institution ([facility], [facility], urgent care, hospital, or long term...) When possible be specific @ -No Did you speak to anyone other than the patient for history (EMS, parent, family, police, friend...)? What history was obtained from this source @ -No Did you review nursing and triage notes (agree or disagree)? Why? @ -I reviewed and agree with nursing and triage notes Were old charts reviewed (outside hosp., previous admission, EMS record, old EKG, old radiological studies, urgent care reports/EKG's, long term records)? Report findings @ -No old charts were reviewed Differential Diagnosis (chest pain, altered mental status, abdominal pain women, abdominal pain men, vaginal bleeding, weakness, fever, dyspnea, syncope, headache, dizziness, GI bleed, back pain, seizure, CVA, palpatations, mental health, musculoskeletal)? @ -Viral URI, mono, pneumonia, strep pharyngitis EKG interpreted by me (3pts min.). @ -None X-rays interpreted by me (1pt min.). @ -Chest x-ray reveals no acute process CT interpreted by me (1pt min.). @ -None done U/S interpreted by me (1pt. min.). @ -None done What testing was considered but not performed or refused? (CT, X-rays, U/S, labs)? Why? @ -None What meds were considered but not given or refused? Why? @ -None Did you discuss the management of the patient with other professionals (professionals i.e. [facility], [facility], lab, RT, psych nurse, web content & social media manager, lap regulator, teacher, custody officer, patient case coordinator)? Give summary @ -No Was smoking cessation discussed for >3mins.? @ -No Was critical care preformed (if so, how long)? @ -No Were there social determinants of health that impacted care today? How? (Homelessness, low income, unemployed, alcoholism, drug addiction, transportation, low edu. Level, literacy, decrease access to med. care, [facility], rehab)? @ -No Was there de-escalation of care discussed even if they declined (Discuss DNR or withdrawal of care, Hospice)? DNR status @ -No What co-morbidities impacted this encounter? (DM, HTN, Smoking, COPD, CAD, Cancer, CVA, ARF, Chemo, Hep., AIDS, mental health diagnosis, sleep apnea, morbid obesity)? @ -None Was patient admitted / discharged? Hospital course, mention meds given and route, prescriptions, significant lab abnormalities, going to OR and other pertinent info. @ -Discharge. This is a 33-year-old female presenting with bodyaches x 1 day with cough. Patient was diagnosed with mono 1 week ago however reports symptoms are worsening and is here for pain control. No red flag symptoms. Vital signs remarkable for hypertension and mild tachycardia at 105 bpm, however patient reports she has not taken her antihypertensive medications today. Denies cardiopulmonary alarm symptoms. Physical examination unremarkable. Patient is offered Tylenol however declined stating that Tylenol does not work for her. She was given Zofran for nausea upon request. Cepheid negative, strep negative. Chest x-ray reveals no acute process. Negative results discussed with patient. Diagnosis of viral URI discussed as well as supportive care/return precautions. Advised to follow-up with PCP. Advised to take all at home medications upon discharge, patient agrees. Cardiopulmonary alarm symptoms discussed with patient. Patient discharged in stable condition. Case was discussed with my ED attending Dr. Cooper. Undiagnosed new problem with uncertain prognosis? @ -No Drug Therapy requiring intensive monitoring for toxicity (Heparin, Nitro, Insulin, Cardizem)? @ -No Were any procedures done? @ -No Diagnosis/symptom? @ -Viral URI Acute, or Chronic, or Acute on Chronic? @ -Acute Uncomplicated (without systemic symptoms) or Complicated (systemic symptoms)? @ -Uncomplicated Side effects of treatment? @ -No Exacerbation, Progression, or Severe Exacerbation? @ -No Poses a threat to life or bodily function? How? (Chest pain, USA, [place], pneumonia, PE, COPD, DKA, ARF, appy, cholecystitis, CVA, Diverticulitis, Homicidal, Suicidal, threat to staff... and all critical care pts) @ -No - Lab Data Lab Results 08/01/24 08/01/24 Range/Units 00:54 00:54 Influenza Type A (PCR) Not Detected (Not Detectd) Influenza Type B (PCR) Not Detected (Not Detectd) RSV (PCR) Not Detected (Not Detectd) SARS-CoV-2 (PCR) Not Detected (Not Detectd) Group A Strep (PCR) NOT DETECTED (Not Detectd) Disposition Clinical Impression: Viral upper respiratory infection Disposition: HOME SELF-CARE Condition: Stable Additional Instructions: Please return to the Emergency Department if symptoms worsen or any other concerns. Is patient prescribed a controlled substance at d/c from ED?: No Referrals: Angela Torres MD [Primary Care Provider] - 1-2 days Time of Disposition: 01:53
[2024-08-01] MEDS: ACETAMINOPHEN TAB 500 MG TAB PO STA (01:46)
[2024-08-01 01:50] VITALS: BP 189/121; PULSE 93; TEMP 99.3
[2024-08-01] MEDS: ONDANSETRON ODT 4 MG TAB PO STA (02:02)
[2024-08-01 02:06] VITALS: RESP 16
--- NOTE | 2024-08-01 02:59 | XR ---
EXAM: XR Chest, 2 Views CLINICAL HISTORY: ITS.REASON XR Reason: cough TECHNIQUE: Frontal and lateral views of the chest. COMPARISON: No relevant prior studies available. IMPRESSION: Cardiomegaly with mild vascular congestion
== END 2024-08-01 02:10 | disposition home or self-care (01) ==
LOC: EC 23:39
DX: J06.9 Acute upper respiratory infection, unspecified (principal); Z88.8 Allergy status to other drugs, medicaments and biological substances
CPT/HCPCS: 71046; 87636; 87651; 99283

== ENCOUNTER 2024-08-01 09:51 | Emergency (ER) | payer MEDICARE, OTHER ==
--- NOTE | 2024-08-01 10:29 | ED ---
General Adult HPI - General Chief complaint: Shortness of Breath Stated complaint: SOB Time Seen by Provider: 08/01/24 10:05 Source: patient, RN notes reviewed, old records reviewed Mode of arrival: ambulatory Limitations: no limitations - History of Present Illness Initial comments: This is a 33-year-old female with a past medical history significant for anxiety depression and renal dialysis. Patient states she missed her dialysis yesterday and she was in the hospital because she had a low-grade fever and was sent home. Patient comes back today because her difficulty breathing is gotten considerably worse and she still has a low-grade fever which she states has been 100.9 at home. Patient denies chest pain or palpitations. Patient denies ab dominal pain patient states she has chronic back pain is really acting up. Patient denies any numbness weakness. - Related Data Home Medications Medication Instructions Recorded Confirmed PARoxetine [Paxil] 10 mg PO DAILY 01/29/24 08/01/24 Sevelamer Carbonate 3,200 mg PO TID-W/MEALS 01/29/24 08/01/24 carvediloL 25 mg PO BID 01/29/24 08/01/24 rOPINIRole HCL 0.5 mg PO BID 01/29/24 08/01/24 traZODone HCL [Desyrel] 50 mg PO HS 01/29/24 08/01/24 Cinacalcet HCl [Sensipar] 60 mg PO Q2D 04/18/24 08/01/24 Furosemide [Lasix] 80 mg PO BID 04/18/24 08/01/24 calcitrioL 0.75 mcg PO DAILY 04/18/24 08/01/24 Famotidine [Pepcid] 20 mg PO DAILY 05/23/24 08/01/24 Clobetasol Propionate [Clobex 1 applic TOPICAL DAILY PRN 08/01/24 08/01/24 0.05% Soln] Fluticasone Nasal Francisco [Flonase 2 spr EA NOSTRIL BID PRN 08/01/24 08/01/24 Nasal Francisco] Folic Acid 1 mg PO DAILY 08/01/24 08/01/24 NIFEdipine [Adalat CC] 30 mg PO HS 08/01/24 08/01/24 NIFEdipine [Adalat CC] 60 mg PO DAILY 08/01/24 08/01/24 Ondansetron Odt [Zofran Odt] 4 mg PO Q6H PRN 08/01/24 08/01/24 Simethicone [Simethicone Chew] 80 mg PO QID PRN 08/01/24 08/01/24 Triamcinolone 0.1% Cream [Kenalog 1 applic TOPICAL BID PRN 08/01/24 08/01/24 0.1% Cream] oxyCODONE HCL [OxyIR] 5 mg PO Q6H PRN 08/01/24 08/01/24 Previous Rx's Medication Instructions Recorded Calcium Acetate [PhosLo] 1,334 mg PO AC-TID #180 tab 04/20/24 oxyCODONE-APAP 7.5-325MG [Percocet 1 tab PO Q6HR PRN 3 Days #12 tab 07/24/24 7.5-325 mg] Allergies Allergy/AdvReac Type Severity Reaction Status Date / Time amlodipine Allergy Rash/Hives Verified 08/01/24 13:02 silver Allergy Rash/Hives Verified 08/01/24 13:02 [From [employer] Mesh] Review of Systems ROS Statement: Those systems with pertinent positive or pertinent negative responses have been documented in the HPI. ROS Other: All systems not noted in ROS Statement are negative. Past Medical History Past Medical History: Dialysis, Hypertension, Renal Disease, Seizure Disorder, Skin Disorder Additional Past Medical History / Comment(s): P.D. dailysis TU<TH<[place], seizure 2 yrs ago,possibly has had dvt in past,ovarian cyst uterine fibroids History of Any Multi-Drug Resistant Organisms: None Reported Past Surgical History: Back Surgery Additional Past Surgical History / Comment(s): urethral surgery at 9months old. skull fracture at age 9, back injections Past Anesthesia/Blood Transfusion Reactions: No Reported Reaction Past Psychological History: Anxiety, Depression Smoking Status: Never smoker Past Alcohol Use History: Rare Past Drug Use History: Marijuana - Past Family History Mother Family Medical History: Cancer Additional Family Medical History / Comment(s): ovarian, cervical General Exam - General Exam Comments Initial Comments: GENERAL: Patient is well-developed and well-nourished. Patient is nontoxic and well- hydrated and is in moderate distress. Patient has a temperature of 100.6 ENT: Neck is soft and supple. No significant lymphadenopathy is noted. Oropharynx is clear. Moist mucous membranes. Neck has full range of motion without eliciting any pain. EYES: The sclera were anicteric and conjunctiva were pink and moist. Extraocular movements were intact and pupils were equal round and reactive to light. Eyelids were unremarkable. PULMONARY: Patient has crackles in the bases CARDIOVASCULAR: Patient is tachycardic at 120 beats a minute ABDOMEN: Soft and nontender with normal bowel sounds. SKIN: Skin is clear with no lesions or rashes and otherwise unremarkable. NEUROLOGIC: Patient is alert and oriented x3. Cranial nerves II through XII are grossly intact. Motor and sensory are also intact. Normal speech, volume and content. Symmetrical smile. Cerebellar exam grossly intact. MUSCULOSKELETAL: Normal extremities with adequate strength and full range of motion. No lower extremity swelling or edema. No calf tenderness. LYMPHATICS: No significant lymphadenopathy is noted PSYCHIATRIC: Normal psychiatric evaluation. Limitations: no limitations Course Vital Signs 08/01/24 08/01/24 08/01/24 10:04 10:25 11:50 Temperature 99.9 F H 100.6 F H Pulse Rate 114 H 119 H Respiratory 22 18 Rate Blood Pressure 206/119 190/114 O2 Sat by Pulse 84 L 98 Oximetry 08/01/24 12:02 Temperature 98.2 F Pulse Rate Respiratory Rate Blood Pressure O2 Sat by Pulse Oximetry Medical Decision Making - Medical Decision Making EKG is interpreted by myself. EKG shows sinus tachycardia at 116 bpm QRS is 84 QT interval is 293 QTc is 362. Patient's EKG shows no ST segment elevation or depression. Was pt. sent in by a medical professional or institution (, [facility], [facility] [employer] [facility], urgent care, hospital, or residential...) When possible be specific @ -No Did you speak to anyone other than the patient for history (EMS, parent, family, police, friend...)? What history was obtained from this source @ -No Did you review nursing and triage notes (agree or disagree)? Why? @ -I reviewed and agree with nursing and triage notes Were old charts reviewed (outside hosp., previous admission, EMS record, old EKG, old radiological studies, urgent care reports/EKG's, residential records)? Report findings @ -I compared today's chest x-ray with yesterday's chest x-ray and it shows considerable worsening of pulmonary edema Differential Diagnosis? @ -Differential Dyspnea: Coronary syndrome, arrhythmia, tamponade, asthma, COPD, pulmonary embolism, pneumonia, pneumothorax, pulmonary effusion, anaphylaxis, diabetic ketoacidosis, flailed chest, pulmonary contusion, diaphragmatic rupture, anemia, neuromuscular, this is not meant to be an all-inclusive list. EKG interpreted by me (3pts min.). @ -As above X-rays interpreted by me (1pt min.). @ -Chest x-ray shows pulmonary edema diffusely CT interpreted by me (1pt min.). @ -None done U/S interpreted by me (1pt. min.). @ -None done What testing was considered but not performed or refused? (CT, X-rays, U/S, labs)? Why? @ -None What meds were considered but not given or refused? Why? @ -None Did you discuss the management of the patient with other professionals (professionals i.e. , PA, [employer], lab, RT, psych nurse, social work therapist, family day carer, teacher, corporate banking officer, employment case manager)? Give summary @ -I spoke with Dr. Bernardo he agreed to admit the patient admit the patient recommending orders Was smoking cessation discussed for >3mins.? @ -No Was critical care preformed (if so, how long)? @ -No Were there social determinants of health that impacted care today? How? (Homelessness, low income, unemployed, alcoholism, drug addiction, transportation, low edu. Level, literacy, decrease access to med. care, fdc, rehab)? @ -No Was there de-escalation of care discussed even if they declined (Discuss DNR or withdrawal of care, Hospice)? DNR status @ -No What co-morbidities impacted this encounter? (DM, HTN, Smoking, COPD, CAD, Cancer, CVA, ARF, Chemo, Hep., AIDS, mental health diagnosis, sleep apnea, morbid obesity)? @ -None Was patient admitted / discharged? Hospital course, mention meds given and route, prescriptions, significant lab abnormalities, going to OR and other pertinent info. @ -Patient had hyperkalemia as well as pulmonary edema. Patient was given 100 of Lasix and given D50 given insulin regular 10 units given sodium bicarb and given Lokelma, and given calcium chloride Undiagnosed new problem with uncertain prognosis? @ -No Drug Therapy requiring intensive monitoring for toxicity (Heparin, Nitro, Insulin, Cardizem)? @ -No Were any procedures done? @ -No Diagnosis/symptom? @ -Pulmonary edema Acute, or Chronic, or Acute on Chronic? @ -Acute Uncomplicated (without systemic symptoms) or Complicated (systemic symptoms)? @ -Complicated Side effects of treatment? @ -No Exacerbation, Progression, or Severe Exacerbation? @ -No Poses a threat to life or bodily function? How? (Chest pain, USA, [place], pneumonia, PE, COPD, DKA, ARF, appy, cholecystitis, CVA, Diverticulitis, Homicidal, Suicidal, threat to staff... and all critical care pts) @ -Yes this could lead to hypoxia and endorgan dysfunction Diagnosis/symptom? @ -Hyperkalemia Acute, or Chronic, or Acute on Chronic? @ -Acute Uncomplicated (without systemic symptoms) or Complicated (systemic symptoms)? @ -Complicated Side effects of treatment? @ -None Exacerbation, Progression, or Severe Exacerbation] @ -No Poses a threat to life or bodily function? @ -Yes this could lead to arrhythmia and - Lab Data Result diagrams: 08/01/24 10:54 08/01/24 10:54 Lab Results 08/01/24 08/01/24 08/01/24 Range/Units 10:38 10:54 10:54 WBC 13.5 H (3.8-10.6) k/uL RBC 2.43 L (3.80-5.40) m/uL Hgb 7.2 L (11.4-16.0) gm/dL Hct 22.3 L (34.0-46.0) % MCV 91.8 (80.0-100.0) fL MCH 29.8 (25.0-35.0) pg MCHC 32.4 (31.0-37.0) g/dL RDW 15.1 (11.5-15.5) % Plt Count 336 (150-450) k/uL MPV 6.9 Neutrophils % 88 % Lymphocytes % 5 % Monocytes % 3 % Eosinophils % 2 % Basophils % 0 % Neutrophils # 11.9 H (1.3-7.7) k/uL Lymphocytes # 0.7 L (1.0-4.8) k/uL Monocytes # 0.4 (0-1.0) k/uL Eosinophils # 0.3 (0-0.7) k/uL Basophils # 0.0 (0-0.2) k/uL Hypochromasia Slight PT 10.8 (10.0-12.5) sec INR 1.0 (<1.2) APTT 29.0 (22.0-30.0) sec Sodium (137-145) mmol/L Potassium (3.5-5.1) mmol/L Chloride (98-107) mmol/L Carbon Dioxide (22-30) mmol/L Anion Gap mmol/L BUN (7-17) mg/dL Creatinine (0.52-1.04) mg/dL Est GFR (CKD-EPI)AfAm (>60 ml/min/1.73 sqM) Est GFR (CKD-EPI)NonAf (>60 ml/min/1.73 sqM) Glucose (74-99) mg/dL Plasma Lactic Acid Fred (0.7-2.0) mmol/L Calcium (8.4-10.2) mg/dL Magnesium (1.6-2.3) mg/dL Total Bilirubin (0.2-1.3) mg/dL AST (14-36) U/L ALT (4-34) U/L Alkaline Phosphatase (38-126) U/L NT-Pro-B Natriuret Pep pg/mL Total Protein (6.3-8.2) g/dL Albumin (3.5-5.0) g/dL Influenza Type A (PCR) Not Detected (Not Detectd) Influenza Type B (PCR) Not Detected (Not Detectd) RSV (PCR) Not Detected (Not Detectd) SARS-CoV-2 (PCR) Not Detected (Not Detectd) 08/01/24 08/01/24 Range/Units 10:54 10:54 WBC (3.8-10.6) k/uL RBC (3.80-5.40) m/uL Hgb (11.4-16.0) gm/dL Hct (34.0-46.0) % MCV (80.0-100.0) fL MCH (25.0-35.0) pg MCHC (31.0-37.0) g/dL RDW (11.5-15.5) % Plt Count (150-450) k/uL MPV Neutrophils % % Lymphocytes % % Monocytes % % Eosinophils % % Basophils % % Neutrophils # (1.3-7.7) k/uL Lymphocytes # (1.0-4.8) k/uL Monocytes # (0-1.0) k/uL Eosinophils # (0-0.7) k/uL Basophils # (0-0.2) k/uL Hypochromasia PT (10.0-12.5) sec INR (<1.2) APTT (22.0-30.0) sec Sodium 134 L (137-145) mmol/L Potassium 6.8 H* (3.5-5.1) mmol/L Chloride 96 L (98-107) mmol/L Carbon Dioxide 31 H (22-30) mmol/L Anion Gap 7 mmol/L BUN 66 H (7-17) mg/dL Creatinine 7.96 H* (0.52-1.04) mg/dL Est GFR (CKD-EPI)AfAm 7 (>60 ml/min/1.73 sqM) Est GFR (CKD-EPI)NonAf 6 (>60 ml/min/1.73 sqM) Glucose 83 (74-99) mg/dL Plasma Lactic Acid Fred 1.1 (0.7-2.0) mmol/L Calcium 9.2 (8.4-10.2) mg/dL Magnesium 2.2 (1.6-2.3) mg/dL Total Bilirubin 0.7 (0.2-1.3) mg/dL AST 25 (14-36) U/L ALT 9 (4-34) U/L Alkaline Phosphatase 97 (38-126) U/L NT-Pro-B Natriuret Pep 52783 pg/mL Total Protein 6.8 (6.3-8.2) g/dL Albumin 3.6 (3.5-5.0) g/dL Influenza Type A (PCR) (Not Detectd) Influenza Type B (PCR) (Not Detectd) RSV (PCR) (Not Detectd) SARS-CoV-2 (PCR) (Not Detectd) Disposition Clinical Impression: Acute pulmonary edema, Hyperkalemia Disposition: ADMITTED IP TO THIS [facility] Referrals: Angela Torres MD [Primary Care Provider] - 1-2 days Time of Disposition: 13:28
[2024-08-01] MEDS: ACETAMINOPHEN TAB 500 MG TAB PO STA (10:36)
[2024-08-01] MEDS: IBUPROFEN 600 MG TAB PO STA (10:36)
[2024-08-01] MEDS: HYDROmorphone 1 MG/ML 1 ML SYRINGE IVP STA ×2 (10:55→14:49)
[2024-08-01 11:04] LABS: Basophils % (A) 0 %; Eosinophils # (A) 0.3 k/uL (0-0.7); Eosinophils % (A) 2 %; HCT 22.3 % (34.0-46.0); HGB 7.2 gm/dL (11.4-16.0); Hypochromasia Slight; Lymphocytes # (A) 0.7 k/uL (1.0-4.8); Lymphocytes % (A) 5 %; MCH 29.8 pg (25.0-35.0); MCHC 32.4 g/dL (31.0-37.0); MCV 91.8 fL (80.0-100.0); Mean Platelet Volume 6.9; Monocytes # (A) 0.4 k/uL (0-1.0); Monocytes % (A) 3 %; Neutrophils # (A) 11.9 k/uL (1.3-7.7); Neutrophils % (A) 88 %; Platelet Count 336 k/uL (150-450); RBC 2.43 m/uL (3.80-5.40); RDW 15.1 % (11.5-15.5); WBC 13.5 k/uL (3.8-10.6)
[2024-08-01 11:22] LABS: ALT 9 U/L (4-34); AST 25 U/L (14-36); African American GFR (CKD) 7 (>60 ml/min/1.73 sqM); Albumin 3.6 g/dL (3.5-5.0); Alkaline Phosphatase 97 U/L (38-126); Anion Gap 7 mmol/L; Blood Urea Nitrogen 66 mg/dL (7-17); Calcium 9.2 mg/dL (8.4-10.2); Carbon Dioxide 31 mmol/L (22-30); Chloride 96 mmol/L (98-107); Glucose 83 mg/dL (74-99); Magnesium 2.2 mg/dL (1.6-2.3); Non-African American GFR(CKD) 6 (>60 ml/min/1.73 sqM); Sodium 134 mmol/L (137-145); Total Bilirubin 0.7 mg/dL (0.2-1.3); Total Protein 6.8 g/dL (6.3-8.2)
--- NOTE | 2024-08-01 11:25 | XR ---
EXAMINATION TYPE: XR chest 2V DATE OF EXAM: 08/01/2024 COMPARISON: 08/01/2024 CLINICAL INDICATION: Female, 33 years old with history of difficulty breathing; , TECHNIQUE: XR chest 2V views of the chest. FINDINGS: Lateral diffuse infiltrates. No pleural effusion or pneumothorax. Heart isn't large. Osseous structur es stable.. IMPRESSION: 1. Diffuse bilateral airspace disease related for pulmonary edema versus diffuse pneumonia. [facility], , 08/01/2024 11:22 AM
[2024-08-01 11:29] LABS: Prothrombin Time 10.8 sec (10.0-12.5)
[2024-08-01 11:44] LABS: NT-Pro-B-Type Natriuretic Pept 67500 pg/mL
[2024-08-01 12:09] LABS: Potassium 6.8 mmol/L (3.5-5.1)
[2024-08-01] MEDS: CALCIUM CHLORIDE 100 MG/ML 10 ML SYRINGE IVP STA (13:40)
[2024-08-01] MEDS: SODIUM BICARB 8.4% 50 ML SYR (1 MEQ/ML) IV STA (13:43)
[2024-08-01] MEDS: DEXTROSE 50% SYRINGE 50 ML IVP STA (13:53)
[2024-08-01] MEDS: FUROSEMIDE 10 MG/ML 10 ML VIAL IV STA (13:56)
[2024-08-01] MEDS: SODIUM ZIRCONIUM CYCLOSILICATE 10 GM PACKET PO ONE (13:56)
[2024-08-01] MEDS: INSULIN REGULAR 100 UNIT/ML VIAL (IV) IV ONE (13:56)
[2024-08-01] MEDS ORDERED: ONDANSETRON ODT 4 MG TAB PO PRN (14:15)
[2024-08-01] MEDS ORDERED: FLUTICASONE NASAL 50MCG/SPRAY 16GM BTL EA NOSTRIL PRN (14:15)
[2024-08-01] MEDS ORDERED: SIMETHICONE 80 MG CHEWABLE PO PRN (14:15)
[2024-08-01] MEDS ORDERED: CLOBETASOL PROP 0.05% CR 15GM TOPICAL PRN (14:15)
[2024-08-01] MEDS ORDERED: TRIAMCINOLONE 0.1% CREAM 80 GM TUBE TOPICAL PRN (14:15)
[2024-08-01] MEDS: FAMOTIDINE 20 MG TAB PO SCH (14:48)
[2024-08-01] MEDS: PARoxetine 10 MG TAB PO SCH (14:48)
[2024-08-01] MEDS: FOLIC ACID 1 MG TAB PO SCH (14:48)
--- NOTE | 2024-08-01 15:12 | P.HPIM ---
History of Present Illness H&P Date: 08/01/24 Patient is a this is a 33-year-old female with a history of ESRD with dialysis sessions on Tuesdays, and Saturdays and history of hypertension who came in to today with a chief complaint of bodyaches associated with fever, chills and lethargy worsening since 1 to 2 days. Patient came to ER yesterday with similar complaint of having bodyaches and had a chest x-ray which showed mild vascular congestion but otherwise no acute process. Patient was also diagnosed with infectious mononucleosis on her ER visit on 07/24/2024. Patient says her symptoms continue to worsen now associated with shortness of breath along with bodyaches and lethargy. Patient also missed her dialysis session ye sterday because of her doctor's appointment. Patient says she has not taken her hypertensive medication this morning and her blood pressure has been high. Patient denies any chest pain, abdominal pain, diarrhea or constipation, numbness and tingling in upper or lower extremities. Viral panel negative for COVID, RSV and influenza type A and B Laboratory evaluation in the ER today shows WBC 13.5, hemoglobin 7.2, platelet count 336, sodium 134, potassium 6.8, chloride 96, bicarb 31, BUN 66, creatinine 7.96, lactic acid 1.1, calcium 9.2, magnesium 2.2. NT proBNP 67,500 Vital signs on arrival show Tmax 100.6 F pulse rate 119, respiratory 22, blood pressure 206/119, oxygen saturation of 84% Chest x-ray shows bilaterally patchy infiltrates with mild bilateral pleural effusions EKG in the ER shows sinus tachycardia with QTc of 362. Review of systems: Pertinent positives and negatives as discussed in HPI, a complete review of systems was performed and all other systems are negative. Physical examination: Vital signs reviewed General: non toxic, no distress, appears at stated age, normal weight Derm: no unusual rashes/lesions, warm, functioning AV fistula on the right upper arm Head: atraumatic, normocephalic, symmetric Eyes: EOMI, no lid lag, anicteric sclera, pupils equal round reactive to light ENT: Nose and ears atraumatic Neck: No cervical lymphadenopathy, trachea midline, supple Mouth: no lip lesion, mucus membranes moist Cardiovascular: S1S2 reg, grade 3 out of 6 systolic murmur, positive dorsalis pedis pulse bilateral, no edema Lungs: Bilateral decreased breath sounds, and rales, no accessory muscle use, supplemental oxygen Abdominal: soft, nontender to palpation, no guarding Ext: muscle strength 5 out of 5 in all 4 extremities grossly, no gross muscle atrophy, no contractures, Neuro: CN II-XI grossly intact, no gross focal neuro deficits Psych: Alert, oriented, appropriate affect Assessment/Plan: Patient is a this is a 33-year-old female with a history of ESRD with dialysis sessions on Tuesdays, and Saturdays and history of hypertension who came in to today with a chief complaint of bodyaches associated with fever and lethargy worsening since 1 to 2 days. #Acute hypoxic respiratory failure #SIRS #History of recent infectious mononucleosis #Mitral regurgitation on echocardiogram 04/18/2024 Differential diagnosis: Acute pulmonary edema versus postviral superimposed bacterial pneumonia versus pneumonitis versus septic pulmonary emboli Chest x-ray independently interpreted shows bilaterally patchy infiltrates with mild bilateral pleural effusions Vital signs on arrival show Tmax 100.6 F pulse rate 119, respiratory 22, blood pressure 206/119, oxygen saturation of 84% WBC 13.5 Order blood culture x 2 Order Zithromax 500 mg IVPB daily and ceftriaxone 2 g IVP every 24 hour Order sputum culture, urine Legionella antigen, mycoplasma IgM antibody, procalcitonin Order CT chest without contrast Consult pulmonology NT proBNP 15030 Status post IV Lasix 100 mg in ER Continue with IV Lasix 80 mg every 12 over, monitor electrolytes Viral panel negative Continue monitor CBC #ESRD #Hyperkalemia # Hyperphosphatemia Potassium 6.8, creatinine 7.6 Consult nephrology Dialysis session today and tomorrow IV calcium chloride, D50, and insulin given in ER Resume PhosLo and sevelamer Continue monitor BMP Continue cardiac telemetry #Acute on chronic anemia, likely in the setting of ESRD Iron studies done on 07/18/2024 Ferritin 2641, transferrin 201, TIBC 281, iron 17 No active bleeding Consider transfusion with hemoglobin >7 Continue monitor CBC #Hypertensive urgency Resume nifedipine 30 mg p.o. at bedtime and 60 mg p.o. daily Resume carvedilol 25 mg p.o. twice daily Continue monitor vital signs Patient did not take her medications in the morning DVT prophylaxis: Subcu heparin The patient is admitted as inpatient with an anticipated more than 2 midnight stay for evaluation of pulmonary edema CODE STATUS: Full code Discussed with: Patient Anticipated discharge place: Home A total of 65 minutes was spent on the care of this complex patient more than 50% of the time was spent in counseling and care coordination. I have seen and evaluated the patient today. Discussed with the resident and agree with the residents finding and plan as documented in the resident's note. Changes highlighted in blue font. Past Medical History Past Medical History: Dialysis, Hypertension, Renal Disease, Seizure Disorder, Skin Disorder Additional Past Medical History / Comment(s): P.D. dailysis TU<TH<SA, seizure 2 yrs ago,possibly has had dvt in past,ovarian cyst uterine fibroids History of Any Multi-Drug Resistant Organisms: None Reported Past Surgical History: Back Surgery Additional Past Surgical History / Comment(s): urethral surgery at 9months old. skull fracture at age 9, back injections Past Anesthesia/Blood Transfusion Reactions: No Reported Reaction Past Psychological History: Anxiety, Depression Smoking Status: Never smoker Past Alcohol Use History: Rare Past Drug Use History: Marijuana - Past Family History Mother Family Medical History: Cancer Additional Family Medical History / Comment(s): ovarian, cervical Medications and Allergies Home Medications Medication Instructions Recorded Confirmed Type PARoxetine [Paxil] 10 mg PO DAILY 01/29/24 08/01/24 History Sevelamer Carbonate 3,200 mg PO TID-W/MEALS 01/29/24 08/01/24 History carvediloL 25 mg PO BID 01/29/24 08/01/24 History rOPINIRole HCL 0.5 mg PO BID 01/29/24 08/01/24 History traZODone HCL [Desyrel] 50 mg PO HS 01/29/24 08/01/24 History Cinacalcet HCl [Sensipar] 60 mg PO Q2D 04/18/24 08/01/24 History Furosemide [Lasix] 80 mg PO BID 04/18/24 08/01/24 History calcitrioL 0.75 mcg PO DAILY 04/18/24 08/01/24 History Calcium Acetate [PhosLo] 1,334 mg PO AC-TID #180 tab 04/20/24 08/01/24 Rx Famotidine [Pepcid] 20 mg PO DAILY 05/23/24 08/01/24 History oxyCODONE-APAP 7.5-325MG [Percocet 1 tab PO Q6HR PRN 3 Days #12 tab 07/24/24 08/01/24 Rx 7.5-325 mg] Clobetasol Propionate [Clobex 1 applic TOPICAL DAILY PRN 08/01/24 08/01/24 History 0.05% Soln] Fluticasone Nasal [place] [Flonase 2 spr EA NOSTRIL BID PRN 08/01/24 08/01/24 History Nasal [place]] Folic Acid 1 mg PO DAILY 08/01/24 08/01/24 History NIFEdipine [Adalat CC] 30 mg PO HS 08/01/24 08/01/24 History NIFEdipine [Adalat CC] 60 mg PO DAILY 08/01/24 08/01/24 History Ondansetron Odt [Zofran Odt] 4 mg PO Q6H PRN 08/01/24 08/01/24 History Simethicone [Simethicone Chew] 80 mg PO QID PRN 08/01/24 08/01/24 History Triamcinolone 0.1% Cream [Kenalog 1 applic TOPICAL BID PRN 08/01/24 08/01/24 His tory 0.1% Cream] oxyCODONE HCL [OxyIR] 5 mg PO Q6H PRN 08/01/24 08/01/24 History Allergies Allergy/AdvReac Type Severity Reaction Status Date / Time amlodipine Allergy Rash/Hives Verified 08/01/24 13:02 silver Allergy Rash/Hives Verified 08/01/24 13:02 [From Tegaderm [employer] Mesh] Physical Exam Vitals: Vital Signs Temp Pulse Resp BP Pulse Ox 08/01/24 14:08 98.4 F 99 16 197/116 91 L 08/01/24 12:02 98.2 F 08/01/24 11:50 119 H 18 190/114 98 08/01/24 10:25 100.6 F H 08/01/24 10:04 99.9 F H 114 H 22 206/119 84 L Intake and Output 08/01/24 08/01/24 08/01/24 06:59 14:59 22:59 Other: Weight 58.967 kg Results CBC & Chem 7: 08/01/24 10:54 08/01/24 10:54 Labs: Abnormal Lab Results - Last 24 Hours (Table) 08/01/24 08/01/24 Range/Units 10:54 10:54 WBC 13.5 H (3.8-10.6) k/uL RBC 2.43 L (3.80-5.40) m/uL Hgb 7.2 L (11.4-16.0) gm/dL Hct 22.3 L (34.0-46.0) % Neutrophils # 11.9 H (1.3-7.7) k/uL Lymphocytes # 0.7 L (1.0-4.8) k/uL Sodium 134 L (137-145) mmol/L Potassium 6.8 H* (3.5-5.1) mmol/L Chloride 96 L (98-107) mmol/L Carbon Dioxide 31 H (22-30) mmol/L BUN 66 H (7-17) mg/dL Creatinine 7.96 H* (0.52-1.04) mg/dL
[2024-08-01] MEDS: HEPARIN SODIUM,PORCINE 5,000 UNIT/ML 1 ML VIAL SQ SCH (16:03)
[2024-08-01] MEDS: oxyCODONE-APAP 7.5-325MG 1 EACH TAB PO PRN (18:57)
[2024-08-01] MEDS: SEVELAMER 800 MG TAB PO SCH (18:58)
[2024-08-01] MEDS: CALCIUM ACETATE 667 MG TAB PO SCH (18:58)
[2024-08-01] MEDS: AZITHROMYCIN 500 MG in SODIUM CHLORIDE 0.9% 250 ML IVPB SCH (19:06)
[2024-08-01] MEDS: carvediloL 12.5 MG TAB PO SCH (19:45)
[2024-08-01] MEDS ORDERED: NIFEdipine XL 30 MG TAB.ER.24 PO SCH (21:00)
[2024-08-01] MEDS ORDERED: traZODone HCL 50 MG TAB PO SCH (21:00)
[2024-08-01] MEDS ORDERED: FUROSEMIDE 10 MG/ML 10 ML VIAL IV SCH (21:00)
[2024-08-01 21:07] VITALS: BP 127/76; PULSE 94; RESP 18; TEMP 98.2
--- NOTE | 2024-08-01 21:40 | CT ---
EXAMINATION TYPE: CT chest wo con DATE OF EXAM: 08/01/2024 9:28 PM COMPARISON: None CLINICAL INDICATION: Female, 33 years old with history of hypoxia, multifocal pneumonia; PHH, pt arri ves with c/o generalized pain to the back and fever and SOB pt was seen last night for same issue TECHNIQUE: Multiple axial images were obtained through the chest. Sagittal and coronal reformats were created for review. MIP was performed on a separate workstation. Contrast used: mL of (None if empty) Oral contrast used: (None if empty) CT DLP: 262.2 mGycm, Automated exposure control for dose reduction was used. FINDINGS: LUNGS/ PLEURA: Trace bilateral pleural effusions. Patchy airspace opacities throughout the lungs. No evidence for pneumothorax. AIRWAY: Patent and unremarkable. HEART: Heart is mildly enlarged for size. MEDIASTINUM: No gross evidence of adenopathy. VASCULATURE: No aortic aneurysm. MUSCULOSKELETAL: No acute osseous abnormalities, increased sclerosis of the osseous structures bilate rally. SOFT TISSUES/LYMPH NODES: Unremarkable. LOWER NECK: No significant findings. UPPER ABDOMEN: Atrophic kidneys bilaterally. Mild anasarca throughout the soft tissues. IMPRESSION: 1. Patchy airspace opacities throughout the lungs, given other findings correlate for pneumonia give n patient's fever, superimposed pulmonary edema not excluded. Atrophic bilateral kidneys with anasarc a correlate for volume overload. 2. Mild cardiomegaly 3. Renal osteodystrophy. [facility], , 08/01/2024 9:38 PM
--- NOTE | 2024-08-02 07:21 | P.DS ---
Providers Consults: 08/01/24 13:29 Consult Physician Urgent Consulting Provider: Armando Gonzalez Consult Reason/Comments: Fluid overload Do you want consulting provider notified?: Yes Primary care physician: Angela Torres MD Hospital Course: Patient left AMA without being seen this morning. Plan - Discharge Summary New Discharge Prescriptions: No Action carvediloL 25 mg PO BID Sevelamer Carbonate 3,200 mg PO TID-W/MEALS Calcium Acetate [PhosLo] 1,334 mg PO AC-TID #180 tab Famotidine [Pepcid] 20 mg PO DAILY Simethicone [Simethicone Chew] 80 mg PO QID PRN PRN Reason: Indigestion Folic Acid 1 mg PO DAILY Fluticasone Nasal [place] [Flonase Nasal [place]] 2 spr EA NOSTRIL BID PRN PRN Reason: Allergy Symptoms Clobetasol Propionate [Clobex 0.05% Soln] 1 applic TOPICAL DAILY PRN PRN Reason: scalp oxyCODONE HCL [OxyIR] 5 mg PO Q6H PRN PRN Reason: Breakthrough Pain NIFEdipine [Adalat CC] 30 mg PO HS PARoxetine [Paxil] 10 mg PO DAILY traZODone HCL [Desyrel] 50 mg PO HS rOPINIRole HCL 0.5 mg PO BID Furosemide [Lasix] 80 mg PO BID Cinacalcet HCl [Sensipar] 60 mg PO Q2D calcitrioL 0.75 mcg PO DAILY oxyCODONE-APAP 7.5-325MG [Percocet 7.5-325 mg] 1 tab PO Q6HR PRN 3 Days #12 tab PRN Reason: Pain Triamcinolone 0.1% Cream [Kenalog 0.1% Cream] 1 applic TOPICAL BID PRN PRN Reason: Skin Irritation Ondansetron Odt [Zofran Odt] 4 mg PO Q6H PRN PRN Reason: Nausea And Vomiting NIFEdipine [Adalat CC] 60 mg PO DAILY Discharge Medication List PARoxetine [Paxil] 10 mg PO DAILY 01/29/24 [History] Sevelamer Carbonate 3,200 mg PO TID-W/MEALS 01/29/24 [History] carvediloL 25 mg PO BID 01/29/24 [History] rOPINIRole HCL 0.5 mg PO BID 01/29/24 [History] traZODone HCL [Desyrel] 50 mg PO HS 01/29/24 [History] Cinacalcet HCl [Sensipar] 60 mg PO Q2D 04/18/24 [History] Furosemide [Lasix] 80 mg PO BID 04/18/24 [History] calcitrioL 0.75 mcg PO DAILY 04/18/24 [History] Calcium Acetate [PhosLo] 1,334 mg PO AC-TID #180 tab 04/20/24 [Rx] Famotidine [Pepcid] 20 mg PO DAILY 05/23/24 [History] oxyCODONE-APAP 7.5-325MG [Percocet 7.5-325 mg] 1 tab PO Q6HR PRN 3 Days #12 tab 07/24/24 [Rx] Clobetasol Propionate [Clobex 0.05% Soln] 1 applic TOPICAL DAILY PRN 08/01/24 [History] Fluticasone Nasal [place] [Flonase Nasal [place]] 2 spr EA NOSTRIL BID PRN 08/01/24 [History] Folic Acid 1 mg PO DAILY 08/01/24 [History] NIFEdipine [Adalat CC] 30 mg PO HS 08/01/24 [History] NIFEdipine [Adalat CC] 60 mg PO DAILY 08/01/24 [History] Ondansetron Odt [Zofran Odt] 4 mg PO Q6H PRN 08/01/24 [History] Simethicone [Simethicone Chew] 80 mg PO QID PRN 08/01/24 [History] Triamcinolone 0.1% Cream [Kenalog 0.1% Cream] 1 applic TOPICAL BID PRN 08/01/24 [History] oxyCODONE HCL [OxyIR] 5 mg PO Q6H PRN 08/01/24 [History] Follow up Appointment(s)/Referral(s): Angela Torres MD [Primary Care Provider] - 1-2 days Discharge Disposition: LEFT AGAINST MEDICAL ADVICE
[2024-08-02] MEDS ORDERED: CINACALCET 30 MG TAB PO SCH (09:00)
== END 2024-08-01 21:55 | disposition left against medical advice (07) ==
LOC: EC 09:51 → UNDOADMIN 13:34 → 3SCARD 13:34 → EC 21:55
DX: J81.0 Acute pulmonary edema (principal); E87.5 Hyperkalemia; R00.0 Tachycardia, unspecified; Z91.09 Other allergy status, other than to drugs and biological substances
CPT/HCPCS: 99285; 96365; 96366; 96367; 96375 ×5; 96376; 96372; 36415; 93005; 86738; 83880; 80053; 83605; 83735; 84132; 85025; 85610; 85730; 87040; 84145; 87636; 71046; 71250; J1644; J1940; J0456; J0696; J1171; 90935

== ENCOUNTER 2024-08-05 23:34 | Observation (INO) | payer MEDICARE, OTHER ==
--- NOTE | 2024-08-06 00:27 | ED ---
Fever HPI - General Chief Complaint: Fever Stated Complaint: fever, whole body pain Time Seen by Provider: 08/05/24 23:41 Source: patient, RN notes reviewed Mode of arrival: wheelchair Limitations: no limitations - History of Present Illness Initial Comments: 33-year-old female presents emergency department chief complaint of body pain. Patient states she has been having ongoing fevers. Patient states she was recently admitted for pulmonary edema, fever she states that she is scheduled to have her peritoneal dialysis catheter exchange tomorrow by Dr. Mcnamara. Patient states that she cannot tolerate the pain anymore. She states mostly in her romelia k. She states that she has no drainage around her site. Patient states she makes very little urine output. She did go to hemodialysis today. Patient denies any major sick contacts she does admit to slight cough - Related Data Home Medications Medication Instructions Recorded Confirmed PARoxetine [Paxil] 10 mg PO DAILY 01/29/24 08/04/24 Sevelamer Carbonate 3,200 mg PO TID-W/MEALS 01/29/24 08/04/24 carvediloL 25 mg PO BID 01/29/24 08/04/24 rOPINIRole HCL 0.5 mg PO BID 01/29/24 08/04/24 traZODone HCL [Desyrel] 50 mg PO HS 01/29/24 08/04/24 Cinacalcet HCl [Sensipar] 60 mg PO Q2D 04/18/24 08/04/24 Furosemide [Lasix] 80 mg PO BID 04/18/24 08/04/24 calcitrioL 0.75 mcg PO DAILY 04/18/24 08/04/24 Famotidine [Pepcid] 20 mg PO DAILY 05/23/24 08/04/24 Clobetasol Propionate [Clobex 1 applic TOPICAL DAILY PRN 08/01/24 08/04/24 0.05% Soln] Fluticasone Nasal [place] [Flonase 2 spr EA NOSTRIL BID PRN 08/01/24 08/04/24 Nasal [place]] NIFEdipine [Adalat CC] 30 mg PO BID 08/01/24 08/04/24 Ondansetron Odt [Zofran Odt] 4 mg PO Q6H PRN 08/01/24 08/04/24 Simethicone [Simethicone Chew] 80 mg PO QID PRN 08/01/24 08/04/24 Triamcinolone 0.1% Cream [Kenalog 1 applic TOPICAL BID PRN 08/01/24 08/04/24 0.1% Cream] Calcium Acetate [PhosLo] 1,334 mg PO TID-W/MEALS 08/04/24 08/04/24 Allergies Allergy/AdvReac Type Severity Reaction Status Date / Time amlodipine Allergy Rash/Hives Verified 08/05/24 23:38 silver Allergy Rash/Hives Verified 08/05/24 23:38 [From [facility] Mesh] Review of Systems ROS Statement: Those systems with pertinent positive or pertinent negative responses have been documented in the HPI. ROS Other: All systems not noted in ROS Statement are negative. Past Medical History Past Medical History: Dialysis, Hypertension, Renal Disease, Seizure Disorder, Skin Disorder Additional Past Medical History / Comment(s): P.D. dailysis TU<TH<SA, seizure 2 yrs ago,possibly has had dvt in past,ovarian cyst uterine fibroids History of Any Multi-Drug Resistant Organisms: None Reported Past Surgical History: Back Surgery Additional Past Surgical History / Comment(s): urethral surgery at 9months old. skull fracture at age 9, back injections Past Anesthesia/Blood Transfusion Reactions: No Reported Reaction Past Psychological History: Anxiety, Depression Smoking Status: Never smoker - Past Family History Mother Family Medical History: Cancer General Exam Limitations: no limitations General appearance: alert, in no apparent distress Head exam: Present: atraumatic, normocephalic, normal inspection Eye exam: Present: normal appearance, PERRL, EOMI. Absent: scleral icterus, conjunctival injection, periorbital swelling ENT exam: Present: normal exam, normal oropharynx, mucous membranes moist Neck exam: Present: normal inspection, full ROM. Absent: tenderness, m eningismus, lymphadenopathy Respiratory exam: Present: normal lung sounds bilaterally. Absent: respiratory distress, wheezes, rales, rhonchi, stridor Cardiovascular Exam: Present: regular rate, normal rhythm, normal heart sounds. Absent: systolic murmur, diastolic murmur, rubs, gallop, clicks GI/Abdominal exam: Present: soft, normal bowel sounds. Absent: distended, tenderness, guarding, rebound, rigid Back exam: Present: tenderness Neurological exam: Present: alert Course Vital Signs 08/05/24 08/06/24 23:36 01:13 Temperature 98.5 F Pulse Rate 101 H 100 Respiratory 18 19 Rate Blood Pressure 199/108 161/97 O2 Sat by Pulse 100 97 Oximetry Medical Decision Making - Medical Decision Making Was pt. sent in by a medical professional or institution (, [facility], [employer] G[employer]ERN[employer], urgent care, hospital, or snf...) When possible be specific @ -No Did you speak to anyone other than the patient for history (EMS, parent, family, police, friend...)? What history was obtained from this source @ -No Did you review nursing and triage notes (agree or disagree)? Why? @ -I reviewed and agree with nursing and triage notes Were old charts reviewed (outside hosp., previous admission, EMS record, old EKG, old radiological studies, urgent care reports/EKG's, snf records)? Report findings @ -No old charts were reviewed Differential Diagnosis (chest pain, altered mental status, abdominal pain women, abdominal pain men, vaginal bleeding, weakness, fever, dyspnea, syncope, headache, dizziness, GI bleed, back pain, seizure, CVA, palpatations, mental h ealth, musculoskeletal)? @ -Differential Fever: Pneumonia, viral URI, endocarditis, myocarditis, pericarditis, otitis, sinusitis, peritonsillar Abscess, retropharyngeal Abscess, epiglottitis, periton itis, appendicitis, Maxine cystitis, diverticulitis, hepatitis, colitis, UTI, PID, TOA, pyelonephritis, prostatitis, epididymitis, meningitis, encephalitis, pulmonary embolism, CVA, thyroid storm, pancreatitis, adrenal crisis, cavernous sinus thrombosis, this is not meant to be an all-inclusive list. EKG interpreted by me (3pts min.). @ -None X-rays interpreted by me (1pt min.). @ -Chest x-ray shows improvement of prior pulmonary edema CT interpreted by me (1pt min.). @ -None done U/S interpreted by me (1pt. min.). @ -None done What testing was considered but not performed or refused? (CT, X-rays, U/S, labs)? Why? @ -None What meds were considered but not given or refused? Why? @ -None Did you discuss the management of the patient with other professionals (professionals i.e. , PA, [employer]IEUTENA[employer] G[employer]ERNOR, lab, RT, psych nurse, social security benefits interviewer, family support worker, teacher, hazard mitigation officer, case sealer)? Give summary @ -EMH for admission Was smoking cessation discussed for >3mins.? @ -No Was critical care preformed (if so, how long)? @ -35 minutes Were there social determinants of health that impacted care today? How? (Homelessness, low income, unemployed, alcoholism, drug addiction, transportation, low edu. Level, literacy, decrease access to med. care, snf, rehab)? @ -No Was there de-escalation of care discussed even if they declined (Discuss DNR or withdrawal of care, Hospice)? DNR status @ -No What co-morbidities impacted this encounter? (DM, HTN, Smoking, COPD, CAD, Cancer, CVA, ARF, Chemo, Hep., AIDS, mental health diagnosis, sleep apnea, morbid obesity)? @ -[ESRD Was patient admitted / discharged? Hospital course, mention meds given and route, prescriptions, significant lab abnormalities, going to OR and other pertinent info. @ -Admitted patient presented for increasing weakness, fever and back pain. Patient is afebrile currently patient found to be anemic, patient does have chronic kidney disease patient ordered type and screen and 1 unit of blood. Patient will be admitted for recheck and evaluation by Dr. Padgett as she was scheduled for peritoneal dialysis catheter exchange Undiagnosed new problem with uncertain prognosis? @ -No Drug Therapy requiring intensive monitoring for toxicity (Heparin, Nitro, Insulin, Cardizem)? @ -No Were any procedures done? @ -No Diagnosis/symptom? @ -Anemia chronic disease, ESRD on dialysis] Acute, or Chronic, or Acute on Chronic? @ -Acute Uncomplicated (without systemic symptoms) or Complicated (systemic symptoms)? @ -Complicated Side effects of treatment? @ -No Exacerbation, Progression, or Severe Exacerbation? @ -No Poses a threat to life or bodily function? How? (Chest pain, [place], [place], pneumonia, PE, COPD, DKA, ARF, appy, cholecystitis, CVA, Diverticulitis, Homicidal, Suicidal, threat to staff... and all critical care pts) @ -Yes anemia - Lab Data Result diagrams: 08/06/24 00:28 08/06/24 00:28 Lab Results 08/06/24 08/06/24 08/06/24 Range/Units 00:28 00:28 00:28 WBC 9.2 (3.8-10.6) k/uL RBC 2.04 L (3.80-5.40) m/uL Hgb 5.9 L* (11.4-16.0) gm/dL Hct 18.3 L* (34.0-46.0) % MCV 89.8 (80.0-100.0) fL MCH 29.1 (25.0-35.0) pg MCHC 32.5 (31.0-37.0) g/dL RDW 15.5 (11.5-15.5) % Plt Count 262 (150-450) k/uL MPV 6.8 Neutrophils % 80 % Lymphocytes % 11 % Monocytes % 4 % Eosinophils % 4 % Basophils % 0 % Neutrophils # 7.3 (1.3-7.7) k/uL Lymphocytes # 1.0 (1.0-4.8) k/uL Monocytes # 0.4 (0-1.0) k/uL Eosinophils # 0.4 (0-0.7) k/uL Basophils # 0.0 (0-0.2) k/uL Sodium 135 L (137-145) mmol/L Potassium 4.4 (3.5-5.1) mmol/L Chloride 98 (98-107) mmol/L Carbon Dioxide 36 H (22-30) mmol/L Anion Gap 1 mmol/L BUN 23 H (7-17) mg/dL Creatinine 3.44 H (0.52-1.04) mg/dL Est GFR (CKD-EPI)AfAm 19 (>60 ml/min/1.73 sqM) Est GFR (CKD-EPI)NonAf 17 (>60 ml/min/1.73 sqM) Glucose 83 (74-99) mg/dL Plasma Lactic Acid Fred (0.7-2.0) mmol/L Calcium 8.5 (8.4-10.2) mg/dL Total Bilirubin 0.6 (0.2-1.3) mg/dL AST 27 (14-36) U/L ALT 15 (4-34) U/L Alkaline Phosphatase 95 (38-126) U/L NT-Pro-B Natriuret Pep 75072 pg/mL Total Protein 6.2 L (6.3-8.2) g/dL Albumin 3.2 L (3.5-5.0) g/dL Influenza Type A (PCR) Not Detected (Not Detectd) Influenza Type B (PCR) Not Detected (Not Detectd) RSV (PCR) Not Detected (Not Detectd) SARS-CoV-2 (PCR) Not Detected (Not Detectd) 08/06/24 Range/Units 00:28 WBC (3.8-10.6) k/uL RBC (3.80-5.40) m/uL Hgb (11.4-16.0) gm/dL Hct (34.0-46.0) % MCV (80.0-100.0) fL MCH (25.0-35.0) pg MCHC (31.0-37.0) g/dL RDW (11.5-15.5) % Plt Count (150-450) k/uL MPV Neutrophils % % Lymphocytes % % Monocytes % % Eosinophils % % Basophils % % Neutrophils # (1.3-7.7) k/uL Lymphocytes # (1.0-4.8) k/uL Monocytes # (0-1.0) k/uL Eosinophils # (0-0.7) k/uL Basophils # (0-0.2) k/uL Sodium (137-145) mmol/L Potassium (3.5-5.1) mmol/L Chloride (98-107) mmol/L Carbon Dioxide (22-30) mmol/L Anion Gap mmol/L BUN (7-17) mg/dL Creatinine (0.52-1.04) mg/dL Est GFR (CKD-EPI)AfAm (>60 ml/min/1.73 sqM) Est GFR (CKD-EPI)NonAf (>60 ml/min/1.73 sqM) Glucose (74-99) mg/dL Plasma Lactic Acid Fred 1.0 (0.7-2.0) mmol/L Calcium (8.4-10.2) mg/dL Total Bilirubin (0.2-1.3) mg/dL AST (14-36) U/L ALT (4-34) U/L Alkaline Phosphatase (38-126) U/L NT-Pro-B Natriuret Pep pg/mL Total Protein (6.3-8.2) g/dL Albumin (3.5-5.0) g/dL Influenza Type A (PCR) (Not Detectd) Influenza Type B (PCR) (Not Detectd) RSV (PCR) (Not Detectd) SARS-CoV-2 (PCR) (Not Detectd) Critical Care Time Critical Care Time: Yes Total Critical Care Time: 35 Disposition Clinical Impression: CKD (chronic kidney disease) requiring chronic dialysis, Anemia Disposition: ADMITTED IP TO THIS HOSP Condition: Fair Time of Disposition: 01:43
[2024-08-06] MEDS: HYDROmorphone 0.5 MG/0.5 ML SYRINGE IVP STA (00:33)
[2024-08-06] MEDS: ONDANSETRON 4 MG/2 ML VIAL IVP STA (00:33)
[2024-08-06 01:08] LABS: Basophils % (A) 0 %; Eosinophils # (A) 0.4 k/uL (0-0.7); Eosinophils % (A) 4 %; Lymphocytes % (A) 11 %; MCH 29.1 pg (25.0-35.0); MCHC 32.5 g/dL (31.0-37.0); MCV 89.8 fL (80.0-100.0); Mean Platelet Volume 6.8; Monocytes # (A) 0.4 k/uL (0-1.0); Monocytes % (A) 4 %; Neutrophils # (A) 7.3 k/uL (1.3-7.7); Neutrophils % (A) 80 %; Platelet Count 262 k/uL (150-450); RBC 2.04 m/uL (3.80-5.40); RDW 15.5 % (11.5-15.5); WBC 9.2 k/uL (3.8-10.6)
[2024-08-06 01:15] LABS: HCT 18.3 % (34.0-46.0); HGB 5.9 gm/dL (11.4-16.0)
[2024-08-06] MEDS: HYDROmorphone 1 MG/ML 1 ML SYRINGE IVP STA (01:16)
[2024-08-06 01:18] LABS: ALT 15 U/L (4-34); AST 27 U/L (14-36); African American GFR (CKD) 19 (>60 ml/min/1.73 sqM); Albumin 3.2 g/dL (3.5-5.0); Alkaline Phosphatase 95 U/L (38-126); Anion Gap 1 mmol/L; Blood Urea Nitrogen 23 mg/dL (7-17); Calcium 8.5 mg/dL (8.4-10.2); Carbon Dioxide 36 mmol/L (22-30); Chloride 98 mmol/L (98-107); Glucose 83 mg/dL (74-99); Non-African American GFR(CKD) 17 (>60 ml/min/1.73 sqM); Potassium 4.4 mmol/L (3.5-5.1); Sodium 135 mmol/L (137-145); Total Bilirubin 0.6 mg/dL (0.2-1.3); Total Protein 6.2 g/dL (6.3-8.2)
--- NOTE | 2024-08-06 01:19 | XR ---
EXAM: XR Chest, 2 Views CLINICAL HISTORY: All over body pain and a fever TECHNIQUE: Frontal and lateral views of the chest. COMPARISON: 08/01/24 FINDINGS: Lungs: Mild diffuse airspace opacities throughout both lungs with central distribution, decreased. Pleural space: Unremarkable. Heart: Mild cardiomegaly. Mediastinum: Unremarkable. Normal mediastinal contour. Bones/joints: No acute findings. Soft tissues: Bilateral nipple rings. IMPRESSION: Mild bilateral pulmonary edema versus pneumonia, decreased
[2024-08-06] MEDS ORDERED: ONDANSETRON 4 MG/2 ML VIAL IVP PRN (01:43)
[2024-08-06] MEDS ORDERED: ACETAMINOPHEN TAB 325 MG TAB PO PRN (01:43)
[2024-08-06] MEDS ORDERED: NALOXONE 0.4 MG/ML 1 ML VIAL IV PRN (01:43)
[2024-08-06 01:48] LABS: NT-Pro-B-Type Natriuretic Pept 80000 pg/mL
[2024-08-06] MEDS: HYDROmorphone 0.5 MG/0.5 ML SYRINGE IVP PRN (04:41)
[2024-08-06 06:40] LABS: Basophils % (A) 0 %; Eosinophils # (A) 0.4 k/uL (0-0.7); Eosinophils % (A) 4 %; HCT 21.5 % (34.0-46.0); HGB 7.1 gm/dL (11.4-16.0); Hypochromasia Slight; Lymphocytes # (A) 1.2 k/uL (1.0-4.8); Lymphocytes % (A) 13 %; MCH 29.8 pg (25.0-35.0); MCV 90.4 fL (80.0-100.0); Mean Platelet Volume 7.7; Monocytes # (A) 0.4 k/uL (0-1.0); Monocytes % (A) 5 %; Neutrophils # (A) 7.2 k/uL (1.3-7.7); Neutrophils % (A) 77 %; Platelet Count 241 k/uL (150-450); RBC 2.37 m/uL (3.80-5.40); RDW 15.2 % (11.5-15.5); WBC 9.3 k/uL (3.8-10.6)
[2024-08-06] MEDS: IV FLUID CONTINUATION 1,000 ML IV ONE ×2 (09:03→13:33)
[2024-08-06 09:08] VITALS: RESP 16
[2024-08-06] MEDS: fentaNYL (PF) 50 MCG/ML 2 ML AMP IVP STA (09:33)
[2024-08-06] MEDS: DEXAMETHASONE SOD PHOSPHATE 4 MG/ML 1 ML VIAL IVP STA (09:33)
[2024-08-06] MEDS: HEPARIN SODIUM,PORCINE 5,000 UNIT/ML 1 ML VIAL SQ STA (09:43)
[2024-08-06] MEDS ORDERED: ROCURONIUM 10 MG/ML (5 ML VIAL) IV ONE (10:05)
[2024-08-06] MEDS ORDERED: NEOSTIGMINE 1 MG/ML 10 ML VIAL ONE (10:05)
[2024-08-06] MEDS ORDERED: PROPOFOL 10 MG/ML 20 ML VIAL IV ONE (10:05)
[2024-08-06] MEDS ORDERED: LIDOCAINE 1% INJ 10MG/ML (20 ML MDV) ONE (10:05)
[2024-08-06] MEDS ORDERED: fentaNYL (PF) 50 MCG/ML 2 ML AMP ONE (10:05)
[2024-08-06] MEDS ORDERED: GLYCOPYRROLATE 0.2 MG/ML 2 ML VIAL ONE (10:05)
[2024-08-06] MEDS ORDERED: MIDAZOLAM 2 MG/2 ML VIAL ONE (10:05)
[2024-08-06] MEDS ORDERED: SUCCINYLCHOLINE CHLORIDE 200 MG/10 ML VIAL IV ONE (10:05)
[2024-08-06] MEDS: SODIUM CHLORIDE 0.9% 50 ML with ceFAZolin 2,000 MG IV ONE (10:09)
[2024-08-06] MEDS: LIDOCAINE 1%-EPI 1:100,000 20 ML VIAL SQ ONE (10:56)
[2024-08-06 11:19] VITALS: TEMP 97.5
[2024-08-06] MEDS ORDERED: FLUTICASONE NASAL 50MCG/SPRAY 16GM BTL EA NOSTRIL PRN (12:16)
[2024-08-06] MEDS ORDERED: SIMETHICONE 80 MG CHEWABLE PO PRN (12:16)
[2024-08-06] MEDS ORDERED: ONDANSETRON ODT 4 MG TAB PO PRN (12:16)
[2024-08-06] MEDS: hydrALAZINE HCL 20 MG/ML 1 ML VIAL IVP STA (12:22)
[2024-08-06] MEDS ORDERED: FAMOTIDINE 20 MG TAB PO SCH (12:30)
[2024-08-06] MEDS ORDERED: SEVELAMER 800 MG TAB PO SCH (12:30)
[2024-08-06] MEDS ORDERED: NIFEdipine XL 30 MG TAB.ER.24 PO SCH (12:30)
[2024-08-06] MEDS ORDERED: CALCIUM ACETATE 667 MG TAB PO SCH (12:30)
[2024-08-06] MEDS ORDERED: PARoxetine 10 MG TAB PO SCH (12:30)
[2024-08-06] MEDS: METOPROLOL TARTRATE 5 MG/5 ML VIAL IVP STA (12:46)
--- NOTE | 2024-08-06 13:15 | P.HPIM ---
History of Present Illness H&P Date: 08/06/24 History of present illness: 33-year-old female with past medical history significant for end-stage renal disease on dialysis through AV fistula on Tuesdays and Sunday, history of hypertension who was recently admitted with complaint of bodyaches associated with fever chills and lethargic, recent history of infection mononucleosis and left AMA on 08/02/2024 who presented to hospital with a complaint of bodyaches, low-grade fever 100.2 1 time, was found to have low hemoglobin of 5.6, requiring use of packed RBCs with hemoglobin repeat 7.1. Patient denied any sore throat, productive cough, shortness of breath, chest pain, palpitation, nausea vomiting diarrhea constipation abdominal pain dysuria urgency frequency. Patient stated that he since leaving the hospital she was afebrile she only had 1 episode of low-grade fever of 100.2 at home. Patient denied any nosebleed, bloody vomit, melena or blood in the stools. Patient stated that she is has chronic anemia, is supposed to get intraperitoneal as outpatient but was having some insurance issues, follows nephrology, is supposed to go back on peritoneal dialysis in the next few weeks and was due for her peritoneal dialysis catheter exchange. Patient is afebrile, heart rate 88, respiratory rate 16, blood pressure 171/99, saturating 94% on room air. WBCs 9.2, hemoglobin 5.9, repeat 7.1 after 1 unit of packed RBCs, platelet 241. Potassium 4.4, BUN 23, creatinine 3.44. Viral panel negative. Assessment and plan: Fever: Patient had low-grade fever, recently admitted in the hospital, left AMA Blood culture from that hospitalization negative so far. No sign or symptom of infection Remained afebrile now ESRD on hemodialysis: Anemia of chronic disease Peritoneal dialysis in place: Patient gets outpatient hemodialysis on Tuesdays and Saturdays Due for peritoneal dialysis catheter exchange General Surgery consulted Nephrology consulted Not fluid overloaded, BMP stable. DVT prophylaxis SCD REVIEW OF SYSTEMS: CONSTITUTIONAL: No fever, no malaise, no fatigue. HEENT: No recent visual problems or hearing problems. Denied any sore throat. CARDIOVASCULAR: No chest pain, orthopnea, PND, no palpitations, no syncope. PULMONARY: No shortness of breath, no cough, no hemoptysis. GASTROINTESTINAL: No diarrhea, no nausea, no vomiting, no abdominal pain. NEUROLOGICAL: No headaches, no weakness, no numbness. HEMATOLOGICAL: Denies any bleeding or petechiae. GENITOURINARY: Denies any burning micturition, frequency, or urgency. MUSCULOSKELETAL/RHEUMATOLOGICAL: Denies any joint pain, swelling, or any muscle pain. ENDOCRINE: Denies any polyuria or polydipsia. The rest of the 14-point review of systems is negative. PHYSICAL EXAMINATION: GENERAL: The patient is A&O x3, NAD HEENT: EOMI, Sclerae anicteric, Moist Mucous membranes Neck: Supple, Non tender, No JVD PULMONARY: Equal breath souds B/L, No wheezing, No crackles. CARDIOVASCULAR: S1, S2 present. No murmurs, rubs, or gallops. ABDOMEN: Soft, nontender, nondistended, normoactive bowel sounds. No guarding or rebound tenderness. MUSCULOSKELETAL: No edema, No cyanosis. No clubbing. Normal ROM. Intact peripheral pulses. NEUROLOGICAL: CN 2-12 grossly intact. No FND Monitor vital signs and labs Labs and medication were reviewed. Continue same treatment. Further recommendations as per clinical course of the patient Dictation was produced using [employer] dictation software. please excuse any grammatical, word or spelling errors. Past Medical History Past Medical History: Dialysis, Hypertension, Renal Disease, Seizure Disorder, Skin Disorder Additional Past Medical History / Comment(s): P.D. dailysis <TH<SA, seizure 2 yrs ago,possibly has had dvt in past,ovarian cyst uterine fibroids History of Any Multi-Drug Resistant Organisms: None Reported Past Surgical History: Back Surgery Additional Past Surgical History / Comment(s): urethral surgery at 9months old. skull fracture at age 9, back injections Past Anesthesia/Blood Transfusion Reactions: No Reported Reaction Past Psychological History: Anxiety, Depression Smoking Status: Never smoker - Past Family History Mother Family Medical History: Cancer Medications and Allergies Home Medications Medication Instructions Recorded Confirmed Type PARoxetine [Paxil] 10 mg PO DAILY 01/29/24 08/06/24 History Sevelamer Carbonate 3,200 mg PO TID-W/MEALS 01/29/24 08/06/24 History carvediloL 25 mg PO BID 01/29/24 08/06/24 History rOPINIRole HCL 0.5 mg PO BID 01/29/24 08/06/24 History traZODone HCL [Desyrel] 50 mg PO HS 01/29/24 08/06/24 History Cinacalcet HCl [Sensipar] 60 mg PO Q2D 04/18/24 08/06/24 History Furosemide [Lasix] 80 mg PO BID 04/18/24 08/06/24 History calcitrioL 0.25 mcg PO TID 04/18/24 08/06/24 History Famotidine [Pepcid] 20 mg PO DAILY 05/23/24 08/06/24 History Clobetasol Propionate [Clobex 1 applic TOPICAL DAILY PRN 08/01/24 08/06/24 History 0.05% Soln] Fluticasone Nasal [place] [Flonase 2 spr EA NOSTRIL BID PRN 08/01/24 08/06/24 History Nasal [place]] NIFEdipine [Adalat CC] 30 mg PO BID 08/01/24 08/06/24 History Ondansetron Odt [Zofran Odt] 4 mg PO Q6H PRN 08/01/24 08/06/24 History Simethicone [Simethicone Chew] 80 mg PO QID PRN 08/01/24 08/06/24 History Triamcinolone 0.1% Cream [Kenalog 1 applic TOPICAL BID PRN 08/01/24 08/06/24 History 0.1% Cream] Calcium Acetate [PhosLo] 1,334 mg PO TID-W/MEALS 08/04/24 08/06/24 History Acetaminophen Tab [Tylenol] 650 mg PO Q6H #30 tab 08/06/24 Rx Docusate [Colace] 100 mg PO BID #20 capsule 08/06/24 Rx oxyCODONE HCL [OxyIR] 5 mg PO Q6H PRN 3 Days #10 tab 08/06/24 Rx Allergies Allergy/AdvReac Type Severity Reaction Status Date / Time amlodipine Allergy red/itchy Verified 08/06/24 09:05 silver Allergy red/itchy Verified 08/06/24 09:05 [From [employer] Mesh] Physical Exam Vitals: Vital Signs Temp Pulse Pulse Resp BP BP Pulse Ox 08/06/24 12:45 88 16 171/99 94 L 08/06/24 12:30 97 16 180/101 94 L 08/06/24 12:15 88 16 176/96 94 L 08/06/24 12:00 94 16 178/97 95 08/06/24 11:45 92 16 180/102 98 08/06/24 11:30 88 16 177/108 98 08/06/24 11:15 93 16 169/102 98 08/06/24 11:09 97.5 F L 90 16 155/96 98 08/06/24 09:06 98.6 F 104 H 16 172/98 96 08/06/24 07:57 98 20 151/80 98 08/06/24 05:19 98.9 F 100 17 138/88 97 08/06/24 03:37 98.6 F 100 17 148/88 97 08/06/24 03:17 98.6 F 98 16 141/89 98 08/06/24 03:05 98.1 F 101 H 16 145/91 98 08/06/24 01:13 100 19 161/97 97 08/05/24 23:36 98.5 F 101 H 18 199/108 100 Intake and Output 08/05/24 08/06/24 08/06/24 22:59 06:59 14:59 Intake Total 288 1050 Output Total 5 Balance 288 1045 Intake: IV 1050 Blood Product 288 Rc Pheresis 2 As3 Unit 288 [id number] Output: Estimated Blood Loss 5 Other: Weight 58.967 kg Results CBC & Chem 7: 08/06/24 06:26 08/06/24 00:28 Labs: Abnormal Lab Results - Last 24 Hours (Table) 08/06/24 08/06/24 08/06/24 Range/Units 00:28 00:28 00:28 RBC 2.04 L (3.80-5.40) m/uL Hgb 5.9 L* (11.4-16.0) gm/dL Hct 18.3 L* (34.0-46.0) % Sodium 135 L (137-145) mmol/L Carbon Dioxide 36 H (22-30) mmol/L BUN 23 H (7-17) mg/dL Creatinine 3.44 H (0.52-1.04) mg/dL Total Protein 6.2 L (6.3-8.2) g/dL Albumin 3.2 L (3.5-5.0) g/dL Procalcitonin 1.99 H (0.02-0.50) ng/mL Crossmatch 08/06/24 08/06/24 Range/Units 01:35 06:26 RBC 2.37 L (3.80-5.40) m/uL Hgb 7.1 L (11.4-16.0) gm/dL Hct 21.5 L (34.0-46.0) % Sodium (137-145) mmol/L Carbon Dioxide (22-30) mmol/L BUN (7-17) mg/dL Creatinine (0.52-1.04) mg/dL Total Protein (6.3-8.2) g/dL Albumin (3.5-5.0) g/dL Procalcitonin (0.02-0.50) ng/mL Crossmatch See Detail Thrombosis Risk Factor Assmnt - Choose All That Apply Other Risk Factors: Yes Each Risk Factor Represents 2 Points: Laparoscopic surgery Thrombosis Risk Factor Assessment Total Risk Factor Score: 2 Thrombosis Risk Factor Assessment Level: Low Risk
--- NOTE | 2024-08-06 13:20 | P.DS ---
Providers Date of admission: 08/06/24 01:44 Expected date of discharge: 08/06/24 Attending physician: Evelia Francois Consults: 08/06/24 01:43 Consult Physician Urgent Consulting Provider: Ascencion Garland Consult Reason/Comments: Peritoneal dialysis catheter exchange Do you want consulting provider notified?: Yes 08/06/24 02:48 Consult Physician Routine Consulting Provider: Alycia Carvalho Consult Reason/Comments: ESRD Do you want consulting provider notified?: Yes 08/06/24 11:16 Consult Physician Routine Consulting Provider: Evelia Francois Consult Reason/Comments: MED MANAGEMENT Do you want consulting provider notified?: Yes Primary care physician: Angela Torres MD Hospital Course: Discharge diagnoses: Assessment and plan: Fever: Patient had low-grade fever, recently admitted in the hospital, left AMA Blood culture from that hospitalization negative so far. No sign or symptom of infection Remained afebrile now Patient adamant to be discharged today. ESRD on hemodialysis: Anemia of chronic disease: Peritoneal dialysis in place: Patient gets outpatient hemodialysis on Tuesdays and Saturdays Due for peritoneal dialysis catheter exchange General Surgery consulted--status post PD catheter removal, plan for new PD catheter placement in few weeks as outpatient. Nephrology consulted Not fluid overloaded, BMP stable. Iron supplementation Erythropoietin Repeat CBC to be checked by PCP within 1 week Hypertension: Continue home meds Hospital course: 33-year-old female with past medical history significant for end-stage renal disease on dialysis through AV fistula on Tuesdays and Sunday, history of hypertension who was recently admitted with complaint of bodyaches associated with fever chills and lethargic, recent history of infection mononucleosis and left AMA on 08/02/2024 who presented to hospital with a complaint of bodyaches, low-grade fever 100.2 1 time, was found to have low hemoglobin of 5.6, requiring use of packed RBCs with hemoglobin repeat 7.1. Patient denied any sore throat, productive cough, shortness of breath, chest pain, palpitation, nausea vomiting diarrhea constipation abdominal pain dysuria urgency frequency. Patient stated that he since leaving the hospital she was afebrile she only had 1 episode of low-grade fever of 100.2 at home. Patient denied any nosebleed, bloody vomit, melena or blood in the stools. Patient stated that she is has chronic anemia, is supposed to get intraperitoneal as outpatient but was having some insurance issues, follows nephrology, is supposed to go back on peritoneal dialysis in the next few weeks and was due for her peritoneal dialysis catheter exchange. Patient is afebrile, heart rate 88, respiratory rate 16, blood pressure 171/99, saturating 94% on room air. WBCs 9.2, hemoglobin 5.9, repeat 7.1 after 1 unit of packed RBCs, platelet 241. Potassium 4.4, BUN 23, creatinine 3.44. Viral panel negative. Patient was admitted hospital for the evaluation and management. Patient repeat hemoglobin after 1 unit of packed RBCs was 7.1. No sign of central active bleed. Patient remained afebrile. General surgery was consulted, patient underwent peritoneal dialysis catheter removal, discussed with general surgery, general surgery wanted to wait for few weeks before putting in a new peritoneal dialysis catheter because of the adhesions. Patient was adamant to be discharged home. Patient condition vital stable at discharge patient home medication were resumed at discharge. Patient was advised to get CBC checked by PCP within 1 week, started on p.o. iron. PHYSICAL EXAMINATION: GENERAL: The patient is A&O x3, NAD HEENT: EOMI, Sclerae anicteric, Moist Mucous membranes Neck: Supple, Non tender, No JVD PULMONARY: Equal breath souds B/L, No wheezing, No crackles. CARDIOVASCULAR: S1, S2 present. No murmurs, rubs, or gallops. ABDOMEN: Soft, nontender, nondistended, normoactive bowel sounds. No guarding or rebound tenderness. MUSCULOSKELETAL: No edema, No cyanosis. No clubbing. Normal ROM. Intact peripheral pulses. NEUROLOGICAL: CN 2-12 grossly intact. No FND SKIN: No rashes. Dictation was produced using [employer] dictation software. please excuse any grammatical, word or spelling errors. Attestation: I have personally seen and examined the patient with Resident, reviewed the documentation and participated and agree with the assessment and plan as written. Patient Condition at Discharge: Fair Plan - Discharge Summary New Discharge Prescriptions: New Iron Ps Complex/B12/Folic Acid [Myferon-150 Forte Capsule] 1 each PO DAILY #30 capsule Continue carvediloL 25 mg PO BID Sevelamer Carbonate 3,200 mg PO TID-W/MEALS Famotidine [Pepcid] 20 mg PO DAILY Simethicone [Simethicone Chew] 80 mg PO QID PRN PRN Reason: Indigestion Fluticasone Nasal [place] [Flonase Nasal [place]] 2 spr EA NOSTRIL BID PRN PRN Reason: Allergy Symptoms Clobetasol Propionate [Clobex 0.05% Soln] 1 applic TOPICAL DAILY PRN PRN Reason: scalp Calcium Acetate [PhosLo] 1,334 mg PO TID-W/MEALS PARoxetine [Paxil] 10 mg PO DAILY traZODone HCL [Desyrel] 50 mg PO HS rOPINIRole HCL 0.5 mg PO BID Furosemide [Lasix] 80 mg PO BID Cinacalcet HCl [Sensipar] 60 mg PO Q2D calcitrioL 0.25 mcg PO TID Triamcinolone 0.1% Cream [Kenalog 0.1% Cream] 1 applic TOPICAL BID PRN PRN Reason: Skin Irritation Ondansetron Odt [Zofran ODT] 4 mg PO Q6H PRN PRN Reason: Nausea And Vomiting NIFEdipine [Adalat CC] 30 mg PO BID Docusate [Colace] 100 mg PO BID #20 capsule oxyCODONE HCL [OxyIR] 5 mg PO Q6H PRN 3 Days #10 tab PRN Reason: Pain Acetaminophen Tab [Tylenol] 650 mg PO Q6H #30 tab Discharge Medication List PARoxetine [Paxil] 10 mg PO DAILY 01/29/24 [History] Sevelamer Carbonate 3,200 mg PO TID-W/MEALS 01/29/24 [History] carvediloL 25 mg PO BID 01/29/24 [History] rOPINIRole HCL 0.5 mg PO BID 01/29/24 [History] traZODone HCL [Desyrel] 50 mg PO HS 01/29/24 [History] Cinacalcet HCl [Sensipar] 60 mg PO Q2D 04/18/24 [History] Furosemide [Lasix] 80 mg PO BID 04/18/24 [History] calcitrioL 0.25 mcg PO TID 04/18/24 [History] Famotidine [Pepcid] 20 mg PO DAILY 05/23/24 [History] Clobetasol Propionate [Clobex 0.05% Soln] 1 applic TOPICAL DAILY PRN 08/01/24 [History] Fluticasone Nasal [place] [Flonase Nasal [place]] 2 spr EA NOSTRIL BID PRN 08/01/24 [History] NIFEdipine [Adalat CC] 30 mg PO BID 08/01/24 [History] Ondansetron Odt [Zofran ODT] 4 mg PO Q6H PRN 08/01/24 [History] Simethicone [Simethicone Chew] 80 mg PO QID PRN 08/01/24 [History] Triamcinolone 0.1% Cream [Kenalog 0.1% Cream] 1 applic TOPICAL BID PRN 08/01/24 [History] Calcium Acetate [PhosLo] 1,334 mg PO TID-W/MEALS 08/04/24 [History] Acetaminophen Tab [Tylenol] 650 mg PO Q6H #30 tab 08/06/24 [Rx] Docusate [Colace] 100 mg PO BID #20 capsule 08/06/24 [Rx] Iron Ps Complex/B12/Folic Acid [Myferon-150 Forte Capsule] 1 each PO DAILY #30 capsule 08/06/24 [Rx] oxyCODONE HCL [OxyIR] 5 mg PO Q6H PRN 3 Days #10 tab 08/06/24 [Rx] Follow up Appointment(s)/Referral(s): Angela Torres MD [Primary Care Provider] - 1-2 days Patient Instructions/Handouts: *Surgery [facility] - (Anesthesia) Discharge Instructions Outpatient Surgery Activity/Diet/Wound Care/Special Instructions: If ANY fever develops, return to Emergency Room [facility] Discharge Disposition: HOME SELF-CARE
--- NOTE | 2024-08-06 13:58 | P.GSCN ---
History of Present Illness Consult date: 08/06/24 History of present illness: CHIEF COMPLAINT: Fever HISTORY OF PRESENT ILLNESS: This is a 33-year-old female who presented to the hospital with complaints of whole body aches and fever. She was recently admitted with pulmonary edema and mono. She was scheduled for PD catheter removal with Dr. Garland outpatient. Surgical service has been consulted for PD catheter removal. Patient has known end-stage renal disease and has been receiving hemodialysis. Patient did get a unit of blood for hemoglobin of 5.9. No active signs of bleeding per charting. Patient with known anemia of chronic disease. Patient seen and examined by Dr. Garland PAST MEDICAL HISTORY: End-stage renal disease hypertension, seizure disorder PAST SURGICAL HISTORY: See below MEDICATIONS: See below ALLERGIES: See below SOCIAL HISTORY: No illicit drug use. REVIEW OF SYSTEMS: CONSTITUTIONAL: Denies fever or chills. HEENT: Denies blurred vision, vision changes, or eye pain. Denies hemoptysis CARDIOVASCULAR: Denies chest pain or pressure. RESPIRATORY: No shortness of breath. GASTROINTESTINAL: See HPI for pertinent findings HEMATOLOGIC: Denies bleeding disorders. GENITOURINARY: Denies any blood in urine or increased urinary frequency. SKIN: Denies pruitis. Denies rash. PHYSICAL EXAM: VITAL SIGNS: Reviewed GENERAL: Well-developed in no acute distress. HEENT: No sclera icterus. Extraocular movements grossly intact. Moist buccal mucosa. Head is atraumatic, normocephalic. No nasal drainage. ABDOMEN: Soft. Nondistended. Nontender. PD catheter NEUROLOGIC: Alert and oriented. Cranial nerves II through XII grossly intact. LABORATORY DATA: WBC 9.3 Hgb 5.9 up to 7.1 platelets 251 Sodium 135 potassium 4.4 creatinine 3.44 IMAGING: ASSESSMENT: 1. End-stage renal disease 2. Anemia status post blood transfusion. Known history of anemia of chronic di sease PLAN: -Patient scheduled for PD catheter removal today with Dr. Garland. Dr. Garland did remove the PD catheter in OR. He has cleared patient for discharge today. Physician Vice President Of Marketing note has been reviewed by physician. Signing provider agrees with the documented findings, assessment, and plan of care. Past Medical History Past Medical History: Dialysis, Hypertension, Renal Disease, Seizure Disorder, Skin Disorder Additional Past Medical History / Comment(s): P.D. dailysis <TH<SA, seizure 2 yrs ago,possibly has had dvt in past,ovarian cyst uterine fibroids History of Any Multi-Drug Resistant Organisms: None Reported Past Surgical History: Back Surgery Additional Past Surgical History / Comment(s): urethral surgery at 9months old. skull fracture at age 9, back injections Past Anesthesia/Blood Transfusion Reactions: No Reported Reaction Past Psychological History: Anxiety, Depression Smoking Status: Never smoker - Past Family History Mother Family Medical History: Cancer Medications and Allergies Home Medications Medication Instructions Recorded Confirmed Type PARoxetine [Paxil] 10 mg PO DAILY 01/29/24 08/06/24 History Sevelamer Carbonate 3,200 mg PO TID-W/MEALS 01/29/24 08/06/24 History carvediloL 25 mg PO BID 01/29/24 08/06/24 History rOPINIRole HCL 0.5 mg PO BID 01/29/24 08/06/24 History traZODone HCL [Desyrel] 50 mg PO HS 01/29/24 08/06/24 History Cinacalcet HCl [Sensipar] 60 mg PO Q2D 04/18/24 08/06/24 History Furosemide [Lasix] 80 mg PO BID 04/18/24 08/06/24 History calcitrioL 0.25 mcg PO TID 04/18/24 08/06/24 History Famotidine [Pepcid] 20 mg PO DAILY 05/23/24 08/06/24 History Clobetasol Propionate [Clobex 1 applic TOPICAL DAILY PRN 08/01/24 08/06/24 History 0.05% Soln] Fluticasone Nasal [place] [Flonase 2 spr EA NOSTRIL BID PRN 08/01/24 08/06/24 History Nasal [place]] NIFEdipine [Adalat CC] 30 mg PO BID 08/01/24 08/06/24 History Ondansetron Odt [Zofran ODT] 4 mg PO Q6H PRN 08/01/24 08/06/24 History Simethicone [Simethicone Chew] 80 mg PO QID PRN 08/01/24 08/06/24 History Triamcinolone 0.1% Cream [Kenalog 1 applic TOPICAL BID PRN 08/01/24 08/06/24 History 0.1% Cream] Calcium Acetate [PhosLo] 1,334 mg PO TID-W/MEALS 08/04/24 08/06/24 History Acetaminophen Tab [Tylenol] 650 mg PO Q6H #30 tab 08/06/24 Rx Docusate [Colace] 100 mg PO BID #20 capsule 08/06/24 Rx Iron Ps Complex/B12/Folic Acid 1 each PO DAILY #30 capsule 08/06/24 Rx [Myferon-150 Forte Capsule] oxyCODONE HCL [OxyIR] 5 mg PO Q6H PRN 3 Days #10 tab 08/06/24 Rx Allergies Allergy/AdvReac Type Severity Reaction Status Date / Time amlodipine Allergy red/itchy Verified 08/06/24 09:05 silver Allergy red/itchy Verified 08/06/24 09:05 [From [employer]] Surgical - Exam Vital Signs Temp Pulse Resp BP Pulse Ox 98.5 F 101 H 18 199/108 100 08/05/24 23:36 08/05/24 23:36 08/05/24 23:36 08/05/24 23:36 08/05/24 23:36 Results - Labs 08/06/24 06:26 08/06/24 00:28 Abnormal Lab Results - Last 24 Hours (Table) 08/06/24 08/06/24 08/06/24 Range/Units 00:28 00:28 00:28 RBC 2.04 L (3.80-5.40) m/uL Hgb 5.9 L* (11.4-16.0) gm/dL Hct 18.3 L* (34.0-46.0) % Sodium 135 L (137-145) mmol/L Carbon Dioxide 36 H (22-30) mmol/L BUN 23 H (7-17) mg/dL Creatinine 3.44 H (0.52-1.04) mg/dL Total Protein 6.2 L (6.3-8.2) g/dL Albumin 3.2 L (3.5-5.0) g/dL Procalcitonin 1.99 H (0.02-0.50) ng/mL Crossmatch 08/06/24 08/06/24 Range/Units 01:35 06:26 RBC 2.37 L (3.80-5.40) m/uL Hgb 7.1 L (11.4-16.0) gm/dL Hct 21.5 L (34.0-46.0) % Sodium (137-145) mmol/L Carbon Dioxide (22-30) mmol/L BUN (7-17) mg/dL Creatinine (0.52-1.04) mg/dL Total Protein (6.3-8.2) g/dL Albumin (3.5-5.0) g/dL Procalcitonin (0.02-0.50) ng/mL Crossmatch See Detail Diabetes panel 08/06/24 Range/Units 00:28 Sodium 135 L (137-145) mmol/L Potassium 4.4 (3.5-5.1) mmol/L Chloride 98 (98-107) mmol/L Carbon Dioxide 36 H (22-30) mmol/L BUN 23 H (7-17) mg/dL Creatinine 3.44 H (0.52-1.04) mg/dL Glucose 83 (74-99) mg/dL Calcium 8.5 (8.4-10.2) mg/dL AST 27 (14-36) U/L ALT 15 (4-34) U/L Alkaline Phosphatase 95 (38-126) U/L Total Protein 6.2 L (6.3-8.2) g/dL Albumin 3.2 L (3.5-5.0) g/dL Calcium panel 08/06/24 Range/Units 00:28 Calcium 8.5 (8.4-10.2) mg/dL Albumin 3.2 L (3.5-5.0) g/dL Pituitary panel 08/06/24 Range/Units 00:28 Sodium 135 L (137-145) mmol/L Potassium 4.4 (3.5-5.1) mmol/L Chloride 98 (98-107) mmol/L Carbon Dioxide 36 H (22-30) mmol/L BUN 23 H (7-17) mg/dL Creatinine 3.44 H (0.52-1.04) mg/dL Glucose 83 (74-99) mg/dL Calcium 8.5 (8.4-10.2) mg/dL Adrenal panel 08/06/24 Range/Units 00:28 Sodium 135 L (137-145) mmol/L Potassium 4.4 (3.5-5.1) mmol/L Chloride 98 (98-107) mmol/L Carbon Dioxide 36 H (22-30) mmol/L BUN 23 H (7-17) mg/dL Creatinine 3.44 H (0.52-1.04) mg/dL Glucose 83 (74-99) mg/dL Calcium 8.5 (8.4-10.2) mg/dL Total Bilirubin 0.6 (0.2-1.3) mg/dL AST 27 (14-36) U/L ALT 15 (4-34) U/L Alkaline Phosphatase 95 (38-126) U/L Total Protein 6.2 L (6.3-8.2) g/dL Albumin 3.2 L (3.5-5.0) g/dL
[2024-08-06 14:21] VITALS: BP 171/90; PULSE 89
[2024-08-06] MEDS ORDERED: FUROSEMIDE 80 MG TAB PO SCH (16:00)
[2024-08-06] MEDS ORDERED: carvediloL 12.5 MG TAB PO SCH (17:30)
[2024-08-06] MEDS ORDERED: traZODone HCL 50 MG TAB PO SCH (21:00)
--- NOTE | 2024-08-19 12:00 | P.OP ---
Date of Procedure: 08/06/24 Preoperative Diagnosis: Chronic renal failure CAPD catheter occlusion Postoperative Diagnosis: Chronic renal failure Adhesions CAPD catheter occlusion Procedure(s) Performed: Laparoscopic removal of CAPD catheter Anesthesia: CHRISTINA Surgeon: Ascencion Garland Estimated Blood Loss (ml): 5 Pathology: other (Catheter tip) Condition: stable Disposition: PACU Indications for Procedure: This a 33-year-old female chronic renal failure. Patient has had occlusion of her CAPD catheter. Patient was admitted through the emergency room last night with fevers. Patient will have received a catheter removed today. Description of Procedure: The patient is placed on the operative table in the supine position. She received general endotracheal menses. Her abdomen was prepped and draped you sterile fashion. In the left upper quadrant a 5 mm incision was made then using an optical trocar under direct vision the L[place] Was entered. The abs insufflated. After adequate insufflation the laparoscope placed back L into the peritoneal cavity. Another 5 mm trocars placed in left lateral position. The pelvis had significant adhesions. The CAPD catheter was occluded with adhesions. This point the CAPD catheter tract was examined. The Velcro cuff at the subcutaneous tissue level was dissected free. And then a counterincision was made at the CAPD catheter entry site. At the fascial level the CAPD catheter Velcro cuff was dissected free. And then the CAPD catheter was withdrawn. The tip of the CAPD catheter appeared to be occluded with protein material. The typic catheter was cut and sent to pathology for culture. The trocars were withdrawn. Due to the significant adhesions the pelvis. We decided not to place a replacement CAPD catheter. Patient also had fevers 24 hours prior to her procedure. At this point the skin was i closed with 3-0 Vicryl. Patient tolerated well. She will sent to recovery in stable condition.
== END 2024-08-06 16:06 | disposition home or self-care (01) ==
LOC: EC 23:34 → 4SSUR 08-06 01:44
PROVIDERS: ADMIT Hospitalist; ATTEND Hospitalist
DX: N18.6 End stage renal disease (principal); I12.0 Hypertensive chronic kidney disease with stage 5 chronic kidney disease or end stage renal disease; T85.691A Other mechanical complication of intraperitoneal dialysis catheter, initial encounter; D63.1 Anemia in chronic kidney disease; G40.909 Epilepsy, unspecified, not intractable, without status epilepticus; J81.1 Chronic pulmonary edema; R50.9 Fever, unspecified; R52 Pain, unspecified; F32.A Depression, unspecified; F41.9 Anxiety disorder, unspecified; Z79.899 Other long term (current) drug therapy; Z86.19 Personal history of other infectious and parasitic diseases; Z88.8 Allergy status to other drugs, medicaments and biological substances; Z91.09 Other allergy status, other than to drugs and biological substances; Z99.2 Dependence on renal dialysis
CPT/HCPCS: 49422; 99284; 36415; 86900; 86901; 83880; 80053; 83605; 85025; 86850; 86920; 84703; 87070; 84145; 87636; 71046; G0378; P9016; J2250; J0330; J0360; J1644; J1100; J2710; J2405; J0690; J2003; J3010; J1171 ×2; J2704; J1596

== ENCOUNTER 2024-08-13 21:19 | Emergency (ER) | payer MEDICARE, OTHER ==
[2024-08-13 21:26] VITALS: TEMP 98.3
--- NOTE | 2024-08-13 21:39 | ED ---
Back Pain HPI - General Chief Complaint: Back Pain/Injury Stated Complaint: back pain,TOMASA Time Seen by Provider: 08/13/24 21:28 Source: patient, RN notes reviewed, old records reviewed Limitations: no limitations - History of Present Illness Initial Comments: This is a 33-year-old female to the ER for evaluation patient presents today for evaluation of severe pain back pain back cramping tightness in the lower back tightness in the thoracic back and history of chronic pain that she does have and this pain is mildly worse than normal but nothing significant no new trauma no fevers cough congestion or shortness of breath MD Complaint: back pain -: days(s) Place: home Radiation: none Severity: severe Severity scale (1-10): 9 Consistency: constant Improves With: none Worsens With: none Context: while lifting, turning/twisting Associated Symptoms: denies other symptoms Treatments Prior to Arrival: acetaminophen - Related Data Home Medications Medication Instructions Recorded Confirmed PARoxetine [Paxil] 10 mg PO DAILY 01/29/24 08/06/24 Sevelamer Carbonate 3,200 mg PO TID-W/MEALS 01/29/24 08/06/24 carvediloL 25 mg PO BID 01/29/24 08/06/24 rOPINIRole HCL 0.5 mg PO BID 01/29/24 08/06/24 traZODone HCL [Desyrel] 50 mg PO HS 01/29/24 08/06/24 Cinacalcet HCl [Sensipar] 60 mg PO Q2D 04/18/24 08/06/24 Furosemide [Lasix] 80 mg PO BID 04/18/24 08/06/24 calcitrioL 0.25 mcg PO TID 04/18/24 08/06/24 Famotidine [Pepcid] 20 mg PO DAILY 05/23/24 08/06/24 Clobetasol Propionate [Clobex 1 applic TOPICAL DAILY PRN 08/01/24 08/06/24 0.05% Soln] Fluticasone Nasal [place] [Flonase 2 spr EA NOSTRIL BID PRN 08/01/24 08/06/24 Nasal [place]] NIFEdipine [Adalat CC] 30 mg PO BID 08/01/24 08/06/24 Ondansetron Odt [Zofran ODT] 4 mg PO Q6H PRN 08/01/24 08/06/24 Simethicone [Simethicone Chew] 80 mg PO QID PRN 08/01/24 08/06/24 Triamcinolone 0.1% Cream [Kenalog 1 applic TOPICAL BID PRN 08/01/24 08/06/24 0.1% Cream] Calcium Acetate [PhosLo] 1,334 mg PO TID-W/MEALS 08/04/24 08/06/24 Previous Rx's Medication Instructions Recorded Acetaminophen Tab [Tylenol] 650 mg PO Q6H #30 tab 08/06/24 Docusate [Colace] 100 mg PO BID #20 capsule 08/06/24 Iron Ps Complex/B12/Folic Acid 1 each PO DAILY #30 capsule 08/06/24 [Myferon-150 Forte Capsule] oxyCODONE HCL [OxyIR] 5 mg PO Q6H PRN 3 Days #10 tab 08/06/24 Allergies Allergy/AdvReac Type Severity Reaction Status Date / Time amlodipine Allergy red/itchy Verified 08/13/24 21:26 silver Allergy red/itchy Verified 08/13/24 21:26 [From [employer] Mesh] Review of Systems ROS Statement: Those systems with pertinent positive or pertinent negative responses have been documented in the HPI. ROS Other: All systems not noted in ROS Statement are negative. Past Medical History Past Medical History: Dialysis, Hypertension, Renal Disease, Seizure Disorder, Skin Disorder Additional Past Medical History / Comment(s): P.D. dailysis [place]<TH<[place], seizure 2 yrs ago,possibly has had dvt in past,ovarian cyst uterine fibroids History of Any Multi-Drug Resistant Organisms: None Reported Past Surgical History: Back Surgery Additional Past Surgical History / Comment(s): urethral surgery at 7months old. skull fracture at age 9, back injections Past Anesthesia/Blood Transfusion Reactions: No Reported Reaction Past Psychological History: Anxiety, Depression Smoking Status: Never smoker Past Alcohol Use History: None Reported Past Drug Use History: None Reported - Past Family History Mother Family Medical History: Cancer Additional Family Medical History / Comment(s): Ovarian and cervical cancer. General Exam Limitations: no limitations General appearance: alert, in no apparent distress Head exam: Present: atraumatic, normocephalic, normal inspection Eye exam: Present: normal appearance, PERRL, EOMI. Absent: scleral icterus, conjunctival injection, periorbital swelling ENT exam: Present: normal exam, mucous membranes moist Neck exam: Present: normal inspection. Absent: tenderness, meningismus, lympha denopathy Respiratory exam: Present: normal lung sounds bilaterally. Absent: respiratory distress, wheezes, rales, rhonchi, stridor Cardiovascular Exam: Present: regular rate, normal rhythm, normal heart sounds. Absent: systolic murmur, diastolic murmur, rubs, gallop, clicks GI/Abdominal exam: Present: soft, normal bowel sounds. Absent: distended, tenderness, guarding, rebound, rigid Extremities exam: Present: normal inspection, full ROM, normal capillary refill. Absent: tenderness, pedal edema, joint swelling, calf tenderness Back exam: Present: normal inspection Neurological exam: Present: alert, oriented X3, CN II-XII intact Psychiatric exam: Present: normal affect, normal mood Skin exam: Present: warm, dry, intact, normal color. Absent: rash Course Vital Signs 08/13/24 21:24 Temperature 98.3 F Pulse Rate 105 H Respiratory 18 Rate Blood Pressure 163/101 O2 Sat by Pulse 100 Oximetry - Reevaluation(s) Reevaluation #1: 08/13/24 21:37 Medical records reviewed Reevaluation #2: 08/13/24 21:37 Patient's pain is improved Reevaluation #3: 08/13/24 21:38 Patient informed of results questions answered Reevaluation #4: Was pt. sent in by a medical professional or institution (, PA, STEREOPTIC PROJECTION TOPOGRAPHER, urgent care, hospital, or fdc...) When possible be specific @ -no Did you speak to anyone other than the patient for history (EMS, parent, family, police, friend...)? What history was obtained from this source @ -no Did you review nursing and triage notes (agree or disagree)? Why? @ -agree Are old charts reviewed (outside hosp., previous admission, EMS record, old EKG, old radiological studies, urgent care reports/EKG's, fdc records)? Report findings @ -yes Differential Diagnosis (chest pain, altered mental status, abdominal pain women, abdominal pain men, vaginal bleeding, weakness, fever, dyspnea, syncope, headache, dizziness, GI bleed, back pain, seizure, CVA, palpatations, mental health, musculoskeletal)? @ -prior EKG interpreted by me (3pts min.). @ -yes X-rays interpreted by me (1pt min.). @ -yes negative for acute disease CT interpreted by me (1pt min.). @ -no U/S interpreted by me (1pt. min.). @ -no What testing was considered but not performed or refused? (CT, X-rays, U/S, labs)? Why? @ -none What meds were considered but not given or refused? Why? @ -none Did you discuss the management of the patient with other professionals (brennan aleman i.e. , PA, STEREOPTIC PROJECTION TOPOGRAPHER, lab, RT, psych nurse, social worker health services, heavy truck mechanic, teacher, diplomatic officer, case folder)? Give summary @ -no Was smoking cessation discussed for >3mins.? @ -no Was critical care preformed (if so, how long)? @ -no Were there social determinants of health that impacted care today? How? (Homelessness, low income, unemployed, alcoholism, drug addiction, transportation, low edu. Level, literacy, decrease access to med. care, care home, rehab)? @ -none Was there de-escalation of care discussed even if they declined (Discuss DNR or withdrawal of care, Hospice)? DNR status @ -no What co-morbidities impacted this encounter? (DM, HTN, Smoking, COPD, CAD, Cancer, CVA, ARF, Chemo, Hep., AIDS, mental health diagnosis, sleep apnea, morbid obesity)? @ -none Was patient admitted / discharged? Hospital course, mention meds given and route, prescriptions, significant lab abnormalities, going to OR and other pertinent info. @ - Undiagnosed new problem with uncertain prognosis? @ -no Drug Therapy requiring intensive monitoring for toxicity (Heparin, Nitro, Insulin, Cardizem)? @ -no Were any procedures done? @ -no Diagnosis/symptom? @ - Acute, or Chronic, or Acute on Chronic? @ -Acute Uncomplicated (without systemic symptoms) or Complicated (systemic symptoms)? @ -Complicated Side effects of treatment? @ -no Exacerbation, Progression, or Severe Exacerbation? @ -exacerbation Poses a threat to life or bodily function? How? (Chest pain, [place], [place], pneumonia, PE, COPD, DKA, ARF, appy, cholecystitis, CVA, Diverticulitis, Homicidal, Suicidal, threat to staff... and all critical care pts) @ -yes Reevaluation #5: Differential Back Pain: Strain, zoster, cauda equina syndrome, epidural abscess, vertebral osteomyelitis, discitis, fracture, subluxation, disc herniation, DJD, spinal stenosis, dissection, AAA, pancreatitis, peptic ulcer disease, pyelonephritis, kidney stone, this is not meant to be an all-inclusive list. Medical Decision Making - Medical Decision Making 33 female to ER with chronic pain chronic muscle spasm. Pain is improved here in the ER patient feels well can be discharged home Disposition Clinical Impression: CKD (chronic kidney disease) requiring chronic dialysis, Thoracic back pain, Mid back pain Disposition: HOME SELF-CARE Condition: Good Instructions (If sedation given, give patient instructions): Acute Low Back Pain (ED) Is patient prescribed a controlled substance at d/c from ED?: No Referrals: Angela Torres MD [Primary Care Provider] - 1-2 days Time of Disposition: 21:40
[2024-08-13] MEDS: ACET/COD 300 MG/30 MG STARTER PACK 6 TAB BTL PO STA (22:38)
[2024-08-13] MEDS: traMADol 50 MG STARTER PACK 3 TAB BTL PO STA (22:38)
[2024-08-13] MEDS: diphenhydrAMINE 50 MG CAP PO STA (22:40)
[2024-08-13] MEDS: diazePAM 5 MG TAB PO STA (22:40)
[2024-08-13] MEDS: HYDROmorphone 1 MG/ML 1 ML SYRINGE IM STA (22:43)
[2024-08-13 23:20] VITALS: BP 157/90; PULSE 100; RESP 19
== END 2024-08-13 23:15 | disposition home or self-care (01) ==
LOC: EC 21:19
DX: I12.0 Hypertensive chronic kidney disease with stage 5 chronic kidney disease or end stage renal disease (principal); N18.6 End stage renal disease; Z99.2 Dependence on renal dialysis; M54.6 Pain in thoracic spine; M54.50 Low back pain, unspecified; Z88.8 Allergy status to other drugs, medicaments and biological substances
CPT/HCPCS: 99283; 96372; J1171

== ENCOUNTER 2024-08-14 09:47 | Inpatient (IN) | payer MEDICARE, OTHER ==
[2024-08-14] MEDS ORDERED: SODIUM BICARB 8.4% 50 ML SYR (1 MEQ/ML) ONE (09:48)
[2024-08-14] MEDS ORDERED: CALCIUM CHLORIDE 100 MG/ML 10 ML SYRINGE ONE (09:48)
[2024-08-14] MEDS ORDERED: EPINEPHrine 10 ML SYRINGE (0.1 MG/ML) ONE (09:48)
[2024-08-14 10:03] LABS: Glucose,Whole Blood 201 mg/dL (70-110)
[2024-08-14 10:11] LABS: ALT 11 U/L (4-34); AST 23 U/L (14-36); African American GFR (CKD) 9 (>60 ml/min/1.73 sqM); Albumin 3.7 g/dL (3.5-5.0); Alkaline Phosphatase 106 U/L (38-126); Anion Gap 17 mmol/L; Blood Urea Nitrogen 39 mg/dL (7-17); Calcium 9.8 mg/dL (8.4-10.2); Carbon Dioxide 25 mmol/L (22-30); Chloride 94 mmol/L (98-107); Glucose 196 mg/dL (74-99); Non-African American GFR(CKD) 8 (>60 ml/min/1.73 sqM); Sodium 136 mmol/L (137-145); Total Bilirubin 0.6 mg/dL (0.2-1.3); Total Protein 6.6 g/dL (6.3-8.2)
[2024-08-14 10:12] LABS: INR 1.1 (<1.2); Partial Thromboplastin Time 27.6 sec (22.0-30.0); Prothrombin Time 11.7 sec (10.0-12.5)
[2024-08-14 10:18] LABS: Potassium 6.8 mmol/L (3.5-5.1)
[2024-08-14 10:22] LABS: Basophils # (A) 0.1 k/uL (0-0.2); Basophils % (A) 0 %; Eosinophils # (A) 0.5 k/uL (0-0.7); Eosinophils % (A) 2 %; HCT 24.5 % (34.0-46.0); HGB 7.7 gm/dL (11.4-16.0); Hypochromasia Marked; Lymphocytes # (A) 2.2 k/uL (1.0-4.8); Lymphocytes % (A) 12 %; MCH 30.1 pg (25.0-35.0); MCHC 31.5 g/dL (31.0-37.0); Mean Platelet Volume 7.3; Monocytes # (A) 0.7 k/uL (0-1.0); Monocytes % (A) 3 %; Neutrophils # (A) 15.7 k/uL (1.3-7.7); Neutrophils % (A) 81 %; Platelet Count 400 k/uL (150-450); RBC 2.57 m/uL (3.80-5.40); RDW 14.9 % (11.5-15.5); WBC 19.3 k/uL (3.8-10.6)
[2024-08-14 10:23] LABS: MCV 95.4 fL (80.0-100.0)
[2024-08-14] MEDS: INSULIN REGULAR 100 UNIT/ML VIAL (IV) IV ONE (10:45)
--- NOTE | 2024-08-14 10:46 | CT ---
EXAMINATION TYPE: CT brain wo con DATE OF EXAM: 08/14/2024 COMPARISON: None CLINICAL INDICATION: Female, 33 years old with history of Altered mental status; PHH, Unresponsive, a ltered mental status CT DLP: 1066.4 mGycm Automated exposure control for dose reduction was used. Findings: The ventricles, basal cisterns and sulci over the convexities are within normal limits and there is n o mass effect or shift of midline structures. No abnormal density is seen throughout the brain parenchyma and there is no acute intra or extra-axia l hemorrhage. The posterior fossa including the brainstem, fourth ventricle and cerebellar pontine angles appear no rmal. Intraorbital contents appear normal and symmetric. There are air-fluid levels in the frontal, ethmoid and sphenoid sinuses consistent with acute sinusit is. There is an NG tube. The mastoid air cells are well aerated. The calvarium is intact. IMPRESSION: 1. No acute bleed or mass effect. 2. Acute pansinusitis. [facility], , 08/14/2024 10:44 AM
[2024-08-14] MEDS: DEXTROSE 50% SYRINGE 50 ML IVP STA (10:48)
[2024-08-14 10:53] LABS: ABG Base Excess 3.6 mmol/L; ABG HCO3 29 mmol/L (21-25); ABG Oxygen Saturation 91.1 % (94-97); ABG PCO2 48 mmHg (35-45); ABG PH 7.39 (7.35-7.45); ABG PO2 64 mmHg (83-108); ABG TCO2 30 mmol/L (19-24); Allen Test Performed? Yes
--- NOTE | 2024-08-14 10:53 | CT ---
CTA chest and abdomen. Study: Cardiopulmonary arrest. COMPARISON: CT chest 08/01/[address] abdomen dated 07/24/2024. FINDINGS: CTA CHEST: There is been marked interval worsening in the diffuse bilateral airspace consolidation consistent wi th diffuse pneumonia or pulmonary edema. There is persistent mild cardiomegaly. There are small bilat eral pleural effusions, right greater than left. There is no pneumothorax. There is no mediastinal, hilar or axillary adenopathy. The caliber of the thoracic aorta is normal and there is no aneurysm or dissection. There is an ET tube above the level of the debra. There is an NG tube within the stomach. No focal osseous lesions are seen. CTA ABDOMEN: There are no gallstones but there is mild cholecystic fluid. The liver, pancreas, spleen and adrenal glands are unremarkable. Kidneys are markedly atrophic. The caliber of the abdominal aorta is normal. The bowel loops are normal in caliber. There is small a mount of free fluid within the abdomen but no free intraperitoneal air. There is marked anasarca. There is a [place] catheter coiled within the urinary bladder. There is no pelvic abscess or adenopathy . IMPRESSION: 1. Marked interval worsening in the acute cardiopulmonary disease with diffuse airspace consolidation consistent with inflammation or edema and small bilateral pleural effusions. 2. Mild cardiomegaly. 3. ET tube and NG tube as described above. 4. Marked anasarca in the soft tissues. 5. Mild amount of free fluid in the abdomen and no bowel obstruction. [facility], , 08/14/2024 10:51 AM
--- NOTE | 2024-08-14 10:58 | XR ---
EXAMINATION TYPE: XR chest 1V portable DATE OF EXAM: 08/14/2024 10:05 AM COMPARISON: Chest radiographs from 08/06/2024 CLINICAL INDICATION: Female, 33 years old with history of altered mental status; [facility] TECHNIQUE: XR chest 1V portable Frontal view of the chest. FINDINGS: Lungs/Pleura: There is no evidence of pleural effusion, focal consolidation, or pneumothorax. Pulmonary vascularity: Unremarkable. Heart/mediastinum: Cardiomediastinal silhouette is prominent in size. Musculoskeletal: No acute osseous pathology. Other findings: None Lines/Tubes: Endotracheal tube with distal tip 2.3 cm above the debra. Nasogastric tube with its distal tip and side-port projecting under the diaphragm. IMPRESSION: 1. The focal airspace opacities. 2. Appropriate placement of support tubes. [facility], , 08/14/2024 10:56 AM
[2024-08-14] MEDS: PIPERACILLIN-TAZOBACTAM 3.375 GM in SODIUM CHLORIDE 0.9% 100 ML IVPB STA (11:05)
[2024-08-14] MEDS: SODIUM ZIRCONIUM CYCLOSILICATE 10 GM PACKET OG-TUBE ONE (11:06)
[2024-08-14] MEDS: metroNIDAZOLE-NS PMX 500 MG in SALINE 1 100ML.BAG IVPB STA (11:08)
--- NOTE | 2024-08-14 11:51 | P.NPCON ---
History of Present Illness - Reason for Consult end stage renal disease - History of Present Illness Reason for consultation: End-stage renal disease History of present illness: Patient is a 33-year-old female seen in renal consultation for end-stage renal disease. She is maintained on hemodialysis on Sunday schedule. Patient is currently intubated and history was obtained from the chart and nurse present at bedside. Patient was recently seen for back pain and subsequently discharged. Earlier this morning she felt short of breath and her heart racing and EMS was called. Patient was brought to the hospital and had a PEA arrest with downtime of about 10 minutes. She is currently intubated. Potassium level 6.[address]. I did call the dialysis unit and patient did go to hemodialysis on Sunday. I do not see any meds that would raise potassium level on her medication list. CTA showed diffuse airspace consolidation with pleural effusions and anasarca. Brain CT showed no acute changes. Patient was on peritoneal dialysis in the past but has now transition over to hemodialysis. PD catheter has been removed. Vital signs -afebrile. Blood pressure high. HEENT: Intubated. LUNGS: Scattered rhonchi. HEART: Tachycardic. ABDOMEN: No distention. EXTREMITITES: No edema. Past Medical History Past Medical History: Dialysis, Hypertension, Renal Disease, Seizure Disorder, Skin Disorder Additional Past Medical History / Comment(s): P.D. dailysis <<, seizure 2 yrs ago,possibly has had dvt in past,ovarian cyst uterine fibroids History of Any Multi-Drug Resistant Organisms: None Reported Past Surgical History: Back Surgery Additional Past Surgical History / Comment(s): urethral surgery at 9months old. skull fracture at age 9, back injections Past Anesthesia/Blood Transfusion Reactions: No Reported Reaction Past Psychological History: Anxiety, Depression Smoking Status: Never smoker Past Alcohol Use History: None Reported Past Drug Use History: None Reported - Past Family History Mother Family Medical History: Cancer Additional Family Medical History / Comment(s): Ovarian and cervical cancer. Medications and Allergies Home Medications Medication Instructions Recorded Confirmed Type PARoxetine [Paxil] 10 mg PO DAILY 01/29/24 08/14/24 History Sevelamer Carbonate 3,200 mg PO TID-W/MEALS 01/29/24 08/14/24 History carvediloL 25 mg PO BID 01/29/24 08/14/24 History rOPINIRole HCL 0.5 mg PO BID 01/29/24 08/14/24 History traZODone HCL [Desyrel] 50 mg PO HS 01/29/24 08/14/24 History Cinacalcet HCl [Sensipar] 60 mg PO Q2D 04/18/24 08/14/24 History Furosemide [Lasix] 80 mg PO BID 04/18/24 08/14/24 History calcitrioL 0.25 mcg PO TID 04/18/24 08/14/24 History Famotidine [Pepcid] 20 mg PO DAILY 05/23/24 08/14/24 History Clobetasol Propionate [Clobex 1 applic TOPICAL DAILY PRN 08/01/24 08/14/24 History 0.05% Soln] Fluticasone Nasal [place] [Flonase 2 spr EA NOSTRIL BID PRN 08/01/24 08/14/24 History Nasal [place]] NIFEdipine [Adalat CC] 30 mg PO BID 08/01/24 08/14/24 History Ondansetron Odt [Zofran ODT] 4 mg PO Q6H PRN 08/01/24 08/14/24 History Simethicone [Simethicone Chew] 80 mg PO QID PRN 08/01/24 08/14/24 History Triamcinolone 0.1% Cream [Kenalog 1 applic TOPICAL BID PRN 08/01/24 08/14/24 History 0.1% Cream] Calcium Acetate [PhosLo] 1,334 mg PO TID-W/MEALS 08/04/24 08/14/24 History Acetaminophen Tab [Tylenol] 650 mg PO Q6H #30 tab 08/06/24 08/14/24 Rx Docusate [Colace] 100 mg PO BID #20 capsule 08/06/24 08/14/24 Rx oxyCODONE HCL [OxyIR] 5 mg PO Q6H PRN 3 Days #10 tab 08/06/24 08/14/24 Rx Iron Ps Complex/B12/Folic Acid 1 cap PO DAILY 08/14/24 08/14/24 History [Myferon-150 Forte Capsule] Allergies Allergy/AdvReac Type Severity Reaction Status Date / Time amlodipine Allergy red/itchy Verified 08/14/24 11:07 silver Allergy red/itchy Verified 08/14/24 11:07 [[facility] [employer] [facility]] Physical Exam Vitals: Vital Signs Temp Pulse Resp BP Pulse Ox FiO2 08/14/24 11:22 97.3 F L 106 H 28 H 176/109 89 L 100 08/14/24 10:58 100 08/14/24 10:33 100 08/14/24 10:10 121 H 24 225/133 100 100 08/14/24 10:00 100 08/14/24 09:54 96.9 F L 150 H 16 245/144 79 L Intake and Output 08/13/24 08/14/24 08/14/24 22:59 06:59 14:59 Intake Total 7.462 Balance 7.462 Intake: Intake, IV Titration 7.462 Amount propofoL 1,000 mg In 7.462 Empty Bag 1 bag @ 15 MCG/ KG/MIN 5.715 mls/hr IV . [id number] [facility] Rx#:[id number] Other: Weight 63.503 kg Results - Lab Results Most recent lab results ABG pH 7.39 (7.35-7.45) 08/14/24 10:49 ABG pCO2 48 mmHg (35-45) H 08/14/24 10:49 ABG pO2 64 mmHg (83-108) L 08/14/24 10:49 ABG HCO3 29 mmol/L (21-25) H 08/14/24 10:49 ABG O2 Saturation 91.1 % (94-97) L 08/14/24 10:49 Calcium 9.8 mg/dL (8.4-10.2) 08/14/24 09:57 08/14/24 09:57 08/14/24 09:57 Assessment and Plan Plan: Assessment: 1. End-stage renal disease maintained on hemodialysis on Sunday schedule. 2. PEA arrest. 3. Acute [place] respiratory failure. Intubated. 4. Hyperkalemia secondary to chronic kidney disease and post CPR. 5. Pneumonia maintained on antibiotics. 6. Chronic kidney disease mineral bone disease. 7. Anemia of chronic kidney disease. Plan: Patient received IV calcium and is now receiving IV insulin with D50 as well as Lokelma. Urgent hemodialysis today. Repeat BMP 2 hours after dialysis. Wean FiO2. Thank you for the consultation. I will continue to follow the patient with you during her hospital stay.
[2024-08-14] MEDS ORDERED: IPRATROPIUM-ALBUTEROL 3 ML NEB INHALATION PRN (11:57)
[2024-08-14] MEDS: IPRATROPIUM-ALBUTEROL 3 ML NEB INHALATION SCH (12:01)
--- NOTE | 2024-08-14 12:42 | ED ---
General Adult HPI - General Chief complaint: Cardiac Arrest/CPR Stated complaint: Nonresponsive Time Seen by Provider: 08/14/24 09:47 Source: patient, EMS, RN notes reviewed, old records reviewed Mode of arrival: EMS Limitations: altered mental status - History of Present Illness Initial comments: This is a 33-year-old female who was brought into us in cardiac arrest. The initial call that we received was the patient was having difficulty breathing w hen EMS arrived the heart rate was 200 the blood pressure was unobtainable but the patient did have pulses. Just prior to arrival at the hospital the patient lost pulses and they started CPR patient did not have an IV in place at this time and they were unable to intubate the patient she stated initially she intubated the stomach but when she arrived she had tried a second time and the tube was already dislodged. The tube was at that point removed and the patient was already vomiting. - Related Data Home Medications Medication Instructions Recorded Confirmed PARoxetine [Paxil] 10 mg PO DAILY 01/29/24 08/14/24 Sevelamer Carbonate 3,200 mg PO TID-W/MEALS 01/29/24 08/14/24 carvediloL 25 mg PO BID 01/29/24 08/14/24 rOPINIRole HCL 0.5 mg PO BID 01/29/24 08/14/24 traZODone HCL [Desyrel] 50 mg PO HS 01/29/24 08/14/24 Cinacalcet HCl [Sensipar] 60 mg PO Q2D 04/18/24 08/14/24 Furosemide [Lasix] 80 mg PO BID 04/18/24 08/14/24 calcitrioL 0.25 mcg PO TID 04/18/24 08/14/24 Famotidine [Pepcid] 20 mg PO DAILY 05/23/24 08/14/24 Clobetasol Propionate [Clobex 1 applic TOPICAL DAILY PRN 08/01/24 08/14/24 0.05% Soln] Fluticasone Nasal [place] [Flonase 2 spr EA NOSTRIL BID PRN 08/01/24 08/14/24 Nasal [place]] NIFEdipine [Adalat CC] 30 mg PO BID 08/01/24 08/14/24 Ondansetron Odt [Zofran ODT] 4 mg PO Q6H PRN 08/01/24 08/14/24 Simethicone [Simethicone Chew] 80 mg PO QID PRN 08/01/24 08/14/24 Triamcinolone 0.1% Cream [Kenalog 1 applic TOPICAL BID PRN 08/01/24 08/14/24 0.1% Cream] Calcium Acetate [PhosLo] 1,334 mg PO TID-W/MEALS 08/04/24 08/14/24 Iron Ps Complex/B12/Folic Acid 1 cap PO DAILY 08/14/24 08/14/24 [Myferon-150 Forte Capsule] Previous Rx's Medication Instructions Recorded Acetaminophen Tab [Tylenol] 650 mg PO Q6H #30 tab 08/06/24 Docusate [Colace] 100 mg PO BID #20 capsule 08/06/24 oxyCODONE HCL [OxyIR] 5 mg PO Q6H PRN 3 Days #10 tab 08/06/24 Allergies Allergy/AdvReac Type Severity Reaction Status Date / Time amlodipine Allergy red/itchy Verified 08/14/24 11:07 silver Allergy red/itchy Verified 08/14/24 11:07 [From [employer] Mesh] Review of Systems ROS Statement: Those systems with pertinent positive or pertinent negative responses have been documented in the HPI. ROS Other: All systems not noted in ROS Statement are negative. Past Medical History Past Medical History: Dialysis, Hypertension, Renal Disease, Seizure Disorder, Skin Disorder Additional Past Medical History / Comment(s): P.D. dailysis TU<TH<SA, seizure 2 yrs ago,possibly has had dvt in past,ovarian cyst uterine fibroids History of Any Multi-Drug Resistant Organisms: None Reported Past Surgical History: Back Surgery Additional Past Surgical History / Comment(s): urethral surgery at 7months old. skull fracture at age 9, back injections Past Anesthesia/Blood Transfusion Reactions: No Reported Reaction Past Psychological History: Anxiety, Depression Smoking Status: Never smoker Past Alcohol Use History: None Reported Past Drug Use History: None Reported - Past Family History Mother Family Medical History: Cancer Additional Family Medical History / Comment(s): Ovarian and cervical cancer. General Exam - General Exam Comments Initial Comments: GENERAL: Patient is unresponsive and currently CPR is being performed EYES: Eyes are fixed and dilated on arrival PULMONARY: Patient has no breath sounds CARDIOVASCULAR: Patient has no pulses ABDOMEN: No gross abnormality SKIN: Skin is clear with no lesions or rashes and otherwise unremarkable. NEUROLOGIC: Patient is completely unresponsive with a GCS of 3 MUSCULOSKELETAL: Unable to assess PSYCHIATRIC: Unable to assess Limitations: altered mental status Course Vital Signs 08/14/24 08/14/24 08/14/24 09:54 10:00 10:10 Temperature 96.9 F L Pulse Rate 150 H 121 H Respiratory 16 24 Rate Blood Pressure 245/144 225/133 O2 Sat by Pulse 79 L 100 Oximetry Fraction of 100 100 Inspired Oxygen (FIO2) 08/14/24 08/14/24 08/14/24 10:33 10:35 10:40 Temperature Pulse Rate 112 H 108 H Respiratory 24 24 Rate Blood Pressure 173/113 159/104 O2 Sat by Pulse 86 L 86 L Oximetry Fraction of 100 Inspired Oxygen (FIO2) 08/14/24 08/14/24 08/14/24 10:55 10:58 11:05 Temperature 97.2 F L Pulse Rate 105 H 106 H Respiratory 20 35 H Rate Blood Pressure 175/106 175/106 O2 Sat by Pulse 91 L 93 L Oximetry Fraction of 100 Inspired Oxygen (FIO2) 08/14/24 08/14/24 08/14/24 11:15 11:22 12:01 Temperature 97.2 F L 97.3 F L Pulse Rate 108 H 106 H 98 Respiratory 24 28 H Rate Blood Pressure 178/109 176/109 O2 Sat by Pulse 88 L 89 L Oximetry Fraction of 100 Inspired Oxygen (FIO2) 08/14/24 12:14 Temperature Pulse Rate 96 Respiratory Rate Blood Pressure O2 Sat by Pulse Oximetry Fraction of Inspired Oxygen (FIO2) Procedures - [place] Protocol (Time Out) Nurse: Radha Garza - Intubation Laryngoscope: [place] Size: 4 ET Tube Size: 7.5 ET Tube Uncuffed: No Tube Secured Location: teeth Tube Placement Confirmation: visualized tube passing through cords, equal breath sounds bilaterally, no breath sounds over epigastrium, confirmation by capnometry Patient Tolerated Procedure: well Intubation Complications: other (Patient was actively vomiting while intubated I did suction out is much as I could and went ahead and intubated.) - Sepsis Sepsis Focused Exam #1 Time Sepsis Criteria Met: 12:00 Sepsis Focused Exam Date: 08/14/24 (Fluid bolus was not given secondary to the fact that patient was fluid overloaded and the fact that the lactic might be elevated because of the cardiopulmonary arrest) Sepsis Focused Exam Time: 13:16 Sepsis Focused Exam Complete: Yes Vital Signs & RN Notes Reviewed: Yes Capillary Refill: < 2 Seconds: Fingers Skin Color: Normal for Patient Respiratory Exam: rales Cardiovascular Exam: tachycardia Medical Decision Making - Medical Decision Making EKG is interpreted by myself. EKG shows sinus tach at 157 bpm QRS is 111 QT interval is 262 QTc is 350. This could be flutter. If the heart rate comes down a repeat EKG will be done Repeat EKG is done at 1037 I interpreted the EKG it shows a sinus tachycardia 109 bpm HI 170 QRS is 85 QT interval 336 QTc is 400. Patient's EKG shows no ST segment elevation or depression. Was pt. sent in by a medical professional or institution ([facility]IGUEL Garsia, PERSONAL BANKING ASSISTANT, urgent care, hospital, or long term...) When possible be specific @ -No Did you speak to anyone other than the patient for history (EMS, parent, family, police, friend...)? What history was obtained from this source @ -No Did you review nursing and triage notes (agree or disagree)? Why? @ -I reviewed and agree with nursing and triage notes Were old charts reviewed (outside hosp., previous admission, EMS record, old EKG, old radiological studies, urgent care reports/EKG's, long term records)? Report findings @ -No old charts were reviewed Differential Diagnosis? @ -Cardiopulmonary arrest, dysrhythmia, heart attack, PE, intracranial hemorrhage, this is not an all-inclusive list EKG interpreted by me (3pts min.). @ -As above X-rays interpreted by me (1pt min.). @ -X-ray shows diffuse infiltrate CT interpreted by me (1pt min.). @ -CT of the brain shows no acute abnormality CT of the chest and abdomen showed no aortic abnormality however the chest is showing diffuse infiltrates with pleural effusions U/S interpreted by me (1pt. min.). @ -None done What testing was considered but not performed or refused? (CT, X-rays, U/S, labs)? Why? @ -None What meds were considered but not given or refused? Why? @ -None Did you discuss the management of the patient with other professionals (professionals i.e. JOSÉ MIGUEL Garsia, PERSONAL BANKING ASSISTANT, lab, RT, psych nurse, perinatal social worker, network project manager, teacher, correctional officer chief, porter sample case)? Give summary @ -Please see nursing notes for code documentation. Patient was intubated by myself. Patient was given 2 doses of epinephrine and 2 doses of bicarb and 1 of calcium chloride and ROSC obtained initial blood pressure was elevated. Patient's lab work showed an elevated white count elevated lactic acid elevated creatinine. Patient's potassium was 6.8. Patient received in addition to the meds mentioned insulin D50 and Lokelma. Dr. Leung came down and saw the patient Dr. Kelsey came down and saw the patient. Patient will be admitted to [facility] and admitted to the ICU. Patient's ABG showed the patient was oxygenating at only 89 to 90%. Antibiotics were started in the emergency department patient was placed on Vanco and Zosyn. Patient was not given the sepsis protocol for fluids because the patient was fluid overloaded already and Dr. Rock wanted to take the patient to get dialyzed. Also some of the lactic acid elevation could very well be secondary to the cardiopulmonary arrest Was smoking cessation discussed for >3mins.? @ -No Was critical care preformed (if so, how long)? @ -45 minutes Were there social determinants of health that impacted care today? How? (Homelessness, low income, unemployed, alcoholism, drug addiction, transportation, low edu. Level, literacy, decrease access to med. care, long term, rehab)? @ -No Was there de-escalation of care discussed even if they declined (Discuss DNR or withdrawal of care, Hospice)? DNR status @ -No What co-morbidities impacted this encounter? (DM, HTN, Smoking, COPD, CAD, Cancer, CVA, ARF, Chemo, Hep., AIDS, mental health diagnosis, sleep apnea, morbid obesity)? @ -None Was patient admitted / discharged? Hospital course, mention meds given and route, prescriptions, significant lab abnormalities, going to OR and other pertinent info. @ -See above Undiagnosed new problem with uncertain prognosis? @ -No Drug Therapy requiring intensive monitoring for toxicity (Heparin, Nitro, Insulin, Cardizem)? @ -No Were any procedures done? @ -No Diagnosis/symptom? @ -Cardiopulmonary arrest Acute, or Chronic, or Acute on Chronic? @ -Acute Uncomplicated (without systemic symptoms) or Complicated (systemic symptoms)? @ -Complicated Side effects of treatment? @ -No Exacerbation, Progression, or Severe Exacerbation? @ -No Poses a threat to life or bodily function? How? (Chest pain, [place], [place], pneumonia, PE, COPD, DKA, ARF, appy, cholecystitis, CVA, Diverticulitis, Homicidal, Suicidal, threat to staff... and all critical care pts) @ -Yes this could lead to hypoxia and endorgan dysfunction Diagnosis/symptom? @ -Hyperkalemia Acute, or Chronic, or Acute on Chronic? @ -Acute Uncomplicated (without systemic symptoms) or Complicated (systemic symptoms)? @ -Comp Side effects of treatment? @ -None Exacerbation, Progression, or Severe Exacerbation] @ -No Poses a threat to life or bodily function? @ -This could lead to dysrhythmia and poor perfusion and endorgan dysfunction Diagnosis/symptom? @ -Aspiration pneumonia Acute, or Chronic, or Acute on Chronic? @ -Acute Uncomplicated (without systemic symptoms) or Complicated (systemic symptoms)? @ -Complicated Side effects of treatment? @ -None Exacerbation, Progression, or Severe Exacerbation] @ -No Poses a threat to life or bodily function? @ -Yes this could lead to hypoxia and endorgan dysfunction - Lab Data Result diagrams: 08/14/24 09:57 08/14/24 09:57 Lab Results 08/14/24 08/14/24 08/14/24 Range/Units 09:52 09:57 09:57 WBC 19.3 H (3.8-10.6) k/uL RBC 2.57 L (3.80-5.40) m/uL Hgb 7.7 L (11.4-16.0) gm/dL Hct 24.5 L (34.0-46.0) % MCV 95.4 D (80.0-100.0) fL MCH 30.1 (25.0-35.0) pg MCHC 31.5 (31.0-37.0) g/dL RDW 14.9 (11.5-15.5) % Plt Count 400 (150-450) k/uL MPV 7.3 Neutrophils % 81 % Lymphocytes % 12 % Monocytes % 3 % Eosinophils % 2 % Basophils % 0 % Neutrophils # 15.7 H (1.3-7.7) k/uL Lymphocytes # 2.2 (1.0-4.8) k/uL Monocytes # 0.7 (0-1.0) k/uL Eosinophils # 0.5 (0-0.7) k/uL Basophils # 0.1 (0-0.2) k/uL Hypochromasia Marked PT 11.7 (10.0-12.5) sec INR 1.1 (<1.2) APTT 27.6 (22.0-30.0) sec Sample Site ABG pH (7.35-7.45) ABG pCO2 (35-45) mmHg ABG pO2 (83-108) mmHg ABG HCO3 (21-25) mmol/L ABG Total CO2 (19-24) mmol/L ABG O2 Saturation (94-97) % ABG Base Excess mmol/L Unruly Test Hemoglobin (11.4-16.0) gm/dL FiO2 % Sodium (137-145) mmol/L Potassium (3.5-5.1) mmol/L Chloride (98-107) mmol/L Carbon Dioxide (22-30) mmol/L Anion Gap mmol/L BUN (7-17) mg/dL Creatinine (0.52-1.04) mg/dL Est GFR (CKD-EPI)AfAm (>60 ml/min/1.73 sqM) Est GFR (CKD-EPI)NonAf (>60 ml/min/1.73 sqM) Glucose (74-99) mg/dL POC Glucose (mg/dL) 201 H (70-110) mg/dL POC Glu General Practice ID SELIMOVIC CONSTANZA Lactic Ac Sepsis Rflx Plasma Lactic Acid Fred (0.7-2.0) mmol/L Calcium (8.4-10.2) mg/dL Total Bilirubin (0.2-1.3) mg/dL AST (14-36) U/L ALT (4-34) U/L Alkaline Phosphatase (38-126) U/L Troponin I (0.000-0.034) ng/mL Total Protein (6.3-8.2) g/dL Albumin (3.5-5.0) g/dL Salicylates mg/dL Serum Alcohol mg/dL 08/14/24 08/14/24 08/14/24 Range/Units 09:57 09:57 09:57 WBC (3.8-10.6) k/uL RBC (3.80-5.40) m/uL Hgb (11.4-16.0) gm/dL Hct (34.0-46.0) % MCV (80.0-100.0) fL MCH (25.0-35.0) pg MCHC (31.0-37.0) g/dL RDW (11.5-15.5) % Plt Count (150-450) k/uL MPV Neutrophils % % Lymphocytes % % Monocytes % % Eosinophils % % Basophils % % Neutrophils # (1.3-7.7) k/uL Lymphocytes # (1.0-4.8) k/uL Monocytes # (0-1.0) k/uL Eosinophils # (0-0.7) k/uL Basophils # (0-0.2) k/uL Hypochromasia PT (10.0-12.5) sec INR (<1.2) APTT (22.0-30.0) sec Sample Site ABG pH (7.35-7.45) ABG pCO2 (35-45) mmHg ABG pO2 (83-108) mmHg ABG HCO3 (21-25) mmol/L ABG Total CO2 (19-24) mmol/L ABG O2 Saturation (94-97) % ABG Base Excess mmol/L Unruly Test Hemoglobin (11.4-16.0) gm/dL FiO2 % Sodium 136 L (137-145) mmol/L Potassium 6.8 H* (3.5-5.1) mmol/L Chloride 94 L (98-107) mmol/L Carbon Dioxide 25 (22-30) mmol/L Anion Gap 17 mmol/L BUN 39 H (7-17) mg/dL Creatinine 6.59 H (0.52-1.04) mg/dL Est GFR (CKD-EPI)AfAm 9 (>60 ml/min/1.73 sqM) Est GFR (CKD-EPI)NonAf 8 (>60 ml/min/1.73 sqM) Glucose 196 H (74-99) mg/dL POC Glucose (mg/dL) (70-110) mg/dL POC Glu General Practice ID Lactic Ac Sepsis Rflx Plasma Lactic Acid Fred 12.8 H* (0.7-2.0) mmol/L Calcium 9.8 (8.4-10.2) mg/dL Total Bilirubin 0.6 (0.2-1.3) mg/dL AST 23 (14-36) U/L ALT 11 (4-34) U/L Alkaline Phosphatase 106 (38-126) U/L Troponin I 0.037 H* (0.000-0.034) ng/mL Total Protein 6.6 (6.3-8.2) g/dL Albumin 3.7 (3.5-5.0) g/dL Salicylates mg/dL Serum Alcohol mg/dL 08/14/24 08/14/24 08/14/24 Range/Units 09:57 09:57 10:30 WBC (3.8-10.6) k/uL RBC (3.80-5.40) m/uL Hgb (11.4-16.0) gm/dL Hct (34.0-46.0) % MCV (80.0-100.0) fL MCH (25.0-35.0) pg MCHC (31.0-37.0) g/dL RDW (11.5-15.5) % Plt Count (150-450) k/uL MPV Neutrophils % % Lymphocytes % % Monocytes % % Eosinophils % % Basophils % % Neutrophils # (1.3-7.7) k/uL Lymphocytes # (1.0-4.8) k/uL Monocytes # (0-1.0) k/uL Eosinophils # (0-0.7) k/uL Basophils # (0-0.2) k/uL Hypochromasia PT (10.0-12.5) sec INR (<1.2) APTT (22.0-30.0) sec Sample Site ABG pH (7.35-7.45) ABG pCO2 (35-45) mmHg ABG pO2 (83-108) mmHg ABG HCO3 (21-25) mmol/L ABG Total CO2 (19-24) mmol/L ABG O2 Saturation (94-97) % ABG Base Excess mmol/L Unruly Test Hemoglobin (11.4-16.0) gm/dL FiO2 % Sodium (137-145) mmol/L Potassium (3.5-5.1) mmol/L Chloride (98-107) mmol/L Carbon Dioxide (22-30) mmol/L Anion Gap mmol/L BUN (7-17) mg/dL Creatinine (0.52-1.04) mg/dL Est GFR (CKD-EPI)AfAm (>60 ml/min/1.73 sqM) Est GFR (CKD-EPI)NonAf (>60 ml/min/1.73 sqM) Glucose (74-99) mg/dL POC Glucose (mg/dL) (70-110) mg/dL POC Glu General Practice ID Lactic Ac Sepsis Rflx Y Plasma Lactic Acid Fred (0.7-2.0) mmol/L Calcium (8.4-10.2) mg/dL Total Bilirubin (0.2-1.3) mg/dL AST (14-36) U/L ALT (4-34) U/L Alkaline Phosphatase (38-126) U/L Troponin I (0.000-0.034) ng/mL Total Protein (6.3-8.2) g/dL Albumin (3.5-5.0) g/dL Salicylates <1.0 mg/dL Serum Alcohol <10 mg/dL 08/14/24 Range/Units 10:49 WBC (3.8-10.6) k/uL RBC (3.80-5.40) m/uL Hgb (11.4-16.0) gm/dL Hct (34.0-46.0) % MCV (80.0-100.0) fL MCH (25.0-35.0) pg MCHC (31.0-37.0) g/dL RDW (11.5-15.5) % Plt Count (150-450) k/uL MPV Neutrophils % % Lymphocytes % % Monocytes % % Eosinophils % % Basophils % % Neutrophils # (1.3-7.7) k/uL Lymphocytes # (1.0-4.8) k/uL Monocytes # (0-1.0) k/uL Eosinophils # (0-0.7) k/uL Basophils # (0-0.2) k/uL Hypochromasia PT (10.0-12.5) sec INR (<1.2) APTT (22.0-30.0) sec Sample Site RAD ABG pH 7.39 (7.35-7.45) ABG pCO2 48 H (35-45) mmHg ABG pO2 64 L (83-108) mmHg ABG HCO3 29 H (21-25) mmol/L ABG Total CO2 30 H (19-24) mmol/L ABG O2 Saturation 91.1 L (94-97) % ABG Base Excess 3.6 mmol/L Unruly Test Yes Hemoglobin 6.5 L* (11.4-16.0) gm/dL FiO2 100 % Sodium (137-145) mmol/L Potassium (3.5-5.1) mmol/L Chloride (98-107) mmol/L Carbon Dioxide (22-30) mmol/L Anion Gap mmol/L BUN (7-17) mg/dL Creatinine (0.52-1.04) mg/dL Est GFR (CKD-EPI)AfAm (>60 ml/min/1.73 sqM) Est GFR (CKD-EPI)NonAf (>60 ml/min/1.73 sqM) Glucose (74-99) mg/dL POC Glucose (mg/dL) (70-110) mg/dL POC Glu General Practice ID Lactic Ac Sepsis Rflx Plasma Lactic Acid Fred (0.7-2.0) mmol/L Calcium (8.4-10.2) mg/dL Total Bilirubin (0.2-1.3) mg/dL AST (14-36) U/L ALT (4-34) U/L Alkaline Phosphatase (38-126) U/L Troponin I (0.000-0.034) ng/mL Total Protein (6.3-8.2) g/dL Albumin (3.5-5.0) g/dL Salicylates mg/dL Serum Alcohol mg/dL Critical Care Time Critical Care Time: Yes Total Critical Care Time: 45 Disposition Clinical Impression: Cardiopulmonary arrest, Hyperkalemia, Aspiration pneumonia Disposition: ADMITTED IP TO THIS [facility] Time of Disposition: 12:45
[2024-08-14] MEDS ORDERED: NALOXONE 0.4 MG/ML 1 ML VIAL IV PRN ×2 (12:53→14:28)
--- NOTE | 2024-08-14 13:15 | P.CNPUL ---
History of Present Illness Consult date: 08/14/24 Requesting physician: Grabiel Bernardo Reason for consult: dyspnea, hypoxemia, pneumonia, abnormal CXR/CT Chief complaint: Acute respiratory failure. History of present illness: Pulmonary consult dated August 14, 2024. This is a 33-year-old female who was seen in the emergency department, ER trauma 1. The patient was actually in the emergency department, yesterday, discharged from the ER, and came back in via EMS, and cardiopulmonary arrest. The patient was intubated in the emergency department. The patient is seen in the ER. The patient has a history of end-stage renal disease, currently on hemodialysis. I did speak to Dr. Root, who believes the patient did aspirate. She was having significant emesis. Other history includes hypertension, seizure disorder, uterine fibroids, and previous back surgery. The patient is currently on volume assist-control, rate 22, tidal volume 450, 100%, PEEP of 8. Blood gases on PEEP of 5 show pO2 of 64, pCO2 of 48, and a pH of 7.39. The patient is on propofol at 45 mcg/kg/min. The patient is also on Zosyn and Flagyl. Current labs in clude a white count 19.3, hemoglobin 7.7, hematocrit 24.5, and a normal platelet count. Sodium 136, potassium 6.8, chlorides 94, CO2 25, BUN 39, creatinine 6.59. Glucose is 201. Lactic acid 12.8. Troponin was 0.037. CT scan of the chest and abdomen shows diffuse bilateral airspace disease, cardiomegaly, and anasarca in the soft tissues. Chest x-ray confirms bilateral airspace disease, possibly related to fluid overload, or aspiration. Review of Systems REVIEW OF SYSTEMS: CONSTITUTIONAL: [Negative.] NEUROLOGIC: [ Negative.] HEENT: [ Negative.] CARDIAC: [Negative.] PULMONARY: Respiratory distress requiring intubation. GI: [Negative.] : [Negative.] RHEUMATOLOGIC: [ Negative.] IMMUNOLOGIC: [ Negative.] ENDOCRINE: [Negative. ] DERMATOLOGIC: [Negative.] Past Medical History Past Medical History: Dialysis, Hypertension, Renal Disease, Seizure Disorder, Skin Disorder Additional Past Medical History / Comment(s): P.D. dailysis <<, seizure 2 yrs ago,possibly has had dvt in past,ovarian cyst uterine fibroids History of Any Multi-Drug Resistant Organisms: None Reported Past Surgical History: Back Surgery Additional Past Surgical History / Comment(s): urethral surgery at 9months old. skull fracture at age 9, back injections Past Anesthesia/Blood Transfusion Reactions: No Reported Reaction Past Psychological History: Anxiety, Depression Smoking Status: Never smoker Past Alcohol Use History: None Reported Past Drug Use History: None Reported - Past Family History Mother Family Medical History: Cancer Additional Family Medical History / Comment(s): Ovarian and cervical cancer. Medications and Allergies Home Medications Medication Instructions Recorded Confirmed Type PARoxetine [Paxil] 10 mg PO DAILY 01/29/24 08/14/24 History Sevelamer Carbonate 3,200 mg PO TID-W/MEALS 01/29/24 08/14/24 History carvediloL 25 mg PO BID 01/29/24 08/14/24 History rOPINIRole HCL 0.5 mg PO BID 01/29/24 08/14/24 History traZODone HCL [Desyrel] 50 mg PO HS 01/29/24 08/14/24 History Cinacalcet HCl [Sensipar] 60 mg PO Q2D 04/18/24 08/14/24 History Furosemide [Lasix] 80 mg PO BID 04/18/24 08/14/24 History calcitrioL 0.25 mcg PO TID 04/18/24 08/14/24 History Famotidine [Pepcid] 20 mg PO DAILY 05/23/24 08/14/24 History Clobetasol Propionate [Clobex 1 applic TOPICAL DAILY PRN 08/01/24 08/14/24 History 0.05% Soln] Fluticasone Nasal [place] [Flonase 2 spr EA NOSTRIL BID PRN 08/01/24 08/14/24 History Nasal [place]] NIFEdipine [Adalat CC] 30 mg PO BID 08/01/24 08/14/24 History Ondansetron Odt [Zofran ODT] 4 mg PO Q6H PRN 08/01/24 08/14/24 History Simethicone [Simethicone Chew] 80 mg PO QID PRN 08/01/24 08/14/24 History Triamcinolone 0.1% Cream [Kenalog 1 applic TOPICAL BID PRN 08/01/24 08/14/24 History 0.1% Cream] Calcium Acetate [PhosLo] 1,334 mg PO TID-W/MEALS 08/04/24 08/14/24 History Acetaminophen Tab [Tylenol] 650 mg PO Q6H #30 tab 08/06/24 08/14/24 Rx Docusate [Colace] 100 mg PO BID #20 capsule 08/06/24 08/14/24 Rx oxyCODONE HCL [OxyIR] 5 mg PO Q6H PRN 3 Days #10 tab 08/06/24 08/14/24 Rx Iron Ps Complex/B12/Folic Acid 1 cap PO DAILY 08/14/24 08/14/24 History [Myferon-150 Forte Capsule] Allergies Allergy/AdvReac Type Severity Reaction Status Date / Time amlodipine Allergy red/itchy Verified 08/14/24 11:07 silver Allergy red/itchy Verified 08/14/24 11:07 [From [employer] Mesh] Physical Exam Osteopathic Statement: *. No significant issues noted on an osteopathic structural exam other than those noted in the History and Physical/Consult. Vitals: Vital Signs Temp Pulse Resp BP Pulse Ox FiO2 08/14/24 12:14 96 08/14/24 12:01 98 08/14/24 11:22 97.3 F L 106 H 28 H 176/109 89 L 100 08/14/24 11:15 97.2 F L 108 H 24 178/109 88 L 08/14/24 11:05 97.2 F L 106 H 35 H 175/106 93 L 08/14/24 10:58 100 08/14/24 10:55 105 H 20 175/106 91 L 08/14/24 10:40 108 H 24 159/104 86 L 08/14/24 10:35 112 H 24 173/113 86 L 08/14/24 10:33 100 08/14/24 10:10 121 H 24 225/133 100 100 08/14/24 10:00 100 08/14/24 09:54 96.9 F L 150 H 16 245/144 79 L Intake and Output 08/13/24 08/14/24 08/14/24 22:59 06:59 14:59 Intake Total 10.002 Balance 10.002 Intake: Intake, IV Titration 10.002 Amount propofoL 1,000 mg In 10.002 Empty Bag 1 bag @ 15 MCG/ KG/MIN 5.715 mls/hr IV . [id number] [facility] Rx#:[id number] Other: Weight 58.5 kg No acute distress, sedated, with an orally placed endotracheal tube, and NG tube. HEENT examination is grossly unremarkable. Neck supple. Full range of motion. No adenopathy thyromegaly or neck vein distention. Cardiovascular examination reveals regular rhythm rate. S1-S2 normal. No S3 or S4. No discernible murmur noted. Heart sounds are distant. Lungs reveal diffuse bilateral rhonchi. No wheezes. Scattered crackles. Breath sounds equal. Abdomen soft without bowel sounds. Extremities are intact. No cyanosis or clubbing, but there is 1+ edema. Skin is without rash or lesion. Neurologic examination cannot be adequately assessed. Results - Laboratory Findings CBC and BMP: 08/14/24 09:57 08/14/24 09:57 ABG ABG pH 7.39 (7.35-7.45) 08/14/24 10:49 ABG pCO2 48 mmHg (35-45) H 08/14/24 10:49 ABG pO2 64 mmHg (83-108) L 08/14/24 10:49 ABG O2 Saturation 91.1 % (94-97) L 08/14/24 10:49 PT/INR, D-dimer PT 11.7 sec (10.0-12.5) 08/14/24 09:57 INR 1.1 (<1.2) 08/14/24 09:57 Abnormal lab findings: Abnormal Labs 08/14/24 08/14/24 08/14/24 09:52 09:57 09:57 WBC 19.3 H RBC 2.57 L Hgb 7.7 L Hct 24.5 L Neutrophils # 15.7 H ABG pCO2 ABG pO2 ABG HCO3 ABG Total CO2 ABG O2 Saturation Hemoglobin Sodium 136 L Potassium 6.8 H* Chloride 94 L BUN 39 H Creatinine 6.59 H Glucose 196 H POC Glucose (mg/dL) 201 H Plasma Lactic Acid Fred Troponin I 08/14/24 08/14/24 08/14/24 09:57 09:57 10:49 WBC RBC Hgb Hct Neutrophils # ABG pCO2 48 H ABG pO2 64 L ABG HCO3 29 H ABG Total CO2 30 H ABG O2 Saturation 91.1 L Hemoglobin 6.5 L* Sodium Potassium Chloride BUN Creatinine Glucose POC Glucose (mg/dL) Plasma Lactic Acid Fred 12.8 H* Troponin I 0.037 H* - Diagnostic Findings Chest x-ray: image reviewed CT scan - chest: image reviewed Assessment and Plan Assessment: Acute hypoxemic respiratory failure with cardiopulmonary arrest, requiring cardiopulmonary resuscitation, intubation, and mechanical ventilation, beginning August 14, 2024. History of end-stage renal disease, currently on Sunday and Sunday hemodialysis. Anion gap metabolic acidosis, secondary to renal failure, and lactic acidemia. History of chronic kidney disease. History of hypertension. History of seizure disorder. History of uterine fibroids. Lifelong non-smoker. Plan: Plan dated August 14, 2024. The patient is seen in the emergency department, trauma room 1. The patient is sedated, intubated, with an endotracheal tube, and an NG tube. The patient is o n propofol at 45 mcg/kg/min. The patient was intubated in the emergency department. She likely aspirated. The patient is on Zosyn and Flagyl. Initial blood gases show pO2 of 64, pCO2 of 48, and a normal pH of 7.39. Labs, x-rays, and all medications are reviewed. We will continue to follow make recommendations along the way. Prognosis is poor. Time with Patient: Greater than 30
[2024-08-14 14:06] LABS: Glucose,Whole Blood 70 mg/dL (70-110)
[2024-08-14] MEDS: CLEVIDIPINE BUTYRATE 25 MG in EMPTY BAG 1 BAG IV SCH (15:00)
[2024-08-14] MEDS: CISATRACURIUM 2 MG/ML 5 ML VIAL IV ONE ×2 (15:07→17:31)
--- NOTE | 2024-08-14 16:17 | US ---
EXAMINATION TYPE: US venous doppler duplex LE BI DATE OF EXAM: 08/14/2024 4:06 PM COMPARISON: US(06/27/2024) CLINICAL INDICATION: Female, 33 years old with history of Left leg > Right; Pt intubated and on dialy sis, Bilateral swelling TECHNIQUE: The lower extremity deep venous system is examined utilizing real time linear array sonog martin with graded compression, color doppler sonography, and spectral doppler. SIDE PERFORMED: Bilateral FINDINGS: VESSELS IMAGED: Common Femoral Vein Deep Femoral Vein Greater Saphenous Vein * Femoral Vein Popliteal Vein Small Saphenous Vein * Proximal Calf Veins (* superficial vessels) Right Leg: Negative for DVT, Color Doppler imaging shows patency of the vessels. Spectral waveforms are within normal limits. Left Leg: Negative for DVT, Color Doppler imaging shows patency of the vessels. Spectral waveforms a re within normal limits. IMPRESSION: No ultrasound evidence for deep venous thrombosis. [facility], , 08/14/2024 4:14 PM
--- NOTE | 2024-08-14 16:18 | P.HPIM ---
History of Present Illness H&P Date: 08/14/24 Patient is a 33-year-old female with ESRD (peritoneal dialysis twice a week Sunday), hypertension and history of DVT who came in for cardiac arrest. Per ED RN, called EMS due to patient having shortness of breath. And in transit patient became pulseless and CPR was started and ROSC was achieved. Intubation was attempted but failed in transit. On arrival to our ED, patient once again became pulseless with oxygen saturation at the 60s with a heart rate of 200s. CPR was started immediately for about 10 minutes and ROSC was achieved. NG tube placement, endotracheal intubation and mechanical ventilation were done at the ED sedation with propofol initiated. Patient had an episode of emesis prior to NG tube placement. In the ED, chest x-ray showed focal airspace opacities and appropriate placement of endotracheal tube. Brain CT showed no acute bleed or mass effect and acute pansinusitis. CT of the chest/abdomen showed marked worsening of acute cardiopulmonary disease with diffuse airspace consolidation, mild cardiomegaly and marked anasarca of the soft tissues. Also seen is the ET tube and NG tube placed in proper location. EKG on 9:55 AM showed SVT, unclear underlying rhythm, with a rate of 157. EKG at 10:37 AM showed sinus tachycardia with a rate of 109 QTc of 400 with good R wave progression and no ST-T changes. WBC 19.3 hemoglobin 7.7 hematocrit 24.5 platelet count 400,000. ABG showed a pH of 7.39 CO2 48 O2 64. Sodium 136 potassium 6.8 chloride 94 bicarb 25 BUN 39 creatinine 6.59 glucose 196 venous lactic acid 12.8 troponin 0.037 total bilirubin 0.6 AST 23 ALT 11 ALP 106 salicylates less than 1 serum alcohol less than 10 On admission, patient had a low temperature of 96.9 Fahrenheit elevated pulse rate of 150 respiration 16 elevated blood pressure of 245/144 low O2 saturation 75% on BVM. Saturation increased to 100% on mechanical ventilator with FiO2 100. Review of systems: Unable to be obtained due to patient condition. Physical examination: Vital signs reviewed General: Sedated, intubated and on mechanical ventilator Derm: no unusual rashes/lesions, warm, peritoneal dialysis port on abdomen covered with dressing that is dry and clean, no erythema or discharge in the surrounding skin Head: atraumatic, normocephalic, symmetric Eyes: anicteric sclera, pupils constricted and nonreactive to light ENT: Nose and ears atraumatic Neck: No cervical lymphadenopathy, trachea midline, supple Mouth: no lip lesion, mucus membranes moist Cardiovascular: S1S2 reg, no murmur Lungs: Bibasilar crackles, no rhonchi, no rales, no accessory muscle use Abdominal: soft, nondistended, nontender to palpation, no guarding Ext: No gross muscle atrophy, no contractures, positive dorsalis pedis pulse bilateral, no extremity edema Neuro: Cannot be assessed Psych: Alert and oriented x 0, cannot be assessed Assessment/Plan: 33-year-old female with a history of ESRD who came in for cardiopulmonary arrest. ROSC was achieved and patient was placed on mechanical ventilator via endotracheal tube in the emergency room. #. Cardiopulmonary arrest #. Hyperkalemic emergency #. Acute hypoxic respiratory failure requiring intubation and mechanical ventilation #. Sepsis due to multifocal pneumonia and possible aspiration pneumonia #. Anion gap metabolic acidosis due to lactic acidosis #Hypertensive emergency #Hypervolemia #Type II NSTEMI Chest x-ray showed focal airspace opacities and appropriate placement of endotracheal tube. Brain CT showed no acute bleed or mass effect and acute pansinusitis. CT of the chest/abdomen showed marked worsening of acute cardiopulmonary disease with diffuse airspace consolidation, mild cardiomegaly and marked anasarca of the soft tissues. Cardiac monitoring Fall precautions Echocardiogram Blood cultures pending Legionella antigen CBC, BMP, mag and Phos in the a.m. Procalcitonin in the a.m. IV Cleviprex 1 mg/h to control blood pressure Metronidazole 500 mg IVP and Zosyn 100 mg IVP initiated in the ED Continue with azithromycin 500 mg IVP daily for 3 days and Zosyn IVP twice daily Pulmonology following Trend troponin Chronic conditions: #. ESRD on peritoneal dialysis thrice a week (Sunday, , Sunday) Nephrology following Dialysis today #. Hypertension #. Anxiety #. Depression Resume carvedilol 25 mg twice daily, nifedipine 30 mg p.o. twice daily, and paroxetine 10 mg p.o. daily F: Hold for now as patient is hypertensive E: None for now N: N.p.o. A: Currently sedated. On fall precautions DVT ppx: Heparin 5000 units SQ every 8 hours GI ppx: Protonix 40 mg IV daily Dispo: The patient is admitted with an anticipated greater than 2 midnight stay for evaluation of cardiopulmonary arrest CODE STATUS: Full Anticipated discharge place: Home Taniya Terry MD PGY-1 IM Dictation was produced using [employer] dictation software. please excuse any grammatical, word or spelling errors. A total of 65 minutes was spent on the care of this complex patient more than 50% of the time was spent in counseling and care coordination. I have seen and evaluated the patient today. Discussed with the resident and agree with the residents finding and plan as documented in the resident's note. Changes highlighted in blue font. Past Medical History Past Medical History: Dialysis, Hypertension, Renal Disease, Seizure Disorder, Skin Disorder Additional Past Medical History / Comment(s): P.D. dailysis TU<TH<[place], seizure 2 yrs ago,possibly has had dvt in past,ovarian cyst uterine fibroids History of Any Multi-Drug Resistant Organisms: None Reported Past Surgical History: Back Surgery Additional Past Surgical History / Comment(s): urethral surgery at 9months old. skull fracture at age 9, back injections Past Anesthesia/Blood Transfusion Reactions: No Reported Reaction Past Psychological History: Anxiety, Depression Smoking Status: Never smoker Past Alcohol Use History: None Reported Past Drug Use History: None Reported - Past Family History Mother Family Medical History: Cancer Additional Family Medical History / Comment(s): Ovarian and cervical cancer. Medications and Allergies Home Medications Medication Instructions Recorded Confirmed Type PARoxetine [Paxil] 10 mg PO DAILY 01/29/24 08/14/24 History Sevelamer Carbonate 3,200 mg PO TID-W/MEALS 01/29/24 08/14/24 History carvediloL 25 mg PO BID 01/29/24 08/14/24 History rOPINIRole HCL 0.5 mg PO BID 01/29/24 08/14/24 History traZODone HCL [Desyrel] 50 mg PO HS 01/29/24 08/14/24 History Cinacalcet HCl [Sensipar] 60 mg PO Q2D 04/18/24 08/14/24 History Furosemide [Lasix] 80 mg PO BID 04/18/24 08/14/24 History calcitrioL 0.25 mcg PO TID 04/18/24 08/14/24 History Famotidine [Pepcid] 20 mg PO DAILY 05/23/24 08/14/24 History Clobetasol Propionate [Clobex 1 applic TOPICAL DAILY PRN 08/01/24 08/14/24 History 0.05% Soln] Fluticasone Nasal [place] [Flonase 2 spr EA NOSTRIL BID PRN 08/01/24 08/14/24 History Nasal [place]] NIFEdipine [Adalat CC] 30 mg PO BID 08/01/24 08/14/24 History Ondansetron Odt [Zofran ODT] 4 mg PO Q6H PRN 08/01/24 08/14/24 History Simethicone [Simethicone Chew] 80 mg PO QID PRN 08/01/24 08/14/24 History Triamcinolone 0.1% Cream [Kenalog 1 applic TOPICAL BID PRN 08/01/24 08/14/24 History 0.1% Cream] Calcium Acetate [PhosLo] 1,334 mg PO TID-W/MEALS 08/04/24 08/14/24 History Acetaminophen Tab [Tylenol] 650 mg PO Q6H #30 tab 08/06/24 08/14/24 Rx Docusate [Colace] 100 mg PO BID #20 capsule 08/06/24 08/14/24 Rx oxyCODONE HCL [OxyIR] 5 mg PO Q6H PRN 3 Days #10 tab 08/06/24 08/14/24 Rx Iron Ps Complex/B12/Folic Acid 1 cap PO DAILY 08/14/24 08/14/24 History [Myferon-150 Forte Capsule] Allergies Allergy/AdvReac Type Severity Reaction Status Date / Time amlodipine Allergy red/itchy Verified 08/14/24 11:07 silver Allergy red/itchy Verified 08/14/24 11:07 [From [employer] Mesh] Physical Exam Vitals: Vital Signs Temp Pulse Resp BP Pulse Ox FiO2 08/14/24 12:14 96 08/14/24 12:01 98 08/14/24 11:22 97.3 F L 106 H 28 H 176/109 89 L 100 08/14/24 11:15 97.2 F L 108 H 24 178/109 88 L 08/14/24 11:05 97.2 F L 106 H 35 H 175/106 93 L 11/21/24 10:58 100 08/14/24 10:55 105 H 20 175/106 91 L 08/14/24 10:40 108 H 24 159/104 86 L 08/14/24 10:35 112 H 24 173/113 86 L 08/14/24 10:33 100 08/14/24 10:10 121 H 24 225/133 100 100 08/14/24 10:00 100 08/14/24 09:54 96.9 F L 150 H 16 245/144 79 L Intake and Output 08/13/24 08/14/24 08/14/24 22:59 06:59 14:59 Intake Total 10.002 Output Total 0 Balance 10.002 Intake: Intake, IV Titration 10.002 Amount propofoL 1,000 mg In 10.002 Empty Bag 1 bag @ 15 MCG/ KG/MIN 5.715 mls/hr IV . [id number] [facility] Rx#:[id number] Output: Urine 0 Uretheral ([place]) 0 Other: Weight 58.5 kg Results CBC & Chem 7: 08/14/24 09:57 08/14/24 09:57 Labs: Abnormal Lab Results - Last 24 Hours (Table) 08/14/24 08/14/24 08/14/24 Range/Units 09:52 09:57 09:57 WBC 19.3 H (3.8-10.6) k/uL RBC 2.57 L (3.80-5.40) m/uL Hgb 7.7 L (11.4-16.0) gm/dL Hct 24.5 L (34.0-46.0) % Neutrophils # 15.7 H (1.3-7.7) k/uL ABG pCO2 (35-45) mmHg ABG pO2 (83-108) mmHg ABG HCO3 (21-25) mmol/L ABG Total CO2 (19-24) mmol/L ABG O2 Saturation (94-97) % Hemoglobin (11.4-16.0) gm/dL Sodium 136 L (137-145) mmol/L Potassium 6.8 H* (3.5-5.1) mmol/L Chloride 94 L (98-107) mmol/L BUN 39 H (7-17) mg/dL Creatinine 6.59 H (0.52-1.04) mg/dL Glucose 196 H (74-99) mg/dL POC Glucose (mg/dL) 201 H (70-110) mg/dL Plasma Lactic Acid Fred (0.7-2.0) mmol/L Troponin I (0.000-0.034) ng/mL 08/14/24 08/14/24 08/14/24 Range/Units 09:57 09:57 10:49 WBC (3.8-10.6) k/uL RBC (3.80-5.40) m/uL Hgb (11.4-16.0) gm/dL Hct (34.0-46.0) % Neutrophils # (1.3-7.7) k/uL ABG pCO2 48 H (35-45) mmHg ABG pO2 64 L (83-108) mmHg ABG HCO3 29 H (21-25) mmol/L ABG Total CO2 30 H (19-24) mmol/L ABG O2 Saturation 91.1 L (94-97) % Hemoglobin 6.5 L* (11.4-16.0) gm/dL Sodium (137-145) mmol/L Potassium (3.5-5.1) mmol/L Chloride (98-107) mmol/L BUN (7-17) mg/dL Creatinine (0.52-1.04) mg/dL Glucose (74-99) mg/dL POC Glucose (mg/dL) (70-110) mg/dL Plasma Lactic Acid Fred 12.8 H* (0.7-2.0) mmol/L Troponin I 0.037 H* (0.000-0.034) ng/mL
[2024-08-14] MEDS: carvediloL 12.5 MG TAB PO SCH (16:41)
[2024-08-14 16:42] LABS: ABG Base Excess 9.4 mmol/L; ABG HCO3 34 mmol/L (21-25); ABG PCO2 47 mmHg (35-45); ABG PH 7.47 (7.35-7.45); ABG PO2 170 mmHg (83-108); ABG TCO2 35 mmol/L (19-24); Allen Test Performed? Yes
--- NOTE | 2024-08-14 16:58 | XR ---
EXAMINATION TYPE: XR chest 1V portable DATE OF EXAM: 08/14/2024 4:35 PM COMPARISON: Chest radiographs from 08/14/2024. CLINICAL INDICATION: Female, 33 years old with history of Central line placement; [facility] TECHNIQUE: XR chest 1V portable Frontal view of the chest. FINDINGS: Lungs/Pleura: There is no evidence of pleural effusion, focal consolidation, or pneumothorax. Pulmonary vascularity: Unremarkable. Heart/mediastinum: Cardiomediastinal silhouette is unremarkable. Musculoskeletal: No acute osseous pathology. Other findings: None Lines/Tubes: Endotracheal tube with distal tip 4.4cm above the debra. Nasogastric tube with its distal tip and side-port projecting under the diaphragm. Left internal jugular central venous catheter with distal tip at the cavoatrial junction. IMPRESSION: 1. Support tubes and line in appropriate position. 2. Multifocal airspace opacities. [facility], , 08/14/2024 4:55 PM
[2024-08-14] MEDS: AZITHROMYCIN 500 MG in SODIUM CHLORIDE 0.9% 250 ML IVPB SCH (17:35)
[2024-08-14] MEDS: HEPARIN SODIUM,PORCINE 5,000 UNIT/ML 1 ML VIAL SQ SCH (17:35)
[2024-08-14] MEDS ORDERED: metroNIDAZOLE-NS PMX 500 MG in SALINE 1 100ML.BAG IVPB SCH (18:00)
[2024-08-14] MEDS: CISATRACURIUM 200 MG in SODIUM CHLORIDE 0.9% 180 ML IV SCH (18:30)
[2024-08-14 18:41] LABS: African American GFR (CKD) 40 (>60 ml/min/1.73 sqM); Anion Gap 4 mmol/L; Blood Urea Nitrogen 14 mg/dL (7-17); Calcium 8.3 mg/dL (8.4-10.2); Carbon Dioxide 32 mmol/L (22-30); Chloride 98 mmol/L (98-107); Glucose 97 mg/dL (74-99); Non-African American GFR(CKD) 35 (>60 ml/min/1.73 sqM); Potassium 3.2 mmol/L (3.5-5.1); Sodium 134 mmol/L (137-145)
--- NOTE | 2024-08-14 19:30 | PCN ---
PROCEDURE NOTE PROCEDURE PERFORMED: Left subclavian triple-lumen catheter. PREOPERATIVE DIAGNOSIS: Administration of fluids and pressors. POSTOPERATIVE DIAGNOSIS: Administration of fluids and pressors. OPERATORS: Dr. Kelsey and Dr. Herndon. There was informed consent and universal timeout. The procedure took place in room 264. TRIPLE LUMEN CATHETER PLACEMENT: Indication: Hemodynamic monitoring/Intravenous access. A time-out was completed verifying correct patient, procedure, site, positioning, and implant(s) or special equipment if applicable. The patient was placed in a dependent position appropriate for triple lumen catheter placement based on the vein to be cannulated. The patient's left shoulder or left neck or left groin was prepped and draped in sterile fashion. 1% Lidocaine was used to anesthetize the surrounding skin area. A triple lumen 9F Cordis catheter was introduced into the left subclavian vein using Seldinger technique. The catheter was threaded smoothly over the guide wire and appropriate blood return was obtained. Each lumen of the catheter was evacuated of air and flushed with sterile saline. The catheter was then sutured in place to the skin and a sterile dressing applied. Perfusion to the extremity distal to the point of catheter insertion was checked and found to be adequate. There was no immediate complication. The patient tolerated the procedure well. There was good blood return from all 3 ports. The catheter was sutured in place, and a sterile dressing was applied by the nurse. The tip of the catheter was seen in the junction of superior vena cava and right atrium. MMODL / IJN: [id number] /
--- NOTE | 2024-08-14 19:36 | PCN ---
PROCEDURE NOTE PROCEDURE PERFORMED: Left radial art line. PREOPERATIVE DIAGNOSIS: Frequent blood draws and blood gas monitoring. POSTOPERATIVE DIAGNOSIS: Frequent blood draws and blood gas monitoring. There was informed consent. The patient's procedure took place in room 264. OPERATORS: Dr. Kelsey and Dr. Herndon. ARTERIAL LINE PLACEMENT: Indications: Hemodynamic monitoring. A time-out was completed verifying correct patient, procedure, site, positioning, and implant(s) or special equipment if applicable. Unruly's test was performed to ensure adequate perfusion. The patient's left wrist or left groin was prepped and draped in sterile fashion. 1% Lidocaine was used to anesthetize the area. An 18G Arrow arterial line was introduced into the left radial artery. The catheter was threaded over the guide wire and the needle was removed with appropriate pulsatile blood return. Blood loss was minimal. The catheter was then sutured in place to the skin and a sterile dressing applied. Perfusion to the extremity distal to the point of catheter insertion was checked and found to be adequate. We used the left radial artery. There was good waveform and blood pressure reading. The catheter was sutured in place. Sterile dressing was applied by the nurse. There was no immediate complication. The patient tolerated the procedure well. MMODL / IJN: [id number] /
[2024-08-14 20:33] LABS: Basophils % (A) 0 %; Eosinophils % (A) 0 %; HCT 21.2 % (34.0-46.0); HGB 7.1 gm/dL (11.4-16.0); Lymphocytes # (A) 0.4 k/uL (1.0-4.8); Lymphocytes % (A) 2 %; MCHC 33.6 g/dL (31.0-37.0); Mean Platelet Volume 7.1; Monocytes # (A) 0.8 k/uL (0-1.0); Monocytes % (A) 4 %; Neutrophils # (A) 20.7 k/uL (1.3-7.7); Neutrophils % (A) 94 %; Platelet Count 285 k/uL (150-450); RBC 2.38 m/uL (3.80-5.40); RDW 14.9 % (11.5-15.5)
[2024-08-14 20:35] LABS: MCV 89.4 fL (80.0-100.0)
[2024-08-14 20:45] LABS: African American GFR (CKD) 26 (>60 ml/min/1.73 sqM); Anion Gap 4 mmol/L; Blood Urea Nitrogen 16 mg/dL (7-17); Calcium 8.7 mg/dL (8.4-10.2); Carbon Dioxide 33 mmol/L (22-30); Chloride 97 mmol/L (98-107); Glucose 110 mg/dL (74-99); Non-African American GFR(CKD) 23 (>60 ml/min/1.73 sqM); Potassium 3.6 mmol/L (3.5-5.1); Sodium 134 mmol/L (137-145)
[2024-08-14] MEDS: NIFEdipine XL 30 MG TAB.ER.24 PO SCH (20:51)
[2024-08-14] MEDS: PIPERACILLIN-TAZOBACTAM 3.375 GM in SODIUM CHLORIDE 0.9% 100 ML IVPB SCH (20:53)
[2024-08-14] MEDS: HYDROmorphone 0.5 MG/0.5 ML SYRINGE IVP PRN (21:34)
[2024-08-15] MEDS: HYDROmorphone 1 MG/ML 1 ML SYRINGE IVP PRN (01:32)
[2024-08-15 02:47] LABS: Iron 17 UG/DL (50-170); Total Iron Binding Capacity 293 UG/DL (228-460)
[2024-08-15 04:56] LABS: Basophils % (A) 0 %; Eosinophils # (A) 0.1 k/uL (0-0.7); Eosinophils % (A) 1 %; Lymphocytes # (A) 0.8 k/uL (1.0-4.8); Lymphocytes % (A) 6 %; MCH 30.2 pg (25.0-35.0); MCHC 33.8 g/dL (31.0-37.0); MCV 89.4 fL (80.0-100.0); Mean Platelet Volume 7.7; Monocytes # (A) 0.5 k/uL (0-1.0); Monocytes % (A) 4 %; Neutrophils # (A) 11.3 k/uL (1.3-7.7); Neutrophils % (A) 88 %; Platelet Count 240 k/uL (150-450); RDW 15.3 % (11.5-15.5); WBC 12.9 k/uL (3.8-10.6)
[2024-08-15 04:58] LABS: African American GFR (CKD) 21 (>60 ml/min/1.73 sqM); Anion Gap 5 mmol/L; Blood Urea Nitrogen 21 mg/dL (7-17); Calcium 8.4 mg/dL (8.4-10.2); Carbon Dioxide 30 mmol/L (22-30); Chloride 97 mmol/L (98-107); Glucose 95 mg/dL (74-99); Magnesium 2.1 mg/dL (1.6-2.3); Non-African American GFR(CKD) 18 (>60 ml/min/1.73 sqM); Phosphorus 4.6 mg/dL (2.5-4.5); Potassium 4.2 mmol/L (3.5-5.1); Sodium 132 mmol/L (137-145)
[2024-08-15 05:18] LABS: HCT 17.9 % (34.0-46.0)
[2024-08-15 07:32] LABS: ABG Base Excess 8.8 mmol/L; ABG HCO3 32 mmol/L (21-25); ABG Oxygen Saturation 99.5 % (94-97); ABG PCO2 38 mmHg (35-45); ABG PH 7.54 (7.35-7.45); ABG PO2 100 mmHg (83-108); ABG TCO2 33 mmol/L (19-24)
--- NOTE | 2024-08-15 08:23 | XR ---
EXAMINATION TYPE: XR chest 1V portable DATE OF EXAM: 08/15/2024 5:32 AM COMPARISON: Chest radiograph from one day prior. CLINICAL INDICATION: Female, 33 years old with history of Tube placement; [facility] TECHNIQUE: XR chest 1V portable Frontal view of the chest. FINDINGS: Lungs/Pleura: Multifocal airspace opacities. No evidence of pneumothorax or pleural effusion. Pulmonary vascularity: Unremarkable. Heart/mediastinum: Cardiomediastinal silhouette is unremarkable. Musculoskeletal: No acute osseous pathology. Other findings: None Lines/Tubes: Endotracheal tube with distal tip 3.5cm above the debra. Nasogastric tube with its distal tip and side-port projecting under the diaphragm. Left central venous catheter with distal tip at the cavoatrial junction. IMPRESSION: 1. Similar multifocal airspace opacities. 2. Stable support lines and tubes. [facility], , 08/15/2024 8:20 AM
[2024-08-15] MEDS: PANTOPRAZOLE 40 MG/10 ML VIAL IVP SCH (08:34)
[2024-08-15] MEDS: PARoxetine 10 MG TAB PO SCH (08:42)
--- NOTE | 2024-08-15 10:29 | P.PN ---
Subjective Patient is seen in follow-up for end-stage renal disease. She is maintained on hemodialysis on Sunday schedule. No problems with dialysis yesterday. Intubated. Hemoglobin 6.0 this morning. Vital signs are stable. General: No acute distress. HEENT: Head exam is unremarkable. Intubated. LUNGS: Scattered rhonchi. HEART: Rate and Rhythm are regular. ABDOMEN: No distention. EXTREMITITES: No edema. Objective - Vital Signs Vital signs: Vital Signs Temp 99.5 F 08/15/24 08:00 Pulse 89 08/15/24 10:00 Resp 22 08/15/24 10:00 BP 137/82 08/15/24 09:15 Pulse Ox 99 08/15/24 10:00 FiO2 50 08/15/24 09:33 Intake & Output 08/14/24 08/15/24 08/15/24 18:59 06:59 18:59 Intake Total 2040.996 233.319 363.619 Output Total 2300 0 0 Balance -259.004 233.319 363.619 Weight 58.5 kg 64.6 kg Intake: Intake, IV Titration 140.996 233.319 303.619 Amount Cisatracurium 200 mg In 95.94 Sodium Chloride 0.9% 180 ml @ 2 MCG/KG/MIN 7.02 mls/hr IV .Q24H [facility] Rx#: [id number] Clevidipine Butyrate 25 2.400 78.800 14.233 mg In Empty Bag 1 bag @ 1 MG/HR 2 mls/hr IV .Q24H [facility] Rx#:[id number] Piperacillin-Tazobactam 3 100 .375 gm In Sodium Chloride 0.9% 100 ml @ 25 mls/hr IVPB Q12HR [facility] Rx #:[id number] propofoL 1,000 mg In 138.596 154.519 93.446 Empty Bag 1 bag @ 15 MCG/ KG/MIN 5.715 mls/hr IV . [id number] [facility] Rx#:[id number] Tube Feeding 60 Hemodialysis 1900 Output: Urine 0 0 0 Uretheral ([place]) 0 Stool 400 Hemodialysis 400 Hemodialysis Net Amount 1500 Other: Voiding Method Indwelling Catheter Indwelling Catheter ABP, PAP, CO, CI - Last Documented Arterial Blood Pressure 85/41 - Labs CBC & Chem 7: 08/15/24 04:38 08/15/24 04:38 Labs: Abnormal Lab Results - Last 24 Hours (Table) 08/14/24 08/14/24 08/14/24 Range/Units 09:57 09:57 10:49 WBC (3.8-10.6) k/uL RBC (3.80-5.40) m/uL Hgb (11.4-16.0) gm/dL Hct (34.0-46.0) % Neutrophils # (1.3-7.7) k/uL Lymphocytes # (1.0-4.8) k/uL ABG pH (7.35-7.45) ABG pCO2 48 H (35-45) mmHg ABG pO2 64 L (83-108) mmHg ABG HCO3 29 H (21-25) mmol/L ABG Total CO2 30 H (19-24) mmol/L ABG O2 Saturation 91.1 L (94-97) % Hemoglobin 6.5 L* (11.4-16.0) gm/dL Sodium (137-145) mmol/L Potassium (3.5-5.1) mmol/L Chloride (98-107) mmol/L Carbon Dioxide (22-30) mmol/L BUN (7-17) mg/dL Creatinine (0.52-1.04) mg/dL Glucose (74-99) mg/dL Plasma Lactic Acid Fred 12.8 H* (0.7-2.0) mmol/L Calcium (8.4-10.2) mg/dL Phosphorus (2.5-4.5) mg/dL Iron (50-170) UG/DL % Saturation (12.00-45.00) Ferritin (10.0-291.0) ng/mL Troponin I 0.037 H* (0.000-0.034) ng/mL Procalcitonin (0.02-0.50) ng/mL Crossmatch 08/14/24 08/14/24 08/14/24 Range/Units 14:09 16:40 18:00 WBC (3.8-10.6) k/uL RBC (3.80-5.40) m/uL Hgb (11.4-16.0) gm/dL Hct (34.0-46.0) % Neutrophils # (1.3-7.7) k/uL Lymphocytes # (1.0-4.8) k/uL ABG pH 7.47 H (7.35-7.45) ABG pCO2 47 H (35-45) mmHg ABG pO2 170 H (83-108) mmHg ABG HCO3 34 H (21-25) mmol/L ABG Total CO2 35 H (19-24) mmol/L ABG O2 Saturation 100.0 H (94-97) % Hemoglobin 7.0 L* (11.4-16.0) gm/dL Sodium 134 L (137-145) mmol/L Potassium 3.2 L (3.5-5.1) mmol/L Chloride (98-107) mmol/L Carbon Dioxide 32 H (22-30) mmol/L BUN (7-17) mg/dL Creatinine 1.90 H (0.52-1.04) mg/dL Glucose (74-99) mg/dL Plasma Lactic Acid Fred (0.7-2.0) mmol/L Calcium 8.3 L (8.4-10.2) mg/dL Phosphorus (2.5-4.5) mg/dL Iron 17 L (50-170) UG/DL % Saturation 5.80 L (12.00-45.00) Ferritin 3451.0 H (10.0-291.0) ng/mL Troponin I 0.501 H* (0.000-0.034) ng/mL Procalcitonin (0.02-0.50) ng/mL Crossmatch 08/14/24 08/14/24 08/14/24 Range/Units 18:00 18:00 20:02 WBC (3.8-10.6) k/uL RBC (3.80-5.40) m/uL Hgb (11.4-16.0) gm/dL Hct (34.0-46.0) % Neutrophils # (1.3-7.7) k/uL Lymphocytes # (1.0-4.8) k/uL ABG pH (7.35-7.45) ABG pCO2 (35-45) mmHg ABG pO2 (83-108) mmHg ABG HCO3 (21-25) mmol/L ABG Total CO2 (19-24) mmol/L ABG O2 Saturation (94-97) % Hemoglobin (11.4-16.0) gm/dL Sodium (137-145) mmol/L Potassium (3.5-5.1) mmol/L Chloride (98-107) mmol/L Carbon Dioxide (22-30) mmol/L BUN (7-17) mg/dL Creatinine (0.52-1.04) mg/dL Glucose (74-99) mg/dL Plasma Lactic Acid Fred (0.7-2.0) mmol/L Calcium (8.4-10.2) mg/dL Phosphorus (2.5-4.5) mg/dL Iron (50-170) UG/DL % Saturation (12.00-45.00) Ferritin (10.0-291.0) ng/mL Troponin I 0.763 H* 0.738 H* (0.000-0.034) ng/mL Procalcitonin 23.50 H (0.02-0.50) ng/mL Crossmatch 08/14/24 08/14/24 08/15/24 Range/Units 20:02 20:02 04:38 WBC 22.0 H 12.9 H (3.8-10.6) k/uL RBC 2.38 L 2.00 L (3.80-5.40) m/uL Hgb 7.1 L 6.0 L* (11.4-16.0) gm/dL Hct 21.2 L 17.9 L* (34.0-46.0) % Neutrophils # 20.7 H 11.3 H (1.3-7.7) k/uL Lymphocytes # 0.4 L 0.8 L (1.0-4.8) k/uL ABG pH (7.35-7.45) ABG pCO2 (35-45) mmHg ABG pO2 (83-108) mmHg ABG HCO3 (21-25) mmol/L ABG Total CO2 (19-24) mmol/L ABG O2 Saturation (94-97) % Hemoglobin (11.4-16.0) gm/dL Sodium 134 L (137-145) mmol/L Potassium (3.5-5.1) mmol/L Chloride 97 L (98-107) mmol/L Carbon Dioxide 33 H (22-30) mmol/L BUN (7-17) mg/dL Creatinine 2.71 H (0.52-1.04) mg/dL Glucose 110 H (74-99) mg/dL Plasma Lactic Acid Fred (0.7-2.0) mmol/L Calcium (8.4-10.2) mg/dL Phosphorus (2.5-4.5) mg/dL Iron (50-170) UG/DL % Saturation (12.00-45.00) Ferritin (10.0-291.0) ng/mL Troponin I (0.000-0.034) ng/mL Procalcitonin (0.02-0.50) ng/mL Crossmatch 08/15/24 08/15/24 08/15/24 Range/Units 04:38 07:24 07:29 WBC (3.8-10.6) k/uL RBC (3.80-5.40) m/uL Hgb (11.4-16.0) gm/dL Hct (34.0-46.0) % Neutrophils # (1.3-7.7) k/uL Lymphocytes # (1.0-4.8) k/uL ABG pH 7.54 H (7.35-7.45) ABG pCO2 (35-45) mmHg ABG pO2 (83-108) mmHg ABG HCO3 32 H (21-25) mmol/L ABG Total CO2 33 H (19-24) mmol/L ABG O2 Saturation 99.5 H (94-97) % Hemoglobin (11.4-16.0) gm/dL Sodium 132 L (137-145) mmol/L Potassium (3.5-5.1) mmol/L Chloride 97 L (98-107) mmol/L Carbon Dioxide (22-30) mmol/L BUN 21 H (7-17) mg/dL Creatinine 3.27 H (0.52-1.04) mg/dL Glucose (74-99) mg/dL Plasma Lactic Acid Fred (0.7-2.0) mmol/L Calcium (8.4-10.2) mg/dL Phosphorus 4.6 H (2.5-4.5) mg/dL Iron (50-170) UG/DL % Saturation (12.00-45.00) Ferritin (10.0-291.0) ng/mL Troponin I (0.000-0.034) ng/mL Procalcitonin (0.02-0.50) ng/mL Crossmatch See Detail Microbiology - Last 24 Hours (Table) 08/14/24 12:18 Gram Stain - Preliminary Sputum Assessment and Plan Plan: Assessment: 1. End-stage renal disease maintained on hemodialysis on Sunday schedule. 2. PEA arrest. 3. Acute hypoxic respiratory failure. Intubated. 4. Hyperkalemia secondary to chronic kidney disease and post CPR. Improved postdialysis. 5. Pneumonia maintained on antibiotics. 6. Chronic kidney disease mineral bone disease. Phosphorus level 4.6 dated August 15, 2024. 7. Anemia of chronic kidney disease. Concern for acute blood loss. Hemoglobin 6.0 today. Plan: Hemodialysis tomorrow. Scheduled to receive a unit of blood today. IV DDAVP x 1 dose today. Wean FiO2. Wean Cleviprex. Blood pressure currently on the lower side. Hold nifedipine for systolic blood pressure less than 120.
[2024-08-15] MEDS: DESMOPRESSIN ACETATE 18 MCG in SODIUM CHLORIDE 0.9% 50 ML IVPB ONE (11:05)
--- NOTE | 2024-08-15 11:34 | P.PN ---
Subjective Progress Note Date: 08/15/24 This is a 33-year-old female who was seen in the emergency department, ER trauma 1. The patient was actually in the emergency department, yesterday, discharged from the ER, and came back in via EMS, and cardiopulmonary arrest. The patient was intubated in the emergency department. The patient is seen in the ER. The patient has a history of end-stage renal disease, currently on hemodialysis. I did speak to Dr. Root, who believes the patient did aspirate. She was having significant emesis. Other history includes hypertension, seizure disorder, uterine fibroids, and previous back surgery. The patient is currently on volume assist-control, rate 22, tidal volume 450, 100%, PEEP of 8. Blood gases on PEEP of 5 show pO2 of 64, pCO2 of 48, and a pH of 7.39. The patient is on propofol at 45 mcg/kg/min. The patient is also on Zosyn and Flagyl. Current labs include a white count 19.3, hemoglobin 7.7, hematocrit 24.5, and a normal platelet count. Sodium 136, potassium 6.8, chlorides 94, CO2 25, BUN 39, creatinine 6.59. Glucose is 201. Lactic acid 12.8. Troponin was 0.037. CT scan of the chest and abdomen shows diffuse bilateral airspace disease, cardiomegaly, and anasarca in the soft tissues. Chest x-ray confirms bilateral airspace disease, possibly related to fluid overload, or aspiration. The patient is seen today August 15, 2024 in follow-up in the intensive care unit. She remains intubated on the mechanical ventilator currently and assist- control mode at a rate of 22, tidal volume 450, FiO2 50% and a PEEP of 12. Morning blood gases revealed a PaO2 of 100, pCO2 38, pH 7.54. She is currently on Nimbex at 3 mcg/kg/min. Cleviprex at 2 mg/h. Propofol at 45 mcg/kg/min. Her procalcitonin was 23.5. She is currently on Zosyn and azithromycin. White count 12.9. Hemoglobin 6.0. Platelets 240. Sodium 132. Potassium 4.2. Bicarb 30. BUN 21. Creatinine 3.27. Chest x-ray reveals similar multifocal airspace opacities. Sputum culture pending. Alysis is a Sunday schedule. Objective - Vital Signs Vital signs: Vital Signs Temp 98.8 F 08/15/24 10:50 Pulse 84 08/15/24 11:00 Resp 22 08/15/24 11:00 BP 95/47 08/15/24 10:40 Pulse Ox 100 08/15/24 11:00 FiO2 50 08/15/24 09:33 Intake & Output 08/14/24 08/15/24 08/15/24 18:59 06:59 18:59 Intake Total 2040.996 233.319 413.619 Output Total 2300 0 0 Balance -259.004 233.319 413.619 Weight 58.5 kg 64.6 kg Intake: Intake, IV Titration 140.996 233.319 353.619 Amount Cisatracurium 200 mg In 95.94 Sodium Chloride 0.9% 180 ml @ 2 MCG/KG/MIN 7.02 mls/hr IV .Q24H [facility] Rx#: [id number] Clevidipine Butyrate 25 2.400 78.800 14.233 mg In Empty Bag 1 bag @ 1 MG/HR 2 mls/hr IV .Q24H [facility] Rx#:[id number] Desmopressin Acetate 18 50 mcg In Sodium Chloride 0. 9% 50 ml @ 200 mls/hr IVPB ONCE ONE Rx#: [id number] Piperacillin-Tazobactam 3 100 .375 gm In Sodium Chloride 0.9% 100 ml @ 25 mls/hr IVPB Q12HR [facility] Rx #:[id number] propofoL 1,000 mg In 138.596 154.519 93.446 Empty Bag 1 bag @ 15 MCG/ KG/MIN 5.715 mls/hr IV . [id number] [facility] Rx#:[id number] Tube Feeding 60 Blood Product 0 Unit 0 Hemodialysis 1900 Output: Urine 0 0 0 Uretheral ([place]) 0 Stool 400 Hemodialysis 400 Hemodialysis Net Amount 1500 Other: Voiding Method Indwelling Catheter Indwelling Catheter ABP, PAP, CO, CI - Last Documented Arterial Blood Pressure 121/58 - Exam GENERAL EXAM: Intubated, sedated 33-year-old female, in no apparent distress. HEAD: Normocephalic. EYES: Normal reaction of pupils, equal size. NOSE: Clear with pink turbinates. THROAT: Oral endogastric and endotracheal tube secured in place, no erythema or exudates. NECK: No masses, no JVD. CHEST: No chest wall deformity. LUNGS: Equal air entry with no crackles, wheeze, rhonchi or dullness. CVS: S1 and S2 normal with no audible murmur, regular rhythm. ABDOMEN: No hepatosplenomegaly, normal bowel sounds, no guarding or rigidity. SPINE: No scoliosis or deformity SKIN: No rashes CENTRAL NERVOUS SYSTEM: Sedated, tone is normal in all 4 extremities. EXTREMITIES: There is no peripheral edema. No clubbing, no cyanosis. Peripheral pulses are intact. - Labs CBC & Chem 7: 08/15/24 04:38 08/15/24 04:38 Labs: Abnormal Lab Results - Last 24 Hours (Table) 08/14/24 08/14/24 08/14/24 Range/Units 14:09 16:40 18:00 WBC (3.8-10.6) k/uL RBC (3.80-5.40) m/uL Hgb (11.4-16.0) gm/dL Hct (34.0-46.0) % Neutrophils # (1.3-7.7) k/uL Lymphocytes # (1.0-4.8) k/uL ABG pH 7.47 H (7.35-7.45) ABG pCO2 47 H (35-45) mmHg ABG pO2 170 H (83-108) mmHg ABG HCO3 34 H (21-25) mmol/L ABG Total CO2 35 H (19-24) mmol/L ABG O2 Saturation 100.0 H (94-97) % Hemoglobin 7.0 L* (11.4-16.0) gm/dL Sodium 134 L (137-145) mmol/L Potassium 3.2 L (3.5-5.1) mmol/L Chloride (98-107) mmol/L Carbon Dioxide 32 H (22-30) mmol/L BUN (7-17) mg/dL Creatinine 1.90 H (0.52-1.04) mg/dL Glucose (74-99) mg/dL Calcium 8.3 L (8.4-10.2) mg/dL Phosphorus (2.5-4.5) mg/dL Iron 17 L (50-170) UG/DL % Saturation 5.80 L (12.00-45.00) Ferritin 3451.0 H (10.0-291.0) ng/mL Troponin I 0.501 H* (0.000-0.034) ng/mL Procalcitonin (0.02-0.50) ng/mL Crossmatch 08/14/24 08/14/24 08/14/24 Range/Units 18:00 18:00 20:02 WBC (3.8-10.6) k/uL RBC (3.80-5.40) m/uL Hgb (11.4-16.0) gm/dL Hct (34.0-46.0) % Neutrophils # (1.3-7.7) k/uL Lymphocytes # (1.0-4.8) k/uL ABG pH (7.35-7.45) ABG pCO2 (35-45) mmHg ABG pO2 (83-108) mmHg ABG HCO3 (21-25) mmol/L ABG Total CO2 (19-24) mmol/L ABG O2 Saturation (94-97) % Hemoglobin (11.4-16.0) gm/dL Sodium (137-145) mmol/L Potassium (3.5-5.1) mmol/L Chloride (98-107) mmol/L Carbon Dioxide (22-30) mmol/L BUN (7-17) mg/dL Creatinine (0.52-1.04) mg/dL Glucose (74-99) mg/dL Calcium (8.4-10.2) mg/dL Phosphorus (2.5-4.5) mg/dL Iron (50-170) UG/DL % Saturation (12.00-45.00) Ferritin (10.0-291.0) ng/mL Troponin I 0.763 H* 0.738 H* (0.000-0.034) ng/mL Procalcitonin 23.50 H (0.02-0.50) ng/mL Crossmatch 08/14/24 08/14/24 08/15/24 Range/Units 20:02 20:02 04:38 WBC 22.0 H 12.9 H (3.8-10.6) k/uL RBC 2.38 L 2.00 L (3.80-5.40) m/uL Hgb 7.1 L 6.0 L* (11.4-16.0) gm/dL Hct 21.2 L 17.9 L* (34.0-46.0) % Neutrophils # 20.7 H 11.3 H (1.3-7.7) k/uL Lymphocytes # 0.4 L 0.8 L (1.0-4.8) k/uL ABG pH (7.35-7.45) ABG pCO2 (35-45) mmHg ABG pO2 (83-108) mmHg ABG HCO3 (21-25) mmol/L ABG Total CO2 (19-24) mmol/L ABG O2 Saturation (94-97) % Hemoglobin (11.4-16.0) gm/dL Sodium 134 L (137-145) mmol/L Potassium (3.5-5.1) mmol/L Chloride 97 L (98-107) mmol/L Carbon Dioxide 33 H (22-30) mmol/L BUN (7-17) mg/dL Creatinine 2.71 H (0.52-1.04) mg/dL Glucose 110 H (74-99) mg/dL Calcium (8.4-10.2) mg/dL Phosphorus (2.5-4.5) mg/dL Iron (50-170) UG/DL % Saturation (12.00-45.00) Ferritin (10.0-291.0) ng/mL Troponin I (0.000-0.034) ng/mL Procalcitonin (0.02-0.50) ng/mL Crossmatch 08/15/24 08/15/24 08/15/24 Range/Units 04:38 07:24 07:29 WBC (3.8-10.6) k/uL RBC (3.80-5.40) m/uL Hgb (11.4-16.0) gm/dL Hct (34.0-46.0) % Neutrophils # (1.3-7.7) k/uL Lymphocytes # (1.0-4.8) k/uL ABG pH 7.54 H (7.35-7.45) ABG pCO2 (35-45) mmHg ABG pO2 (83-108) mmHg ABG HCO3 32 H (21-25) mmol/L ABG Total CO2 33 H (19-24) mmol/L ABG O2 Saturation 99.5 H (94-97) % Hemoglobin (11.4-16.0) gm/dL Sodium 132 L (137-145) mmol/L Potassium (3.5-5.1) mmol/L Chloride 97 L (98-107) mmol/L Carbon Dioxide (22-30) mmol/L BUN 21 H (7-17) mg/dL Creatinine 3.27 H (0.52-1.04) mg/dL Glucose (74-99) mg/dL Calcium (8.4-10.2) mg/dL Phosphorus 4.6 H (2.5-4.5) mg/dL Iron (50-170) UG/DL % Saturation (12.00-45.00) Ferritin (10.0-291.0) ng/mL Troponin I (0.000-0.034) ng/mL Procalcitonin (0.02-0.50) ng/mL Crossmatch See Detail Microbiology - Last 24 Hours (Table) 08/14/24 12:18 Gram Stain - Preliminary Sputum Sputum Culture - Preliminary Assessment and Plan Assessment: Acute hypoxemic respiratory failure with cardiopulmonary arrest, requiring cardiopulmonary resuscitation, intubation, and mechanical ventilation, beginning August 14, 2024. History of end-stage renal disease, currently on Sunday and Sunday hemodialysis. Anion gap metabolic acidosis, secondary to renal failure, and lactic acidemia. History of chronic kidney disease. History of hypertension. History of seizure disorder. History of uterine fibroids. Lifelong non-smoker. Plan: The patient was seen and evaluated Chest x-ray, labs and medications reviewed Consult dietary for tube feeding recommendations Transfuse 1 unit of packed red blood cells DDAVP x 1 per nephrology Continue dialysis on Sunday schedule Discontinue azithromycin, continue Zosyn Wean off the Cleviprex Wean off the Nimbex We will continue to follow and make further recommendations based on her clinical status I have personally seen and examined the patient, performed the documentation and the assessment and plan as written. Number of minutes spent on the visit: 15 Dictation was produced using [employer] dictation software. Please excuse any grammatical, word or spelling errors.
[2024-08-15 11:51] LABS: Glucose,Whole Blood 106 mg/dL (70-110)
--- NOTE | 2024-08-15 12:26 | CA ---
Transthoracic Echo Report Name: Parisa Sommers Age: 33 Gender: F : 1990 Exam Date: 08/14/2024 14:32 Exam Location: [place] [facility] Ht (in): 63 Wt (lb): 128 Ordering Physician: Taniya Terry MD Attending/Referring Phys: Social Media Editor Melissa Saldivar RDCS Procedure CPT: Indications: Cardiac Arrest Cardiac Hx: Technical Quality: Good Contrast 1: Total Dose (mL): Contrast 2: Total Dose (mL): MEASUREMENTS (Male / Female) Normal Values 2D ECHO LV Diastolic Diameter PLAX 5.3 cm 4.2 - 5.9 / 3.9 - 5.3 cm LV Systolic Diameter PLAX 4.0 cm IVS Diastolic Thickness 0.9 cm 0.6 - 1.0 / 0.6 - 0.9 cm LVPW Diastolic Thickness 1.3 cm 0.6 - 1.0 / 0.6 - 0.9 cm LV Relative Wall Thickness 0.4 LVOT Diameter 1.9 cm LV Diastolic Volume MOD BP 179.0 cm??? 67 - 155 / 56 - 104 cm??? LV Systolic Volume MOD BP 111.3 cm??? 22 - 58 / 19 - 49 cm??? LV Ejection Fraction MOD BP 37.8 % >= 55 % LV Cardiac Index MOD BP 3948.2 cm???/min???m??? LV Diastolic Volume MOD 4C 171.8 cm??? LV Systolic Volume MOD 4C 106.6 cm??? LV Ejection Fraction MOD 4C 38.0 % LV Cardiac Index MOD 4C 3803.6 cm???/min???m??? LV Diastolic Length 4C 8.9 cm LV Systolic Length 4C 8.1 cm LV Diastolic Volume MOD 2C 180.2 cm??? LV Systolic Volume MOD 2C 105.8 cm??? LV Ejection Fraction MOD 2C 41.3 % LV Cardiac Index MOD 2C 4343.8 cm???/min???m??? LV Diastolic Length 2C 9.3 cm LV Systolic Length 2C 9.0 cm DOPPLER AV Peak Velocity 175.9 cm/s AV Peak Gradient 12.4 mmHg AV Mean Velocity 121.0 cm/s AV Mean Gradient 6.5 mmHg AV Velocity Time Integral 28.7 cm LVOT Peak Velocity 136.2 cm/s LVOT Peak Gradient 7.4 mmHg LVOT Velocity Time Integral 21.4 cm LVOT Stroke Volume 62.1 cm??? LVOT Stroke Volume Index 38.8 ml/m??? LVOT Cardiac Index 3619.8 cm???/min???m??? AV Area Cont Eq vti 2.2 cm??? AV Area Cont Eq pk 2.2 cm??? TR Peak Velocity 360.9 cm/s TR Peak Gradient 52.1 mmHg Right Atrial Pressure 20.0 mmHg Pulmonary Artery Systolic Pressu 72.1 mmHg Right Ventricular Systolic Press 72.1 mmHg PV Peak Velocity 95.6 cm/s PV Peak Gradient 3.7 mmHg FINDINGS Left Ventricle Left ventricular ejection fraction is estimated at 35-40 %. Mildly increased posterior wall thickness. Severely increased left ventricular diastolic volume. Severely increased left ventricular systolic volume. Moderately decreased left ventricular ejection fraction. Right Ventricle Normal right ventricular size. Severe pulmonary hypertension. Right Atrium Normal right atrial size. Left Atrium Left atrial dilatation. Mitral Valve Mitral valve thickened. No mitral stenosis. Trace mitral regurgitation. Aortic Valve Trileaflet aortic valve. No aortic valve stenosis or regurgitation. Tricuspid Valve Structurally normal tricuspid valve. No tricuspid stenosis. [id number] tricuspid regurgitation. Pulmonic Valve Structurally normal pulmonic valve. No pulmonic stenosis. No pulmonic stenosis. Trace pulmonic regurgitation. Pericardium No pericardial effusion. Aorta Aortic root and proximal ascending aorta not well visualized. CONCLUSIONS LVEF 35 to 40% Hypokinetic base Moderately thickened inferior posterior wall. Mildly thickened septal wall Dilated LV cavity Normal RV size and systolic function. Severe pulmonary hypertension with RVSP 65 mmHg No significant valvular dysfunction Previewed by: Dr Kenny Welch (Electronically Signed) Final Date: 15 August 2024 12:26
[2024-08-15 12:43] VITALS: BMI 25.2
--- NOTE | 2024-08-15 12:43 | P.PN ---
Subjective Progress Note Date: 08/15/24 Patient is a 33-year-old female with ESRD (peritoneal dialysis twice a week Sunday), hypertension and history of DVT who came in for cardiac arrest. Per ED RN, called EMS due to patient having shortness of breath. And in transit patient became pulseless and CPR was started and ROSC was achieved. Intubation was attempted but failed in transit. On arrival to our ED, patient once again became pulseless with oxygen saturation at the 60s with a heart rate of 200s. CPR was started immediately for about 10 minutes and ROSC was achieved. NG tube placement, endotracheal intubation and mechanical ventilation were done at the ED sedation with propofol initiated. Patient had an episode of emesis prior to NG tube placement. In the ED, chest x-ray showed focal airspace opacities and appropriate placement of endotracheal tube. Brain CT showed no acute bleed or mass effect and acute pansinusitis. CT of the chest/abdomen showed marked worsening of acute cardiopulmonary disease with diffuse airspace consolidation, mild cardiomegaly and marked anasarca of the soft tissues. Also seen is the ET tube and NG tube placed in proper location. EKG on 9:55 AM showed SVT, unclear underlying rhythm, with a rate of 157. EKG at 10:37 AM showed sinus tachycardia with a rate of 109 QTc of 400 with good R wave progression and no ST-T changes. WBC 19.3 hemoglobin 7.7 hematocrit 24.5 platelet count 400,000. ABG showed a pH of 7.39 CO2 48 O2 64. Sodium 136 potassium 6.8 chloride 94 bicarb 25 BUN 39 creatinine 6.59 glucose 196 venous lactic acid 12.8 troponin 0.037 total bilirub in 0.6 AST 23 ALT 11 ALP 106 salicylates less than 1 serum alcohol less than 10 On admission, patient had a low temperature of 96.9 Fahrenheit elevated pulse rate of 150 respiration 16 elevated blood pressure of 245/144 low O2 saturation 75% on BVM. Saturation increased to 100% on mechanical ventilator with FiO2 100. 08/15/2024 patient seen and examined at bedside. Patient still in the ICU. Patient still sedated, intubated and mechanically ventilated. No acute events overnight. Reported bleeding from triple-lumen catheter this morning which was controlled with direct pressure and now covered with a dressing. WBC 12.9 hemoglobin 6 hematocrit 17.9 platelet count 240,000 sodium 132 potassium 4.2 chloride 97 bicarb 30 BUN 21 creatinine 3.27 glucose 95 calcium 8.4 phosphorus 4.6 magnesium 2.1 Review of systems: Unable to be obtained due to patient condition. Physical examination: Vital signs reviewed General: Sedated, intubated and on mechanical ventilator Derm: no unusual rashes/lesions, warm, peritoneal dialysis port on abdomen covered with dressing that is dry and clean, no erythema or discharge in the surrounding skin Head: atraumatic, normocephalic, symmetric Eyes: anicteric sclera, pupils constricted and nonreactive to light ENT: Nose and ears atraumatic Neck: No cervical lymphadenopathy, trachea midline, supple Mouth: no lip lesion, mucus membranes moist Cardiovascular: S1S2 reg, no murmur Lungs: Bibasilar crackles, no rhonchi, no rales, no accessory muscle use Abdominal: soft, nondistended, nontender to palpation, no guarding Ext: No gross muscle atrophy, no contractures, positive dorsalis pedis pulse bilateral, bilateral lower extremity +2 pitting edema Neuro: Cannot be assessed Psych: Alert and oriented x 0, cannot be assessed Chest x-ray independently interpreted, improved aeration bilaterally. Assessment/Plan: 33-year-old female with a history of ESRD who came in for cardiopulmonary arrest. ROSC was achieved and patient was placed on mechanical ventilator via endotracheal tube in the emergency room. #. Cardiopulmonary arrest #. Hyperkalemic emergency, resolved #. ARDS, moderate severity #. Acute hypoxic respiratory failure requiring intubation and mechanical ventilation #. Sepsis due to multifocal pneumonia and possible aspiration pneumonia #. Anion gap metabolic acidosis due to lactic acidosis #. Hypertensive emergency, resolved #. Hypervolemia #. Type II NSTEMI Cardiac monitoring Fall precautions Chest x-ray showed focal airspace opacities and appropriate placement of endotracheal tube. Brain CT showed no acute bleed or mass effect and acute pansinusitis. CT of the chest/abdomen showed marked worsening of acute cardiopulmonary disease with diffuse airspace consolidation, mild cardiomegaly and marked anasarca of the soft tissues. Echocardiogram showed left ventricular ejection fraction 35 to 40% moderately thickened inferior posterior wall with dilated left ventricular cavity severe pulmonary hypertension with RVSP 65 mmHg Blood cultures pending Sputum culture pending Legionella antigen pending CBC, BMP, mag and Phos in the a.m. Procalcitonin elevated at 23.5 Wean off IV Cleviprex 1 mg/h Metronidazole 500 mg IVP and Zosyn 100 mg IVP initiated in the ED Continue with azithromycin 500 mg IVP daily for 3 days and Zosyn IVP twice daily Pulmonology following Trend troponin #. Anemia of chronic disease Hemoglobin dropped to 6 today Transfusion of 1 unit of packed RBC today Chronic conditions: #. ESRD on peritoneal dialysis thrice a week (Sunday, , Sunday) Nephrology following Dialysis tomorrow #. Hypertension #. Anxiety #. Depression Resume carvedilol 25 mg twice daily, nifedipine 30 mg p.o. twice daily, and paroxetine 10 mg p.o. daily F: Free water through OG tube E: None for now N: Nepro 20 via A: Currently sedated. On fall precautions DVT ppx: Heparin 5000 units SQ every 8 hours GI ppx: Protonix 40 mg IV daily Dispo: The patient is admitted with an anticipated greater than 2 midnight stay for evaluation of cardiopulmonary arrest CODE STATUS: Full Taniya Terry MD PGY-1 IM Dictation was produced using [id number] dictation software. please excuse any grammatical, word or spelling errors. I have seen and evaluated the patient today. Discussed with the resident and agree with the residents finding and plan as documented in the resident's note. Changes highlighted in blue font. Objective - Vital Signs Vital signs: Vital Signs Temp 98.9 F 08/15/24 04:00 Pulse 103 H 08/15/24 07:00 Resp 22 08/15/24 07:00 BP 137/89 08/15/24 04:15 Pulse Ox 100 08/15/24 07:00 FiO2 50 08/15/24 04:01 Intake & Output 08/14/24 08/15/24 08/15/24 18:59 06:59 18:59 Intake Total 2040.996 233.319 Output Total 2300 0 Balance -259.004 233.319 Weight 58.5 kg 64.6 kg Intake: Intake, IV Titration 140.996 233.319 Amount Clevidipine Butyrate 25 2.400 78.800 mg In Empty Bag 1 bag @ 1 MG/HR 2 mls/hr IV .Q24H [facility] Rx#:[id number] propofoL 1,000 mg In 138.596 154.519 Empty Bag 1 bag @ 15 MCG/ KG/MIN 5.715 mls/hr IV . [id number] [facility] Rx#:[id number] Hemodialysis 1900 Output: Urine 0 0 Uretheral ([place]) 0 Stool 400 Hemodialysis 400 Hemodialysis Net Amount 1500 Other: Voiding Method Indwelling Catheter Indwelling Catheter ABP, PAP, CO, CI - Last Documented Arterial Blood Pressure 147/80 - Labs CBC & Chem 7: 08/15/24 04:38 08/15/24 04:38 Labs: Abnormal Lab Results - Last 24 Hours (Table) 08/14/24 08/14/24 08/14/24 Range/Units 09:52 09:57 09:57 WBC 19.3 H (3.8-10.6) k/uL RBC 2.57 L (3.80-5.40) m/uL Hgb 7.7 L (11.4-16.0) gm/dL Hct 24.5 L (34.0-46.0) % Neutrophils # 15.7 H (1.3-7.7) k/uL Lymphocytes # (1.0-4.8) k/uL ABG pH (7.35-7.45) ABG pCO2 (35-45) mmHg ABG pO2 (83-108) mmHg ABG HCO3 (21-25) mmol/L ABG Total CO2 (19-24) mmol/L ABG O2 Saturation (94-97) % Hemoglobin (11.4-16.0) gm/dL Sodium 136 L (137-145) mmol/L Potassium 6.8 H* (3.5-5.1) mmol/L Chloride 94 L (98-107) mmol/L Carbon Dioxide (22-30) mmol/L BUN 39 H (7-17) mg/dL Creatinine 6.59 H (0.52-1.04) mg/dL Glucose 196 H (74-99) mg/dL POC Glucose (mg/dL) 201 H (70-110) mg/dL Plasma Lactic Acid Fred (0.7-2.0) mmol/L Calcium (8.4-10.2) mg/dL Phosphorus (2.5-4.5) mg/dL Iron (50-170) UG/DL % Saturation (12.00-45.00) Ferritin (10.0-291.0) ng/mL Troponin I (0.000-0.034) ng/mL Procalcitonin (0.02-0.50) ng/mL 08/14/24 08/14/24 08/14/24 Range/Units 09:57 09:57 10:49 WBC (3.8-10.6) k/uL RBC (3.80-5.40) m/uL Hgb (11.4-16.0) gm/dL Hct (34.0-46.0) % Neutrophils # (1.3-7.7) k/uL Lymphocytes # (1.0-4.8) k/uL ABG pH (7.35-7.45) ABG pCO2 48 H (35-45) mmHg ABG pO2 64 L (83-108) mmHg ABG HCO3 29 H (21-25) mmol/L ABG Total CO2 30 H (19-24) mmol/L ABG O2 Saturation 91.1 L (94-97) % Hemoglobin 6.5 L* (11.4-16.0) gm/dL Sodium (137-145) mmol/L Potassium (3.5-5.1) mmol/L Chloride (98-107) mmol/L Carbon Dioxide (22-30) mmol/L BUN (7-17) mg/dL Creatinine (0.52-1.04) mg/dL Glucose (74-99) mg/dL POC Glucose (mg/dL) (70-110) mg/dL Plasma Lactic Acid Fred 12.8 H* (0.7-2.0) mmol/L Calcium (8.4-10.2) mg/dL Phosphorus (2.5-4.5) mg/dL Iron (50-170) UG/DL % Saturation (12.00-45.00) Ferritin (10.0-291.0) ng/mL Troponin I 0.037 H* (0.000-0.034) ng/mL Procalcitonin (0.02-0.50) ng/mL 08/14/24 08/14/24 08/14/24 Range/Units 14:09 16:40 18:00 WBC (3.8-10.6) k/uL RBC (3.80-5.40) m/uL Hgb (11.4-16.0) gm/dL Hct (34.0-46.0) % Neutrophils # (1.3-7.7) k/uL Lymphocytes # (1.0-4.8) k/uL ABG pH 7.47 H (7.35-7.45) ABG pCO2 47 H (35-45) mmHg ABG pO2 170 H (83-108) mmHg ABG HCO3 34 H (21-25) mmol/L ABG Total CO2 35 H (19-24) mmol/L ABG O2 Saturation 100.0 H (94-97) % Hemoglobin 7.0 L* (11.4-16.0) gm/dL Sodium 134 L (137-145) mmol/L Potassium 3.2 L (3.5-5.1) mmol/L Chloride (98-107) mmol/L Carbon Dioxide 32 H (22-30) mmol/L BUN (7-17) mg/dL Creatinine 1.90 H (0.52-1.04) mg/dL Glucose (74-99) mg/dL POC Glucose (mg/dL) (70-110) mg/dL Plasma Lactic Acid Fred (0.7-2.0) mmol/L Calcium 8.3 L (8.4-10.2) mg/dL Phosphorus (2.5-4.5) mg/dL Iron 17 L (50-170) UG/DL % Saturation 5.80 L (12.00-45.00) Ferritin 3451.0 H (10.0-291.0) ng/mL Troponin I 0.501 H* (0.000-0.034) ng/mL Procalcitonin (0.02-0.50) ng/mL 08/14/24 08/14/24 08/14/24 Range/Units 18:00 18:00 20:02 WBC (3.8-10.6) k/uL RBC (3.80-5.40) m/uL Hgb (11.4-16.0) gm/dL Hct (34.0-46.0) % Neutrophils # (1.3-7.7) k/uL Lymphocytes # (1.0-4.8) k/uL ABG pH (7.35-7.45) ABG pCO2 (35-45) mmHg ABG pO2 (83-108) mmHg ABG HCO3 (21-25) mmol/L ABG Total CO2 (19-24) mmol/L ABG O2 Saturation (94-97) % Hemoglobin (11.4-16.0) gm/dL Sodium (137-145) mmol/L Potassium (3.5-5.1) mmol/L Chloride (98-107) mmol/L Carbon Dioxide (22-30) mmol/L BUN (7-17) mg/dL Creatinine (0.52-1.04) mg/dL Glucose (74-99) mg/dL POC Glucose (mg/dL) (70-110) mg/dL Plasma Lactic Acid Fred (0.7-2.0) mmol/L Calcium (8.4-10.2) mg/dL Phosphorus (2.5-4.5) mg/dL Iron (50-170) UG/DL % Saturation (12.00-45.00) Ferritin (10.0-291.0) ng/mL Troponin I 0.763 H* 0.738 H* (0.000-0.034) ng/mL Procalcitonin 23.50 H (0.02-0.50) ng/mL 08/14/24 08/14/24 08/15/24 Range/Units 20:02 20:02 04:38 WBC 22.0 H 12.9 H (3.8-10.6) k/uL RBC 2.38 L 2.00 L (3.80-5.40) m/uL Hgb 7.1 L 6.0 L* (11.4-16.0) gm/dL Hct 21.2 L 17.9 L* (34.0-46.0) % Neutrophils # 20.7 H 11.3 H (1.3-7.7) k/uL Lymphocytes # 0.4 L 0.8 L (1.0-4.8) k/uL ABG pH (7.35-7.45) ABG pCO2 (35-45) mmHg ABG pO2 (83-108) mmHg ABG HCO3 (21-25) mmol/L ABG Total CO2 (19-24) mmol/L ABG O2 Saturation (94-97) % Hemoglobin (11.4-16.0) gm/dL Sodium 134 L (137-145) mmol/L Potassium (3.5-5.1) mmol/L Chloride 97 L (98-107) mmol/L Carbon Dioxide 33 H (22-30) mmol/L BUN (7-17) mg/dL Creatinine 2.71 H (0.52-1.04) mg/dL Glucose 110 H (74-99) mg/dL POC Glucose (mg/dL) (70-110) mg/dL Plasma Lactic Acid Fred (0.7-2.0) mmol/L Calcium (8.4-10.2) mg/dL Phosphorus (2.5-4.5) mg/dL Iron (50-170) UG/DL % Saturation (12.00-45.00) Ferritin (10.0-291.0) ng/mL Troponin I (0.000-0.034) ng/mL Procalcitonin (0.02-0.50) ng/mL 08/15/24 Range/Units 04:38 WBC (3.8-10.6) k/uL RBC (3.80-5.40) m/uL Hgb (11.4-16.0) gm/dL Hct (34.0-46.0) % Neutrophils # (1.3-7.7) k/uL Lymphocytes # (1.0-4.8) k/uL ABG pH (7.35-7.45) ABG pCO2 (35-45) mmHg ABG pO2 (83-108) mmHg ABG HCO3 (21-25) mmol/L ABG Total CO2 (19-24) mmol/L ABG O2 Saturation (94-97) % Hemoglobin (11.4-16.0) gm/dL Sodium 132 L (137-145) mmol/L Potassium (3.5-5.1) mmol/L Chloride 97 L (98-107) mmol/L Carbon Dioxide (22-30) mmol/L BUN 21 H (7-17) mg/dL Creatinine 3.27 H (0.52-1.04) mg/dL Glucose (74-99) mg/dL POC Glucose (mg/dL) (70-110) mg/dL Plasma Lactic Acid Fred (0.7-2.0) mmol/L Calcium (8.4-10.2) mg/dL Phosphorus 4.6 H (2.5-4.5) mg/dL Iron (50-170) UG/DL % Saturation (12.00-45.00) Ferritin (10.0-291.0) ng/mL Troponin I (0.000-0.034) ng/mL Procalcitonin (0.02-0.50) ng/mL Microbiology - Last 24 Hours (Table) 08/14/24 12:18 Gram Stain - Preliminary Sputum
[2024-08-15 17:58] LABS: Glucose,Whole Blood 120 mg/dL (70-110)
[2024-08-15] MEDS: SODIUM CHLORIDE 0.9% 1,000 ML IV SCH (18:27)
[2024-08-15] MEDS: NIFEdipine 10 MG CAP PO SCH (21:03)
[2024-08-15] MEDS: CHLORHEXIDINE GLUCONATE 15 ML CUP MUCOUS MEM SCH (21:11)
[2024-08-15] MEDS: ACETAMINOPHEN TAB 325 MG TAB PO PRN (22:24)
[2024-08-16] MEDS: levETIRAcetam IV 500 MG/5 ML VIAL IVP STA (04:22)
[2024-08-16 05:06] LABS: Glucose,Whole Blood 114 mg/dL (70-110)
[2024-08-16 05:27] LABS: Anisocytosis Slight; Basophils % (A) 0 %; Eosinophils # (A) 0.6 k/uL (0-0.7); Eosinophils % (A) 4 %; Lymphocytes # (A) 0.7 k/uL (1.0-4.8); Lymphocytes % (A) 4 %; MCH 29.2 pg (25.0-35.0); MCHC 33.5 g/dL (31.0-37.0); MCV 87.2 fL (80.0-100.0); Mean Platelet Volume 7.5; Monocytes # (A) 0.7 k/uL (0-1.0); Monocytes % (A) 5 %; Neutrophils # (A) 13.4 k/uL (1.3-7.7); Neutrophils % (A) 86 %; Platelet Count 255 k/uL (150-450); RBC 2.26 m/uL (3.80-5.40); RDW 16.9 % (11.5-15.5); WBC 15.5 k/uL (3.8-10.6)
[2024-08-16 05:35] LABS: HCT 19.7 % (34.0-46.0); HGB 6.6 gm/dL (11.4-16.0)
[2024-08-16 05:38] LABS: African American GFR (CKD) 13 (>60 ml/min/1.73 sqM); Anion Gap 7 mmol/L; Blood Urea Nitrogen 33 mg/dL (7-17); Calcium 8.9 mg/dL (8.4-10.2); Carbon Dioxide 28 mmol/L (22-30); Chloride 97 mmol/L (98-107); Glucose 102 mg/dL (74-99); Magnesium 2.3 mg/dL (1.6-2.3); Non-African American GFR(CKD) 11 (>60 ml/min/1.73 sqM); Phosphorus 6.6 mg/dL (2.5-4.5); Potassium 4.3 mmol/L (3.5-5.1); Sodium 132 mmol/L (137-145)
[2024-08-16 05:53] LABS: ABG Base Excess 5.7 mmol/L; ABG HCO3 29 mmol/L (21-25); ABG Oxygen Saturation 99.8 % (94-97); ABG PCO2 36 mmHg (35-45); ABG PH 7.51 (7.35-7.45); ABG PO2 138 mmHg (83-108); ABG TCO2 30 mmol/L (19-24); Allen Test Performed? Yes
--- NOTE | 2024-08-16 07:58 | XR ---
EXAMINATION TYPE: XR chest 1V portable DATE OF EXAM: 08/16/2024 COMPARISON: 08/15/2024 HISTORY: Tube placement TECHNIQUE: Single frontal view of the chest is obtained. FINDINGS: The ET tube is 4.1 cm above the debra. There is an NG tube within the stomach There is a left-sided PICC line in the right atrium. There are diffuse partially consolidative opacities in both lungs in a perihilar distribution essenti ally unchanged compared to prior study. There is no pneumothorax or large pleural effusion. IMPRESSION: No change in the acute cardiopulmonary disease. The ET tube is 4.1 cm above the debra. [facility], , 08/16/2024 7:55 AM
[2024-08-16] MEDS: levETIRAcetam IV 500 MG/5 ML VIAL IVP SCH ×2 (08:08→20:03)
--- NOTE | 2024-08-16 10:13 | P.PN ---
Subjective Progress Note Date: 08/16/24 This is a 33-year-old female who was seen in the emergency department, ER trauma 1. The patient was actually in the emergency department, yesterday, discharged from the ER, and came back in via EMS, and cardiopulmonary arrest. The patient was intubated in the emergency department. The patient is seen in the ER. The patient has a history of end-stage renal disease, currently on hemodialysis. I did speak to Dr. Root, who believes the patient did aspirate. She was having significant emesis. Other history includes hypertension, seizure disorder, uterine fibroids, and previous back surgery. The patient is currently on volume assist-control, rate 22, tidal volume 450, 100%, PEEP of 8. Blood gases on PEEP of 5 show pO2 of 64, pCO2 of 48, and a pH of 7.39. The patient is on propofol at 45 mcg/kg/min. The patient is also on Zosyn and Flagyl. Current labs include a white count 19.3, hemoglobin 7.7, hematocrit 24.5, and a normal platelet count. Sodium 136, potassium 6.8, chlorides 94, CO2 25, BUN 39, creatinine 6.59. Glucose is 201. Lactic acid 12.8. Troponin was 0.037. CT scan of the chest and abdomen shows diffuse bilateral airspace disease, cardiomegaly, and anasarca in the soft tissues. Chest x-ray confirms bilateral airspace disease, possibly related to fluid overload, or aspiration. The patient is seen today August 15, 2024 in follow-up in the intensive care unit. She remains intubated on the mechanical ventilator currently and assist- control mode at a rate of 22, tidal volume 450, FiO2 50% and a PEEP of 12. Morning blood gases revealed a PaO2 of 100, pCO2 38, pH 7.54. She is currently on Nimbex at 3 mcg/kg/min. Cleviprex at 2 mg/h. Propofol at 45 mcg/kg/min. Her procalcitonin was 23.5. She is currently on Zosyn and azithromycin. White count 12.9. Hemoglobin 6.0. Platelets 240. Sodium 132. Potassium 4.2. Bicarb 30. BUN 21. Creatinine 3.27. Chest x-ray reveals similar multifocal airspace opacities. Sputum culture pending. Alysis is a Sunday schedule. The patient is seen today August 16, 2024 in follow-up in the intensive care unit. She remains intubated on the mechanical ventilator. Currently on assist- control mode at a rate of 22, tidal volume 450, FiO2 40% and a PEEP of 12. PaO2 138, pCO2 36, pH 7.51 on 50% FiO2. She remains on propofol at 30 mcg/kg/min. Normal saline at KVO. She is being nourished with Nepro at 30 mL/h which is goal. She is on antibiotics in the form of Zosyn. Procalcitonin was 23.5. White count 15.5. Hemoglobin 6.6. Platelets 255. Sodium 132. Potassium 4.3. Bicarb 28. BUN 33. Creatinine 4.83. Glucose 102. She is receiving hemodialysis today. Another unit of packed red blood cells will be given. Objective - Vital Signs Vital signs: Vital Signs Temp 99 F 08/16/24 08:00 Pulse 96 08/16/24 10:00 Resp 27 H 08/16/24 10:00 BP 135/78 08/16/24 10:00 Pulse Ox 97 08/16/24 10:00 FiO2 40 08/16/24 08:45 Intake & Output 08/15/24 08/16/24 08/16/24 18:59 06:59 18:59 Intake Total 1152.353 753.051 378.781 Output Total 0 0 0 Balance 1152.353 753.051 378.781 Weight 64.6 kg Intake: IV 110 313 162 0.9% NS Arterial Line 33 12 0.9% NS KVO 180 50 Piperacillin-Tazobactam 3 100 100 .375 gm In Sodium Chloride 0.9% 100 ml @ 25 mls/hr IVPB Q12HR [facility] Rx #:[id number] ns 110 Intake, IV Titration 502.353 110.051 36.781 Amount Cisatracurium 200 mg In 145.372 Sodium Chloride 0.9% 180 ml @ 2 MCG/KG/MIN 7.02 mls/hr IV .Q24H [facility] Rx#: [id number] Clevidipine Butyrate 25 14.233 mg In Empty Bag 1 bag @ 1 MG/HR 2 mls/hr IV .Q24H [facility] Rx#:[id number] Desmopressin Acetate 18 50 mcg In Sodium Chloride 0. 9% 50 ml @ 200 mls/hr IVPB ONCE ONE Rx#: [id number] Piperacillin-Tazobactam 3 100 .375 gm In Sodium Chloride 0.9% 100 ml @ 25 mls/hr IVPB Q12HR [facility] Rx #:[id number] Sodium Chloride 0.9% 1, 10 000 ml @ 10 mls/hr IV . Q24H [facility] Rx#:[id number] propofoL 1,000 mg In 192.748 Empty Bag 1 bag @ 15 MCG/ KG/MIN 5.715 mls/hr IV . [id number] [facility] Rx#:[id number] propofoL 1,000 mg In 100.051 36.781 Empty Bag 1 bag @ 15 MCG/ KG/MIN 5.715 mls/hr IV . [id number] [facility] Rx#:[id number] Tube Feeding 120 240 120 Blood Product 310 Rc As-1 Unit 310 [id number] Other 110 90 60 Rc As-1 Unit 50 [id number] Output: Urine 0 0 0 Other: Voiding Method Indwelling Catheter Indwelling Catheter ABP, PAP, CO, CI - Last Documented Arterial Blood Pressure 150/78 - Exam GENERAL EXAM: Intubated, sedated 33-year-old female, on the mechanical ventilator, in no apparent distress. HEAD: Normocephalic. EYES: Normal reaction of pupils, equal size. NOSE: Clear with pink turbinates. THROAT: Oral endogastric and endotracheal tube secured in place, no erythema or exudates. NECK: No masses, no JVD. CHEST: No chest wall deformity. LUNGS: Equal air entry with no crackles, wheeze, rhonchi or dullness. CVS: S1 and S2 normal with no audible murmur, regular rhythm. ABDOMEN: No hepatosplenomegaly, normal bowel sounds, no guarding or rigidity. SPINE: No scoliosis or deformity SKIN: No rashes CENTRAL NERVOUS SYSTEM: Sedated, tone is normal in all 4 extremities. EXTREMITIES: There is no peripheral edema. No clubbing, no cyanosis. Peripheral pulses are intact. - Labs CBC & Chem 7: 08/16/24 05:00 08/16/24 05:00 Labs: Abnormal Lab Results - Last 24 Hours (Table) 08/15/24 08/15/24 08/16/24 Range/Units 07:29 17:56 05:00 WBC 15.5 H (3.8-10.6) k/uL RBC 2.26 L (3.80-5.40) m/uL Hgb 6.6 L* (11.4-16.0) gm/dL Hct 19.7 L* (34.0-46.0) % RDW 16.9 H (11.5-15.5) % Neutrophils # 13.4 H (1.3-7.7) k/uL Lymphocytes # 0.7 L (1.0-4.8) k/uL ABG pH (7.35-7.45) ABG pO2 (83-108) mmHg ABG HCO3 (21-25) mmol/L ABG Total CO2 (19-24) mmol/L ABG O2 Saturation (94-97) % Hemoglobin (11.4-16.0) gm/dL Sodium (137-145) mmol/L Chloride (98-107) mmol/L BUN (7-17) mg/dL Creatinine (0.52-1.04) mg/dL Glucose (74-99) mg/dL POC Glucose (mg/dL) 120 H (70-110) mg/dL Phosphorus (2.5-4.5) mg/dL Crossmatch See Detail 08/16/24 08/16/24 08/16/24 Range/Units 05:00 05:05 05:50 WBC (3.8-10.6) k/uL RBC (3.80-5.40) m/uL Hgb (11.4-16.0) gm/dL Hct (34.0-46.0) % RDW (11.5-15.5) % Neutrophils # (1.3-7.7) k/uL Lymphocytes # (1.0-4.8) k/uL ABG pH 7.51 H (7.35-7.45) ABG pO2 138 H (83-108) mmHg ABG HCO3 29 H (21-25) mmol/L ABG Total CO2 30 H (19-24) mmol/L ABG O2 Saturation 99.8 H (94-97) % Hemoglobin 6.4 L* (11.4-16.0) gm/dL Sodium 132 L (137-145) mmol/L Chloride 97 L (98-107) mmol/L BUN 33 H (7-17) mg/dL Creatinine 4.83 H (0.52-1.04) mg/dL Glucose 102 H (74-99) mg/dL POC Glucose (mg/dL) 114 H (70-110) mg/dL Phosphorus 6.6 H (2.5-4.5) mg/dL Crossmatch Microbiology - Last 24 Hours (Table) 08/14/24 12:18 Gram Stain - Final Sputum Sputum Culture - Final 08/14/24 11:00 Blood Culture - Preliminary Blood Assessment and Plan Assessment: Acute hypoxemic respiratory failure with cardiopulmonary arrest, requiring cardiopulmonary resuscitation, intubation, and mechanical ventilation, beginning August 14, 2024. History of end-stage renal disease, currently on Sunday and Sunday hemodialysis. Anion gap metabolic acidosis, secondary to renal failure, and lactic acidemia. History of chronic kidney disease. History of hypertension. History of seizure disorder. History of uterine fibroids. Lifelong non-smoker. Plan: The patient was seen and evaluated Chest x-ray, ABGs, labs and medications reviewed Decrease the tidal volume to 375 Decrease the FiO2 to 40% Continue Nepro tube feedings Transfuse 1 unit of packed red blood cells Continue dialysis on Sunday schedule Continue Traci We will continue to follow I have personally seen and examined the patient, performed the documentation and the assessment and plan as written. Number of minutes spent on the visit: 15 Dictation was produced using [employer] dictation software. Please excuse any gramm atical, word or spelling errors.
[2024-08-16] MEDS ORDERED: LORazepam 2 MG/ML INJ IV ONE (11:57)
[2024-08-16 12:00] LABS: Glucose,Whole Blood 111 mg/dL (70-110)
[2024-08-16] MEDS: LORazepam 2 MG/ML INJ IV STA (12:04)
--- NOTE | 2024-08-16 12:35 | P.PN ---
Subjective Patient is seen for f/u for ESRD. Seen on dialysis. BP on the higher side. Patient remains sedated. Goal UF increased to 2-2.5 L. Objective - Vital Signs Vital signs: Vital Signs Temp 98.9 F 08/16/24 10:40 Pulse 98 08/16/24 12:12 Resp 23 08/16/24 11:00 BP 134/82 08/16/24 10:20 Pulse Ox 97 08/16/24 11:00 FiO2 40 08/16/24 11:57 Intake & Output 08/15/24 08/16/24 08/16/24 18:59 06:59 18:59 Intake Total 1152.353 753.051 731.781 Output Total 0 0 0 Balance 1152.353 753.051 731.781 Weight 64.6 kg 71.1 kg Intake: IV 110 313 175 0.9% NS Arterial Line 33 15 0.9% NS KVO 180 60 Piperacillin-Tazobactam 3 100 100 .375 gm In Sodium Chloride 0.9% 100 ml @ 25 mls/hr IVPB Q12HR [facility] Rx #:[id number] ns 110 Intake, IV Titration 502.353 110.051 36.781 Amount Cisatracurium 200 mg In 145.372 Sodium Chloride 0.9% 180 ml @ 2 MCG/KG/MIN 7.02 mls/hr IV .Q24H [facility] Rx#: [id number] Clevidipine Butyrate 25 14.233 mg In Empty Bag 1 bag @ 1 MG/HR 2 mls/hr IV .Q24H [facility] Rx#:[id number] Desmopressin Acetate 18 50 mcg In Sodium Chloride 0. 9% 50 ml @ 200 mls/hr IVPB ONCE ONE Rx#: [id number] Piperacillin-Tazobactam 3 100 .375 gm In Sodium Chloride 0.9% 100 ml @ 25 mls/hr IVPB Q12HR [facility] Rx #:[id number] Sodium Chloride 0.9% 1, 10 000 ml @ 10 mls/hr IV . Q24H [facility] Rx#:[id number] propofoL 1,000 mg In 192.748 Empty Bag 1 bag @ 15 MCG/ KG/MIN 5.715 mls/hr IV . [id number] [facility] Rx#:[id number] propofoL 1,000 mg In 100.051 36.781 Empty Bag 1 bag @ 15 MCG/ KG/MIN 5.715 mls/hr IV . [id number] [facility] Rx#:[id number] Tube Feeding 120 240 150 Blood Product 310 310 Rc As-1 Unit 310 [id number] Rc As-1 Unit 310 [id number] Other 110 90 60 Rc As-1 Unit 50 [id number] Output: Urine 0 0 0 Other: Voiding Method Indwelling Catheter Indwelling Catheter Indwelling Catheter ABP, PAP, CO, CI - Last Documented Arterial Blood Pressure 154/80 - Exam patient is sedated. On the vent Examination of the heart S1 and S2 Examination of the lungs bilateral breath sounds are heard Abdomen is soft nontender Examination lower extremity shows no significant edema - Labs CBC & Chem 7: 08/16/24 05:00 08/16/24 05:00 Labs: Abnormal Lab Results - Last 24 Hours (Table) 08/15/24 08/15/24 08/16/24 Range/Units 07:29 17:56 05:00 WBC 15.5 H (3.8-10.6) k/uL RBC 2.26 L (3.80-5.40) m/uL Hgb 6.6 L* (11.4-16.0) gm/dL Hct 19.7 L* (34.0-46.0) % RDW 16.9 H (11.5-15.5) % Neutrophils # 13.4 H (1.3-7.7) k/uL Lymphocytes # 0.7 L (1.0-4.8) k/uL ABG pH (7.35-7.45) ABG pO2 (83-108) mmHg ABG HCO3 (21-25) mmol/L ABG Total CO2 (19-24) mmol/L ABG O2 Saturation (94-97) % Hemoglobin (11.4-16.0) gm/dL Sodium (137-145) mmol/L Chloride (98-107) mmol/L BUN (7-17) mg/dL Creatinine (0.52-1.04) mg/dL Glucose (74-99) mg/dL POC Glucose (mg/dL) 120 H (70-110) mg/dL Phosphorus (2.5-4.5) mg/dL Crossmatch See Detail 08/16/24 08/16/24 08/16/24 Range/Units 05:00 05:05 05:50 WBC (3.8-10.6) k/uL RBC (3.80-5.40) m/uL Hgb (11.4-16.0) gm/dL Hct (34.0-46.0) % RDW (11.5-15.5) % Neutrophils # (1.3-7.7) k/uL Lymphocytes # (1.0-4.8) k/uL ABG pH 7.51 H (7.35-7.45) ABG pO2 138 H (83-108) mmHg ABG HCO3 29 H (21-25) mmol/L ABG Total CO2 30 H (19-24) mmol/L ABG O2 Saturation 99.8 H (94-97) % Hemoglobin 6.4 L* (11.4-16.0) gm/dL Sodium 132 L (137-145) mmol/L Chloride 97 L (98-107) mmol/L BUN 33 H (7-17) mg/dL Creatinine 4.83 H (0.52-1.04) mg/dL Glucose 102 H (74-99) mg/dL POC Glucose (mg/dL) 114 H (70-110) mg/dL Phosphorus 6.6 H (2.5-4.5) mg/dL Crossmatch 08/16/24 Range/Units 11:58 WBC (3.8-10.6) k/uL RBC (3.80-5.40) m/uL Hgb (11.4-16.0) gm/dL Hct (34.0-46.0) % RDW (11.5-15.5) % Neutrophils # (1.3-7.7) k/uL Lymphocytes # (1.0-4.8) k/uL ABG pH (7.35-7.45) ABG pO2 (83-108) mmHg ABG HCO3 (21-25) mmol/L ABG Total CO2 (19-24) mmol/L ABG O2 Saturation (94-97) % Hemoglobin (11.4-16.0) gm/dL Sodium (137-145) mmol/L Chloride (98-107) mmol/L BUN (7-17) mg/dL Creatinine (0.52-1.04) mg/dL Glucose (74-99) mg/dL POC Glucose (mg/dL) 111 H (70-110) mg/dL Phosphorus (2.5-4.5) mg/dL Crossmatch Microbiology - Last 24 Hours (Table) 08/14/24 12:18 Gram Stain - Final Sputum Sputum Culture - Final 08/14/24 11:00 Blood Culture - Preliminary Blood Assessment and Plan Assessment: 1. End-stage renal disease maintained on hemodialysis on Sunday schedule. 2. Cardiac arrest, PEA 3. Acute hypoxic respiratory failure. Intubated. 4. Hyperkalemia secondary to chronic kidney disease and post CPR. Improved postdialysis. 5. Pneumonia maintained on antibiotics. 6. Chronic kidney disease mineral bone disease. Phosphorus level 6.6 dated August 16, 2024. 7. Anemia of chronic kidney disease. Concern for acute blood loss. Hemoglobin 6.0 today. 8. History of seizures with occasional twitching noted. Started on Keppra. Being followed by neurology. Plan: increase goal UF to 2-2.5 L Resume [facility]
[2024-08-16] MEDS: VALPROATE SODIUM 500 MG in SODIUM CHLORIDE 0.9% 100 ML IVPB SCH (13:14)
--- NOTE | 2024-08-16 13:18 | P.PN ---
Subjective Progress Note Date: 08/16/24 Patient is a 33-year-old female with ESRD (peritoneal dialysis twice a week Sunday), hypertension and history of DVT who came in for cardiac arrest. Per ED RN, called EMS due to patient having shortness of breath. And in transit patient became pulseless and CPR was started and ROSC was achieved. Intubation was attempted but failed in transit. On arrival to our ED, patient once again became pulseless with oxygen saturation at the 60s with a heart rate of 200s. CPR was started immediately for about 10 minutes and ROSC was achieved. NG tube placement, endotracheal intubation and mechanical ventilation were done at the ED sedation with propofol initiated. Patient had an episode of emesis prior to NG tube placement. In the ED, chest x-ray showed focal airspace opacities and appropriate placement of endotracheal tube. Brain CT showed no acute bleed or mass effect and acute pansinusitis. CT of the chest/abdomen showed marked worsening of acute cardiopulmonary disease with diffuse airspace consolidation, mild cardiomegaly and marked anasarca of the soft tissues. Also seen is the ET tube and NG tube placed in proper location. EKG on 9:55 AM showed SVT, unclear underlying rhythm, with a rate of 157. EKG at 10:37 AM showed sinus tachycardia with a rate of 109 QTc of 400 with good R wave progression and no ST-T changes. WBC 19.3 hemoglobin 7.7 hematocrit 24.5 platelet count 400,000. ABG showed a pH of 7.39 CO2 48 O2 64. Sodium 136 potassium 6.8 chloride 94 bicarb 25 BUN 39 creatinine 6.59 glucose 196 venous lactic acid 12.8 troponin 0.037 total bilirub in 0.6 AST 23 ALT 11 ALP 106 salicylates less than 1 serum alcohol less than 10 On admission, patient had a low temperature of 96.9 Fahrenheit elevated pulse rate of 150 respiration 16 elevated blood pressure of 245/144 low O2 saturation 75% on BVM. Saturation increased to 100% on mechanical ventilator with FiO2 100. 08/15/2024 patient seen and examined at bedside. Patient still in the ICU. Patient still sedated, intubated and mechanically ventilated. No acute events overnight. Reported bleeding from triple-lumen catheter this morning which was controlled with direct pressure and now covered with a dressing. WBC 12.9 hemoglobin 6 hematocrit 17.9 platelet count 240,000 sodium 132 potassium 4.2 chloride 97 bicarb 30 BUN 21 creatinine 3.27 glucose 95 calcium 8.4 phosphorus 4.6 magnesium 2.1 08/16/2024 patient seen and examined at bedside. Patient still in the ICU. Patient still sedated and intubated and mechanically ventilated. Overnight, patient began to have a fever and Tylenol 650 p.o. every 6 hours was initiated. Patient also presented with jerking movements of the lower extremities upper extremities and neck. Keppra was initiated. Patient did not have any febrile episodes after that. WBC 15.5 hemoglobin 6.6 MCV 87.2 platelet count 25,000. ABG showed pH 7.51 CO2 36 O2 138 FiO2 at 50. Sodium 136 potassium 4.3 chloride 9.7 BUN 33 creatinine 4.93 glucose 102 calcium 8.9 phosphorus 6.6 magnesium 2.3 Review of systems: Unable to be obtained due to patient condition. Physical examination: Vital signs reviewed General: Sedated, intubated and on mechanical ventilator Derm: no unusual rashes/lesions, warm, peritoneal dialysis port on abdomen covered with dressing that is dry and clean, no erythema or discharge in the surrounding skin Head: atraumatic, normocephalic, symmetric Eyes: anicteric sclera, pupils constricted and nonreactive to light ENT: Nose and ears atraumatic Neck: No cervical lymphadenopathy, trachea midline, supple Mouth: no lip lesion, mucus membranes moist Cardiovascular: S1S2 reg, no murmur Lungs: Bibasilar crackles, no rhonchi, no rales, no accessory muscle use Abdominal: soft, nondistended, nontender to palpation, no guarding Ext: No gross muscle atrophy, no contractures, positive dorsalis pedis pulse bilateral, bilateral lower extremity +1 pitting edema Neuro: Cannot be assessed Psych: Alert and oriented x 0, cannot be assessed Chest x-ray independently interpreted, persistent bilateral interstitial opacities, improved from admission. Assessment/Plan: 33-year-old female with a history of ESRD who came in for cardiopulmonary arrest. ROSC was achieved and patient was placed on mechanical ventilator via endotracheal tube in the emergency room. #. Cardiopulmonary arrest #. Hyperkalemic emergency, resolved #. ARDS, moderate severity #. Acute hypoxic respiratory failure requiring intubation and mechanical ventilation #. Sepsis due to multifocal pneumonia and possible aspiration pneumonia #. Anion gap metabolic acidosis due to lactic acidosis, resolved #. Hypertensive emergency, resolved #. Hypervolemia, resolved #. Type II NSTEMI Cardiac monitoring Fall precautions Chest x-ray showed focal airspace opacities and appropriate placement of endotracheal tube. Brain CT showed no acute bleed or mass effect and acute pansinusitis. CT of the chest/abdomen showed marked worsening of acute cardiopulmonary disease with diffuse airspace consolidation, mild cardiomegaly and marked anasarca of the soft tissues. Echocardiogram showed left ventricular ejection fraction 35 to 40% moderately thickened inferior posterior wall with dilated left ventricular cavity severe pulmonary hypertension with RVSP 65 mmHg Blood cultures pending Sputum culture pending Legionella antigen pending CBC, BMP, mag and Phos in the a.m. Procalcitonin elevated at 23.5 Wean off IV Cleviprex 1 mg/h Metronidazole 500 mg IVP and Zosyn 100 mg IVP initiated in the ED Continue with azithromycin 500 mg IVP daily for 3 days and Zosyn IVP twice daily Pulmonology following Trend troponin #. Acute anemia on anemia of chronic disease with superimposed iron deficiency anemia Hemoglobin dropped to 6 today Transfusion of 1 unit of packed RBC today #. Myoclonic jerks rule out seizures and ischemic encephalopathy Seizure precautions EEG Repeat CT head Consulted neurology, discussed management, started on IV valproic acid, reduced dose of IV Keppra Sedation holiday to assess neurologic status Chronic conditions: #. ESRD on peritoneal dialysis thrice a week (Sunday, , Sunday) Nephrology following Dialysis today #. Hypertension #. Anxiety #. Depression Resume carvedilol 25 mg twice daily, nifedipine 30 mg p.o. twice daily, and paroxetine 10 mg p.o. daily F: Free water through OG tube E: None for now N: Nepro 20 via OG tube A: Currently sedated. On fall precautions DVT ppx: Heparin 5000 units SQ every 8 hours GI ppx: Protonix 40 mg IV daily Dispo: The patient is admitted with an anticipated greater than 2 midnight stay for evaluation of cardiopulmonary arrest CODE STATUS: Full Taniya Terry MD PGY-1 IM Dictation was produced using [employer] dictation software. please excuse any grammatical, word or spelling errors. I have seen and evaluated the patient today. Discussed with the resident and agree with the residents finding and plan as documented in the resident's note. Changes highlighted in blue font. Objective - Vital Signs Vital signs: Vital Signs Temp 99.0 F 08/16/24 04:00 Pulse 98 08/16/24 07:00 Resp 22 08/16/24 07:00 BP 143/87 08/16/24 07:00 Pulse Ox 96 08/16/24 07:00 FiO2 40 08/16/24 06:00 Intake & Output 08/15/24 08/16/24 08/16/24 18:59 06:59 18:59 Intake Total 1152.353 753.051 53 Output Total 0 0 0 Balance 1152.353 753.051 53 Weight 64.6 kg Intake: IV 110 313 23 0.9% NS Arterial Line 33 3 0.9% NS KVO 180 20 Piperacillin-Tazobactam 3 100 .375 gm In Sodium Chloride 0.9% 100 ml @ 25 mls/hr IVPB Q12HR [facility] Rx #:[id number] ns 110 Intake, IV Titration 502.353 110.051 Amount Cisatracurium 200 mg In 145.372 Sodium Chloride 0.9% 180 ml @ 2 MCG/KG/MIN 7.02 mls/hr IV .Q24H [facility] Rx#: [id number] Clevidipine Butyrate 25 14.233 mg In Empty Bag 1 bag @ 1 MG/HR 2 mls/hr IV .Q24H [facility] Rx#:[id number] Desmopressin Acetate 18 50 mcg In Sodium Chloride 0. 9% 50 ml @ 200 mls/hr IVPB ONCE ONE Rx#: [id number] Piperacillin-Tazobactam 3 100 .375 gm In Sodium Chloride 0.9% 100 ml @ 25 mls/hr IVPB Q12HR [facility] Rx #:[id number] Sodium Chloride 0.9% 1, 10 000 ml @ 10 mls/hr IV . Q24H [facility] Rx#:[id number] propofoL 1,000 mg In 192.748 Empty Bag 1 bag @ 15 MCG/ KG/MIN 5.715 mls/hr IV . [id number] [facility] Rx#:[id number] propofoL 1,000 mg In 100.051 Empty Bag 1 bag @ 15 MCG/ KG/MIN 5.715 mls/hr IV . [id number] [facility] Rx#:[id number] Tube Feeding 120 240 30 Blood Product 310 Rc As-1 Unit 310 [id number] Other 110 90 Rc As-1 Unit 50 [id number] Output: Urine 0 0 0 Other: Voiding Method Indwelling Catheter Indwelling Catheter ABP, PAP, CO, CI - Last Documented Arterial Blood Pressure 156/92 - Labs CBC & Chem 7: 08/16/24 05:00 08/16/24 05:00 Labs: Abnormal Lab Results - Last 24 Hours (Table) 08/15/24 08/15/24 08/15/24 Range/Units 07:24 07:29 17:56 WBC (3.8-10.6) k/uL RBC (3.80-5.40) m/uL Hgb (11.4-16.0) gm/dL Hct (34.0-46.0) % RDW (11.5-15.5) % Neutrophils # (1.3-7.7) k/uL Lymphocytes # (1.0-4.8) k/uL ABG pH 7.54 H (7.35-7.45) ABG pO2 (83-108) mmHg ABG HCO3 32 H (21-25) mmol/L ABG Total CO2 33 H (19-24) mmol/L ABG O2 Saturation 99.5 H (94-97) % Hemoglobin (11.4-16.0) gm/dL Sodium (137-145) mmol/L Chloride (98-107) mmol/L BUN (7-17) mg/dL Creatinine (0.52-1.04) mg/dL Glucose (74-99) mg/dL POC Glucose (mg/dL) 120 H (70-110) mg/dL Phosphorus (2.5-4.5) mg/dL Crossmatch See Detail 08/16/24 08/16/24 08/16/24 Range/Units 05:00 05:00 05:05 WBC 15.5 H (3.8-10.6) k/uL RBC 2.26 L (3.80-5.40) m/uL Hgb 6.6 L* (11.4-16.0) gm/dL Hct 19.7 L* (34.0-46.0) % RDW 16.9 H (11.5-15.5) % Neutrophils # 13.4 H (1.3-7.7) k/uL Lymphocytes # 0.7 L (1.0-4.8) k/uL ABG pH (7.35-7.45) ABG pO2 (83-108) mmHg ABG HCO3 (21-25) mmol/L ABG Total CO2 (19-24) mmol/L ABG O2 Saturation (94-97) % Hemoglobin (11.4-16.0) gm/dL Sodium 132 L (137-145) mmol/L Chloride 97 L (98-107) mmol/L BUN 33 H (7-17) mg/dL Creatinine 4.83 H (0.52-1.04) mg/dL Glucose 102 H (74-99) mg/dL POC Glucose (mg/dL) 114 H (70-110) mg/dL Phosphorus 6.6 H (2.5-4.5) mg/dL Crossmatch 08/16/24 Range/Units 05:50 WBC (3.8-10.6) k/uL RBC (3.80-5.40) m/uL Hgb (11.4-16.0) gm/dL Hct (34.0-46.0) % RDW (11.5-15.5) % Neutrophils # (1.3-7.7) k/uL Lymphocytes # (1.0-4.8) k/uL ABG pH 7.51 H (7.35-7.45) ABG pO2 138 H (83-108) mmHg ABG HCO3 29 H (21-25) mmol/L ABG Total CO2 30 H (19-24) mmol/L ABG O2 Saturation 99.8 H (94-97) % Hemoglobin 6.4 L* (11.4-16.0) gm/dL Sodium (137-145) mmol/L Chloride (98-107) mmol/L BUN (7-17) mg/dL Creatinine (0.52-1.04) mg/dL Glucose (74-99) mg/dL POC Glucose (mg/dL) (70-110) mg/dL Phosphorus (2.5-4.5) mg/dL Crossmatch Microbiology - Last 24 Hours (Table) 08/14/24 11:00 Blood Culture - Preliminary Blood 08/14/24 12:18 Gram Stain - Preliminary Sputum Sputum Culture - Preliminary
--- NOTE | 2024-08-16 15:54 | CT ---
EXAMINATION TYPE: CT brain wo con DATE OF EXAM: 08/16/2024 3:41 PM COMPARISON: Previous CT brain study 08/14/2024.. CLINICAL INDICATION: Female, 33 years old with history of seizures, seizure TECHNIQUE: Brain: Axial CT images of the brain were obtained with coronal and sagittal reformats created and rev iewed. Contrast used: None. Oral contrast used: None. CT DLP: 1102.4 mGycm, Automated exposure control for dose reduction was used. FINDINGS: Brain: Extra-axial spaces: No abnormal extra-axial fluid collections. Ventricular system: Within normal limits Cerebral parenchyma: No acute intraparenchymal hemorrhage or mass effect. The verdin-white junction is well differentiated. Cerebellum: Unremarkable. Mass effect: No evidence of midline shift. Intracranial vasculature: unremarkable Soft tissues: Normal. Calvarium/osseous structures: No depressed skull fracture. Paranasal sinuses and mastoid air cells: Near complete opacification of the bilateral maxillary sinus es, ethmoid air cells and frontal sinuses with air-fluid levels suggesting an acute etiology. Partial opacification of the bilateral mastoid air cells. Visualized orbits: Orbital contents are intact. IMPRESSION: 1. No acute intracranial hemorrhage, midline shift or cerebral mass effect. 2. Worsening severe paranasal sinus disease with air-fluid levels suggesting acute etiology as descr ibed above. [facility], , 08/16/2024 3:51 PM
--- NOTE | 2024-08-16 16:18 | P.CNNES ---
History of Present Illness Consult date: 08/16/24 Requesting physician: Taniya Terry Reason for Consult: seizure-like activity History of Present Illness: This is a 33-year-old young woman with medical history of seizure disorder, end- stage renal disease on dialysis, hypertension presents to the emergency department via EMS on 08/14/2024 for cardiopulmonary arrest. History is obtained from medical record as well as the nurse. Seems that the patient was having difficulty breathing when EMS arrived and her heart rate was in the 200s on blood pressure was unobtainable but did have a pulse rate and just prior to the hospital the patient lost pulse and patient had CPR and according to the nurse possibly she was down for 10 minutes. Patient had emesis. It seems the patient had another cardiopulmonary arrest while in our EMS for about 10 minutes first with the primary attending it on conclusive how long she was down in total. She is intubated on the ventilator. There is difficulty intubating the patient by EMS. She is having body jerks and per the nurse she is having left body jerk and slight mild tremor of the uppers. In reviewing the patient's medical record says that she has history of seizure but she is not on any antiseizure medication. Presentation patient heart rate was 150 but after that is 120s. Pulse ox is 79. Blood pressure on presentation was 245/144. Some of the workup during this hospital visit consisted of: Hemoglobin was as low as 6.0 during this admission. Sodium is 132, glucose most recent is 110s to 120 Calcium is 8.9 Phosphorus is 6.6 Magnesium is within normal limits. CT of the head is reported as no acute bleed or mass effect. Acute pansinusitis. I personally reviewed the CT and agree there is no acute intracranial process. Review of Systems Limited but as per HPI. Past Medical History Past Medical History: Dialysis, Hypertension, Renal Disease, Seizure Disorder, Skin Disorder Additional Past Medical History / Comment(s): P.D. dailysis <TH<, seizure 2 yrs ago,possibly has had dvt in past,ovarian cyst uterine fibroids History of Any Multi-Drug Resistant Organisms: None Reported Past Surgical History: Back Surgery Additional Past Surgical History / Comment(s): urethral surgery at 7months old. skull fracture at age 9, back injections Past Anesthesia/Blood Transfusion Reactions: No Reported Reaction Past Psychological History: Anxiety, Depression Smoking Status: Never smoker Past Alcohol Use History: None Reported Past Drug Use History: None Reported - Past Family History Mother Family Medical History: Cancer Additional Family Medical History / Comment(s): Ovarian and cervical cancer. Medications and Allergies Home Medications Medication Instructions Recorded Confirmed Type PARoxetine [Paxil] 10 mg PO DAILY 01/29/24 08/14/24 History Sevelamer Carbonate 3,200 mg PO TID-W/MEALS 01/29/24 08/14/24 History carvediloL 25 mg PO BID 01/29/24 08/14/24 History rOPINIRole HCL 0.5 mg PO BID 01/29/24 08/14/24 History traZODone HCL [Desyrel] 50 mg PO HS 01/29/24 08/14/24 History Cinacalcet HCl [Sensipar] 60 mg PO Q2D 04/18/24 08/14/24 History Furosemide [Lasix] 80 mg PO BID 04/18/24 08/14/24 History calcitrioL 0.25 mcg PO TID 04/18/24 08/14/24 History Famotidine [Pepcid] 20 mg PO DAILY 05/23/24 08/14/24 History Clobetasol Propionate [Clobex 1 applic TOPICAL DAILY PRN 08/01/24 08/14/24 History 0.05% Soln] Fluticasone Nasal [place] [Flonase 2 spr EA NOSTRIL BID PRN 08/01/24 08/14/24 History Nasal [place]] NIFEdipine [Adalat CC] 30 mg PO BID 08/01/24 08/14/24 History Ondansetron Odt [Zofran ODT] 4 mg PO Q6H PRN 08/01/24 08/14/24 History Simethicone [Simethicone Chew] 80 mg PO QID PRN 08/01/24 08/14/24 History Triamcinolone 0.1% Cream [Kenalog 1 applic TOPICAL BID PRN 08/01/24 08/14/24 History 0.1% Cream] Calcium Acetate [PhosLo] 1,334 mg PO TID-W/MEALS 08/04/24 08/14/24 History Acetaminophen Tab [Tylenol] 650 mg PO Q6H #30 tab 08/06/24 08/14/24 Rx Docusate [Colace] 100 mg PO BID #20 capsule 08/06/24 08/14/24 Rx oxyCODONE HCL [OxyIR] 5 mg PO Q6H PRN 3 Days #10 tab 08/06/24 08/14/24 Rx Iron Ps Complex/B12/Folic Acid 1 cap PO DAILY 08/14/24 08/14/24 History [Myferon-150 Forte Capsule] Allergies Allergy/AdvReac Type Severity Reaction Status Date / Time amlodipine Allergy red/itchy Verified 08/14/24 11:07 silver Allergy red/itchy Verified 08/14/24 11:07 [From [employer]] Physical Examination - Vital Signs Vital Signs: Vital Signs Temp Pulse Resp BP Pulse Ox FiO2 08/16/24 14:00 98 26 H 148/104 99 08/16/24 13:00 97.6 F 101 H 29 H 134/85 97 08/16/24 12:12 98 08/16/24 12:00 98 27 H 137/77 96 40 08/16/24 11:57 100 40 08/16/24 11:00 100 23 97 08/16/24 10:40 98.9 F 101 H 24 96 08/16/24 10:20 98.7 F 95 25 H 134/82 98 08/16/24 10:10 98.7 F 95 25 H 134/82 98 08/16/24 10:00 96 27 H 135/78 97 08/16/24 09:00 98 22 152/96 96 08/16/24 08:57 98 08/16/24 08:45 40 08/16/24 08:33 98 08/16/24 08:00 99 F 99 22 151/92 98 40 08/16/24 07:00 98 22 143/87 96 08/16/24 06:00 99 22 134/82 98 40 08/16/24 05:56 40 08/16/24 05:00 97 22 144/91 99 08/16/24 04:00 99.0 F 95 22 140/89 99 50 08/16/24 03:50 95 08/16/24 03:41 93 50 08/16/24 03:00 96 22 134/81 99 08/16/24 02:00 93 22 133/85 99 08/16/24 01:00 99 26 H 130/78 99 08/16/24 00:00 99.2 F 96 22 129/76 99 50 08/15/24 23:49 96 08/15/24 23:41 98 50 08/15/24 23:00 100.1 F H 99 22 132/81 98 08/15/24 22:00 100.0 F H 98 22 152/97 100 08/15/24 21:00 100 22 148/89 99 08/15/24 20:48 100 08/15/24 20:41 101 H 50 08/15/24 20:00 101.8 F H 99 22 146/86 98 50 08/15/24 19:00 101 H 22 148/89 100 08/15/24 18:30 100 22 100 08/15/24 18:00 97 22 96 08/15/24 17:30 99 22 100 08/15/24 17:00 98 22 139/80 100 08/15/24 16:30 97 22 100 08/15/24 16:23 94 22 08/15/24 16:13 96 22 08/15/24 16:08 50 08/15/24 16:00 99.2 F 98 22 100 50 Intake and Output 08/16/24 08/16/24 08/16/24 06:59 14:59 22:59 Intake Total 021.373 0438.781 Output Total 0 0 Balance 742.287 3950.781 Intake: IV 199 224 0.9% NS Arterial Line 24 24 0.9% NS KVO 150 100 Piperacillin-Tazobactam 3 25 100 .375 gm In Sodium Chloride 0.9% 100 ml @ 25 mls/hr IVPB Q12HR [facility] Rx #:[id number] Intake, IV Titration 63.219 136.781 Amount Valproate Sodium 500 mg 100 In Sodium Chloride 0.9% 100 ml @ 100 mls/hr IVPB Q12HR [facility] Rx#:[id number] propofoL 1,000 mg In 63.219 36.781 Empty Bag 1 bag @ 15 MCG/ KG/MIN 5.715 mls/hr IV . [id number] [facility] Rx#:[id number] Tube Feeding 180 240 Blood Product 310 Rc As-1 Unit 310 [id number] Other 60 90 Output: Urine 0 0 Other: Voiding Method Indwelling Catheter Indwelling Catheter Weight 71.1 kg ABP, PAP, CO, CI - Last 8 Hours Arterial Blood Pressure 158/81 Arterial Blood Pressure 165/86 Arterial Blood Pressure 157/82 Arterial Blood Pressure 154/80 Arterial Blood Pressure 161/85 Arterial Blood Pressure 155/80 Arterial Blood Pressure 154/79 Arterial Blood Pressure 150/78 Arterial Blood Pressure 143/76 Arterial Blood Pressure 173/91 General: Lying in bed and does not appear in acute distress. Lung: Intubated on a ventilator. Neuro: Limited. Is on IV Propofol 30mcg/kg/min. Comatose. I had to manually open the eyes and the primary gaze is midline. The pupils are round 2 to 3 mm bilaterally and slugghishly reactive to light. Has corneal reflex to cotton swap bilaterally. No apparent facial weakness. Is breathing over the vent. Motor: Strength is very limited. Has body jerks in extremities and seems moving side to side. Sensation: With painful stimuli is withdrawalin extremities. Reflex: 2+ in uppers while patellar are 3+. Ankle are 2+. Plantars are upgoing bilaterally. Results - Laboratory Findings CBC and BMP: 08/16/24 05:00 08/16/24 05:00 Abnormal Lab Findings: Abnormal Labs 08/14/24 08/14/24 08/14/24 09:52 09:57 09:57 WBC 19.3 H RBC 2.57 L Hgb 7.7 L Hct 24.5 L RDW Neutrophils # 15.7 H Lymphocytes # ABG pH ABG pCO2 ABG pO2 ABG HCO3 ABG Total CO2 ABG O2 Saturation Hemoglobin Sodium 136 L Potassium 6.8 H* Chloride 94 L Carbon Dioxide BUN 39 H Creatinine 6.59 H Glucose 196 H POC Glucose (mg/dL) 201 H Plasma Lactic Acid Fred Calcium Phosphorus Iron % Saturation Ferritin Troponin I Procalcitonin Crossmatch 08/14/24 08/14/24 08/14/24 09:57 09:57 10:49 WBC RBC Hgb Hct RDW Neutrophils # Lymphocytes # ABG pH ABG pCO2 48 H ABG pO2 64 L ABG HCO3 29 H ABG Total CO2 30 H ABG O2 Saturation 91.1 L Hemoglobin 6.5 L* Sodium Potassium Chloride Carbon Dioxide BUN Creatinine Glucose POC Glucose (mg/dL) Plasma Lactic Acid Fred 12.8 H* Calcium Phosphorus Iron % Saturation Ferritin Troponin I 0.037 H* Procalcitonin Crossmatch 08/14/24 08/14/24 08/14/24 14:09 16:40 18:00 WBC RBC Hgb Hct RDW Neutrophils # Lymphocytes # ABG pH 7.47 H ABG pCO2 47 H ABG pO2 170 H ABG HCO3 34 H ABG Total CO2 35 H ABG O2 Saturation 100.0 H Hemoglobin 7.0 L* Sodium 134 L Potassium 3.2 L Chloride Carbon Dioxide 32 H BUN Creatinine 1.90 H Glucose POC Glucose (mg/dL) Plasma Lactic Acid Fred Calcium 8.3 L Phosphorus Iron 17 L % Saturation 5.80 L Ferritin 3451.0 H Troponin I 0.501 H* Procalcitonin Crossmatch 08/14/24 08/14/24 08/14/24 18:00 18:00 20:02 WBC RBC Hgb Hct RDW Neutrophils # Lymphocytes # ABG pH ABG pCO2 ABG pO2 ABG HCO3 ABG Total CO2 ABG O2 Saturation Hemoglobin Sodium Potassium Chloride Carbon Dioxide BUN Creatinine Glucose POC Glucose (mg/dL) Plasma Lactic Acid Fred Calcium Phosphorus Iron % Saturation Ferritin Troponin I 0.763 H* 0.738 H* Procalcitonin 23.50 H Crossmatch 08/14/24 08/14/24 08/15/24 20:02 20:02 04:38 WBC 22.0 H 12.9 H RBC 2.38 L 2.00 L Hgb 7.1 L 6.0 L* Hct 21.2 L 17.9 L* RDW Neutrophils # 20.7 H 11.3 H Lymphocytes # 0.4 L 0.8 L ABG pH ABG pCO2 ABG pO2 ABG HCO3 ABG Total CO2 ABG O2 Saturation Hemoglobin Sodium 134 L Potassium Chloride 97 L Carbon Dioxide 33 H BUN Creatinine 2.71 H Glucose 110 H POC Glucose (mg/dL) Plasma Lactic Acid Fred Calcium Phosphorus Iron % Saturation Ferritin Troponin I Procalcitonin Crossmatch 08/15/24 08/15/24 08/15/24 04:38 07:24 07:29 WBC RBC Hgb Hct RDW Neutrophils # Lymphocytes # ABG pH 7.54 H ABG pCO2 ABG pO2 ABG HCO3 32 H ABG Total CO2 33 H ABG O2 Saturation 99.5 H Hemoglobin Sodium 132 L Potassium Chloride 97 L Carbon Dioxide BUN 21 H Creatinine 3.27 H Glucose POC Glucose (mg/dL) Plasma Lactic Acid Fred Calcium Phosphorus 4.6 H Iron % Saturation Ferritin Troponin I Procalcitonin Crossmatch See Detail 08/15/24 08/16/24 08/16/24 17:56 05:00 05:00 WBC 15.5 H RBC 2.26 L Hgb 6.6 L* Hct 19.7 L* RDW 16.9 H Neutrophils # 13.4 H Lymphocytes # 0.7 L ABG pH ABG pCO2 ABG pO2 ABG HCO3 ABG Total CO2 ABG O2 Saturation Hemoglobin Sodium 132 L Potassium Chloride 97 L Carbon Dioxide BUN 33 H Creatinine 4.83 H Glucose 102 H POC Glucose (mg/dL) 120 H Plasma Lactic Acid Fred Calcium Phosphorus 6.6 H Iron % Saturation Ferritin Troponin I Procalcitonin Crossmatch 08/16/24 08/16/24 08/16/24 05:05 05:50 11:58 WBC RBC Hgb Hct RDW Neutrophils # Lymphocytes # ABG pH 7.51 H ABG pCO2 ABG pO2 138 H ABG HCO3 29 H ABG Total CO2 30 H ABG O2 Saturation 99.8 H Hemoglobin 6.4 L* Sodium Potassium Chloride Carbon Dioxide BUN Creatinine Glucose POC Glucose (mg/dL) 114 H 111 H Plasma Lactic Acid Fred Calcium Phosphorus Iron % Saturation Ferritin Troponin I Procalcitonin Crossmatch Assessment and Plan Assessment: Is a 33-year-old woman who having difficulty breathing when EMS arrived and the heart was in the 200 and en route to the hospital patient had cardiopulmonary arrest possibly for about 10 minutes but not conclusive and had emesis. And while in the emergency department it seems that she had another cardiopulmonary arrest but and it was felt possibly again for another 10 minutes. Having body jerks. Next Cardiopulmonary arrest for possibly a total of 20 minutes 10 minutes outside the hospital and 10 minutes in our facility but is not conclusive the total [place] Myoclonic jerks possibly due to hypoxia due to above. Also possible due to metabolic derrangement. Altered mental status due to anoxic encephalopathy due to above as well as metabolic encephalopathy Respiratory distress and the patient is intubated on ventilator. Hypertensive emergency Tachycardia History of underlying reported seizure but patient is not on any antiseizure medication History of end-stage renal disease on dialysis Plan: I ordered to grams of Keppra. Primary team gave her a loading dose of Keppra 1 g then start 1 on Keppra 1000 mg every 12 hours. I spoke with the primary team to go down especially with a history of dialysis. Spoke with the primary team to start her on valproic acid IV every 12 hours as empiric treatment for seiz ures in addition to the Keppra because of going down on her Keppra dose. EEG is ordered Seizure precautions or pads. Will get a repeat CT of the head Will defer the rest of the medical management to primary and other specialist Plan discussed with the pulmonary team as well as the ICU nurse. Thank for the consultation Time with Patient: Greater than 30
[2024-08-16 17:41] LABS: Glucose,Whole Blood 96 mg/dL (70-110)
[2024-08-16] MEDS: CALCIUM ACETATE 667 MG TAB PO SCH (17:56)
[2024-08-16 23:28] LABS: Glucose,Whole Blood 107 mg/dL (70-110)
[2024-08-17 04:39] LABS: Anisocytosis Slight; Basophils % (A) 0 %; Eosinophils # (A) 0.6 k/uL (0-0.7); Eosinophils % (A) 4 %; HCT 22.7 % (34.0-46.0); HGB 7.5 gm/dL (11.4-16.0); Lymphocytes # (A) 0.6 k/uL (1.0-4.8); Lymphocytes % (A) 4 %; MCH 29.2 pg (25.0-35.0); MCV 88.6 fL (80.0-100.0); Mean Platelet Volume 7.5; Monocytes # (A) 0.9 k/uL (0-1.0); Monocytes % (A) 6 %; Neutrophils # (A) 12.8 k/uL (1.3-7.7); Neutrophils % (A) 85 %; Platelet Count 288 k/uL (150-450); RBC 2.57 m/uL (3.80-5.40); RDW 16.3 % (11.5-15.5); WBC 15.1 k/uL (3.8-10.6)
[2024-08-17 04:51] LABS: African American GFR (CKD) 21 (>60 ml/min/1.73 sqM); Anion Gap 10 mmol/L; Blood Urea Nitrogen 22 mg/dL (7-17); Calcium 8.8 mg/dL (8.4-10.2); Carbon Dioxide 29 mmol/L (22-30); Chloride 94 mmol/L (98-107); Glucose 90 mg/dL (74-99); Non-African American GFR(CKD) 18 (>60 ml/min/1.73 sqM); Potassium 3.7 mmol/L (3.5-5.1); Sodium 133 mmol/L (137-145)
[2024-08-17 06:14] LABS: Glucose,Whole Blood 99 mg/dL (70-110)
[2024-08-17 06:20] LABS: ABG Base Excess 5.8 mmol/L; ABG HCO3 30 mmol/L (21-25); ABG PCO2 38 mmHg (35-45); ABG PO2 81 mmHg (83-108); ABG TCO2 31 mmol/L (19-24); Allen Test Performed? Yes
--- NOTE | 2024-08-17 06:46 | XR ---
EXAMINATION TYPE: XR chest 1V portable DATE OF EXAM: 08/17/2024 COMPARISON: 08/16/2024 HISTORY: Tube placement TECHNIQUE: Single frontal view of the chest is obtained. FINDINGS: ET tube is 3.9 cm above the debra. The NG tube is within the stomach. The left sided central venous catheter tip is in the right atrium. The right lower lobe opacity is stable. The left lung opacity appears mildly improved. There is no pleural effusion or pneumothorax. The osseous structures are intact IMPRESSION: 1. ET tube 3.9 cm above the debra. NG tube within the stomach. 2. Acute cardiopulmonary disease involving the lung bases with mild improvement in the left lung base . [facility], , 08/17/2024 6:43 AM
[2024-08-17] MEDS: LORazepam 2 MG/ML INJ IV STA (09:47)
[2024-08-17] MEDS: VALPROATE SODIUM 500 MG in SODIUM CHLORIDE 0.9% 100 ML IVPB STA (10:14)
--- NOTE | 2024-08-17 10:34 | P.PN ---
Subjective Patient is seen for f/u for ESRD. status post hemodialysis yesterday with UF of 1.7 L. Patient has been having seizures. Currently having EEG performed. Started on Depakote. Patient remains intubated. Objective - Vital Signs Vital signs: Vital Signs Temp 99.7 F H 08/17/24 08:00 Pulse 89 08/17/24 10:00 Resp 25 H 08/17/24 10:00 BP 127/70 08/17/24 10:00 Pulse Ox 96 08/17/24 10:00 FiO2 40 08/17/24 08:00 Intake & Output 08/16/24 08/17/24 08/17/24 18:59 06:59 18:59 Intake Total 0166.995 7354.217 679.155 Output Total 0 4400 Balance 1425.563 -2349.783 679.155 Weight 71.1 kg 67.7 kg Intake: IV 316 376 172 0.9% NS Arterial Line 36 36 12 0.9% NS KVO 180 240 60 Piperacillin-Tazobactam 3 100 100 100 .375 gm In Sodium Chloride 0.9% 100 ml @ 25 mls/hr IVPB Q12HR [facility] Rx #:[id number] Intake, IV Titration 229.563 224.217 257.155 Amount Valproate Sodium 500 mg 100 In Sodium Chloride 0.9% 100 ml @ 100 mls/hr IVPB ONCE [facility] Rx#:[id number] Valproate Sodium 500 mg 100 100 100 In Sodium Chloride 0.9% 100 ml @ 100 mls/hr IVPB Q12HR [facility] Rx#:[id number] propofoL 1,000 mg In 129.563 124.217 57.155 Empty Bag 1 bag @ 15 MCG/ KG/MIN 5.715 mls/hr IV . [id number] [facility] Rx#:[id number] Tube Feeding 360 360 120 Blood Product 310 Rc As-1 Unit 310 [id number] Hemodialysis 1000 Other 210 90 130 Output: Urine 0 Hemodialysis 2700 Hemodialysis Net Amount 1700 Other: Voiding Method Indwelling Catheter # Bowel Movements 1 ABP, PAP, CO, CI - Last Documented Arterial Blood Pressure 121/61 - Exam patient is sedated. On the vent Examination of the heart S1 and S2 Examination of the lungs bilateral breath sounds are heard Abdomen is soft nontender Examination lower extremity shows no significant edema - Labs CBC & Chem 7: 11/24/24 04:19 08/17/24 04:19 Labs: Abnormal Lab Results - Last 24 Hours (Table) 08/15/24 08/16/24 08/17/24 Range/Units 07:29 11:58 04:19 WBC 15.1 H (3.8-10.6) k/uL RBC 2.57 L (3.80-5.40) m/uL Hgb 7.5 L (11.4-16.0) gm/dL Hct 22.7 L (34.0-46.0) % RDW 16.3 H (11.5-15.5) % Neutrophils # 12.8 H (1.3-7.7) k/uL Lymphocytes # 0.6 L (1.0-4.8) k/uL ABG pH (7.35-7.45) ABG pO2 (83-108) mmHg ABG HCO3 (21-25) mmol/L ABG Total CO2 (19-24) mmol/L Hemoglobin (11.4-16.0) gm/dL Sodium (137-145) mmol/L Chloride (98-107) mmol/L BUN (7-17) mg/dL Creatinine (0.52-1.04) mg/dL POC Glucose (mg/dL) 111 H (70-110) mg/dL Crossmatch See Detail 08/17/24 08/17/24 Range/Units 04:19 06:15 WBC (3.8-10.6) k/uL RBC (3.80-5.40) m/uL Hgb (11.4-16.0) gm/dL Hct (34.0-46.0) % RDW (11.5-15.5) % Neutrophils # (1.3-7.7) k/uL Lymphocytes # (1.0-4.8) k/uL ABG pH 7.50 H (7.35-7.45) ABG pO2 81 L (83-108) mmHg ABG HCO3 30 H (21-25) mmol/L ABG Total CO2 31 H (19-24) mmol/L Hemoglobin 7.3 L (11.4-16.0) gm/dL Sodium 133 L (137-145) mmol/L Chloride 94 L (98-107) mmol/L BUN 22 H (7-17) mg/dL Creatinine 3.27 H (0.52-1.04) mg/dL POC Glucose (mg/dL) (70-110) mg/dL Crossmatch Microbiology - Last 24 Hours (Table) 08/14/24 11:00 Blood Culture - Preliminary Blood 08/14/24 12:18 Gram Stain - Final Sputum Sputum Culture - Final Assessment and Plan Assessment: 1. End-stage renal disease maintained on hemodialysis on Sunday schedule. 2. Cardiac arrest, PEA 3. Acute hypoxic respiratory failure. Intubated. 4. Hyperkalemia secondary to chronic kidney disease and post CPR. Improved postdialysis. 5. Pneumonia maintained on antibiotics. 6. Chronic kidney disease mineral bone disease. Phosphorus level 6.6 dated August 16, 2024. 7. Anemia of chronic kidney disease. Concern for acute blood loss. Hemoglobin 6.0 today. 8. History of seizures with seizure activity noted. Being followed by neurology. Adriane started along with Sandee Plan: Maintain hemodialysis on Sunday schedule. Antiseizure medications as per neurology Continue with PhosLo with tube feeds
--- NOTE | 2024-08-17 10:35 | P.PN ---
Subjective Progress Note Date: 08/17/24 This is a 33-year-old female who was seen in the emergency department, ER trauma 1. The patient was actually in the emergency department, yesterday, discharged from the ER, and came back in via EMS, and cardiopulmonary arrest. The patient was intubated in the emergency department. The patient is seen in the ER. The patient has a history of end-stage renal disease, currently on hemodialysis. I did speak to Dr. Root, who believes the patient did aspirate. She was having significant emesis. Other history includes hypertension, seizure disorder, uterine fibroids, and previous back surgery. The patient is currently on volume assist-control, rate 22, tidal volume 450, 100%, PEEP of 8. Blood gases on PEEP of 5 show pO2 of 64, pCO2 of 48, and a pH of 7.39. The patient is on propofol at 45 mcg/kg/min. The patient is also on Zosyn and Flagyl. Current labs include a white count 19.3, hemoglobin 7.7, hematocrit 24.5, and a normal platelet count. Sodium 136, potassium 6.8, chlorides 94, CO2 25, BUN 39, creatinine 6.59. Glucose is 201. Lactic acid 12.8. Troponin was 0.037. CT scan of the chest and abdomen shows diffuse bilateral airspace disease, cardiomegaly, and anasarca in the soft tissues. Chest x-ray confirms bilateral airspace disease, possibly related to fluid overload, or aspiration. The patient is seen today August 15, 2024 in follow-up in the intensive care unit. She remains intubated on the mechanical ventilator currently and assist- control mode at a rate of 22, tidal volume 450, FiO2 50% and a PEEP of 12. Morning blood gases revealed a PaO2 of 100, pCO2 38, pH 7.54. She is currently on Nimbex at 3 mcg/kg/min. Cleviprex at 2 mg/h. Propofol at 45 mcg/kg/min. Her procalcitonin was 23.5. She is currently on Zosyn and azithromycin. White count 12.9. Hemoglobin 6.0. Platelets 240. Sodium 132. Potassium 4.2. Bicarb 30. BUN 21. Creatinine 3.27. Chest x-ray reveals similar multifocal airspace opacities. Sputum culture pending. Alysis is a Sunday schedule. The patient is seen today August 16, 2024 in follow-up in the intensive care unit. She remains intubated on the mechanical ventilator. Currently on assist- control mode at a rate of 22, tidal volume 450, FiO2 40% and a PEEP of 12. PaO2 138, pCO2 36, pH 7.51 on 50% FiO2. She remains on propofol at 30 mcg/kg/min. Normal saline at KVO. She is being nourished with Nepro at 30 mL/h which is goal. She is on antibiotics in the form of Zosyn. Procalcitonin was 23.5. White count 15.5. Hemoglobin 6.6. Platelets 255. Sodium 132. Potassium 4.3. Bicarb 28. BUN 33. Creatinine 4.83. Glucose 102. She is receiving hemodialysis today. Another unit of packed red blood cells will be given. The patient is seen today August 17, 2024 in follow-up in the intensive care unit. She remains intubated on the mechanical ventilator. Currently on assist- control mode at a rate of 22, tidal volume 375, FiO2 40% and a PEEP of 8. Morning blood gases revealed a PaO2 of 81, pCO2 38 and a pH of 7.50. She remains sedated on propofol at 30 mcg/kg/min. She has normal saline at 30 mL/h. She is being nourished with Nepro at 30 mL/h which is goal. CT scan of the he ad revealed no acute intracranial process. She did receive a second unit of blood yesterday. Sputum culture revealed no growth. Blood culture revealed no growth. White count 15.1. Hemoglobin 7.5. Platelets 288. Sodium 133. Potassium 3.7. Bicarb 29. BUN 22. Creatinine 3.27. Glucose 90. She remains on DuoNeb and elations every 4 hours. Antibiotics in the form of Zosyn. Heparin for DVT prophylaxis. No seizure activity. Objective - Vital Signs Vital signs: Vital Signs Temp 99.7 F H 08/17/24 08:00 Pulse 89 08/17/24 10:00 Resp 25 H 08/17/24 10:00 BP 127/70 08/17/24 10:00 Pulse Ox 96 08/17/24 10:00 FiO2 40 08/17/24 08:00 Intake & Output 08/16/24 08/17/2424 18:59 06:59 18:59 Intake Total 2522.749 0110.217 679.155 Output Total 0 4400 Balance 1425.563 -2349.783 679.155 Weight 71.1 kg 67.7 kg Intake: IV 316 376 172 0.9% NS Arterial Line 36 36 12 0.9% NS KVO 180 240 60 Piperacillin-Tazobactam 3 100 100 100 .375 gm In Sodium Chloride 0.9% 100 ml @ 25 mls/hr IVPB Q12HR [facility] Rx #:[id number] Intake, IV Titration 229.563 224.217 257.155 Amount Valproate Sodium 500 mg 100 In Sodium Chloride 0.9% 100 ml @ 100 mls/hr IVPB ONCE STA Rx#:[id number] Valproate Sodium 500 mg 100 100 100 In Sodium Chloride 0.9% 100 ml @ 100 mls/hr IVPB Q12HR [facility] Rx#:[id number] propofoL 1,000 mg In 129.563 124.217 57.155 Empty Bag 1 bag @ 15 MCG/ KG/MIN 5.715 mls/hr IV . [id number] [facility] Rx#:[id number] Tube Feeding 360 360 120 Blood Product 310 Rc As-1 Unit 310 [id number] Hemodialysis 1000 Other 210 90 130 Output: Urine 0 Hemodialysis 2700 Hemodialysis Net Amount 1700 Other: Voiding Method Indwelling Catheter # Bowel Movements 1 ABP, PAP, CO, CI - Last Documented Arterial Blood Pressure 121/61 - Exam GENERAL EXAM: Intubated, sedated 33-year-old female, on the ventilator. HEAD: Normocephalic. EYES: Normal reaction of pupils, equal size. NOSE: Clear with pink turbinates. THROAT: Oral endogastric and endotracheal tube secured in place, no erythema or exudates. NECK: No masses, no JVD. CHEST: No chest wall deformity. LUNGS: Equal air entry with no crackles, wheeze, rhonchi or dullness. CVS: S1 and S2 normal with no audible murmur, regular rhythm. ABDOMEN: No hepatosplenomegaly, normal bowel sounds, no guarding or rigidity. SPINE: No scoliosis or deformity SKIN: No rashes CENTRAL NERVOUS SYSTEM: Sedated, tone is normal in all 4 extremities. EXTREMITIES: There is no peripheral edema. No clubbing, no cyanosis. Peripheral pulses are intact. - Labs CBC & Chem 7: 08/17/24 04:19 08/17/24 04:19 Labs: Abnormal Lab Results - Last 24 Hours (Table) 08/15/24 08/16/24 08/17/24 Range/Units 07:29 11:58 04:19 WBC 15.1 H (3.8-10.6) k/uL RBC 2.57 L (3.80-5.40) m/uL Hgb 7.5 L (11.4-16.0) gm/dL Hct 22.7 L (34.0-46.0) % RDW 16.3 H (11.5-15.5) % Neutrophils # 12.8 H (1.3-7.7) k/uL Lymphocytes # 0.6 L (1.0-4.8) k/uL ABG pH (7.35-7.45) ABG pO2 (83-108) mmHg ABG HCO3 (21-25) mmol/L ABG Total CO2 (19-24) mmol/L Hemoglobin (11.4-16.0) gm/dL Sodium (137-145) mmol/L Chloride (98-107) mmol/L BUN (7-17) mg/dL Creatinine (0.52-1.04) mg/dL POC Glucose (mg/dL) 111 H (70-110) mg/dL Crossmatch See Detail 08/17/24 08/17/24 Range/Units 04:19 06:15 WBC (3.8-10.6) k/uL RBC (3.80-5.40) m/uL Hgb (11.4-16.0) gm/dL Hct (34.0-46.0) % RDW (11.5-15.5) % Neutrophils # (1.3-7.7) k/uL Lymphocytes # (1.0-4.8) k/uL ABG pH 7.50 H (7.35-7.45) ABG pO2 81 L (83-108) mmHg ABG HCO3 30 H (21-25) mmol/L ABG Total CO2 31 H (19-24) mmol/L Hemoglobin 7.3 L (11.4-16.0) gm/dL Sodium 133 L (137-145) mmol/L Chloride 94 L (98-107) mmol/L BUN 22 H (7-17) mg/dL Creatinine 3.27 H (0.52-1.04) mg/dL POC Glucose (mg/dL) (70-110) mg/dL Crossmatch Microbiology - Last 24 Hours (Table) 08/14/24 11:00 Blood Culture - Preliminary Blood 08/14/24 12:18 Gram Stain - Final Sputum Sputum Culture - Final Assessment and Plan Assessment: Acute hypoxemic respiratory failure with cardiopulmonary arrest, requiring cardiopulmonary resuscitation, intubation, and mechanical ventilation, beginning August 14, 2024 History of end-stage renal disease, currently on Sunday and Sunday hemodialysis Anion gap metabolic acidosis, secondary to renal failure, and lactic acidemia History of chronic kidney disease Acute on chronic anemia, status post 2 units of packed red blood cells Acute paranasal sinus infection per CT scan History of hypertension History of seizure disorder History of uterine fibroids Lifelong non-smoker Plan: The patient was seen and evaluated Chest x-ray, ABGs, labs and medications reviewed CT scan of the brain reviewed Daily interruption of sedation Continue Nepro tube feedings Continue dialysis on Sunday schedule Continue Zosyn, procalcitonin 23.5 We will continue to follow I have personally seen and examined the patient, performed the documentation and the assessment and plan as written. Number of minutes spent on the visit: 15 Dictation was produced using [employer] dictation software. Please excuse any grammatical, word or spelling errors.
[2024-08-17 11:27] LABS: Glucose,Whole Blood 97 mg/dL (70-110)
--- NOTE | 2024-08-17 11:50 | P.PN ---
Subjective Progress Note Date: 08/17/24 I am following up with the patient and she continues to be intubated on IV propofol mcg/kg/min. According to the nurse her body jerks today is a bit less compared to yesterday. Pending EEG. Objective - Vital Signs Vital signs: Vital Signs Temp 99.7 F H 08/17/24 08:00 Pulse 86 08/17/24 11:25 Resp 24 08/17/24 11:00 BP 125/69 08/17/24 11:00 Pulse Ox 97 08/17/24 11:00 FiO2 40 08/17/24 11:25 Intake & Output 08/16/24 08/17/24 08/17/24 18:59 06:59 18:59 Intake Total 0050.404 0040.217 756.129 Output Total 0 4400 Balance 1425.563 -2349.783 756.129 Weight 71.1 kg 67.7 kg Intake: IV 316 376 185 0.9% NS Arterial Line 36 36 15 0.9% NS KVO 180 240 70 Piperacillin-Tazobactam 3 100 100 100 .375 gm In Sodium Chloride 0.9% 100 ml @ 25 mls/hr IVPB Q12HR [facility] Rx #:[id number] Intake, IV Titration 229.563 224.217 291.129 Amount Valproate Sodium 500 mg 100 In Sodium Chloride 0.9% 100 ml @ 100 mls/hr IVPB ONCE STA Rx#:[id number] Valproate Sodium 500 mg 100 100 100 In Sodium Chloride 0.9% 100 ml @ 100 mls/hr IVPB Q12HR [facility] Rx#:[id number] propofoL 1,000 mg In 129.563 124.217 91.129 Empty Bag 1 bag @ 15 MCG/ KG/MIN 5.715 mls/hr IV . [id number] [facility] Rx#:[id number] Tube Feeding 360 360 150 Blood Product 310 Rc As-1 Unit 310 [id number] Hemodialysis 1000 Other 210 90 130 Output: Urine 0 Hemodialysis 2700 Hemodialysis Net Amount 1700 Other: Voiding Method Indwelling Catheter # Bowel Movements 1 ABP, PAP, CO, CI - Last Documented Arterial Blood Pressure 123/61 - Exam General: Lying in bed and does not appear in acute distress. Lung: Intubated on a ventilator. Neuro: Limited. Is on IV Propofol 30mcg/kg/min. Comatose. I had to manually open the eyes and the primary gaze is midline. The pupils are round 4 mm bilaterally and reactive to light. Has corneal reflex to cotton swap bilaterally. No apparent facial weakness. Is breathing over the vent. Has intact gag reflex. Motor: Strength is very limited. Did not appreciate body jerks. Sensation: With painful stimuli is withdrawalin extremities. Reflex: 2+ in uppers while patellar are 3+. Ankle are 2+. Plantars are upgoing bilaterally. Some of the workup during this hospital visit consisted of: Hemoglobin was as low as 6.0 during this admission. Sodium is 132, glucose most recent is 110s to 120 Calcium is 8.9 Phosphorus is 6.6 Magnesium is within normal limits. CT of the head is reported as no acute bleed or mass effect. Acute pansinusitis. I personally reviewed the CT and agree there is no acute intracranial process. repeat CT head: No acute intracranial hemorrhage, midline shift or cerebral mass effect. Severe paranasal sinus disease with air fluid level suggestive of acute etiology as described above. - Labs CBC & Chem 7: 08/17/24 04:19 08/17/24 04:19 Labs: Abnormal Lab Results - Last 24 Hours (Table) 08/15/24 08/16/24 08/17/24 Range/Units 07:29 11:58 04:19 WBC 15.1 H (3.8-10.6) k/uL RBC 2.57 L (3.80-5.40) m/uL Hgb 7.5 L (11.4-16.0) gm/dL Hct 22.7 L (34.0-46.0) % RDW 16.3 H (11.5-15.5) % Neutrophils # 12.8 H (1.3-7.7) k/uL Lymphocytes # 0.6 L (1.0-4.8) k/uL ABG pH (7.35-7.45) ABG pO2 (83-108) mmHg ABG HCO3 (21-25) mmol/L ABG Total CO2 (19-24) mmol/L Hemoglobin (11.4-16.0) gm/dL Sodium (137-145) mmol/L Chloride (98-107) mmol/L BUN (7-17) mg/dL Creatinine (0.52-1.04) mg/dL POC Glucose (mg/dL) 111 H (70-110) mg/dL Crossmatch See Detail 08/17/24 08/17/24 Range/Units 04:19 06:15 WBC (3.8-10.6) k/uL RBC (3.80-5.40) m/uL Hgb (11.4-16.0) gm/dL Hct (34.0-46.0) % RDW (11.5-15.5) % Neutrophils # (1.3-7.7) k/uL Lymphocytes # (1.0-4.8) k/uL ABG pH 7.50 H (7.35-7.45) ABG pO2 81 L (83-108) mmHg ABG HCO3 30 H (21-25) mmol/L ABG Total CO2 31 H (19-24) mmol/L Hemoglobin 7.3 L (11.4-16.0) gm/dL Sodium 133 L (137-145) mmol/L Chloride 94 L (98-107) mmol/L BUN 22 H (7-17) mg/dL Creatinine 3.27 H (0.52-1.04) mg/dL POC Glucose (mg/dL) (70-110) mg/dL Crossmatch Microbiology - Last 24 Hours (Table) 08/14/24 11:00 Blood Culture - Preliminary Blood 08/14/24 12:18 Gram Stain - Final Sputum Sputum Culture - Final Assessment and Plan Assessment: Is a 33-year-old woman who having difficulty breathing when EMS arrived and the heart was in the 200 and en route to the hospital patient had cardiopulmonary arrest possibly for about 10 minutes but not conclusive and had emesis. And while in the emergency department it seems that she had another cardiopulmonary arrest but and it was felt possibly again for another 10 minutes. Having body jerks. Next Cardiopulmonary arrest for possibly a total of 20 minutes (10 minutes outside the hospital and 10 minutes in our facility but is not conclusive the total downtown) Myoclonic jerks possibly due to hypoxia due to above. Also possible due to metabolic derangement. Altered mental status due to anoxic encephalopathy due to above as well as metabolic encephalopathy. patient had two CT head and is unremarkable for acute process. Respiratory distress and the patient is intubated on ventilator. Hypertensive emergency Tachycardia History of underlying reported seizure but patient is not on any antiseizure medication History of end-stage renal disease on dialysis Plan: Patient during this hospital visit is on Keppra 500mg bid and Depakote 500mg bid empircally for her myoclonic jerks. EEG to be completed today. Seizure precautions or pads. Will defer the rest of the medical management to primary and other specialist ADDENDUM: Patient had an EEG which shows myoclonic status so therefore patient was given Ativan 4 mg and it resolved and I also went up on her propofol to initially 60 mcg/kg/min but went down to 50mcg since later showed severe diffuse suppression. I went up on her Depakote from 500mg bid to 100mg bid. I spoke with the primary attending (Dr. Bernardo) and we agreed because there is improvement in her EEG we will repeat an EEG tomorrow and if it continues to show discharges or seizures then recommend patient to be transferred to a tertiary center for prolonged EEG. Her body jerks has improved. If she continues to have further body jerks then recommend to start IV Versed drip and titrate up until jerks improves and have patient transferred immediately for prolonged EEG. The plan is discussed with primary team and ICU nurse. I attempted to call the twice and updated him but go busy message or the line would disconnect. Spend a total of [address] Dawkins will resume neurology service tomorrow A.M. Time with Patient: Greater than 30
[2024-08-17 13:03] VITALS: TEMP 99.3
[2024-08-17 14:26] VITALS: BP 127/75
--- NOTE | 2024-08-17 14:35 | P.PN ---
Subjective Progress Note Date: 08/17/24 Subjective: Patient remains intubated and sedated Pertinent positives and negatives as discussed above, a complete review of systems was performed and all other systems are negative. Vitals Signs Reviewed. General: Sedated, intubated and on mechanical ventilator Derm: no unusual rashes/lesions, warm, peritoneal dialysis port on abdomen covered with dressing that is dry and clean, no erythema or discharge in the surrounding skin Head: atraumatic, normocephalic, symmetric Eyes: anicteric sclera, pupils constricted and nonreactive to light ENT: Nose and ears atraumatic Neck: No cervical lymphadenopathy, trachea midline, supple Mouth: no lip lesion, mucus membranes moist Cardiovascular: S1S2 reg, no murmur Lungs: Bibasilar rhonchi, no accessory muscle use, mechanically ventilated Abdominal: soft, nondistended, nontender to palpation, no guarding Ext: No gross muscle atrophy, no contractures, positive dorsalis pedis pulse bilateral, bilateral lower extremity +1 pitting edema Neuro: Sedated Psych: Unable to assess Data Reviewed Today: Pertinent Labs: WBC 15.1, hemoglobin 7.5, pH 7.5, pCO2 38, sodium 133, creatinine 3.27, blood sugars range between 90-1 07 Imaging: Chest x-ray independently interpreted, shows interstitial opacities improving Assessment and Plan: Active: #. Cardiopulmonary arrest #. ARDS, moderate severity #. Acute hypoxic respiratory failure requiring intubation and mechanical ventilation #. Sepsis due to multifocal pneumonia and possible aspiration pneumonia -Continue Zosyn 3.375 g IV every 12 hours -ICU following, managing with -On DuoNebs every 4 hours and every 2 hours as needed #. ESRD on hemodialysis #. Anion gap metabolic acidosis due to lactic acidosis, resolved #. Hypertensive emergency, resolved #. Hypervolemia #. Hyperkalemia, resolved -Nephrology following, on hemodialysis -Continued on carvedilol 25 twice daily, nifedipine 20 3 times daily Status epilepticus versus myoclonic jerks -Had extensive discussion with neurology, patient would benefit from long-term EEG monitoring -IV Depakote increased to thousand twice daily, propofol increased to 50 mcg, Keppra continued at 500 every 12 hours, was also given 4 mg IV Ativan #. Type II NSTEMI -Troponin flat -Continue telemetry monitoring Patient accepted at [facility] by Dr. Maria. Will be transferred today. Objective - Vital Signs Vital signs: Vital Signs Temp 99.3 F 08/17/24 12:00 Pulse 85 08/17/24 14:00 Resp 24 08/17/24 14:00 BP 127/75 08/17/24 14:00 Pulse Ox 98 08/17/24 14:00 FiO2 40 08/17/24 12:00 Intake & Output 08/16/24 08/17/24 08/17/24 18:59 06:59 18:59 Intake Total 7129.133 6379.217 955.129 Output Total 0 4400 0 Balance 1425.563 -2349.783 955.129 Weight 71.1 kg 67.7 kg Intake: IV 316 376 234 0.9% NS Arterial Line 36 36 24 0.9% NS KVO 180 240 110 Piperacillin-Tazobactam 3 100 100 100 .375 gm In Sodium Chloride 0.9% 100 ml @ 25 mls/hr IVPB Q12HR [facility] Rx #:[id number] Intake, IV Titration 229.563 224.217 291.129 Amount Valproate Sodium 500 mg 100 In Sodium Chloride 0.9% 100 ml @ 100 mls/hr IVPB ONCE STA Rx#:[id number] Valproate Sodium 500 mg 100 100 100 In Sodium Chloride 0.9% 100 ml @ 100 mls/hr IVPB Q12HR [facility] Rx#:[id number] propofoL 1,000 mg In 129.563 124.217 91.129 Empty Bag 1 bag @ 15 MCG/ KG/MIN 5.715 mls/hr IV . [id number] [facility] Rx#:[id number] Tube Feeding 360 360 240 Blood Product 310 Rc As-1 Unit 310 [id number] Hemodialysis 1000 Other 210 90 190 Output: Urine 0 0 Hemodialysis 2700 Hemodialysis Net Amount 1700 Other: Voiding Method Indwelling Catheter # Bowel Movements 1 ABP, PAP, CO, CI - Last Documented Arterial Blood Pressure 139/74 - Labs CBC & Chem 7: 08/17/24 04:19 08/17/24 04:19 Labs: Abnormal Lab Results - Last 24 Hours (Table) 08/17/24 08/17/24 08/17/24 Range/Units 04:19 04:19 06:15 WBC 15.1 H (3.8-10.6) k/uL RBC 2.57 L (3.80-5.40) m/uL Hgb 7.5 L (11.4-16.0) gm/dL Hct 22.7 L (34.0-46.0) % RDW 16.3 H (11.5-15.5) % Neutrophils # 12.8 H (1.3-7.7) k/uL Lymphocytes # 0.6 L (1.0-4.8) k/uL ABG pH 7.50 H (7.35-7.45) ABG pO2 81 L (83-108) mmHg ABG HCO3 30 H (21-25) mmol/L ABG Total CO2 31 H (19-24) mmol/L Hemoglobin 7.3 L (11.4-16.0) gm/dL Sodium 133 L (137-145) mmol/L Chloride 94 L (98-107) mmol/L BUN 22 H (7-17) mg/dL Creatinine 3.27 H (0.52-1.04) mg/dL Microbiology - Last 24 Hours (Table) 08/14/24 11:00 Blood Culture - Preliminary Blood
[2024-08-17 14:59] VITALS: PULSE 80; RESP 22
--- NOTE | 2024-08-17 16:19 | P.DS ---
Providers Date of admission: 08/14/24 12:55 Expected date of discharge: 08/17/24 Attending physician: Grabiel Bernardo Consults: 08/14/24 10:49 Consult Physician Routine Consulting Provider: Armando Gonzalez Consult Reason/Comments: Dialysis Do you want consulting provider notified?: Already Contacted 08/14/24 12:53 Consult Physician Stat Consulting Provider: Roland Kelsey Consult Reason/Comments: Critical care management Do you want consulting provider notified?: Yes 08/16/24 10:10 Consult Physician Routine Consulting Provider: Baldemar Kelsey Consult Reason/Comments: seizure like activity Do you want consulting provider notified?: Yes Primary care physician: Angela Torres MD Hospital Course: Patient transferred to [facility]. Reviewed today's progress note for further details. Patient Condition at Discharge: Critical Plan - Discharge Summary New Discharge Prescriptions: No Action carvediloL 25 mg PO BID Sevelamer Carbonate 3,200 mg PO TID-W/MEALS Famotidine [Pepcid] 20 mg PO DAILY Simethicone [Simethicone Chew] 80 mg PO QID PRN PRN Reason: Indigestion Fluticasone Nasal Cameron [Flonase Nasal Cameron] 2 spr EA NOSTRIL BID PRN PRN Reason: Allergy Symptoms Clobetasol Propionate [Clobex 0.05% Soln] 1 applic TOPICAL DAILY PRN PRN Reason: scalp Calcium Acetate [PhosLo] 1,334 mg PO TID-W/MEALS Iron Ps Complex/B12/Folic Acid [Myferon-150 Forte Capsule] 1 cap PO DAILY PARoxetine [Paxil] 10 mg PO DAILY traZODone HCL [Desyrel] 50 mg PO HS rOPINIRole HCL 0.5 mg PO BID Furosemide [Lasix] 80 mg PO BID Cinacalcet HCl [Sensipar] 60 mg PO Q2D calcitrioL 0.25 mcg PO TID Triamcinolone 0.1% Cream [Kenalog 0.1% Cream] 1 applic TOPICAL BID PRN PRN Reason: Skin Irritation Ondansetron Odt [Zofran ODT] 4 mg PO Q6H PRN PRN Reason: Nausea And Vomiting NIFEdipine [Adalat CC] 30 mg PO BID Docusate [Colace] 100 mg PO BID #20 capsule oxyCODONE HCL [OxyIR] 5 mg PO Q6H PRN 3 Days #10 tab PRN Reason: Pain Acetaminophen Tab [Tylenol] 650 mg PO Q6H #30 tab Discharge Medication List PARoxetine [Paxil] 10 mg PO DAILY 01/29/24 [History] Sevelamer Carbonate 3,200 mg PO TID-W/MEALS 01/29/24 [History] carvediloL 25 mg PO BID 01/29/24 [History] rOPINIRole HCL 0.5 mg PO BID 01/29/24 [History] traZODone HCL [Desyrel] 50 mg PO HS 01/29/24 [History] Cinacalcet HCl [Sensipar] 60 mg PO Q2D 04/18/24 [History] Furosemide [Lasix] 80 mg PO BID 04/18/24 [History] calcitrioL 0.25 mcg PO TID 04/18/24 [History] Famotidine [Pepcid] 20 mg PO DAILY 05/23/24 [History] Clobetasol Propionate [Clobex 0.05% Soln] 1 applic TOPICAL DAILY PRN 08/01/24 [History] Fluticasone Nasal Cameron [Flonase Nasal Cameron] 2 spr EA NOSTRIL BID PRN 08/01/24 [History] NIFEdipine [Adalat CC] 30 mg PO BID 08/01/24 [History] Ondansetron Odt [Zofran ODT] 4 mg PO Q6H PRN 08/01/24 [History] Simethicone [Simethicone Chew] 80 mg PO QID PRN 08/01/24 [History] Triamcinolone 0.1% Cream [Kenalog 0.1% Cream] 1 applic TOPICAL BID PRN 08/01/24 [History] Calcium Acetate [PhosLo] 1,334 mg PO TID-W/MEALS 08/04/24 [History] Acetaminophen Tab [Tylenol] 650 mg PO Q6H #30 tab 08/06/24 [Rx] Docusate [Colace] 100 mg PO BID #20 capsule 08/06/24 [Rx] oxyCODONE HCL [OxyIR] 5 mg PO Q6H PRN 3 Days #10 tab 08/06/24 [Rx] Iron Ps Complex/B12/Folic Acid [Myferon-150 Forte Capsule] 1 cap PO DAILY 08/14/24 [History] Follow up Appointment(s)/Referral(s): Angela Torres MD [Primary Care Provider] - 1-2 days Patient Instructions/Handouts: Seizure/Epilepsy Discharge Instructions & Follow-Up Discharge Disposition: DISCH/TRANS TO A [facility] [place]
[2024-08-17] MEDS ORDERED: VALPROATE SODIUM 1,000 MG in SODIUM CHLORIDE 0.9% 100 ML IVPB SCH (21:00)
--- NOTE | 2024-08-17 22:56 | EEG ---
ELECTROENCEPHALOGRAM REPORT CLINICAL HISTORY: This is a 33-year-old young woman, who had a cardiopulmonary arrest and is having myoclonic jerk. The video EEG is obtained to evaluate for seizure epileptiform activity. RELEVANT MEDICATION: Keppra, Depakote, and IV propofol. DATE/TIME: 08/17/2024. Start at 9:27am and end 10:28am. EEG TYPE: This is a routine 21-channel EEG is performed with video using 10/20 electrode placement system. DESCRIPTION: The patient is intubated on the ventilator. During the initial part of the study, the background consists of [id number] voltage of 6 hertz activity and after 4 mg of Ativan, the background got better and became 8 to 9 hertz activity. There is no focal slowing. There is diffuse suppression towards end of the study. Interictal and ictal during the beginning of the study, there is frequent diffuse sharp and slow waves 1 to 2 hertz that seems consistent with myoclonic status and resolved after 4 mg of Ativan after 18 minutes of this study. Clinically, the patient had left shoulder jerk and upper body jerks. Again it resolved after the patient was given Ativan. ACTIVATION PROCEDURE: Photic stimulation and hyperventilation is not performed. CLINICAL INTERPRETATION: This is an abnormal one hour EEG with video. The patient is in myoclonic status during the beginning of the study that resolved after 4 mg of Ativan. The background during the beginning of this study was moderate encephalopathy, but towards the end of the study, was mild encephalopathy. Diffuse suppression towards the end of the study likely due to medication effect (benzodiazepine and IV propofol). Otherwise, no focal slowing. Clinical correlation is recommended. MMODL / IJN: [id number] / MTDD
== END 2024-08-17 14:55 | disposition short-term general hospital (02) | DRG 871 ==
LOC: EC 09:47 → 2SICU 12:55
PROVIDERS: ADMIT Student in an Organized Health Care Education/Training Program; ATTEND Student in an Organized Health Care Education/Training Program
PROC: 5A1945Z Respiratory Ventilation, 24-96 Consecutive Hours (ICD-10-PCS; principal; 2024-08-14)
PROC: 03HY32Z Insertion of Monitoring Device into Upper Artery, Percutaneous Approach (ICD-10-PCS; 2024-08-14)
PROC: 0BH17EZ Insertion of Endotracheal Airway into Trachea, Via Natural or Artificial Opening (ICD-10-PCS; 2024-08-14)
PROC: 4A133B1 Monitoring of Arterial Pressure, Peripheral, Percutaneous Approach (ICD-10-PCS; 2024-08-14)
PROC: 4A133J1 Monitoring of Arterial Pulse, Peripheral, Percutaneous Approach (ICD-10-PCS; 2024-08-14)
PROC: 5A1D70Z Performance of Urinary Filtration, Intermittent, Less than 6 Hours Per Day (ICD-10-PCS; 2024-08-14)
PROC: 30233N1 Transfusion of Nonautologous Red Blood Cells into Peripheral Vein, Percutaneous Approach (ICD-10-PCS; 2024-08-15)
PROC: 4A10X4Z Monitoring of Central Nervous Electrical Activity, External Approach (ICD-10-PCS; 2024-08-17)
DX: A41.9 Sepsis, unspecified organism (principal); G93.41 Metabolic encephalopathy; I46.9 Cardiac arrest, cause unspecified; J96.01 Acute respiratory failure with hypoxia; J69.0 Pneumonitis due to inhalation of food and vomit; I21.A1 Myocardial infarction type 2; N18.6 End stage renal disease; E87.20 Acidosis, unspecified; G93.1 Anoxic brain damage, not elsewhere classified; I12.0 Hypertensive chronic kidney disease with stage 5 chronic kidney disease or end stage renal disease; I16.1 Hypertensive emergency; I47.10 Supraventricular tachycardia, unspecified; K94.23 Gastrostomy malfunction; E87.5 Hyperkalemia; D50.9 Iron deficiency anemia, unspecified; D63.1 Anemia in chronic kidney disease; E87.70 Fluid overload, unspecified; F32.A Depression, unspecified; F41.9 Anxiety disorder, unspecified; I08.1 Rheumatic disorders of both mitral and tricuspid valves; G40.909 Epilepsy, unspecified, not intractable, without status epilepticus; I27.20 Pulmonary hypertension, unspecified; M89.8X9 Other specified disorders of bone, unspecified site; Z79.899 Other long term (current) drug therapy; Z80.49 Family history of malignant neoplasm of other genital organs; Z86.718 Personal history of other venous thrombosis and embolism; Z99.2 Dependence on renal dialysis; Z91.048 Other nonmedicinal substance allergy status; Z88.8 Allergy status to other drugs, medicaments and biological substances
CPT/HCPCS: 36415; 36600; 70450; 71045; 71275; 74175; 80048; 80053; 80179; 80320; 82728; 82805; 83540; 83550; 83605; 83735; 84100; 84145; 84484; 85025; 85610; 85730; 86850; 86900; 86901; 86920; 87040; 87070; 87205; 90935; 92950; 93005; 93308; 93970; 94002; 94003; 94640; 95813; 96365; 96366; 96368; 96375; 96376; 99291